=== PATIENT | female | born 1940 | race Caucasian/White ===

== ENCOUNTER 2017-02-28 17:20 | Inpatient (IN) | payer MEDICARE ==
[2017-02-28] MEDS ORDERED: CARDIZEM ONE (17:31)
[2017-02-28] MEDS ORDERED: CARDIZEM IV ONE (17:34)
[2017-02-28] MEDS ORDERED: CARDIZEM/D5W 100MG/100ML 100 MG/100 ML BAG IV ONE (17:34)
[2017-02-28] MEDS ORDERED: NACL 0.9% 1000 ML 1,000 ML ONE (17:34)
[2017-02-28] MEDS ORDERED: NACL 0.9% 500 ML 500 ML IV ONE (17:35)
[2017-02-28 17:57] LABS: Basophils % (Auto) 0.4 % (0.0-1.8); Hematocrit 42.2 % (30.3-42.9); Hemoglobin 14.4 gm/dl (10.1-14.3); Mean Corpuscular HGB Conc 34 % (30-34); Mean Corpuscular Hemoglobin 29 pg (28-32); Mean Corpuscular Volume 86 fl (79-97); Platelet Count 218 K/mm3 (140-440); Red Blood Count 4.88 M/mm3 (3.65-5.03); Red Cell Distribution Width 13.6 % (13.2-15.2)
[2017-02-28 18:08] LABS: INR 2.16 (0.87-1.13)
[2017-02-28 18:09] LABS: Partial Thromboplastin Time 39.7 Sec. (24.2-36.6)
[2017-02-28 18:16] LABS: Anion Gap 21 mmol/L; Blood Urea Nitrogen 18 mg/dL (7-17); Calcium 8.7 mg/dL (8.4-10.2); Carbon Dioxide 21 mmol/L (22-30); Creatine Kinase 99 units/L (30-135); Creatine Kinase MB 3.9 ng/mL (0.0-4.0); Glucose 147 mg/dL (65-100); Potassium 4.2 mmol/L (3.6-5.0); Sodium 139 mmol/L (137-145)
--- NOTE | 2017-02-28 18:43 | Emergency Department Report ---
ED Palpitations HPI - General Chief Complaint: Arrhythmia/Palpitations Stated Complaint: CHEST PAIN Time Seen by Provider: 02/28/17 17:34 Source: EMS, old records reviewed (2013 cardiac cath on record showed CAD, EF of 20%. Echocardiogram EF of 20-25% with dilated cardiomyopathy) Mode of arrival: Stretcher Limitations: No Limitations, Language Barrier - History of Present Illness Initial Comments: 76-year-old female with dilated cardiomopathy and atrial fibrillation history presents to the hospital with A. fib with RVR. Patient had chest pain at the scene as per EMS. Patient does not speak Arabic and medications at the scene were not brought to the ed. Son at the bedside after patient arrival states that he does complain of epigastric and chest discomfort 3 AM. Patient was found to be in A. fib with RVR upon EMS arrival. No meds provided in route. Patient is not any acute distress at this time. Patient has been evaluated by [facility] [employer] [facility] in the past - Related Data Previous Rx's Medication Instructions Recorded Last Taken Type Carvedilol [Coreg] 3.125 mg PO BID #60 tablet 09/01/13 Unknown Rx Diltiazem [Cardizem] 60 mg PO Q6HR #120 tablet 09/01/13 Unknown Rx Famotidine [Pepcid] 40 mg PO QHS #30 tablet 09/01/13 Unknown Rx Lisinopril [Zestril TAB] 2.5 mg PO QDAY #30 tablet 09/01/13 Unknown Rx Warfarin [Coumadin] 5 mg PO DAILY@1700 #30 tablet 09/01/13 Unknown Rx Allergies Allergy/AdvReac Type Severity Reaction Status Date / Time No Known Allergies Allergy Verified 08/25/13 02:11 ED Review of Systems ROS: Stated complaint: CHEST PAIN Other details as noted in HPI Comment: All other systems reviewed and negative (see hpi) ED Past Medical Hx - Past Medical History Previous Medical History?: Yes Hx Congestive Heart Failure: Yes Additional medical history: dilated cardiomyopathy. afib rvr - Surgical History Hx Appendectomy: Yes - Social History Smoking Status: Unknown if ever smoked - Medications Home Medications: Home Medications Medication Instructions Recorded Confirmed Last Taken Type Carvedilol [Coreg] 3.125 mg PO BID #60 tablet 09/01/13 Unknown Rx Diltiazem [Cardizem] 60 mg PO Q6HR #120 tablet 09/01/13 Unknown Rx Famotidine [Pepcid] 40 mg PO QHS #30 tablet 09/01/13 Unknown Rx Lisinopril [Zestril TAB] 2.5 mg PO QDAY #30 tablet 09/01/13 Unknown Rx Warfarin [Coumadin] 5 mg PO DAILY@1700 #30 tablet 09/01/13 Unknown Rx ED Physical Exam - General Limitations: No Limitations - Other Other exam information: General: No limitations, patient is alert in no acute distress Head exam: Atraumatic, normocephalic Eyes exam: Normal appearance ENT: Moist mucous membrane, normal oropharynx Neck exam: Normal inspection, full range of motion, no meningismus nontender Respiratory exam: Clear to auscultation bilateral, no wheezes, rales, crackles Cardiovascular: Tachycardic irregular rhythm sounds Abdomen: Soft, nondistended, and nontender, with normal bowel sounds, no rebound, or guarding Extremity: Full range of motion normal inspection no deformity Back: Normal Inspection, full range of motion, no tenderness Neurologic: Alert, oriented x3, cranial nerves intact, no motor or sensory deficit Psychiatric: normal affect, normal mood Skin: Warm, dry, intact ED Course Vital Signs 02/28/17 02/28/17 02/28/17 17:30 17:38 18:30 Temperature 98.1 F Pulse Rate 174 H 174 H 71 Respiratory 16 14 Rate Blood Pressure 113/65 113/65 Blood Pressure 91/63 [Left] O2 Sat by Pulse 100 100 Oximetry - Reevaluation(s) Reevaluation #1: 02/28/17 18:30 Patient received Cardizem 20 mg IV bolus with systolic pressure of 113. Systolic pressure did decrease to the 80s. Small IV fluid bolus initiated with improvement in systolic pressure. Heart rate remains in the 60s to 70s. Cardizem drip pending however, patient remains hypotensive. Appears to be asymptomatic at this time ED Medical Decision Making - Lab Data Result diagrams: 02/28/17 17:40 02/28/17 17:40 Lab Results 02/28/17 02/28/17 02/28/17 Range/Units 17:40 17:40 17:40 WBC 13.0 H (4.5-11.0) K/mm3 RBC 4.88 (3.65-5.03) M/mm3 Hgb 14.4 H (10.1-14.3) gm/dl Hct 42.2 (30.3-42.9) % MCV 86 (79-97) fl MCH 29 (28-32) pg MCHC 34 (30-34) % RDW 13.6 (13.2-15.2) % Plt Count 218 (140-440) K/mm3 Lymph % (Auto) 10.7 L (13.4-35.0) % Tompkins % (Auto) 2.2 (0.0-7.3) % Eos % (Auto) 0.0 (0.0-4.3) % Baso % (Auto) 0.4 (0.0-1.8) % Lymph # 1.4 (1.2-5.4) K/mm3 Tompkins # 0.3 (0.0-0.8) K/mm3 Eos # 0.0 (0.0-0.4) K/mm3 Baso # 0.1 (0.0-0.1) K/mm3 Seg Neutrophils % 86.7 H (40.0-70.0) % Seg Neutrophils # 11.2 H (1.8-7.7) K/mm3 PT (12.2-14.9) Sec. INR (0.87-1.13) APTT (24.2-36.6) Sec. Sodium 139 (137-145) mmol/L Potassium 4.2 (3.6-5.0) mmol/L Chloride 101.0 (98-107) mmol/L Carbon Dioxide 21 L (22-30) mmol/L Anion Gap 21 mmol/L BUN 18 H (7-17) mg/dL Creatinine 0.5 L (0.7-1.2) mg/dL Estimated GFR > 60 ml/min BUN/Creatinine Ratio 36.00 % Glucose 147 H (65-100) mg/dL Calcium 8.7 (8.4-10.2) mg/dL Magnesium 1.80 (1.7-2.3) mg/dL Total Creatine Kinase 99 (30-135) units/L CK-MB (CK-2) 3.9 (0.0-4.0) ng/mL CK-MB (CK-2) Rel Index 3.9 (0-4) Troponin T < 0.010 (0.00-0.029) ng/mL TSH 0.997 (0.270-4.200) mlU/mL Free T4 1.34 (0.76-1.46) ng/dL 02/28/17 Range/Units 17:40 WBC (4.5-11.0) K/mm3 RBC (3.65-5.03) M/mm3 Hgb (10.1-14.3) gm/dl Hct (30.3-42.9) % MCV (79-97) fl MCH (28-32) pg MCHC (30-34) % RDW (13.2-15.2) % Plt Count (140-440) K/mm3 Lymph % (Auto) (13.4-35.0) % Tompkins % (Auto) (0.0-7.3) % Eos % (Auto) (0.0-4.3) % Baso % (Auto) (0.0-1.8) % Lymph # (1.2-5.4) K/mm3 Tompkins # (0.0-0.8) K/mm3 Eos # (0.0-0.4) K/mm3 Baso # (0.0-0.1) K/mm3 Seg Neutrophils % (40.0-70.0) % Seg Neutrophils # (1.8-7.7) K/mm3 PT 25.1 H (12.2-14.9) Sec. INR 2.16 H (0.87-1.13) APTT 39.7 H (24.2-36.6) Sec. Sodium (137-145) mmol/L Potassium (3.6-5.0) mmol/L Chloride (98-107) mmol/L Carbon Dioxide (22-30) mmol/L Anion Gap mmol/L BUN (7-17) mg/dL Creatinine (0.7-1.2) mg/dL Estimated GFR ml/min BUN/Creatinine Ratio % Glucose (65-100) mg/dL Calcium (8.4-10.2) mg/dL Magnesium (1.7-2.3) mg/dL Total Creatine Kinase (30-135) units/L CK-MB (CK-2) (0.0-4.0) ng/mL CK-MB (CK-2) Rel Index (0-4) Troponin T (0.00-0.029) ng/mL TSH (0.270-4.200) mlU/mL Free T4 (0.76-1.46) ng/dL - EKG Data -: EKG Interpreted by Me (afib rate 162, no stemi, anteroseptal infarct) - EKG Data When compared to previous EKG there are: no significant change - Radiology Data Radiology results: image reviewed (chest x-ray: No acute findings) - Medical Decision Making At this time patient does not know her current medications are her diagnosis. Suspect the patient is on Coumadin given her elevated INR therapeutic range. As per medical record review A. fib appears to be chronic and was present during last ED visit in 2013. Patient has a nondilated cardiomyopathy with an EF of 20-25% therefore fluids administered cautiously. Cxr without edema currently Patient will be admitted to the hospital for further treatment of A. fib with RVR - Differential Diagnosis A. fib RVR, coagulopathy, PA, only slight adenopathy, thyroid disease Critical Care Time: No Critical care attestation.: If time is entered above; I have spent that time in minutes in the direct care of this critically ill patient, excluding procedure time. ED Disposition Clinical Impression: Atrial fibrillation with RVR, Dilated cardiomyopathy, CAD (coronary artery disease) Disposition: DC-09 OP ADMIT IP TO THIS HOSP Is pt being admited?: Yes Condition: Stable Time of Disposition: 18:53 (Dr gamez/hosp)
--- NOTE | 2017-02-28 18:46 | History and Physical Report ---
History of Present Illness Chief complaint: Mom has pain in her chest History of present illness: 76 YO Female with Atrial Fib/Flutter with RVR, CHF presents to ED for evaluation. Pt unable to provide history, but son at bedside during exam and interview and provides history. Pt son states that patient has experienced pain in her chest for the past 2 days with worsening symptoms since around 0300hrs. Pt son states that pain is 7/10, describes a substernal location, nonradiating, acknowledges palpitations, and shortness of breath. Pain is not worsened with exertion or relieved with rest. No roports of fever, chills, NVD, leg swelling, calf pain, prolonged travel/immobility, individual/family history of DVT/PE, productive cough, or recent ill contacts. Pt seen and evaluated in ED and found to have A Fib/Flutter with RVR. Past History Past Medical History: atrial fib, heart failure Past Surgical History: No surgical history (reviewed) Social history: single. denies: smoking, alcohol abuse, prescription drug abuse Family history: no significant family history (reviewed) Medications and Allergies Allergies Allergy/AdvReac Type Severity Reaction Status Date / Time No Known Allergies Allergy Verified 08/25/13 02:11 Home Medications Medication Instructions Recorded Confirmed Last Taken Type Carvedilol [Coreg] 3.125 mg PO BID #60 tablet 09/01/13 Unknown Rx Diltiazem [Cardizem] 60 mg PO Q6HR #120 tablet 09/01/13 Unknown Rx Famotidine [Pepcid] 40 mg PO QHS #30 tablet 09/01/13 Unknown Rx Lisinopril [Zestril TAB] 2.5 mg PO QDAY #30 tablet 09/01/13 Unknown Rx Warfarin [Coumadin] 5 mg PO DAILY@1700 #30 tablet 09/01/13 Unknown Rx Active Meds: Active Medications Diltiazem HCl (Cardizem/D5w 100mg/100ml) 100 mg in 100 mls @ 5 mls/hr IV TITR ONE; 5 MG/HR PRN Reason: Protocol Stop: 03/01/17 13:33 Review of Systems ROS unobtainable: due to mental status Exam - Constitutional Vitals: Temp Pulse Resp BP Pulse Ox 98.1 F 71 14 91/63 100 02/28/17 18:30 02/28/17 18:30 02/28/17 18:30 02/28/17 18:30 02/28/17 18:30 General appearance: Present: mild distress - EENT Eyes: Present: PERRL ENT: hearing intact, clear oral mucosa - Neck Neck: Present: supple, normal ROM - Respiratory Respiratory effort: labored Respiratory: bilateral: diminished - Cardiovascular Rhythm: irregularly irregular - Extremities Extremities: pulses symmetrical, No edema Extremity abnormal: edema Peripheral Pulses: abnormal (irregular, irregular) - Abdominal General gastrointestinal: Present: soft, non-tender, non-distended, normal bowel sounds Female genitourinary: Present: normal - Integumentary Integumentary: Present: clear, warm, dry - Musculoskeletal Musculoskeletal: gait normal, strength equal bilaterally - Psychiatric Psychiatric: no cooperative - Neurologic Neurologic: CNII-XII intact, moves all extremities Results - Labs CBC & Chem 7: 02/28/17 17:40 02/28/17 17:40 Labs: Abnormal lab results 02/28/17 02/28/17 02/28/17 Range/Units 17:40 17:40 17:40 WBC 13.0 H (4.5-11.0) K/mm3 Hgb 14.4 H (10.1-14.3) gm/dl Lymph % (Auto) 10.7 L (13.4-35.0) % Seg Neutrophils % 86.7 H (40.0-70.0) % Seg Neutrophils # 11.2 H (1.8-7.7) K/mm3 PT 25.1 H (12.2-14.9) Sec. INR 2.16 H (0.87-1.13) APTT 39.7 H (24.2-36.6) Sec. Carbon Dioxide 21 L (22-30) mmol/L BUN 18 H (7-17) mg/dL Creatinine 0.5 L (0.7-1.2) mg/dL Glucose 147 H (65-100) mg/dL Assessment and Plan - Patient Problems (1) Atrial fibrillation and flutter Current Visit: Yes Status: Acute Plan to address problem: Continue rate control. Resume anticoagulation, Patient IINR is therapeutic at admission (2) Pneumonia Current Visit: Yes Status: Acute Qualifiers: Pneumonia type: P Aspiration pneumonia type: A Laterality: bilateral Lung location: lower lobe of lung Plan to address problem: IV abx, supplemental oxygen, nebs, aspiration precautions,blood cultures, (3) Respiratory failure Current Visit: Yes Status: Acute Qualifiers: Chronicity: C Respiratory failure complication: R Plan to address problem: supplemental oxygen, nebs, aspiration precautions, NIPPV as clinically indicated (4) CHF (congestive heart failure) Current Visit: No Status: Acute Qualifiers: Congestive heart failure type: C Congestive heart failure chronicity: C Plan to address problem: serial cardiac enzymes, ekg, telemetry supportive care, echo, continue anticoagulation, fluid restriction, afterload reduction, cardiology consulted (5) DVT prophylaxis Current Visit: Yes Status: Acute
[2017-02-28] MEDS ORDERED: MILK OF MAGNESIA PO PRN (19:08)
[2017-02-28] MEDS ORDERED: PROVENTIL IH PRN (19:08)
[2017-02-28] MEDS ORDERED: DULCOLAX PR PRN (19:08)
--- NOTE | 2017-02-28 19:53 | XRay Report ---
FINAL REPORT EXAM: XR CHEST 1V AP HISTORY: sob TECHNIQUE: Single, portable chest x-ray. PRIORS: None. FINDINGS: Mild cardiomegaly. Lungs are normally expandedand show small and probably calcified granulomata bilaterally. No significant vascular congestion, focal consolidation or apparent pneumothorax. IMPRESSION: 1. Cardiomegaly. 2. No acute consolidation.
[2017-02-28] MEDS: ROCEPHIN/NS 1 GM/50 ML 1 GM/50 ML BAG IV SCH (20:08)
[2017-02-28] MEDS ORDERED: NON-FORMULARY (Famotidine [Pepcid] 40 MG) PO SCH (22:00)
[2017-02-28] MEDS: TYLENOL PO PRN (22:50)
[2017-02-28] MEDS: COUMADIN PO SCH (22:51)
[2017-02-28] MEDS: PEPCID PO SCH (22:51)
[2017-02-28] MEDS: COREG PO SCH (22:52)
[2017-02-28] MEDS: ZITHROMAX 500 MG in NACL 0.9% 250ML 250 ML IV SCH (23:28)
[2017-03-01 03:33] LABS: INR 2.4 (0.87-1.13)
[2017-03-01] MEDS: TYLENOL PO PRN (06:38)
[2017-03-01] MEDS: COREG PO SCH ×3 (06:39→23:09)
[2017-03-01] MEDS ORDERED: WATER FOR INJ (PF) 10 ML ONE (10:40)
[2017-03-01] MEDS: LANOXIN IV SCH ×3 (12:50→20:18)
[2017-03-01] MEDS: ZESTRIL PO SCH (12:50)
[2017-03-01] MEDS ORDERED: CARDIZEM PO SCH (13:00)
[2017-03-01] MEDS ORDERED: NACL 0.9% 500 ML 500 ML IV ONE (14:00)
[2017-03-01] MEDS ORDERED: LOPRESSOR IV PRN (14:00)
[2017-03-01] MEDS: LOPRESSOR IV PRN (14:19)
[2017-03-01] MEDS: COUMADIN PO SCH (18:11)
--- NOTE | 2017-03-01 19:35 | Progress Note ---
Assessment and Plan Assessment and plan: 76 yo [place] minutes female, who doesn't speak New Zealander, weight chronic afib and heart failure, brought to the hospital for chest pain 1. Chest pain Found to be in A. fib with RVR EKG with no ischemic changes Cardiac enzymes negative TSH and, FT4 within normal limits ECHO pending Started on beta sari, ACEI, aspirin Check lipids Cardiology consulted 2. CHF See above discussion 3. Afib RVR Received Digoxin and was started on BB; now rate controlled Anticoagulated with Coumadin, INR therapeutic 4. SIRS/pneumonia Mild leukocytosis Presumed to have pneumonia and started on Rocephin/azithromycin, but chest x- ray with no acute findings Obtain urine analysis, culture Monitor 5. DVT prophylaxis INR therapeutic on Coumadin History Interval history: no family available, pt speaks very limited djiboutian resting, in no distress Hospitalist Physical - Constitutional Vitals: Temp Pulse Resp BP Pulse Ox 97.5 F L 131 H 20 100/53 96 03/01/17 05:00 03/01/17 16:00 03/01/17 06:38 03/01/17 06:39 03/01/17 10:20 General appearance: Present: no acute distress - EENT Eyes: Present: PERRL, EOM intact. Absent: scleral icterus, conjunctival injection - Neck Neck: Present: supple, normal ROM. Absent: masses or JVD - Respiratory Respiratory effort: normal Respiratory: bilateral: CTA, negative: rhonchi, wheezing - Cardiovascular Rhythm: irregularly irregular Heart Sounds: Present: S1 & S2. Absent: systolic murmur - Extremities Extremities: no ischemia - Abdominal General gastrointestinal: soft, non-tender, non-distended, normal bowel sounds - Integumentary Integumentary: Present: warm, dry. Absent: jaundice, rash - Neurologic Neurologic: moves all extremities Results - Labs CBC & Chem 7: 03/02/17 05:09 03/02/17 05:09 Labs: Laboratory Last Values WBC 13.0 K/mm3 (4.5-11.0) H 02/28/17 17:40 RBC 4.88 M/mm3 (3.65-5.03) 02/28/17 17:40 Hgb 14.4 gm/dl (10.1-14.3) H 02/28/17 17:40 Hct 42.2 % (30.3-42.9) 02/28/17 17:40 MCV 86 fl (79-97) 02/28/17 17:40 MCH 29 pg (28-32) 02/28/17 17:40 MCHC 34 % (30-34) 02/28/17 17:40 RDW 13.6 % (13.2-15.2) 02/28/17 17:40 Plt Count 218 K/mm3 (140-440) 02/28/17 17:40 Lymph % (Auto) 10.7 % (13.4-35.0) L 02/28/17 17:40 Travis % (Auto) 2.2 % (0.0-7.3) 02/28/17 17:40 Eos % (Auto) 0.0 % (0.0-4.3) 02/28/17 17:40 Baso % (Auto) 0.4 % (0.0-1.8) 02/28/17 17:40 Lymph # 1.4 K/mm3 (1.2-5.4) 02/28/17 17:40 Travis # 0.3 K/mm3 (0.0-0.8) 02/28/17 17:40 Eos # 0.0 K/mm3 (0.0-0.4) 02/28/17 17:40 Baso # 0.1 K/mm3 (0.0-0.1) 02/28/17 17:40 Seg Neutrophils % 86.7 % (40.0-70.0) H 02/28/17 17:40 Seg Neutrophils # 11.2 K/mm3 (1.8-7.7) H 02/28/17 17:40 PT 27.3 Sec. (12.2-14.9) H 03/01/17 02:50 INR 2.40 (0.87-1.13) H 03/01/17 02:50 APTT 39.7 Sec. (24.2-36.6) H 02/28/17 17:40 Sodium 139 mmol/L (137-145) 02/28/17 17:40 Potassium 4.2 mmol/L (3.6-5.0) 02/28/17 17:40 Chloride 101.0 mmol/L (98-107) 02/28/17 17:40 Carbon Dioxide 21 mmol/L (22-30) L 02/28/17 17:40 Anion Gap 21 mmol/L 02/28/17 17:40 BUN 18 mg/dL (7-17) H 02/28/17 17:40 Creatinine 0.5 mg/dL (0.7-1.2) L 02/28/17 17:40 Estimated GFR > 60 ml/min 02/28/17 17:40 BUN/Creatinine Ratio 36.00 % 02/28/17 17:40 Glucose 147 mg/dL (65-100) H 02/28/17 17:40 Calcium 8.7 mg/dL (8.4-10.2) 02/28/17 17:40 Magnesium 1.80 mg/dL (1.7-2.3) 02/28/17 17:40 Total Creatine Kinase 99 units/L (30-135) 02/28/17 17:40 CK-MB (CK-2) 3.9 ng/mL (0.0-4.0) 02/28/17 17:40 CK-MB (CK-2) Rel Index 3.9 (0-4) 02/28/17 17:40 Troponin T < 0.010 ng/mL (0.00-0.029) 02/28/17 17:40 NT-Pro-B Natriuret Pep 1929 pg/mL (0-900) H 02/28/17 19:14 TSH 0.997 mlU/mL (0.270-4.200) 02/28/17 17:40 Free T4 1.34 ng/dL (0.76-1.46) 02/28/17 17:40
[2017-03-01] MEDS: ROCEPHIN/NS 1 GM/50 ML 1 GM/50 ML BAG IV SCH (20:28)
[2017-03-01] MEDS: PEPCID PO SCH (23:08)
[2017-03-01] MEDS: ZITHROMAX 500 MG in NACL 0.9% 250ML 250 ML IV SCH (23:12)
[2017-03-02] MEDS: LANOXIN IV SCH ×3 (02:58→12:12)
[2017-03-02 05:44] LABS: Basophils % (Auto) 0.3 % (0.0-1.8); Hematocrit 47.4 % (30.3-42.9); Hemoglobin 15.9 gm/dl (10.1-14.3); Mean Corpuscular HGB Conc 34 % (30-34); Mean Corpuscular Hemoglobin 29 pg (28-32); Mean Corpuscular Volume 87 fl (79-97); Platelet Count 227 K/mm3 (140-440); Red Blood Count 5.48 M/mm3 (3.65-5.03); Red Cell Distribution Width 13.3 % (13.2-15.2); White Blood Count 17.4 K/mm3 (4.5-11.0)
[2017-03-02 05:55] LABS: INR 4.39 (0.87-1.13)
[2017-03-02 06:02] LABS: Anion Gap 17 mmol/L; Blood Urea Nitrogen 15 mg/dL (7-17); Calcium 8.7 mg/dL (8.4-10.2); Carbon Dioxide 25 mmol/L (22-30); Chloride 97.7 mmol/L (98-107); Glucose 109 mg/dL (65-100); Potassium 4.1 mmol/L (3.6-5.0); Sodium 136 mmol/L (137-145)
[2017-03-02] MEDS: COREG PO SCH ×2 (09:56→21:14)
[2017-03-02] MEDS: ZOFRAN IV PRN ×2 (09:57→21:14)
[2017-03-02] MEDS: ZESTRIL PO SCH (09:57)
--- NOTE | 2017-03-02 11:34 | Consultation ---
History of Present Illness Consult date: 03/02/17 Consult reason: atrial fibrillation History of present illness: Patient is a 76yr old [place] woman with history of chronic atrial fibrillation and is on warfarin for anticoagulation. In addition, she has a dilated nonischemic cardiomyopathy documented by cardiac cath that reports no significant coronary disease but an ejection fraction of 20%. She was brought in with palpitations. Found to be in atrial fibrillation with rapid ventricular response and admitted for further management. Cardiac consultation requested. Past History Past Medical History: atrial fib, heart failure Social history: denies: smoking, alcohol abuse, prescription drug abuse Family history: no significant family history Medications and Allergies Allergies Allergy/AdvReac Type Severity Reaction Status Date / Time No Known Allergies Allergy Verified 08/25/13 02:11 Home Medications Medication Instructions Recorded Confirmed Last Taken Type Carvedilol [Coreg] 3.125 mg PO BID #60 tablet 09/01/13 03/02/17 1 Day Ago Rx Diltiazem [Cardizem] 60 mg PO Q6HR #120 tablet 09/01/13 03/02/17 1 Day Ago Rx Famotidine [Pepcid] 40 mg PO QHS #30 tablet 09/01/13 03/02/17 1 Day Ago Rx Lisinopril [Zestril TAB] 2.5 mg PO QDAY #30 tablet 09/01/13 03/02/17 1 Day Ago Rx Warfarin [Coumadin] 5 mg PO DAILY@1700 #30 tablet 09/01/13 03/02/17 1 Day Ago Rx Active Meds: Active Medications Acetaminophen (Tylenol) 650 mg PO Q4H PRN PRN Reason: Pain MILD(1-3)/Fever >100.5/AMATO Last Admin: 03/01/17 06:38 Dose: 650 mg Albuterol (Proventil) 2.5 mg IH Q4H PRN PRN Reason: Shortness Of Breath Bisacodyl (Dulcolax) 10 mg MS QDAY PRN PRN Reason: Constipation unrelieved by MOM Carvedilol (Coreg) 6.25 mg PO BID [facility] Last Admin: 03/02/17 09:56 Dose: 6.25 mg Digoxin (Lanoxin) 0.25 mg IV Q6HR [facility] Stop: 03/02/17 12:01 Last Admin: 03/02/17 06:46 Dose: 0.25 mg Famotidine (Pepcid) 40 mg PO QHS [facility] Last Admin: 03/01/17 23:08 Dose: 40 mg Azithromycin 500 mg/ Sodium (Chloride) 250 mls @ 250 mls/hr IV Q24H [place] PRN Reason: Protocol Last Admin: 03/01/17 23:12 Dose: 250 mls/hr Ceftriaxone Sodium (Rocephin/Ns 1 Gm/50 Ml) 1 gm in 50 mls @ 100 mls/hr IV Q24H [place] PRN Reason: Protocol Last Admin: 03/01/17 20:28 Dose: 100 mls/hr Lisinopril (Zestril) 2.5 mg PO QDAY [facility] Last Admin: 03/02/17 09:57 Dose: 2.5 mg Magnesium Hydroxide (Milk Of Magnesia) 30 ml PO Q4H PRN PRN Reason: Constipation Metoprolol Tartrate (Lopressor) 2.5 mg IV Q6HR PRN PRN Reason: Tachyarrhythmias Last Admin: 03/01/17 14:19 Dose: 2.5 mg Ondansetron HCl (Zofran) 4 mg IV Q8H PRN PRN Reason: N/V unrelieved by Horace Last Admin: 03/02/17 09:57 Dose: 4 mg Warfarin Sodium (Coumadin) 5 mg PO DAILY@1700 [facility] PRN Reason: Protocol Last Admin: 03/01/17 18:11 Dose: 5 mg Physical Examination Vital Signs Pulse Resp BP Pulse Ox 174 H 16 113/65 100 02/28/17 17:30 02/28/17 17:30 02/28/17 17:30 02/28/17 17:30 General appearance: no acute distress Cardiac: Positive: irregularly irregular Results 03/02/17 05:09 03/02/17 05:09 Coagulation 03/02/17 Range/Units 05:09 PT 43.9 H (12.2-14.9) Sec. INR 4.39 H (0.87-1.13) CBC 03/02/17 Range/Units 05:09 WBC 17.4 H (4.5-11.0) K/mm3 RBC 5.48 H (3.65-5.03) M/mm3 Hgb 15.9 H (10.1-14.3) gm/dl Hct 47.4 H (30.3-42.9) % Plt Count 227 (140-440) K/mm3 Lymph # 2.0 (1.2-5.4) K/mm3 Boyle # 0.7 (0.0-0.8) K/mm3 Eos # 0.0 (0.0-0.4) K/mm3 Baso # 0.0 (0.0-0.1) K/mm3 Comprehensive Metabolic Panel 03/02/17 Range/Units 05:09 Sodium 136 L (137-145) mmol/L Potassium 4.1 (3.6-5.0) mmol/L Chloride 97.7 L (98-107) mmol/L Carbon Dioxide 25 (22-30) mmol/L BUN 15 (7-17) mg/dL Creatinine 0.5 L (0.7-1.2) mg/dL Glucose 109 H (65-100) mg/dL Calcium 8.7 (8.4-10.2) mg/dL Assessment and Plan Chronic Afib rate control on warfarin for anticoagulation Leukocytosis Nonischemic CMP
[2017-03-02 14:03] LABS: INR 4.9 (0.87-1.13)
--- NOTE | 2017-03-02 18:07 | Progress Note ---
Assessment and Plan Assessment and plan: 76 yo [place] minutes female, who doesn't speak Cambodian, weight chronic afib and heart failure, brought to the hospital for chest pain 1. Chest pain Found to be in A. fib with RVR EKG with no ischemic changes Cardiac enzymes negative TSH and, FT4 within normal limits ECHO obtained, result pending Started on beta sari, ACEI, aspirin Check lipids Cardiology following 2. CHF Per cardiology, had cardiac cath that showed no significant coronary disease, but an ejection fraction of 20% Continue beta sari and MARIA DEL CARMEN inhibitor 3. Afib RVR Received Digoxin and was started on BB; now rate controlled Anticoagulated with Coumadin, INR supratherapeutic today 4. Coagulopathy INR went up to 4 today likely secondary to interaction with antibiotics Hold Coumadin and monitor INR closely 5. SIRS/Sepsis WBC trending up On admission presumed to have pneumonia and started on Rocephin/azithromycin, but chest x-ray with no acute findings Urine analysis, culture were ordered but not obtained yet Monitor 6. Constipation Abdominal pain associated with nausea and constipation Obtain KUB to rule out bowel obstruction If negative, start bowel regimen 7. DVT prophylaxis INR supratherapeutic on Coumadin History Interval history: Discussed with patient's son who stated that his mother has abdominal pain, nausea, decreased appetite and did not have a bowel movement in 3 days Hospitalist Physical - Constitutional Vitals: Temp Pulse Resp BP Pulse Ox 97.6 F 106 H 16 149/100 96 03/02/17 12:51 03/02/17 12:52 03/02/17 12:51 03/02/17 12:51 03/02/17 12:51 General appearance: Present: no acute distress - EENT Eyes: Present: PERRL, EOM intact - Neck Neck: Present: supple. Absent: enlarged thyroid, masses or JVD - Respiratory Respiratory effort: normal Respiratory: bilateral: CTA, negative: rhonchi, wheezing - Cardiovascular Rhythm: irregularly irregular Heart Sounds: Present: S1 & S2. Absent: systolic murmur - Extremities Extremities: no ischemia - Abdominal General gastrointestinal: soft, non-tender, non-distended, normal bowel sounds - Integumentary Integumentary: Present: warm, dry. Absent: jaundice, rash - Neurologic Neurologic: no focal deficits Results - Labs CBC & Chem 7: 03/02/17 05:09 03/02/17 05:09 Labs: Laboratory Last Values WBC 17.4 K/mm3 (4.5-11.0) H 03/02/17 05:09 RBC 5.48 M/mm3 (3.65-5.03) H 03/02/17 05:09 Hgb 15.9 gm/dl (10.1-14.3) H 03/02/17 05:09 Hct 47.4 % (30.3-42.9) H 03/02/17 05:09 MCV 87 fl (79-97) 03/02/17 05:09 MCH 29 pg (28-32) 03/02/17 05:09 MCHC 34 % (30-34) 03/02/17 05:09 RDW 13.3 % (13.2-15.2) 03/02/17 05:09 Plt Count 227 K/mm3 (140-440) 03/02/17 05:09 Lymph % (Auto) 11.3 % (13.4-35.0) L 03/02/17 05:09 [place] % (Auto) 4.2 % (0.0-7.3) 03/02/17 05:09 Eos % (Auto) 0.0 % (0.0-4.3) 03/02/17 05:09 Baso % (Auto) 0.3 % (0.0-1.8) 03/02/17 05:09 Lymph # 2.0 K/mm3 (1.2-5.4) 03/02/17 05:09 [place] # 0.7 K/mm3 (0.0-0.8) 03/02/17 05:09 Eos # 0.0 K/mm3 (0.0-0.4) 03/02/17 05:09 Baso # 0.0 K/mm3 (0.0-0.1) 03/02/17 05:09 Seg Neutrophils % 84.2 % (40.0-70.0) H 03/02/17 05:09 Seg Neutrophils # 14.6 K/mm3 (1.8-7.7) H 03/02/17 05:09 PT 47.9 Sec. (12.2-14.9) H 03/02/17 13:32 INR 4.90 (0.87-1.13) H 03/02/17 13:32 APTT 39.7 Sec. (24.2-36.6) H 02/28/17 17:40 Sodium 136 mmol/L (137-145) L 03/02/17 05:09 Potassium 4.1 mmol/L (3.6-5.0) 03/02/17 05:09 Chloride 97.7 mmol/L (98-107) L 03/02/17 05:09 Carbon Dioxide 25 mmol/L (22-30) 03/02/17 05:09 Anion Gap 17 mmol/L 03/02/17 05:09 BUN 15 mg/dL (7-17) 03/02/17 05:09 Creatinine 0.5 mg/dL (0.7-1.2) L 03/02/17 05:09 Estimated GFR > 60 ml/min 03/02/17 05:09 BUN/Creatinine Ratio 30.00 % 03/02/17 05:09 Glucose 109 mg/dL (65-100) H 03/02/17 05:09 Calcium 8.7 mg/dL (8.4-10.2) 03/02/17 05:09 Magnesium 2.00 mg/dL (1.7-2.3) 03/02/17 05:09 Total Creatine Kinase 99 units/L (30-135) 02/28/17 17:40 CK-MB (CK-2) 3.9 ng/mL (0.0-4.0) 02/28/17 17:40 CK-MB (CK-2) Rel Index 3.9 (0-4) 02/28/17 17:40 Troponin T < 0.010 ng/mL (0.00-0.029) 02/28/17 17:40 NT-Pro-B Natriuret Pep 1929 pg/mL (0-900) H 02/28/17 19:14 TSH 0.997 mlU/mL (0.270-4.200) 02/28/17 17:40 Free T4 1.34 ng/dL (0.76-1.46) 02/28/17 17:40
[2017-03-02] MEDS: MIRALAX 3350 PO SCH (18:27)
[2017-03-02] MEDS: ROCEPHIN/NS 1 GM/50 ML 1 GM/50 ML BAG IV SCH (20:25)
[2017-03-02] MEDS: ZITHROMAX 500 MG in NACL 0.9% 250ML 250 ML IV SCH (21:14)
[2017-03-02] MEDS: COLACE PO SCH (21:14)
[2017-03-02] MEDS: SENOKOT PO SCH (21:15)
[2017-03-02] MEDS: PEPCID PO SCH (21:15)
[2017-03-03 07:25] LABS: Basophils % (Auto) 0.6 % (0.0-1.8); Hematocrit 46.8 % (30.3-42.9); Mean Corpuscular HGB Conc 34 % (30-34); Mean Corpuscular Hemoglobin 29 pg (28-32); Mean Corpuscular Volume 86 fl (79-97); Platelet Count 239 K/mm3 (140-440); Red Blood Count 5.46 M/mm3 (3.65-5.03); Red Cell Distribution Width 13.1 % (13.2-15.2)
--- NOTE | 2017-03-03 07:26 | XRay Report ---
KUB: Abdominal pain; constipation. There is diffuse dilatation of small bowel loops occupying the mid abdomen. There is no colonic gas identified. No free air and no soft tissue mass noted. Impression: The findings are consistent with small bowel obstruction.
[2017-03-03 07:32] LABS: Alanine Aminotransferase 15 units/L (7-56); Albumin 3.4 g/dL (3.9-5); Albumin/Globulin Ratio 0.9 %; Alkaline Phosphatase 57 units/L (35-129); Anion Gap 16 mmol/L; BUN/Creatinine Ratio 40; Blood Urea Nitrogen 24 mg/dL (7-17); Calcium 8.7 mg/dL (8.4-10.2); Carbon Dioxide 25 mmol/L (22-30); Chloride 100.7 mmol/L (98-107); Cholesterol 162 mg/dL (50-199); Glucose 101 mg/dL (65-100); HDL Cholesterol 46 mg/dL (40-59); LDL Cholesterol,Direct 101 mg/dL (50-130); Sodium 138 mmol/L (137-145); Triglycerides 78 mg/dL (2-149)
[2017-03-03 07:38] LABS: Bilirubin,Direct < 0.2 mg/dL (0-0.2); INR 4.44 (0.87-1.13)
[2017-03-03] MEDS: COREG PO SCH ×2 (10:07→22:38)
[2017-03-03] MEDS: MIRALAX 3350 PO SCH (10:07)
[2017-03-03] MEDS: ZESTRIL PO SCH (10:08)
[2017-03-03] MEDS: COLACE PO SCH ×2 (10:08→22:39)
[2017-03-03] MEDS: ZOFRAN IV PRN (10:11)
--- NOTE | 2017-03-03 11:45 | Progress Note ---
Assessment and Plan Chronic Afib rate control on warfarin for anticoagulation. Pharmacy is following Leukocytosis Nonischemic CMP Continue medical management for chronic atrial fibrillation and nonischemic cardiomyopathy. Subjective Date of service: 03/03/17 Interval history: Patient is resting in bed comfortably. Afib with well controled ventricular rate on telemetry monitoring. Objective Vital Signs Temp Pulse Pulse Resp Resp BP BP 03/03/17 10:00 114 H 20 03/03/17 08:15 98.8 F 87 16 129/83 03/03/17 04:53 97.4 F L 95 H 18 141/86 03/02/17 23:52 98.3 F 100 H 20 116/77 03/02/17 22:00 69 20 03/02/17 20:37 98.0 F 87 1 L 124/89 03/02/17 18:30 97.8 F 101 H 18 115/77 03/02/17 13:06 84 03/02/17 12:52 80 03/02/17 12:51 97.6 F 91 H 16 149/100 Pulse Ox 03/03/17 10:00 98 03/03/17 08:15 97 03/03/17 04:53 94 03/02/17 23:52 95 03/02/17 22:00 03/02/17 20:37 93 03/02/17 18:30 93 03/02/17 13:06 100 03/02/17 12:52 95 03/02/17 12:51 96 - Physical Examination General: No Apparent Distress Cardiac: Positive: irregularly irregular - Labs and Meds Cardiac Enzymes 03/03/17 Range/Units 06:32 AST 25 (5-40) units/L Coagulation 03/02/17 03/03/17 Range/Units 13:32 06:32 PT 47.9 H 44.3 H (12.2-14.9) Sec. INR 4.90 H 4.44 H (0.87-1.13) Lipids 03/03/17 Range/Units 06:32 Triglycerides 78 (2-149) mg/dL Cholesterol 162 (50-199) mg/dL HDL Cholesterol 46 (40-59) mg/dL Cholesterol/HDL Ratio 3.52 % CBC 03/03/17 Range/Units 06:32 WBC 19.0 H (4.5-11.0) K/mm3 RBC 5.46 H (3.65-5.03) M/mm3 Hgb 16.0 H (10.1-14.3) gm/dl Hct 46.8 H (30.3-42.9) % Plt Count 239 (140-440) K/mm3 Lymph # 2.0 (1.2-5.4) K/mm3 [place] # 1.0 H (0.0-0.8) K/mm3 Eos # 0.0 (0.0-0.4) K/mm3 Baso # 0.1 (0.0-0.1) K/mm3 Comprehensive Metabolic Panel 03/03/17 Range/Units 06:32 Sodium 138 (137-145) mmol/L Potassium 4.0 (3.6-5.0) mmol/L Chloride 100.7 (98-107) mmol/L Carbon Dioxide 25 (22-30) mmol/L BUN 24 H (7-17) mg/dL Creatinine 0.6 L (0.7-1.2) mg/dL Glucose 101 H (65-100) mg/dL Calcium 8.7 (8.4-10.2) mg/dL Direct Bilirubin < 0.2 (0-0.2) mg/dL AST 25 (5-40) units/L ALT 15 (7-56) units/L Alkaline Phosphatase 57 (35-129) units/L Total Protein 7.0 (6.3-8.2) g/dL Albumin 3.4 L (3.9-5) g/dL
[2017-03-03] MEDS: D5W/NS W/KCL 20MEQ 20 MEQ/1,000 ML BAG IV SCH (15:29)
--- NOTE | 2017-03-03 16:05 | Progress Note ---
Assessment and Plan Full consult dictated 76 y/o female r/o sbo Abd 1+ distended but non tender. incisional hernia noted over old appendectomy scar. Abd series - r/o sbo rec NPO NG low continuos suction hold coumadin obsv f/u abd series in am will follow thanks. Selected Entries 03/03/17 03/03/17 13:22 14:00 Temperature 98.3 F Pulse Rate 99 H Respiratory 16 Rate Blood Pressure 119/84 [Left] Laboratory Tests 03/03/17 03/03/17 03/03/17 06:32 06:32 06:32 WBC 19.0 H Hgb 16.0 H Hct 46.8 H PT 44.3 H INR 4.44 H Sodium 138 Potassium 4.0 Chloride 100.7 Carbon Dioxide 25 Anion Gap 16 BUN 24 H Creatinine 0.6 L Objective Vital Signs - 12hr 03/03/17 03/03/17 03/03/17 04:53 08:15 10:00 Temperature 97.4 F L 98.8 F Pulse Rate 95 H 87 Pulse Rate [ 114 H Radial] Respiratory 18 16 20 Rate Blood Pressure 141/86 129/83 Blood Pressure [Left] O2 Sat by Pulse 94 97 98 Oximetry 03/03/17 03/03/17 03/03/17 12:56 12:57 13:22 Temperature 32.1 F L 98.3 F Pulse Rate 106 H 99 H 84 Pulse Rate [ Radial] Respiratory 16 16 Rate Blood Pressure 119/84 Blood Pressure 119/84 [Left] O2 Sat by Pulse 94 93 97 Oximetry 03/03/17 14:00 Temperature Pulse Rate 99 H Pulse Rate [ Radial] Respiratory Rate Blood Pressure Blood Pressure [Left] O2 Sat by Pulse Oximetry - Labs 03/03/17 06:32 03/03/17 06:32 Diabetes panel 03/03/17 Range/Units 06:32 Sodium 138 (137-145) mmol/L Potassium 4.0 (3.6-5.0) mmol/L Chloride 100.7 (98-107) mmol/L Carbon Dioxide 25 (22-30) mmol/L BUN 24 H (7-17) mg/dL Creatinine 0.6 L (0.7-1.2) mg/dL Glucose 101 H (65-100) mg/dL Calcium 8.7 (8.4-10.2) mg/dL AST 25 (5-40) units/L ALT 15 (7-56) units/L Alkaline Phosphatase 57 (35-129) units/L Total Protein 7.0 (6.3-8.2) g/dL Albumin 3.4 L (3.9-5) g/dL Triglycerides 78 (2-149) mg/dL HDL Cholesterol 46 (40-59) mg/dL Calcium panel 03/03/17 Range/Units 06:32 Calcium 8.7 (8.4-10.2) mg/dL Albumin 3.4 L (3.9-5) g/dL Pituitary panel 03/03/17 Range/Units 06:32 Sodium 138 (137-145) mmol/L Potassium 4.0 (3.6-5.0) mmol/L Chloride 100.7 (98-107) mmol/L Carbon Dioxide 25 (22-30) mmol/L BUN 24 H (7-17) mg/dL Creatinine 0.6 L (0.7-1.2) mg/dL Glucose 101 H (65-100) mg/dL Calcium 8.7 (8.4-10.2) mg/dL Adrenal panel 03/03/17 Range/Units 06:32 Sodium 138 (137-145) mmol/L Potassium 4.0 (3.6-5.0) mmol/L Chloride 100.7 (98-107) mmol/L Carbon Dioxide 25 (22-30) mmol/L BUN 24 H (7-17) mg/dL Creatinine 0.6 L (0.7-1.2) mg/dL Glucose 101 H (65-100) mg/dL Calcium 8.7 (8.4-10.2) mg/dL Total Bilirubin 0.60 (0.1-1.2) mg/dL AST 25 (5-40) units/L ALT 15 (7-56) units/L Alkaline Phosphatase 57 (35-129) units/L Total Protein 7.0 (6.3-8.2) g/dL Albumin 3.4 L (3.9-5) g/dL
[2017-03-03] MEDS ORDERED: NACL 0.9% 500 ML 500 ML IV ONE (16:11)
--- NOTE | 2017-03-03 16:28 | Progress Note ---
Assessment and Plan /Small bowel obstruction Will keep her nothing by mouth Place on intermittent NG suction Consult general surgery Place on D5 half normal saline /Chest pain Found to be in A. fib with RVR on admission EKG with no ischemic changes Cardiac enzymes negative TSH and, FT4 within normal limits ECHO obtained, EF 20-25% cont on beta sari, ACEI, aspirin, statin Cardiology following /CHF with systolic dysfunction Compensated now, echo showed EF of 20-25% Per cardiology, had cardiac cath that showed no significant coronary disease, but an ejection fraction of 20% Continue beta sari and MARIA DEL CARMEN inhibitor /Afib RVR Received Digoxin and was started on BB; now rate controlled Anticoagulated with Coumadin, INR supratherapeutic, now off Coumadin /Coagulopathy INR went up to 4. likely secondary to interaction with antibiotics Hold Coumadin and monitor INR closely lifelong he is he is on a the ER. Jeffrey a reverse with 1 unit of FFP par surgery recommendation, as she might need surgical intervention for small bowel obstruction /SIRS/Sepsis WBC trending up, likely from [place] On admission presumed to have pneumonia and started on Rocephin/azithromycin, but chest x-ray with no acute findings Negative blood culture, obtain UA Continue antibiotics for now /DVT prophylaxis INR supratherapeutic, off Coumadin Brief history: 76 yo [place] minutes female, who doesn't speak Lithuanian, weight chronic afib and heart failure, brought to the hospital for chest pain. All cardiac workup so for negative for ACS. HER-2 D echo showed EF of 20-25%. Abdominal x-ray obtained on 03/02/2017 for the complain of abdominal pain and constipation which showed small bowel obstruction. Radiological data: Chest x-ray on 02/28/2017 showed no acute infiltrates, no abnormalities. Abdomen x-ray on 03/02/2017 showed findings suggestive of small bowel obstruction 2-D echo obtained on 02/28/2017 showed EF of 20-25% Subjective Date of service: 03/03/17 Interval history: patient cont to have abdominal pain, nausea, decreased appetite and did not have a bowel movement in 4 days abdominal xry showed SBO Objective - Exam Narrative Exam: General appearance: Present: no acute distress - EENT Eyes: Present: PERRL, EOM intact - Neck Neck: Present: supple. Absent: enlarged thyroid, masses or JVD - Respiratory Respiratory effort: normal Respiratory: bilateral: CTA, negative: rhonchi, wheezing - Cardiovascular Rhythm: irregularly irregular Heart Sounds: Present: S1 & S2. Absent: systolic murmur - Extremities Extremities: no ischemia - Abdominal General gastrointestinal: soft, + tender, RLQ incisional hernea, hyperactive bowel sounds - Integumentary Integumentary: Present: warm, dry. Absent: jaundice, rash - Neurologic Neurologic: no focal deficits - Constitutional Vitals: Vital Signs - 12hr 03/03/17 03/03/17 03/03/17 04:53 08:15 10:00 Temperature 97.4 F L 98.8 F Pulse Rate 95 H 87 Pulse Rate [ 114 H Radial] Respiratory 18 16 20 Rate Blood Pressure 141/86 129/83 Blood Pressure [Left] O2 Sat by Pulse 94 97 98 Oximetry 03/03/17 03/03/17 03/03/17 12:56 12:57 13:22 Temperature 32.1 F L 98.3 F Pulse Rate 106 H 99 H 84 Pulse Rate [ Radial] Respiratory 16 16 Rate Blood Pressure 119/84 Blood Pressure 119/84 [Left] O2 Sat by Pulse 94 93 97 Oximetry 03/03/17 14:00 Temperature Pulse Rate 99 H Pulse Rate [ Radial] Respiratory Rate Blood Pressure Blood Pressure [Left] O2 Sat by Pulse Oximetry - Labs CBC & Chem 7: 03/04/17 05:27 03/04/17 05:27 Labs: Abnormal lab results 03/03/17 03/03/17 03/03/17 Range/Units 06:32 06:32 06:32 WBC 19.0 H (4.5-11.0) K/mm3 RBC 5.46 H (3.65-5.03) M/mm3 Hgb 16.0 H (10.1-14.3) gm/dl Hct 46.8 H (30.3-42.9) % RDW 13.1 L (13.2-15.2) % Lymph % (Auto) 10.7 L (13.4-35.0) % [place] # 1.0 H (0.0-0.8) K/mm3 Seg Neutrophils % 83.2 H (40.0-70.0) % Seg Neutrophils # 15.8 H (1.8-7.7) K/mm3 PT 44.3 H (12.2-14.9) Sec. INR 4.44 H (0.87-1.13) BUN 24 H (7-17) mg/dL Creatinine 0.6 L (0.7-1.2) mg/dL Glucose 101 H (65-100) mg/dL Albumin 3.4 L (3.9-5) g/dL
[2017-03-03] MEDS: ZITHROMAX 500 MG in NACL 0.9% 250ML 250 ML IV SCH (20:47)
[2017-03-03] MEDS: ROCEPHIN/NS 1 GM/50 ML 1 GM/50 ML BAG IV SCH (20:48)
[2017-03-03] MEDS ORDERED: PEPCID IV SCH (22:00)
[2017-03-03] MEDS: PEPCID PO SCH (22:06)
[2017-03-03] MEDS: SENOKOT PO SCH (22:40)
[2017-03-03] MEDS ORDERED: NACL 0.9% 250ML 250 ML ONE (23:42)
--- NOTE | 2017-03-03 23:55 | Consultation ---
REASON FOR CONSULTATION: Rule out small-bowel obstruction. HISTORY OF PRESENT ILLNESS: The patient is a 76-year-old Persian female who does not speak Italian. History is taken from family members who are in the room with her. The patient is a 76-year-old female who presented to the ER and was subsequently admitted secondary to nausea and vomiting. PAST MEDICAL HISTORY: Pertinent for arrhythmias. PAST SURGICAL HISTORY: Status post appendectomy many years ago. ALLERGIES: \\"No known allergies\\". MEDICATIONS: Include Coumadin and other meds include Coreg, Cardizem, Pepcid, Zestril, and the previously mentioned Coumadin among others. FAMILY HISTORY: Really not known at this time. SOCIAL HISTORY: Denies any smoking or drinking. REVIEW OF SYSTEMS: Noncontributory. However, it is noted here on the admitting H and P, the patient has history of atrial fib/flutter, and also CHF. PHYSICAL EXAMINATION: GENERAL: At this time reveals the patient to be awake, alert, cooperative, in no acute distress. VITAL SIGNS: Show her to be afebrile with a temperature of 98.3, blood pressure is 119/84, pulse of 84, respirations of 16. ABDOMEN: Examination of the abdomen reveals to be moderately obese. There is scar noted in the right lower quadrant compatible with previous appendectomy history. Incisional hernia is also noted at this site. However, the area is nontender. The abdomen itself is just 1+ distended and nontender throughout. Bowel sounds are present. LABORATORY DATA: Lab work at present includes a CBC which shows a white count of 19,000, H and H is 16 and 46.8. PT is extremely elevated at 44.3, and noted back on 03/01/2017 it was 27.3. INR was 2.4 on 03/01/2017 and today on 03/03/2017, it has gone up to 4.44. Electrolytes are essentially within normal limits including a sodium of 138, potassium of 4, chloride of 100, CO2 of 25, BUN is 24, creatinine is 0.6. X-ray has been done, which I have reviewed with Dr. Humphries, the radiologist. Unfortunately, the x-rays just a flat plate, there are some dilated loops of small bowel noted. However, we do need a complete abdominal series to better delineate this. IMPRESSION: 1. At this time is that of a 76-year-old female with a known cardiac arrhythmias and congestive heart failure and on anticoagulants. 2. Rule out partial small bowel obstruction. RECOMMENDATIONS: Keep the patient n.p.o., start NG suction, IV fluid hydration. Would recommend to hold off on Coumadin and also reverse her PT with possibly some fresh frozen plasma, and vitamin K in case we need to proceed with surgery in the near future. If Cardiology feels that they need to continue anticoagulation, we can always convert to heparin and stop the heparin a few hours prior to surgery if indeed surgery is needed. We will also repeat abdominal series in the morning after 24 hours of NG suction and assess if any improvement is seen. We will monitor closely with you. Thank you very much for consultation. JOB# [id number] GARY/MARILYN
[2017-03-04] MEDS: D5W/NS W/KCL 20MEQ 20 MEQ/1,000 ML BAG IV SCH (02:30)
[2017-03-04] MEDS: ZOFRAN IV PRN ×3 (02:39→19:32)
[2017-03-04 06:04] LABS: Basophils % (Auto) 0.2 % (0.0-1.8); Hematocrit 43.8 % (30.3-42.9); Hemoglobin 15.1 gm/dl (10.1-14.3); Mean Corpuscular HGB Conc 34 % (30-34); Mean Corpuscular Hemoglobin 29 pg (28-32); Mean Corpuscular Volume 85 fl (79-97); Platelet Count 210 K/mm3 (140-440); Red Blood Count 5.16 M/mm3 (3.65-5.03); Red Cell Distribution Width 13.2 % (13.2-15.2)
[2017-03-04 06:11] LABS: INR 2.34 (0.87-1.13)
[2017-03-04 06:35] LABS: Alanine Aminotransferase 15 units/L (7-56); Albumin 3.5 g/dL (3.9-5); Albumin/Globulin Ratio 1.1 %; Alkaline Phosphatase 56 units/L (35-129); Amylase 43 units/L (27-131); Anion Gap 18 mmol/L; BUN/Creatinine Ratio 40; Blood Urea Nitrogen 20 mg/dL (7-17); Carbon Dioxide 24 mmol/L (22-30); Glucose 162 mg/dL (65-100); Potassium 3.7 mmol/L (3.6-5.0); Sodium 138 mmol/L (137-145); Total Protein 6.8 g/dL (6.3-8.2)
--- NOTE | 2017-03-04 07:49 | Progress Note ---
Assessment and Plan Pt status quo. Abd non tender. blood noted in NG aspirate rec d/c anticoagulants monitor h/h ordered CT abd and pelvis for this am with po & IV contrast -- r/o incarcerated incisional hernia Selected Entries 03/04/17 05:03 Temperature 98.3 F Pulse Rate 90 Respiratory 18 Rate Blood Pressure 142/89 Laboratory Tests 03/03/17 03/04/17 03/04/17 06:32 05:27 05:27 WBC 19.0 H 16.0 H Hgb 16.0 H 15.1 H Hct 46.8 H 43.8 H Sodium 138 Potassium 3.7 Chloride 100.0 Carbon Dioxide 24 Anion Gap 18 BUN 20 H Creatinine 0.5 L Objective Vital Signs - 12hr 03/03/17 03/03/17 03/04/17 20:10 23:29 00:09 Temperature 97.8 F 97.8 F Pulse Rate 106 H 91 H 91 H Respiratory 18 18 Rate Respiratory 18 Rate [Bilateral Chest] Blood Pressure 150/98 150/98 O2 Sat by Pulse 94 94 Oximetry 03/04/17 03/04/17 03/04/17 00:24 00:31 00:38 Temperature 98.3 F 98.3 F Pulse Rate 100 H 100 H Respiratory 18 Rate Respiratory Rate [Bilateral Chest] Blood Pressure 148/87 148/87 O2 Sat by Pulse 94 94 Oximetry 03/04/17 05:03 Temperature 98.3 F Pulse Rate 90 Respiratory 18 Rate Respiratory Rate [Bilateral Chest] Blood Pressure 142/89 O2 Sat by Pulse 93 Oximetry - Labs 03/04/17 05:27 03/04/17 05:27 Diabetes panel 03/04/17 Range/Units 05:27 Sodium 138 (137-145) mmol/L Potassium 3.7 (3.6-5.0) mmol/L Chloride 100.0 (98-107) mmol/L Carbon Dioxide 24 (22-30) mmol/L BUN 20 H (7-17) mg/dL Creatinine 0.5 L (0.7-1.2) mg/dL Glucose 162 H (65-100) mg/dL Calcium 8.0 L (8.4-10.2) mg/dL AST 23 (5-40) units/L ALT 15 (7-56) units/L Alkaline Phosphatase 56 (35-129) units/L Total Protein 6.8 (6.3-8.2) g/dL Albumin 3.5 L (3.9-5) g/dL Calcium panel 03/04/17 Range/Units 05:27 Calcium 8.0 L (8.4-10.2) mg/dL Albumin 3.5 L (3.9-5) g/dL Pituitary panel 03/04/17 Range/Units 05:27 Sodium 138 (137-145) mmol/L Potassium 3.7 (3.6-5.0) mmol/L Chloride 100.0 (98-107) mmol/L Carbon Dioxide 24 (22-30) mmol/L BUN 20 H (7-17) mg/dL Creatinine 0.5 L (0.7-1.2) mg/dL Glucose 162 H (65-100) mg/dL Calcium 8.0 L (8.4-10.2) mg/dL Adrenal panel 03/04/17 Range/Units 05:27 Sodium 138 (137-145) mmol/L Potassium 3.7 (3.6-5.0) mmol/L Chloride 100.0 (98-107) mmol/L Carbon Dioxide 24 (22-30) mmol/L BUN 20 H (7-17) mg/dL Creatinine 0.5 L (0.7-1.2) mg/dL Glucose 162 H (65-100) mg/dL Calcium 8.0 L (8.4-10.2) mg/dL Total Bilirubin 0.60 (0.1-1.2) mg/dL AST 23 (5-40) units/L ALT 15 (7-56) units/L Alkaline Phosphatase 56 (35-129) units/L Total Protein 6.8 (6.3-8.2) g/dL Albumin 3.5 L (3.9-5) g/dL
[2017-03-04] MEDS: MORPHINE IV PRN ×2 (08:05→19:29)
--- NOTE | 2017-03-04 09:15 | Progress Note ---
Assessment and Plan Chronic Afib rate control warfarin therapy currently on hold due to hematemesis Small bowel obstruction Leukocytosis Nonischemic CMP Subjective Date of service: 03/04/17 Interval history: Reports of hematemesis overnight. NGT in place. Objective Vital Signs Temp Pulse Pulse Resp Resp BP BP 03/04/17 05:03 98.3 F 90 18 142/89 03/04/17 00:38 98.3 F 03/04/17 00:31 100 H 148/87 03/04/17 00:24 98.3 F 100 H 18 148/87 03/04/17 00:09 97.8 F 91 H 18 150/98 03/03/17 23:29 97.8 F 91 H 18 150/98 03/03/17 20:10 106 H 18 03/03/17 19:04 98.1 F 106 H 18 133/91 03/03/17 16:51 99 H 03/03/17 16:50 98.1 F 99 H 16 145/91 03/03/17 14:00 99 H 03/03/17 13:22 98.3 F 84 16 119/84 03/03/17 12:57 99 H 03/03/17 12:56 32.1 F L 106 H 16 119/84 03/03/17 10:00 114 H 20 Pulse Ox 03/04/17 05:03 93 03/04/17 00:38 03/04/17 00:31 94 03/04/17 00:24 94 03/04/17 00:09 94 03/03/17 23:29 94 03/03/17 20:10 03/03/17 19:04 94 03/03/17 16:51 94 03/03/17 16:50 94 03/03/17 14:00 03/03/17 13:22 97 03/03/17 12:57 93 03/03/17 12:56 94 03/03/17 10:00 98 - Physical Examination General: No Apparent Distress Cardiac: Positive: irregularly irregular - Labs and Meds Cardiac Enzymes 03/04/17 Range/Units 05:27 AST 23 (5-40) units/L Coagulation 03/04/17 Range/Units 05:27 PT 26.8 H (12.2-14.9) Sec. INR 2.34 H (0.87-1.13) CBC 03/04/17 Range/Units 05:27 WBC 16.0 H (4.5-11.0) K/mm3 RBC 5.16 H (3.65-5.03) M/mm3 Hgb 15.1 H (10.1-14.3) gm/dl Hct 43.8 H (30.3-42.9) % Plt Count 210 (140-440) K/mm3 Lymph # 1.3 (1.2-5.4) K/mm3 [place] # 0.8 (0.0-0.8) K/mm3 Eos # 0.0 (0.0-0.4) K/mm3 Baso # 0.0 (0.0-0.1) K/mm3 Comprehensive Metabolic Panel 03/04/17 Range/Units 05:27 Sodium 138 (137-145) mmol/L Potassium 3.7 (3.6-5.0) mmol/L Chloride 100.0 (98-107) mmol/L Carbon Dioxide 24 (22-30) mmol/L BUN 20 H (7-17) mg/dL Creatinine 0.5 L (0.7-1.2) mg/dL Glucose 162 H (65-100) mg/dL Calcium 8.0 L (8.4-10.2) mg/dL AST 23 (5-40) units/L ALT 15 (7-56) units/L Alkaline Phosphatase 56 (35-129) units/L Total Protein 6.8 (6.3-8.2) g/dL Albumin 3.5 L (3.9-5) g/dL
--- NOTE | 2017-03-04 09:25 | XRay Report ---
Abdominal series with one view chest. History: Small bowel obstruction. Findings: Since the previous study on March 02, there is increasing small bowel gas with slightly greater dilatation of the small bowel. No colonic gas is seen. Air-fluid levels are present on the upright view. There is no free air. Impression: Persistent small bowel obstruction.
[2017-03-04] MEDS ORDERED: PROTONIX IV SCH ×2 (10:00→22:00)
[2017-03-04] MEDS ORDERED: NACL 0.9% 500 ML 500 ML IV NR ×2 (11:00→18:33)
--- NOTE | 2017-03-04 11:15 | Gastroenterology Consultation ---
<COLE TREADWELL - Last Filed: 03/04/17 11:39> History of Present Illness - Reason for Consult Consult date: 03/04/17 UGIB Requesting physician: RITESH DE LA TORRE - History of Present Illness Patient is a 76 y/o female with a PMH of A-fib/flutter (on coumadin) and CHF who presented to the ER with c/o CP with associated N/V. She was found to have A -fib/flutter with RVR and a small bowel obstruction. Surgery is following. GI has been consulted for an upper GI bleed. This morning pt was sitting up in bed. Unable to speak Maltese, however her son was at bedside and assisted in translating. Pt reports N/V for the last 3-4 days with clear emesis until the NG tube was placed. NG currently to suction with noted dark maroon/bright red bloody emesis. Pt admits to multiple episodes of vomiting this am with scant amount of bloody emesis. HGB this am was 15 and INR had trended down to 2.34 from 4. Coumadin still on hold due to hematemesis. She admits to mild abd discomfort and distention but denies SOB, CP, dizziness, melena, or hematochezia. No BM since admission. No hx of liver disease or PUD. No NSAID use. Past History Past Medical History: atrial fib, heart failure Past Surgical History: No surgical history (reviewed) Social history: denies: smoking, alcohol abuse, prescription drug abuse Family history: no significant family history Medications and Allergies Allergies Allergy/AdvReac Type Severity Reaction Status Date / Time No Known Allergies Allergy Verified 08/25/13 02:11 Home Medications Medication Instructions Recorded Confirmed Last Taken Type Carvedilol [Coreg] 3.125 mg PO BID #60 tablet 09/01/13 03/02/17 1 Day Ago Rx Diltiazem [Cardizem] 60 mg PO Q6HR #120 tablet 09/01/13 03/02/17 1 Day Ago Rx Famotidine [Pepcid] 40 mg PO QHS #30 tablet 09/01/13 03/02/17 1 Day Ago Rx Lisinopril [Zestril TAB] 2.5 mg PO QDAY #30 tablet 09/01/13 03/02/17 1 Day Ago Rx Warfarin [Coumadin] 5 mg PO DAILY@1700 #30 tablet 09/01/13 03/02/17 1 Day Ago Rx Active Meds: Active Medications Acetaminophen (Tylenol) 650 mg PO Q4H PRN PRN Reason: Pain MILD(1-3)/Fever >100.5/AMATO Last Admin: 03/01/17 06:38 Dose: 650 mg Albuterol (Proventil) 2.5 mg IH Q4H PRN PRN Reason: Shortness Of Breath Atorvastatin Calcium (Lipitor) 10 mg PO QHS [facility] Last Admin: 03/03/17 22:39 Dose: 10 mg Bisacodyl (Dulcolax) 10 mg [place] QDAY PRN PRN Reason: Constipation unrelieved by MOM Carvedilol (Coreg) 6.25 mg PO BID [facility] Last Admin: 03/03/17 22:38 Dose: 6.25 mg Potassium Chloride/Dextrose/Sod Cl (D5w/Ns W/Kcl 20meq) 20 meq in 1,000 mls @ 100 mls/hr IV DIRECT [facility] Last Admin: 03/04/17 02:30 Dose: 100 mls/hr Sodium Chloride (Nacl 0.9% 500 Ml) 500 mls @ 0 mls/hr IV ONCE ONE PRN Reason: As Directed Stop: 03/04/17 10:18 Levofloxacin/Dextrose (Levaquin 750mg/150ml) 750 mg in 150 mls @ 100 mls/hr IV Q24HR [facility] PRN Reason: Protocol Metronidazole (Flagyl 500 Mg/100 Ml) 500 mg in 100 mls @ 100 mls/hr IV Q8HR [facility] Lisinopril (Zestril) 2.5 mg PO QDAY [facility] Last Admin: 03/03/17 10:08 Dose: 2.5 mg Magnesium Hydroxide (Milk Of Magnesia) 30 ml PO Q4H PRN PRN Reason: Constipation Metoprolol Tartrate (Lopressor) 2.5 mg IV Q6HR PRN PRN Reason: Tachyarrhythmias Last Admin: 03/01/17 14:19 Dose: 2.5 mg Morphine Sulfate (Morphine) 2 mg IV Q4H PRN PRN Reason: Pain, Moderate (4-6) Last Admin: 03/04/17 08:05 Dose: 2 mg Ondansetron HCl (Zofran) 4 mg IV Q8H PRN PRN Reason: N/V unrelieved by Reglan Last Admin: 03/04/17 10:46 Dose: 4 mg Pantoprazole Sodium (Protonix) 40 mg IV BID [facility] Polyethylene Glycol (Miralax 3350) 17 gm PO QDAY [facility] Last Admin: 03/03/17 10:07 Dose: 17 gm Senna (Senokot) 8.8 mg PO QHS [facility] Last Admin: 03/03/17 22:40 Dose: 8.8 mg Review of Systems - Review of Systems All systems: negative Gastrointestinal: abdominal pain, nausea, vomiting, hematemesis Exam - Constitutional Vital Signs: Temp Pulse Resp BP Pulse Ox 98.3 F 90 18 142/89 93 03/04/17 05:03 03/04/17 05:03 03/04/17 05:03 03/04/17 05:03 03/04/17 05:03 General appearance: mild distress - EENT Eyes: PERRL, EOM intact ENT: hearing intact, other (NG tube to LIS with bloody emesis) - Neck Neck: supple, normal ROM - Respiratory Respiratory: bilateral: CTA - Cardiovascular Rhythm: other (irregular) Heart Sounds: Present: S1 & S2 Extremities: No edema - Gastrointestinal General gastrointestinal: Present: soft, tender (mildly), distended (slightly), hypoactive bowel sounds, other (incisional hernia) - Integumentary Integumentary: Present: warm, dry - Neurologic Neurological: alert and oriented x3 - Labs CBC & Chem 7: 03/04/17 05:27 03/04/17 05:27 Lab Results: Laboratory Results - last 24 hr 03/03/17 03/03/17 03/04/17 12:35 18:00 05:27 WBC RBC Hgb Hct MCV MCH MCHC RDW Plt Count Lymph % (Auto) King % (Auto) Eos % (Auto) Baso % (Auto) Lymph # King # Eos # Baso # Seg Neutrophils % Seg Neutrophils # PT 26.8 H INR 2.34 H Sodium Potassium Chloride Carbon Dioxide Anion Gap BUN Creatinine Estimated GFR BUN/Creatinine Ratio Glucose Lactic Acid 1.60 Calcium Total Bilirubin AST ALT Alkaline Phosphatase Total Protein Albumin Albumin/Globulin Ratio Amylase Blood Type B POSITIVE Antibody Screen TNR KYLEIGH Antibody Screen Negative 03/04/17 03/04/17 05:27 05:27 WBC 16.0 H RBC 5.16 H Hgb 15.1 H Hct 43.8 H MCV 85 MCH 29 MCHC 34 RDW 13.2 Plt Count 210 Lymph % (Auto) 8.3 L King % (Auto) 5.0 Eos % (Auto) 0.0 Baso % (Auto) 0.2 Lymph # 1.3 King # 0.8 Eos # 0.0 Baso # 0.0 Seg Neutrophils % 86.5 H Seg Neutrophils # 13.8 H PT INR Sodium 138 Potassium 3.7 Chloride 100.0 Carbon Dioxide 24 Anion Gap 18 BUN 20 H Creatinine 0.5 L Estimated GFR > 60 BUN/Creatinine Ratio 40 Glucose 162 H Lactic Acid Calcium 8.0 L Total Bilirubin 0.60 AST 23 ALT 15 Alkaline Phosphatase 56 Total Protein 6.8 Albumin 3.5 L Albumin/Globulin Ratio 1.1 Amylase 43 Blood Type Antibody Screen KYLEIGH Antibody Screen Assessment and Plan 1.hematemesis 2.A-fib 3.small bowel obstruction -HGB 15.1 -INR 2.34 -NG tube with mixed dark maroon/bright red emesis -etiology most likely due to M-W tear -continue to monitor H/H and transfuse as needed -continue to hold coumadin -continue PPI -pt currently hemodynamically stable -no recommendations for an EGD at this time due to SBO -spoke with Dr. De La Torre regarding possibly holding PO contrast for CT today incase of need for emergent EGD with active hematemesis- he request oral contrast be given to r/o possible incarcerated incisional hernia -continue supportive care -will follow <CHRISTIE MICHAEL - Last Filed: 03/04/17 13:46> Medications and Allergies Active Meds: Active Medications Acetaminophen (Tylenol) 650 mg PO Q4H PRN PRN Reason: Pain MILD(1-3)/Fever >100.5/AMATO Last Admin: 03/01/17 06:38 Dose: 650 mg Albuterol (Proventil) 2.5 mg IH Q4H PRN PRN Reason: Shortness Of Breath Atorvastatin Calcium (Lipitor) 10 mg PO QHS [facility] Last Admin: 03/03/17 22:39 Dose: 10 mg Bisacodyl (Dulcolax) 10 mg [place] QDAY PRN PRN Reason: Constipation unrelieved by MOM Carvedilol (Coreg) 6.25 mg PO BID [facility] Last Admin: 03/03/17 22:38 Dose: 6.25 mg Potassium Chloride/Dextrose/Sod Cl (D5w/Ns W/Kcl 20meq) 20 meq in 1,000 mls @ 100 mls/hr IV DIRECT [facility] Last Admin: 03/04/17 02:30 Dose: 100 mls/hr Sodium Chloride (Nacl 0.9% 500 Ml) 500 mls @ 0 mls/hr IV ONCE NR PRN Reason: As Directed Stop: 03/04/17 14:00 Levofloxacin/Dextrose (Levaquin 750mg/150ml) 750 mg in 150 mls @ 100 mls/hr IV Q24HR [place] PRN Reason: Protocol Metronidazole (Flagyl 500 Mg/100 Ml) 500 mg in 100 mls @ 100 mls/hr IV Q8HR [facility] Lisinopril (Zestril) 2.5 mg PO QDAY [facility] Last Admin: 03/03/17 10:08 Dose: 2.5 mg Magnesium Hydroxide (Milk Of Magnesia) 30 ml PO Q4H PRN PRN Reason: Constipation Metoprolol Tartrate (Lopressor) 2.5 mg IV Q6HR PRN PRN Reason: Tachyarrhythmias Last Admin: 03/01/17 14:19 Dose: 2.5 mg Morphine Sulfate (Morphine) 2 mg IV Q4H PRN PRN Reason: Pain, Moderate (4-6) Last Admin: 03/04/17 08:05 Dose: 2 mg Ondansetron HCl (Zofran) 4 mg IV Q8H PRN PRN Reason: N/V unrelieved by Regsharan Last Admin: 03/04/17 10:46 Dose: 4 mg Pantoprazole Sodium (Protonix) 40 mg IV BID [facility] Polyethylene Glycol (Miralax 3350) 17 gm PO QDAY [facility] Last Admin: 03/03/17 10:07 Dose: 17 gm Senna (Senokot) 8.8 mg PO QHS [facility] Last Admin: 03/03/17 22:40 Dose: 8.8 mg Exam - Constitutional Vital Signs: Temp Pulse Resp BP Pulse Ox 98.3 F 90 18 142/89 93 03/04/17 05:03 03/04/17 05:03 03/04/17 05:03 03/04/17 05:03 03/04/17 05:03 - Labs CBC & Chem 7: 03/04/17 05:27 03/04/17 05:27 Lab Results: Laboratory Results - last 24 hr 03/03/17 03/04/17 03/04/17 18:00 05:27 05:27 WBC 16.0 H RBC 5.16 H Hgb 15.1 H Hct 43.8 H MCV 85 MCH 29 MCHC 34 RDW 13.2 Plt Count 210 Lymph % (Auto) 8.3 L King % (Auto) 5.0 Eos % (Auto) 0.0 Baso % (Auto) 0.2 Lymph # 1.3 King # 0.8 Eos # 0.0 Baso # 0.0 Seg Neutrophils % 86.5 H Seg Neutrophils # 13.8 H PT 26.8 H INR 2.34 H Sodium Potassium Chloride Carbon Dioxide Anion Gap BUN Creatinine Estimated GFR BUN/Creatinine Ratio Glucose Calcium Total Bilirubin AST ALT Alkaline Phosphatase Total Protein Albumin Albumin/Globulin Ratio Amylase Blood Type B POSITIVE Antibody Screen TNR KYLEIGH Antibody Screen Negative 03/04/17 05:27 WBC RBC Hgb Hct MCV MCH MCHC RDW Plt Count Lymph % (Auto) King % (Auto) Eos % (Auto) Baso % (Auto) Lymph # King # Eos # Baso # Seg Neutrophils % Seg Neutrophils # PT INR Sodium 138 Potassium 3.7 Chloride 100.0 Carbon Dioxide 24 Anion Gap 18 BUN 20 H Creatinine 0.5 L Estimated GFR > 60 BUN/Creatinine Ratio 40 Glucose 162 H Calcium 8.0 L Total Bilirubin 0.60 AST 23 ALT 15 Alkaline Phosphatase 56 Total Protein 6.8 Albumin 3.5 L Albumin/Globulin Ratio 1.1 Amylase 43 Blood Type Antibody Screen KYLEIGH Antibody Screen Assessment and Plan - Patient Problems (1) SBO (small bowel obstruction) Current Visit: Yes Status: Acute Plan to address problem: The patient was seen and examined. She has a high grade small bowel obstruction , probably worsening since at least yesterday. There was no baseline X ray on admission, however pts family states she has had abdominal pain for about 4 days altogether. Minor UGI bleeding so far. H&H is normal. She is anticoagulated still and has a SBO which makes endoscopy for bleeding assessment contraindicated presently. She will probably need surgery and CT is being done today per Dr. De La Torre to help make this decision. Thank you for asking us to see her in consultation.
[2017-03-04 13:56] LABS: Hematocrit 40.7 % (30.3-42.9); Hemoglobin 13.4 gm/dl (10.1-14.3); Mean Corpuscular HGB Conc 33 % (30-34); Mean Corpuscular Hemoglobin 28 pg (28-32); Mean Corpuscular Volume 86 fl (79-97); Platelet Count 222 K/mm3 (140-440); Red Blood Count 4.71 M/mm3 (3.65-5.03); Red Cell Distribution Width 13.3 % (13.2-15.2); White Blood Count 17.2 K/mm3 (4.5-11.0)
[2017-03-04] MEDS ORDERED: NACL ONE (14:48)
[2017-03-04] MEDS: FLAGYL 500 MG/100 ML 500 MG/100 ML BAG IV SCH ×2 (15:00→21:53)
[2017-03-04 15:30] LABS: Blastocytes % (Manual) 0 %
[2017-03-04 15:31] LABS: Anisocytosis Few; Diff Status Complete
--- NOTE | 2017-03-04 16:05 | Cat Scan Report ---
CT of the abdomen and pelvis with IV and oral contrast. History: Small bowel obstruction. Findings: There is an incisional hernia in the right lower quadrant containing multiple loops of small bowel. There is diffuse small bowel dilatation with numerous air-fluid levels. The maximum diameter of the small bowel measures 4.2 cm. The colon is collapsed. No free air is identified. The liver, spleen, and pancreas appear normal. The kidneys are unremarkable except for small renal cysts. Minimal free fluid is seen in the paracolic gutters bilaterally. Impression: Incarcerated incisional hernia in the right lower quadrant with resultant small bowel obstruction.
[2017-03-04] MEDS: LEVAQUIN 750MG/150ML 750 MG/150 ML BAG IV SCH (16:34)
--- NOTE | 2017-03-04 16:53 | Progress Note ---
Assessment and Plan /Small bowel obstruction CT abdomen today showed incarcerated hernia Will cont to keep her nothing by mouth on intermittent NG suction Consulted general surgery, plan for surgery tomorrow cont on D5 half normal saline /Acute GI bleed had couple episode of bloody vomiting likely due to coagulopathy vs gastric ulcer place on protonix iv q12h, transfuse FFP, vit K discussed with GI for possible EGD tomorrow /Chest pain Found to be in A. fib with RVR on admission EKG with no ischemic changes Cardiac enzymes negative TSH and, FT4 within normal limits ECHO obtained, EF 20-25% on hold beta sari, ACEI, aspirin, statin as pt now NPO Cardiology following /CHF with systolic dysfunction Compensated now, echo showed EF of 20-25% Per cardiology, had cardiac cath that showed no significant coronary disease, but an ejection fraction of 20% /Afib RVR Received Digoxin and was started on BB; now rate controlled Anticoagulated with Coumadin, INR supratherapeutic, now off Coumadin /Coagulopathy INR went up to 4. likely secondary to interaction with antibiotics Hold Coumadin and monitor INR closely reverse with FFP and vit K /SIRS/Sepsis WBC trending up, likely reactive from incarcerated hernia On admission presumed to have pneumonia and started on Rocephin/azithromycin, but chest x-ray with no acute findings Negative blood culture, obtain UA change antibiotics to levaquin and flagyl /DVT prophylaxis INR supratherapeutic, off Coumadin Brief history: 76 yo [place] female, who doesn't speak Iraqi, weight chronic afib and heart failure, brought to the hospital for chest pain. All cardiac workup so for negative for ACS. HER-2 D echo showed EF of 20-25%. Abdominal x-ray obtained on 03/02/2017 for the complain of abdominal pain and constipation which showed small bowel obstruction. Radiological data: Chest x-ray on 02/28/2017 showed no acute infiltrates, no abnormalities. Abdomen x-ray on 03/02/2017 showed findings suggestive of small bowel obstruction 2-D echo obtained on 02/28/2017 showed EF of 20-25% Subjective Date of service: 03/04/17 Interval history: patient had hematamesis this morning Discussed with patient's family at bedside CT abdomen/pelvis showed incarcinated incisional hernia plan for surgery tomorrow Objective - Exam Narrative Exam: General appearance: Present: no acute distress - EENT Eyes: Present: PERRL, EOM intact,NG tube on place - Neck Neck: Present: supple. Absent: enlarged thyroid, masses or JVD - Respiratory Respiratory effort: normal Respiratory: bilateral: CTA, negative: rhonchi, wheezing - Cardiovascular Rhythm: irregularly irregular Heart Sounds: Present: S1 & S2. Absent: systolic murmur - Extremities Extremities: no ischemia - Abdominal General gastrointestinal: soft, non tender, RLQ incisional hernea, hyperactive bowel sounds - Integumentary Integumentary: Present: warm, dry. Absent: jaundice, rash - Neurologic Neurologic: no focal deficits - Constitutional Vitals: Vital Signs - 12hr 03/04/17 05:03 Temperature 98.3 F Pulse Rate 90 Respiratory 18 Rate Blood Pressure 142/89 O2 Sat by Pulse 93 Oximetry - Labs CBC & Chem 7: 03/04/17 13:31 03/04/17 05:27 Labs: Abnormal lab results 03/04/17 03/04/17 03/04/17 Range/Units 05:27 05:27 05:27 WBC 16.0 H (4.5-11.0) K/mm3 RBC 5.16 H (3.65-5.03) M/mm3 Hgb 15.1 H (10.1-14.3) gm/dl Hct 43.8 H (30.3-42.9) % Lymph % (Auto) 8.3 L (13.4-35.0) % Wharton # (0.0-0.8) K/mm3 Seg Neutrophils % 86.5 H (40.0-70.0) % Seg Neuts % (Manual) (40.0-70.0) % Lymphocytes % (Manual) (13.4-35.0) % Seg Neutrophils # 13.8 H (1.8-7.7) K/mm3 Seg Neutrophils # Man (1.8-7.7) K/mm3 PT 26.8 H (12.2-14.9) Sec. INR 2.34 H (0.87-1.13) BUN 20 H (7-17) mg/dL Creatinine 0.5 L (0.7-1.2) mg/dL Glucose 162 H (65-100) mg/dL Calcium 8.0 L (8.4-10.2) mg/dL Albumin 3.5 L (3.9-5) g/dL 03/04/17 Range/Units 13:31 WBC 17.2 H (4.5-11.0) K/mm3 RBC (3.65-5.03) M/mm3 Hgb (10.1-14.3) gm/dl Hct (30.3-42.9) % Lymph % (Auto) 11.6 L (13.4-35.0) % Wharton # 1.2 H (0.0-0.8) K/mm3 Seg Neutrophils % 81.2 H (40.0-70.0) % Seg Neuts % (Manual) 85.0 H (40.0-70.0) % Lymphocytes % (Manual) 8.0 L (13.4-35.0) % Seg Neutrophils # 13.7 H (1.8-7.7) K/mm3 Seg Neutrophils # Man 14.6 H (1.8-7.7) K/mm3 PT (12.2-14.9) Sec. INR (0.87-1.13) BUN (7-17) mg/dL Creatinine (0.7-1.2) mg/dL Glucose (65-100) mg/dL Calcium (8.4-10.2) mg/dL Albumin (3.9-5) g/dL
[2017-03-04] MEDS ORDERED: NACL 0.9% 500 ML 500 ML IV ONE (17:00)
--- NOTE | 2017-03-04 17:47 | Anesthesia Consultation ---
Anesthesia Consult and Med Hx Date of service: 03/04/17 - Airway Anesthetic Teeth Evaluation: Dentures ROM Head & Neck: Adequate Mental/Hyoid Distance: Adequate Mallampati Class: Class II Intubation Access Assessment: Probably Good - Pulmonary Exam CTA: Yes - Cardiac Exam Cardiac Exam: RRR (HR currrently in low 100's; admitted with paroxsysmal afib and non ischemic cardiomyopathy) - Pre-Operative Health Status ASA Pre-Surgery Classification: ASA3 Proposed Anesthetic Plan: General (Has had GA in past with no problems) - Pulmonary Hx Smoking: No (not currently - possibly 50 yrs ago) COPD: Yes Hx Pneumonia: No - Cardiovascular System Hx Hypertension: Yes Hx Coronary Artery Disease: No (non-ischemic cardiomyopath;y with EF of 20-25%) Hx Heart Attack/AMI: No (Chronic systolic heart failure) Hx Cardia Arrhythmia: Yes (admitted with afib/aflutter with RVR CHF with systolic dysfunction) - Gastrointestinal Hx Ulcer: No (possible small bowel obstruction) Hx Gastroesophageal Reflux Disease: Yes (NG tube in place - due to hematoemesis)
[2017-03-04] MEDS ORDERED: VITAMIN K (ADULT ONLY) 10 MG in NACL 0.9% 50 ML IV ONE (18:15)
--- NOTE | 2017-03-04 18:16 | Progress Note ---
Assessment and Plan Discussed in great detail with son. CT abd consistent with incarcerated incisional hernia. Pt extremely high surgical risk. Need to proceed with expl lap possible bowel resection. Unfortunately PT & INR still elevated. Will need to improve coagulation prior to surg. Discussed with PCP. FFP currently being infused. Post infusion clotting studies ordered. Also recommended that GI proceed with EGD prior to surg in case bleeding source cannot be controlled endoscopically we would then need to address during expl lap for incarcerated hernia. will need to monitor Vital Signs & h/h closely. PRBC ordered in case blood transfusion required. Recommend transfer to ICU if BP or h/h begins dropping. Pt scheduled for urgent surgery in early am once PT & INR corrected. condition - guarded Laboratory Tests 03/04/17 03/04/17 05:27 13:31 WBC 17.2 H Hgb 13.4 Hct 40.7 PT 26.8 H INR 2.34 H Objective Vital Signs - 12hr 03/04/17 03/04/17 03/04/17 12:19 16:50 17:20 Temperature 97.9 F 97.4 F L Pulse Rate 106 H 103 H 117 H Respiratory 20 20 Rate Blood Pressure 116/87 129/90 O2 Sat by Pulse 97 95 94 Oximetry - Labs 03/04/17 13:31 03/04/17 05:27 Diabetes panel 03/04/17 Range/Units 05:27 Sodium 138 (137-145) mmol/L Potassium 3.7 (3.6-5.0) mmol/L Chloride 100.0 (98-107) mmol/L Carbon Dioxide 24 (22-30) mmol/L BUN 20 H (7-17) mg/dL Creatinine 0.5 L (0.7-1.2) mg/dL Glucose 162 H (65-100) mg/dL Calcium 8.0 L (8.4-10.2) mg/dL AST 23 (5-40) units/L ALT 15 (7-56) units/L Alkaline Phosphatase 56 (35-129) units/L Total Protein 6.8 (6.3-8.2) g/dL Albumin 3.5 L (3.9-5) g/dL Calcium panel 03/04/17 Range/Units 05:27 Calcium 8.0 L (8.4-10.2) mg/dL Albumin 3.5 L (3.9-5) g/dL Pituitary panel 03/04/17 Range/Units 05:27 Sodium 138 (137-145) mmol/L Potassium 3.7 (3.6-5.0) mmol/L Chloride 100.0 (98-107) mmol/L Carbon Dioxide 24 (22-30) mmol/L BUN 20 H (7-17) mg/dL Creatinine 0.5 L (0.7-1.2) mg/dL Glucose 162 H (65-100) mg/dL Calcium 8.0 L (8.4-10.2) mg/dL Adrenal panel 03/04/17 Range/Units 05:27 Sodium 138 (137-145) mmol/L Potassium 3.7 (3.6-5.0) mmol/L Chloride 100.0 (98-107) mmol/L Carbon Dioxide 24 (22-30) mmol/L BUN 20 H (7-17) mg/dL Creatinine 0.5 L (0.7-1.2) mg/dL Glucose 162 H (65-100) mg/dL Calcium 8.0 L (8.4-10.2) mg/dL Total Bilirubin 0.60 (0.1-1.2) mg/dL AST 23 (5-40) units/L ALT 15 (7-56) units/L Alkaline Phosphatase 56 (35-129) units/L Total Protein 6.8 (6.3-8.2) g/dL Albumin 3.5 L (3.9-5) g/dL
[2017-03-04] MEDS ORDERED: PROTONIX 80 MG in NACL 0.9% 100 ML IV SCH (19:00)
[2017-03-04] MEDS: COREG PO SCH (21:51)
[2017-03-04] MEDS: SENOKOT PO SCH (21:52)
[2017-03-04 23:31] LABS: Hemoglobin 11.5 gm/dl (10.1-14.3)
[2017-03-04 23:47] LABS: INR 1.55 (0.87-1.13)
[2017-03-04 23:51] LABS: Hematocrit 34.9 % (30.3-42.9)
[2017-03-05] MEDS: ZOFRAN IV PRN ×2 (02:08→05:40)
[2017-03-05] MEDS: FLAGYL 500 MG/100 ML 500 MG/100 ML BAG IV SCH ×3 (05:39→21:18)
[2017-03-05] MEDS: MORPHINE IV PRN ×4 (05:39→19:38)
[2017-03-05 05:41] LABS: Basophils % (Auto) 0.1 % (0.0-1.8); Hemoglobin 10.4 gm/dl (10.1-14.3); Mean Corpuscular HGB Conc 35 % (30-34); Mean Corpuscular Hemoglobin 30 pg (28-32); Mean Corpuscular Volume 85 fl (79-97); Platelet Count 186 K/mm3 (140-440); Red Blood Count 3.52 M/mm3 (3.65-5.03); Red Cell Distribution Width 13.1 % (13.2-15.2)
[2017-03-05 05:45] LABS: INR 1.27 (0.87-1.13)
[2017-03-05 05:54] LABS: Anion Gap 17 mmol/L; BUN/Creatinine Ratio 85; Blood Urea Nitrogen 34 mg/dL (7-17); Calcium 8.2 mg/dL (8.4-10.2); Carbon Dioxide 25 mmol/L (22-30); Chloride 102.5 mmol/L (98-107); Glucose 132 mg/dL (65-100); Potassium 3.5 mmol/L (3.6-5.0); Sodium 141 mmol/L (137-145)
[2017-03-05 06:51] LABS: Bilirubin,Urine NEG (Negative); Blood,Urine SM (Negative); Ketones,Urine NEG (Negative); Leukocyte Esterase,Urine MOD (Negative); Mucus,Urine FEW /HPF; Nitrite,Urine NEG (Negative); Protein,Urine <15 mg/dL mg/dL (Negative); Urobilinogen,Urine < 2.0 mg/dL (<2.0)
[2017-03-05] MEDS ORDERED: DIPRIVAN 10 MG/ML IV ONE (07:19)
[2017-03-05] MEDS ORDERED: XYLOCAINE MPF 2% ONE (07:20)
[2017-03-05] MEDS ORDERED: ZEMURON IV ONE (07:20)
[2017-03-05] MEDS ORDERED: SUBLIMAZE ONE (07:20)
[2017-03-05] MEDS ORDERED: LACTATED RINGERS 1,000 ML ONE ×2 (07:29→09:13)
[2017-03-05] MEDS ORDERED: NACL 0.9% 500 ML 500 ML IV NR (08:00)
[2017-03-05] MEDS ORDERED: LACTATED RINGERS 1,000 ML IV SCH (08:00)
[2017-03-05] MEDS ORDERED: PEPCID IV NR (08:00)
[2017-03-05] MEDS ORDERED: BREVIBLOC IV ONE ×2 (08:02→08:49)
[2017-03-05] MEDS ORDERED: NEOSTIGMINE ONE (08:48)
[2017-03-05] MEDS ORDERED: ROBINUL ONE (08:48)
[2017-03-05] MEDS ORDERED: ZOFRAN ONE (08:49)
[2017-03-05] MEDS ORDERED: NEO SYNEPHRINE/NS Syringe(OR USE) IV ONE (09:00)
[2017-03-05] MEDS ORDERED: DILAUDID ONE (09:06)
[2017-03-05] MEDS ORDERED: ZOFRAN IV PRN (09:34)
--- NOTE | 2017-03-05 09:38 | Post Operative Note ---
Pre-op diagnosis: incarcerated incisional hernia with SBO Post-op diagnosis: same Findings: Large Incarcerated incisional hernia with SBO. fortunately bowel was able to be reduced and found viable. Proc - urgent expl lap, reduction of incarcerated incisional hernia, incisional hernia repair with mesh Anesthesia: SHRUTHI Surgeon: RITESH AVILES Senior Accountant Analyst: POPEYE KWAN Estimated blood loss: none Pathology: none Condition: other Disposition: ICU
[2017-03-05] MEDS ORDERED: VERSED ONE (09:57)
[2017-03-05] MEDS ORDERED: PROTONIX IV NR (10:00)
--- NOTE | 2017-03-05 10:31 | Operative Report ---
PREOPERATIVE DIAGNOSIS: Incarcerated incisional hernia with small-bowel obstruction. POSTOPERATIVE DIAGNOSIS: Incarcerated incisional hernia with small-bowel obstruction. PROCEDURE: Urgent exploratory laparotomy with reduction of incarcerated incisional hernia and subsequent incisional hernia repair with mesh. SURGEON: Wan Jessica MD DIRECTOR OF PHYSIOTHERAPY SERVICES: Cori Vargas MD ANESTHESIA: General. ESTIMATED BLOOD LOSS: Minimal. DRAIN: None. COMPLICATIONS: None. DESCRIPTION OF PROCEDURE: The patient was taken to the operating room, prepped and draped in usual sterile fashion. Midline incision was made and abdomen entered. Upon entrance into the abdomen, dilated small bowel loops were noted entering the site of incarcerated incisional hernia. The hernia site was at an area of a previous appendectomy. Small bowel was slowly able to be reduced and fortunately was noted to be viable. The bowel was covered with warm saline lap. The omentum was noted to be also incarcerated and adhered in the surrounding area. Ligature was used to dissect all the surrounding omentum and hernia sac until the entire fascial defect could be well delineated. The defect was then palpated internally to assure no other entrapment of omentum or other contents. The cavity was noted to be clear. The fascia here was then closed with interrupted #1 Surgilon sutures. Subsequent to this, a dual Parietex mesh was then on laid over it over the repair and tacked with absorbable tackers. The rest of the abdomen was inspected and no other gross pathology noted. The warm lap was then removed from the bowel, and the bowel was noted to be pink with good peristalsis. The abdomen was then irrigated copiously and dried. Checked for hemostasis and noted to be dry. The fascia was then closed with interrupted #1 Vicryl suture. Subcutaneous tissues irrigated and skin closed with moises. The patient preoperatively had had some upper GI bleeding secondary to what is presumed to be very high INR. INR at the time of surgery was able to be brought down to essentially normal. It was noted, however, before extubation that blood was seen in the OG tube. It was thus decided to keep the patient intubated and NG tube reinserted. GI is on the case and they will continue following the patient to see eventually they proceed with endoscopy. I will monitor her H and H and keep her intubated. We will transfer the patient to the unit. Her condition remains guarded. JOB# [id number] GARY/MARILYN
[2017-03-05 10:41] LABS: ISTAT Base Excess 4; ISTAT PCO2 46.7 (35-45); ISTAT PH 7.401 (7.35-7.45); ISTAT PO2 101 (80-105); ISTAT SO2 98; ISTAT TCO2 30
[2017-03-05] MEDS ORDERED: DIPRIVAN 10 MG/ML 1,000 MG/100 ML BOTTLE IV ONE (10:58)
--- NOTE | 2017-03-05 10:58 | XRay Report ---
Single view chest: Compared to 02/28/17. History: Intubation. Findings: Tip of endotracheal tube just above level of booker. Trachea is midline. Borderline cardiomegaly. No consolidation, pneumothorax or pleural effusion. Impression: Tip of endotracheal tube just above booker. No acute lung changes.
[2017-03-05 11:21] LABS: Hematocrit 30.7 % (30.3-42.9); Hemoglobin 10.2 gm/dl (10.1-14.3); Mean Corpuscular HGB Conc 33 % (30-34); Mean Corpuscular Hemoglobin 29 pg (28-32); Mean Corpuscular Volume 87 fl (79-97); Platelet Count 182 K/mm3 (140-440); Red Blood Count 3.51 M/mm3 (3.65-5.03); Red Cell Distribution Width 13.1 % (13.2-15.2)
[2017-03-05 11:22] LABS: White Blood Count 22.1 K/mm3 (4.5-11.0)
--- NOTE | 2017-03-05 11:29 | Anesthesia Day of Surgery ---
Anesthesia Day of Surgery - Day of Surgery Patient Examined: Yes Patient H&P Reviewed: Yes Patient is NPO: Yes Beta Blockers: Yes
--- NOTE | 2017-03-05 11:30 | Post Anesthesia Evaluation ---
- Post Anesthesia Evaluation Patient Participated: No Airway Patent: Yes Stable Respiratory Function: Yes Temp > 96.8F: Yes Pain Manageable: Yes Adequeate Hydration: Yes Patient on Ventilator: Yes
[2017-03-05] MEDS ORDERED: NACL 0.9% 1,000 ML IR ONE (11:49)
[2017-03-05] MEDS ORDERED: VASELINE LIP THERAPY TP PRN (11:56)
[2017-03-05] MEDS ORDERED: ARTIFICIAL TEARS OPHTH OINT OU PRN (11:56)
[2017-03-05] MEDS ORDERED: NACL 0.9% 500 ML IV SCH (12:00)
[2017-03-05] MEDS ORDERED: DIPRIVAN 10 MG/ML 1,000 MG/100 ML BOTTLE IV SCH (12:00)
[2017-03-05 12:26] LABS: Basophils % (Manual) 0 % (0.0-1.8); Blastocytes % (Manual) 0 %; Eosinophils % (Manual) 0 % (0.0-4.3)
[2017-03-05 12:27] LABS: Anisocytosis 1+; Diff Status Complete; Ovalocytes Few; Platelet Estimate Appe
[2017-03-05] MEDS: D5W/NS W/KCL 20MEQ 20 MEQ/1,000 ML BAG IV SCH (12:57)
[2017-03-05] MEDS: COREG PO SCH ×3 (13:00→21:18)
[2017-03-05] MEDS: LOPRESSOR IV PRN ×2 (14:30→18:28)
[2017-03-05 18:07] LABS: Basophils % (Auto) 0.4 % (0.0-1.8); Hematocrit 28.7 % (30.3-42.9); Hemoglobin 9.6 gm/dl (10.1-14.3); Mean Corpuscular HGB Conc 33 % (30-34); Mean Corpuscular Hemoglobin 29 pg (28-32); Mean Corpuscular Volume 87 fl (79-97); Platelet Count 178 K/mm3 (140-440); Red Cell Distribution Width 13.1 % (13.2-15.2); White Blood Count 18.2 K/mm3 (4.5-11.0)
--- NOTE | 2017-03-05 18:17 | Progress Note ---
Subjective Date of service: 03/05/17 Objective Vital Signs Temp Pulse Resp BP BP Pulse Ox 03/05/17 18:00 122 H 18 103/70 100 03/05/17 17:51 114 H 17 108/69 100 03/05/17 17:41 132 H 21 122/63 100 03/05/17 17:31 116 H 16 110/75 100 03/05/17 17:30 19 03/05/17 17:21 119 H 22 110/75 100 03/05/17 17:10 115 H 16 111/76 100 03/05/17 17:00 115 H 18 111/76 100 03/05/17 16:50 115 H 17 100 03/05/17 16:46 118 H 16 100 03/05/17 16:30 99.1 F 120 H 16 114/70 99 03/05/17 16:00 111 H 17 112/71 99 03/05/17 15:41 109 H 120/77 99 03/05/17 15:00 94 H 15 127/72 100 03/05/17 14:30 128 H 20 126/78 100 03/05/17 14:00 117 H 17 123/77 100 03/05/17 13:30 113 H 17 129/76 100 03/05/17 13:00 120 H 17 120/90 100 03/05/17 12:30 112 H 16 109/82 100 03/05/17 12:00 100 H 16 121/77 100 03/05/17 11:50 80 126/87 100 03/05/17 11:30 104 H 16 135/72 100 03/05/17 11:00 112 H 16 148/87 100 03/05/17 10:45 98 H 16 152/82 100 03/05/17 10:30 96 H 16 152/82 100 03/05/17 10:15 94 H 16 153/95 100 03/05/17 10:00 100 H 16 145/96 100 03/05/17 09:55 111 H 16 137/87 100 03/05/17 09:50 107 H 16 142/82 100 03/05/17 09:47 97.7 F 101 H 12 126/87 100 03/05/17 07:41 98.5 F 95 H 18 101/68 99 03/05/17 07:00 98.5 F 95 H 18 101/68 99 03/05/17 05:39 20 03/05/17 04:54 97.6 F 71 18 116/57 94 03/05/17 04:03 113 H 95 03/05/17 02:07 98.4 F 94 H 20 127/80 98 03/05/17 01:15 98.4 F 109 H 20 142/87 98 03/05/17 00:45 98.5 F 108 H 20 138/90 97 03/05/17 00:15 98.3 F 110 H 20 131/90 98 03/05/17 00:06 98.3 F 112 H 20 142/87 98 03/04/17 23:30 96 H 18 134/93 93 03/04/17 23:00 117 H 03/04/17 22:00 18 03/04/17 21:51 83 146/65 03/04/17 21:14 98.5 F 95 H 20 124/77 03/04/17 20:19 83 96 03/04/17 20:18 146/65 03/04/17 20:13 73 95 - Physical Examination General: No Apparent Distress - Labs and Meds Coagulation 03/04/17 03/05/17 Range/Units 23:05 05:18 PT 19.3 H 16.5 H (12.2-14.9) Sec. INR 1.55 H 1.27 H (0.87-1.13) CBC 03/04/17 03/05/17 03/05/17 Range/Units 23:05 05:18 11:00 WBC 15.0 H 22.1 H (4.5-11.0) K/mm3 RBC 3.52 L 3.51 L (3.65-5.03) M/mm3 Hgb 11.5 10.4 10.2 (10.1-14.3) gm/dl Hct 34.9 30.0 L 30.7 (30.3-42.9) % Plt Count 186 182 (140-440) K/mm3 Lymph # 1.8 (1.2-5.4) K/mm3 [place] # 1.4 H (0.0-0.8) K/mm3 Eos # 0.0 (0.0-0.4) K/mm3 Baso # 0.0 (0.0-0.1) K/mm3 03/05/17 Range/Units 17:50 WBC 18.2 H (4.5-11.0) K/mm3 RBC 3.30 L (3.65-5.03) M/mm3 Hgb 9.6 L (10.1-14.3) gm/dl Hct 28.7 L (30.3-42.9) % Plt Count 178 (140-440) K/mm3 Lymph # 2.6 (1.2-5.4) K/mm3 [place] # 1.6 H (0.0-0.8) K/mm3 Eos # 0.0 (0.0-0.4) K/mm3 Baso # 0.1 (0.0-0.1) K/mm3 Comprehensive Metabolic Panel 03/05/17 Range/Units 05:18 Sodium 141 (137-145) mmol/L Potassium 3.5 L (3.6-5.0) mmol/L Chloride 102.5 (98-107) mmol/L Carbon Dioxide 25 (22-30) mmol/L BUN 34 H (7-17) mg/dL Creatinine 0.4 L (0.7-1.2) mg/dL Glucose 132 H (65-100) mg/dL Calcium 8.2 L (8.4-10.2) mg/dL
--- NOTE | 2017-03-05 18:23 | Progress Note ---
Assessment and Plan / Acute respiratory failure remained intubated following admission cont nebulizer breathing treatment, wean off as tolerated /Small bowel obstruction s/p urgent expl lap with reduction of incarcerated incisional hernia and incisional hernia repair with mesh today CT abdomen showed incarcerated hernia cont on D5 half normal saline, wound care /Acute GI bleed had couple episode of bloody vomiting and cont to have dark color material on NG suction likely due to coagulopathy vs gastric ulcer cont on protonix drip, s/p transfusion of FFP, vit K GI following, monitor Hand H /Chest pain Found to be in A. fib with RVR on admission EKG with no ischemic changes Cardiac enzymes negative TSH and, FT4 within normal limits ECHO obtained, EF 20-25% on hold beta sari, ACEI, aspirin, statin as pt now NPO Cardiology following /CHF with systolic dysfunction Compensated now, echo showed EF of 20-25% Per cardiology, had cardiac cath that showed no significant coronary disease, but an ejection fraction of 20% /Afib RVR Received Digoxin and was started on BB; now rate controlled Anticoagulated with Coumadin, INR supratherapeutic, now off Coumadin /Coagulopathy INR went up to 4. likely secondary to interaction with antibiotics Hold Coumadin and monitor INR closely reversed with FFP and vit K /SIRS/Sepsis WBC trending up, likely reactive from incarcerated hernia On admission presumed to have pneumonia and started on Rocephin/azithromycin, but chest x-ray with no acute findings Negative blood culture, obtain UA changed antibiotics to levaquin and flagyl /DVT prophylaxis INR supratherapeutic, off Coumadin Brief history: 76 yo [place] female, who doesn't speak [place]iquais, weight chronic afib and heart failure, brought to the hospital for chest pain. All cardiac workup so for negative for ACS. HER-2 D echo showed EF of 20-25%. Abdominal x-ray obtained on 03/02/2017 for the complain of abdominal pain and constipation which showed small bowel obstruction. Radiological data: Chest x-ray on 02/28/2017 showed no acute infiltrates, no abnormalities. Abdomen x-ray on 03/02/2017 showed findings suggestive of small bowel obstruction 2-D echo obtained on 02/28/2017 showed EF of 20-25% Subjective Date of service: 03/05/17 Interval history: Pt seen and examined s/p urgent expl lap with reduction of incarcerated incisional hernia and incisional hernia repair with mesh she tolerated the procedure well, remained intubated after the surgery cont to have dark color drainage with NG Objective - Exam Narrative Exam: General appearance: Present: no acute distress, intubated - EENT Eyes: Present: PERRL, EOM intact, NG tube on place with dark color material - Neck Neck: Present: supple. Absent: enlarged thyroid, masses or JVD - Respiratory Respiratory effort: normal Respiratory: bilateral: CTA, negative: rhonchi, wheezing - Cardiovascular Rhythm: irregularly irregular Heart Sounds: Present: S1 & S2. Absent: systolic murmur - Extremities Extremities: no ischemia - Abdominal General gastrointestinal: soft, non tender, surgical dressing on the abdomen - Integumentary Integumentary: Present: warm, dry. Absent: jaundice, rash - Neurologic Neurologic: no focal deficits - Constitutional Vitals: Vital Signs - 12hr 03/05/17 03/05/17 03/05/17 07:00 07:41 09:47 Temperature 98.5 F 98.5 F 97.7 F Pulse Rate 95 H 95 H 101 H Respiratory 18 18 12 Rate Blood Pressure 101/68 101/68 126/87 O2 Sat by Pulse 99 99 100 Oximetry 03/05/17 03/05/17 03/05/17 09:50 09:55 10:00 Temperature Pulse Rate 107 H 111 H 100 H Respiratory 16 16 16 Rate Blood Pressure 142/82 137/87 145/96 O2 Sat by Pulse 100 100 100 Oximetry 03/05/17 03/05/17 03/05/17 10:15 10:30 10:45 Temperature Pulse Rate 94 H 96 H 98 H Respiratory 16 16 16 Rate Blood Pressure 153/95 152/82 152/82 O2 Sat by Pulse 100 100 100 Oximetry 03/05/17 03/05/17 03/05/17 11:00 11:30 11:50 Temperature Pulse Rate 112 H 104 H 80 Respiratory 16 16 Rate Blood Pressure 148/87 135/72 126/87 O2 Sat by Pulse 100 100 100 Oximetry 03/05/17 03/05/17 03/05/17 12:00 12:30 13:00 Temperature Pulse Rate 100 H 112 H 120 H Respiratory 16 16 17 Rate Blood Pressure 121/77 109/82 120/90 O2 Sat by Pulse 100 100 100 Oximetry 03/05/17 03/05/17 03/05/17 13:30 14:00 14:30 Temperature Pulse Rate 113 H 117 H 128 H Respiratory 17 17 20 Rate Blood Pressure 129/76 123/77 126/78 O2 Sat by Pulse 100 100 100 Oximetry 03/05/17 03/05/17 03/05/17 15:00 15:41 16:00 Temperature Pulse Rate 94 H 109 H 111 H Respiratory 15 17 Rate Blood Pressure 127/72 120/77 112/71 O2 Sat by Pulse 100 99 99 Oximetry 03/05/17 03/05/17 03/05/17 16:30 16:46 16:50 Temperature 99.1 F Pulse Rate 120 H 118 H 115 H Respiratory 16 16 17 Rate Blood Pressure 114/70 O2 Sat by Pulse 99 100 100 Oximetry 03/05/17 03/05/17 03/05/17 17:00 17:10 17:21 Temperature Pulse Rate 115 H 115 H 119 H Respiratory 18 16 22 Rate Blood Pressure 111/76 111/76 110/75 O2 Sat by Pulse 100 100 100 Oximetry 03/05/17 03/05/17 03/05/17 17:30 17:31 17:41 Temperature Pulse Rate 116 H 132 H Respiratory 19 16 21 Rate Blood Pressure 110/75 122/63 O2 Sat by Pulse 100 100 Oximetry 03/05/17 03/05/17 17:51 18:00 Temperature Pulse Rate 114 H 122 H Respiratory 17 18 Rate Blood Pressure 108/69 103/70 O2 Sat by Pulse 100 100 Oximetry - Labs CBC & Chem 7: 03/06/17 04:49 03/06/17 04:49 Labs: Abnormal lab results 03/03/17 03/04/17 03/05/17 Range/Units 18:00 23:05 05:18 WBC (4.5-11.0) K/mm3 RBC (3.65-5.03) M/mm3 Hgb (10.1-14.3) gm/dl Hct (30.3-42.9) % MCHC (30-34) % RDW (13.2-15.2) % Lymph % (Auto) (13.4-35.0) % [place] % (Auto) (0.0-7.3) % [place] # (0.0-0.8) K/mm3 Seg Neutrophils % (40.0-70.0) % Monocytes % (Manual) (0.0-7.3) % Seg Neutrophils # (1.8-7.7) K/mm3 Seg Neutrophils # Man (1.8-7.7) K/mm3 Monocytes # (Manual) (0.0-0.8) K/mm3 PT 19.3 H 16.5 H (12.2-14.9) Sec. INR 1.55 H 1.27 H (0.87-1.13) POC ABG pCO2 (35-45) Potassium (3.6-5.0) mmol/L BUN (7-17) mg/dL Creatinine (0.7-1.2) mg/dL Glucose (65-100) mg/dL Calcium (8.4-10.2) mg/dL Urine WBC (Auto) (0.0-6.0) /HPF Crossmatch See Detail 03/05/17 03/05/17 03/05/17 Range/Units 05:18 05:18 10:39 WBC 15.0 H (4.5-11.0) K/mm3 RBC 3.52 L (3.65-5.03) M/mm3 Hgb (10.1-14.3) gm/dl Hct 30.0 L (30.3-42.9) % MCHC 35 H (30-34) % RDW 13.1 L (13.2-15.2) % Lymph % (Auto) 12.3 L (13.4-35.0) % [place] % (Auto) 9.1 H (0.0-7.3) % [place] # 1.4 H (0.0-0.8) K/mm3 Seg Neutrophils % 78.5 H (40.0-70.0) % Monocytes % (Manual) (0.0-7.3) % Seg Neutrophils # 11.8 H (1.8-7.7) K/mm3 Seg Neutrophils # Man (1.8-7.7) K/mm3 Monocytes # (Manual) (0.0-0.8) K/mm3 PT (12.2-14.9) Sec. INR (0.87-1.13) POC ABG pCO2 46.7 H (35-45) Potassium 3.5 L (3.6-5.0) mmol/L BUN 34 H (7-17) mg/dL Creatinine 0.4 L (0.7-1.2) mg/dL Glucose 132 H (65-100) mg/dL Calcium 8.2 L (8.4-10.2) mg/dL Urine WBC (Auto) (0.0-6.0) /HPF Crossmatch 03/05/17 03/05/17 03/05/17 Range/Units 11:00 17:50 Unknown WBC 22.1 H 18.2 H (4.5-11.0) K/mm3 RBC 3.51 L 3.30 L (3.65-5.03) M/mm3 Hgb 9.6 L (10.1-14.3) gm/dl Hct 28.7 L (30.3-42.9) % MCHC (30-34) % RDW 13.1 L 13.1 L (13.2-15.2) % Lymph % (Auto) (13.4-35.0) % [place] % (Auto) 8.6 H (0.0-7.3) % [place] # 1.6 H (0.0-0.8) K/mm3 Seg Neutrophils % 76.5 H (40.0-70.0) % Monocytes % (Manual) 14.0 H (0.0-7.3) % Seg Neutrophils # 13.9 H (1.8-7.7) K/mm3 Seg Neutrophils # Man 15.5 H (1.8-7.7) K/mm3 Monocytes # (Manual) 3.1 H (0.0-0.8) K/mm3 PT (12.2-14.9) Sec. INR (0.87-1.13) POC ABG pCO2 (35-45) Potassium (3.6-5.0) mmol/L BUN (7-17) mg/dL Creatinine (0.7-1.2) mg/dL Glucose (65-100) mg/dL Calcium (8.4-10.2) mg/dL Urine WBC (Auto) 19.0 H (0.0-6.0) /HPF Crossmatch
--- NOTE | 2017-03-05 18:24 | XRay Report ---
FINAL REPORT EXAM: XR ABDOMEN 1V AP HISTORY: Feeding tube placement TECHNIQUE: One view of the upper left abdomen PRIORS: Portable chest 02/28/2017 FINDINGS: Midline skin moises in lower abdomen and pelvis. Slight prominence of gas in the stomach. Nonspecific prominence of gas in multiple left small bowel loops. These are slightly distended with maximum diameter of 3.5 cm. NG tube distal tip projected at GE junction level. IMPRESSION: NG tube distal tip projected GE junction level. Consider advancement Slightly dilated gas-filled loops of small bowel in the left abdomen, nonspecific. Prominent gas in stomach. Considerations include paralytic ileus and/or small-bowel obstruction. Followup may be useful
[2017-03-05] MEDS: LEVAQUIN 750MG/150ML 750 MG/150 ML BAG IV SCH (18:42)
[2017-03-05] MEDS: MIRALAX 3350 PO SCH (18:42)
[2017-03-05] MEDS: ZESTRIL PO SCH (18:43)
[2017-03-05] MEDS ORDERED: LANOXIN IV ONE (19:30)
[2017-03-05] MEDS: PROTONIX 80 MG in NACL 0.9% 100 ML IV SCH (19:35)
--- NOTE | 2017-03-05 19:51 | Consultation ---
History of Present Illness Consult date: 03/05/17 Requesting physician: ZELDA VARGAS Reason for consult: other (Critical care management, ventilator management) History of present illness: 76 YO Female with Atrial Fib/Flutter with RVR, CHF presented to ED for evaluation.for progressively worsening chaest pain. Based on revew of the medical records, the pain was 7/10, described as a substernal in location, non- radiating, with palpitations, and shortness of breath. Pain is not worsened with exertion or relieved with rest. No reports of fever, chills, NVD, leg swelling, calf pain, prolonged travel/immobility, individual/family history of DVT/PE, productive cough, or recent ill contacts. Pt seen and evaluated in ED and found to have A Fib/Flutter with RVR. She was admitted under the hospitalist service. She was seen by Cardiology, therapies initiated for Afib with RVR. SIRS/Sepsis --source was thought to be pulmonary, however no clinical or radiographic signs to suggest pneumonia. She developed constipation, nausea and vomiting..imaging confirmaed a small bowel obstruction. She was taken to OR today for operative management(see op notes for details). She remains intubated on mechanical ventilatory support and sedated on propofol. Brief op note: Large Incarcerated incisional hernia with SBO. fortunately bowel was able to be reduced and found viable. Proc - urgent expl lap, reduction of incarcerated incisional hernia, incisional hernia repair with mesh She had coffee ground emesis at the end of the surgery. She is currently on AC-VC 16/450/5/100% ABG 7.40/46.7/101/BE 4 O2 sats 98% She has a past medical history significant for CHF, with documented EF of 20-25% , COPD, DVT, Atrial fibrillation, Non-ischemic cardiomyopathy s/p cardiac catheteriztioon in 07/2013. She is currently in the PACU, intubated and sedated. I discussed care at the bedside with her RN Patient was seen and examined. Vitals, labs, medications, chart and imaging were reviewed. Thank you Dr. De La Torre for the consult. Past History Past Medical History: atrial fib, heart failure Past Surgical History: No surgical history (reviewed) Social history: denies: smoking, alcohol abuse, prescription drug abuse Family history: no significant family history Medications and Allergies Allergies Allergy/AdvReac Type Severity Reaction Status Date / Time No Known Allergies Allergy Verified 08/25/13 02:11 Home Medications Medication Instructions Recorded Confirmed Last Taken Type Carvedilol [Coreg] 3.125 mg PO BID #60 tablet 09/01/13 03/02/17 1 Day Ago Rx Diltiazem [Cardizem] 60 mg PO Q6HR #120 tablet 09/01/13 03/02/17 1 Day Ago Rx Famotidine [Pepcid] 40 mg PO QHS #30 tablet 09/01/13 03/02/17 1 Day Ago Rx Lisinopril [Zestril TAB] 2.5 mg PO QDAY #30 tablet 09/01/13 03/02/17 1 Day Ago Rx Warfarin [Coumadin] 5 mg PO DAILY@1700 #30 tablet 09/01/13 03/02/17 1 Day Ago Rx Active Meds: Active Medications Acetaminophen (Tylenol) 650 mg PO Q4H PRN PRN Reason: Pain MILD(1-3)/Fever >100.5/AMATO Last Admin: 03/01/17 06:38 Dose: 650 mg Albuterol (Proventil) 2.5 mg IH Q4H PRN PRN Reason: Shortness Of Breath Atorvastatin Calcium (Lipitor) 10 mg PO QHS [facility] Last Admin: 03/04/17 21:51 Dose: 10 mg Bisacodyl (Dulcolax) 10 mg CA QDAY PRN PRN Reason: Constipation unrelieved by MOM Carvedilol (Coreg) 6.25 mg PO BID [facility] Last Admin: 03/05/17 18:41 Dose: Not Given Digoxin (Lanoxin) 0.125 mg IV QDAY ONE Stop: 03/06/17 10:09 Famotidine (Pepcid) 20 mg IV PREOP NR Stop: 03/05/17 21:00 Hydrophilic Ointment (Vaseline Lip Therapy) 1 applic TP Q2HR PRN PRN Reason: Dry Lips Potassium Chloride/Dextrose/Sod Cl (D5w/Ns W/Kcl 20meq) 20 meq in 1,000 mls @ 100 mls/hr IV DIRECT [facility] Last Admin: 03/05/17 12:57 Dose: 100 mls/hr Levofloxacin/Dextrose (Levaquin 750mg/150ml) 750 mg in 150 mls @ 100 mls/hr IV Q24HR MO PRN Reason: Protocol Last Admin: 03/05/17 18:42 Dose: Not Given Metronidazole (Flagyl 500 Mg/100 Ml) 500 mg in 100 mls @ 100 mls/hr IV Q8HR MO Last Admin: 03/05/17 18:44 Dose: Not Given Pantoprazole Sodium 80 mg/ (Sodium Chloride) 100 mls @ 10 mls/hr IV DIRECT MO PRN Reason: 8 MG/HR Last Admin: 03/05/17 19:35 Dose: 8 mg/hr, 10 mls/hr Lactated Ringer's (Lactated Ringers) 1,000 mls @ 75 mls/hr IV DIRECT MO Last Admin: 03/05/17 07:30 Dose: 75 mls/hr Propofol (Diprivan 10 Mg/Ml) 1,000 mg in 100 mls @ 1.77 mls/hr IV TITR MO; 5 MCG/KG/MIN PRN Reason: Protocol Last Admin: 03/05/17 18:47 Dose: 10 mcg/kg/min, 3.54 mls/hr Lisinopril (Zestril) 2.5 mg PO QDAY [facility] Last Admin: 03/05/17 18:43 Dose: Not Given Magnesium Hydroxide (Milk Of Magnesia) 30 ml PO Q4H PRN PRN Reason: Constipation Metoprolol Tartrate (Lopressor) 2.5 mg IV Q6HR PRN PRN Reason: HR >130 Morphine Sulfate (Morphine) 2 mg IV Q4H PRN PRN Reason: Pain, Moderate (4-6) Last Admin: 03/05/17 17:30 Dose: 2 mg Morphine Sulfate (Morphine) 4 mg IV Q3H PRN PRN Reason: Pain , Severe (7-10) Last Admin: 03/05/17 19:38 Dose: 4 mg Multi-Ingred Cream/Lotion/Oil/Oint (Artificial Tears Ophth Oint) 1 applic OU Q4HR PRN PRN Reason: Dry Eye(s) Ondansetron HCl (Zofran) 4 mg IV Q4H PRN PRN Reason: N/V unrelieved by Reglan Polyethylene Glycol (Miralax 3350) 17 gm PO QDAY [facility] Last Admin: 03/05/17 18:42 Dose: Not Given Senna (Senokot) 8.8 mg PO QHS [facility] Last Admin: 03/04/17 21:52 Dose: 8.8 mg Sodium Chloride (Nacl 0.9% 500 Ml) 1 ml IV DIRECT MO Review of Systems ROS unobtainable: due to endotracheal tube Physical Examination Vital signs: Vital Signs Pulse Resp BP Pulse Ox 174 H 16 113/65 100 02/28/17 17:30 02/28/17 17:30 02/28/17 17:30 02/28/17 17:30 General appearance: no acute distress, asleep, other (thin, sedated on propofol but will open her eyes on verbal command) Eyes: non-icteric ENT: oropharynx moist Neck: supple, no lymphadenopathy, no JVD Effort: normal Ascultation: Bilateral: clear, diminished breath sounds Cardiovascular: irregular rhythm, other (S1,S2) Gastrointestinal: absent bowel sounds, tender (clean dry surgical dressing), non -distended, other (NGT in left nare, draining dark fluid) Integumentary: normal Extremities: no cyanosis, no edema, pink and warm, pulses normal non-focal exam (moves all extremities with painful stimuli) Results - Laboratory Findings CBC and BMP: 03/06/17 04:49 03/06/17 04:49 ABG POC ABG pH 7.401 (7.35-7.45) 03/05/17 10:39 POC ABG pCO2 46.7 (35-45) H 03/05/17 10:39 POC ABG pO2 101 (80-105) 03/05/17 10:39 POC ABG HCO3 29.0 03/05/17 10:39 POC ABG Total CO2 30 03/05/17 10:39 POC ABG O2 Sat 98 03/05/17 10:39 PT/INR, D-dimer PT 16.5 Sec. (12.2-14.9) H 03/05/17 05:18 INR 1.27 (0.87-1.13) H 03/05/17 05:18 Abnormal lab findings: Abnormal Labs 02/28/17 03/01/17 03/02/17 19:14 02:50 05:09 WBC RBC Hgb Hct MCHC RDW Lymph % (Auto) [place] % (Auto) [place] # Seg Neutrophils % Seg Neuts % (Manual) Lymphocytes % (Manual) Monocytes % (Manual) Seg Neutrophils # Seg Neutrophils # Man Monocytes # (Manual) PT 27.3 H 43.9 H INR 2.40 H 4.39 H POC ABG pCO2 Sodium Potassium Chloride BUN Creatinine Glucose Calcium NT-Pro-B Natriuret Pep 1929 H Albumin Urine WBC (Auto) Crossmatch 03/02/17 03/02/17 03/02/17 05:09 05:09 13:32 WBC 17.4 H RBC 5.48 H Hgb 15.9 H Hct 47.4 H MCHC RDW Lymph % (Auto) 11.3 L [place] % (Auto) [place] # Seg Neutrophils % 84.2 H Seg Neuts % (Manual) Lymphocytes % (Manual) Monocytes % (Manual) Seg Neutrophils # 14.6 H Seg Neutrophils # Man Monocytes # (Manual) PT 47.9 H INR 4.90 H POC ABG pCO2 Sodium 136 L Potassium Chloride 97.7 L BUN Creatinine 0.5 L Glucose 109 H Calcium NT-Pro-B Natriuret Pep Albumin Urine WBC (Auto) Crossmatch 03/03/17 03/03/17 03/03/17 06:32 06:32 06:32 WBC 19.0 H RBC 5.46 H Hgb 16.0 H Hct 46.8 H MCHC RDW 13.1 L Lymph % (Auto) 10.7 L [place] % (Auto) [place] # 1.0 H Seg Neutrophils % 83.2 H Seg Neuts % (Manual) Lymphocytes % (Manual) Monocytes % (Manual) Seg Neutrophils # 15.8 H Seg Neutrophils # Man Monocytes # (Manual) PT 44.3 H INR 4.44 H POC ABG pCO2 Sodium Potassium Chloride BUN 24 H Creatinine 0.6 L Glucose 101 H Calcium NT-Pro-B Natriuret Pep Albumin 3.4 L Urine WBC (Auto) Crossmatch 03/03/17 03/04/17 03/04/17 18:00 05:27 05:27 WBC 16.0 H RBC 5.16 H Hgb 15.1 H Hct 43.8 H MCHC RDW Lymph % (Auto) 8.3 L [place] % (Auto) [place] # Seg Neutrophils % 86.5 H Seg Neuts % (Manual) Lymphocytes % (Manual) Monocytes % (Manual) Seg Neutrophils # 13.8 H Seg Neutrophils # Man Monocytes # (Manual) PT 26.8 H INR 2.34 H POC ABG pCO2 Sodium Potassium Chloride BUN Creatinine Glucose Calcium NT-Pro-B Natriuret Pep Albumin Urine WBC (Auto) Crossmatch See Detail 03/04/17 03/04/17 03/04/17 05:27 13:31 23:05 WBC 17.2 H RBC Hgb Hct MCHC RDW Lymph % (Auto) 11.6 L [place] % (Auto) [place] # 1.2 H Seg Neutrophils % 81.2 H Seg Neuts % (Manual) 85.0 H Lymphocytes % (Manual) 8.0 L Monocytes % (Manual) Seg Neutrophils # 13.7 H Seg Neutrophils # Man 14.6 H Monocytes # (Manual) PT 19.3 H INR 1.55 H POC ABG pCO2 Sodium Potassium Chloride BUN 20 H Creatinine 0.5 L Glucose 162 H Calcium 8.0 L NT-Pro-B Natriuret Pep Albumin 3.5 L Urine WBC (Auto) Crossmatch 03/05/17 03/05/17 03/05/17 05:18 05:18 05:18 WBC 15.0 H RBC 3.52 L Hgb Hct 30.0 L MCHC 35 H RDW 13.1 L Lymph % (Auto) 12.3 L [place] % (Auto) 9.1 H [place] # 1.4 H Seg Neutrophils % 78.5 H Seg Neuts % (Manual) Lymphocytes % (Manual) Monocytes % (Manual) Seg Neutrophils # 11.8 H Seg Neutrophils # Man Monocytes # (Manual) PT 16.5 H INR 1.27 H POC ABG pCO2 Sodium Potassium 3.5 L Chloride BUN 34 H Creatinine 0.4 L Glucose 132 H Calcium 8.2 L NT-Pro-B Natriuret Pep Albumin Urine WBC (Auto) Crossmatch 03/05/17 03/05/17 03/05/17 10:39 11:00 17:50 WBC 22.1 H 18.2 H RBC 3.51 L 3.30 L Hgb 9.6 L Hct 28.7 L MCHC RDW 13.1 L 13.1 L Lymph % (Auto) [place] % (Auto) 8.6 H [place] # 1.6 H Seg Neutrophils % 76.5 H Seg Neuts % (Manual) Lymphocytes % (Manual) Monocytes % (Manual) 14.0 H Seg Neutrophils # 13.9 H Seg Neutrophils # Man 15.5 H Monocytes # (Manual) 3.1 H PT INR POC ABG pCO2 46.7 H Sodium Potassium Chloride BUN Creatinine Glucose Calcium NT-Pro-B Natriuret Pep Albumin Urine WBC (Auto) Crossmatch 03/05/17 Unknown WBC RBC Hgb Hct MCHC RDW Lymph % (Auto) [place] % (Auto) [place] # Seg Neutrophils % Seg Neuts % (Manual) Lymphocytes % (Manual) Monocytes % (Manual) Seg Neutrophils # Seg Neutrophils # Man Monocytes # (Manual) PT INR POC ABG pCO2 Sodium Potassium Chloride BUN Creatinine Glucose Calcium NT-Pro-B Natriuret Pep Albumin Urine WBC (Auto) 19.0 H Crossmatch - Diagnostic Findings Chest x-ray: image reviewed (ETT in position, "dirty lung" look, no evidence of decompensaed heart failure, no effusions) Assessment and Plan - Patient Problems (1) Acute respiratory failure with hypoxia and hypercapnia Current Visit: Yes Status: Acute Plan to address problem: Lung protective strategies Wean FIO2 to keep O2 sats >94% VAP bundle addressed, SCDs for VTE prophylaxis for now SAT if awake enough, initiate SBT Monitor CXR and volume status. Stress ulcer prophylaxis She has moderated pulmonary HTN with RVSP 46, need to keep her even to negative balance. (2) SBO (small bowel obstruction) Current Visit: Yes Status: Acute Plan to address problem: s/p hernia repair with reduction of incarcerated incisional hernia. Keep NPO Surgery following (3) Leukocytosis (leucocytosis) Current Visit: Yes Status: Acute Qualifiers: Leukocytosis type: L Plan to address problem: Secondary to intra-abdominal process Monitor trends Antibiotics to complete course (4) Atrial fibrillation with RVR Current Visit: Yes Status: Acute Plan to address problem: May need amiodarone infusion at a maintenance dose if heart rate is above 100. Monitor hemodynamics closely Hold off on anticoagulation in view of recent surgery and documented coffee ground emesis post procedure. (5) Dilated cardiomyopathy Current Visit: Yes Status: Chronic Plan to address problem: Beta-sari to be given now. Resume all cardioprotective measures once she is able to tolerate po medications. (6) COPD (chronic obstructive pulmonary disease) Current Visit: Yes Status: Acute Qualifiers: COPD type: C Chronic bronchitis type: C Emphysema type: E Plan to address problem: prn bronchodilators Critical care time in (mins) excluding proc time.: 45 Critical care attestation.: If time is entered above; I have spent that time in minutes in the direct care of this critically ill patient, excluding procedure time.
[2017-03-05] MEDS: SENOKOT PO SCH (21:18)
[2017-03-05] MEDS ORDERED: PROTONIX IV SCH (22:00)
[2017-03-06] MEDS: MORPHINE IV PRN ×4 (00:04→19:56)
[2017-03-06] MEDS: D5W/NS W/KCL 20MEQ 20 MEQ/1,000 ML BAG IV SCH ×2 (02:03→14:53)
[2017-03-06] MEDS: PROTONIX 80 MG in NACL 0.9% 100 ML IV SCH ×2 (03:24→13:41)
[2017-03-06] MEDS: LOPRESSOR IV PRN ×3 (04:44→14:56)
[2017-03-06 05:19] LABS: ISTAT Base Excess 4; ISTAT HCO3 24.3; ISTAT PCO2 19.4 (35-45); ISTAT PH 7.707 (7.35-7.45); ISTAT PO2 60 (80-105); ISTAT SO2 96; ISTAT TCO2 25
[2017-03-06 05:41] LABS: Hematocrit 27.6 % (30.3-42.9); Hemoglobin 9.5 gm/dl (10.1-14.3); Mean Corpuscular HGB Conc 34 % (30-34); Mean Corpuscular Hemoglobin 30 pg (28-32); Mean Corpuscular Volume 87 fl (79-97); Platelet Count 163 K/mm3 (140-440); Red Blood Count 3.18 M/mm3 (3.65-5.03); Red Cell Distribution Width 13.1 % (13.2-15.2)
[2017-03-06 05:51] LABS: White Blood Count 20.2 K/mm3 (4.5-11.0)
[2017-03-06 06:03] LABS: Alanine Aminotransferase 12 units/L (7-56); Albumin 2.7 g/dL (3.9-5); Alkaline Phosphatase 39 units/L (35-129); Anion Gap 17 mmol/L; BUN/Creatinine Ratio 38; Blood Urea Nitrogen 30 mg/dL (7-17); Calcium 7.5 mg/dL (8.4-10.2); Carbon Dioxide 25 mmol/L (22-30); Glucose 113 mg/dL (65-100); Potassium 3.8 mmol/L (3.6-5.0); Sodium 143 mmol/L (137-145); Total Protein 5.5 g/dL (6.3-8.2)
[2017-03-06 06:07] LABS: INR 1.34 (0.87-1.13)
[2017-03-06] MEDS: FLAGYL 500 MG/100 ML 500 MG/100 ML BAG IV SCH ×3 (07:11→23:01)
--- NOTE | 2017-03-06 07:56 | XRay Report ---
AP CHEST: HISTORY: Followup respiratory failure Compared to 03/05/17. The endotracheal tube remains in good position. The nasogastric tube terminates in the distal esophagus. Advancement by at least 10 cm is recommended. Please correlate with the image. AP view of the chest demonstrates a normal mediastinal and cardiac contour with clear lungs and normal bony and soft tissue structures. IMPRESSION: Unremarkable AP chest. The nasogastric tube terminates in the distal esophagus. See above.
[2017-03-06 08:05] LABS: Anisocytosis 1+; Blastocytes % (Manual) 0 %; Diff Status Complete; Platelet Estimate Consistent w Auto
[2017-03-06] MEDS ORDERED: NACL 0.9% 500 ML 500 ML IV ONE (08:17)
--- NOTE | 2017-03-06 08:17 | Progress Note ---
Assessment and Plan POD # 1 Pt intubated. appears comfortable, awake and alert Abd soft. still slightly dark coffee ground drainage from ng lowering h/h pt hypotensive and tachycardic cardiac issues will transfuse 2 units to attempt to stabilize Selected Entries 03/06/17 07:11 Pulse Rate 130 H Respiratory 19 Rate Blood Pressure 104/60 Laboratory Tests 03/06/17 04:49 WBC 20.2 H Hgb 9.5 L Hct 27.6 L Objective Vital Signs - 12hr 03/05/17 03/05/17 03/05/17 20:21 20:30 20:41 Temperature Pulse Rate 109 H 113 H 113 H Respiratory 16 17 16 Rate Respiratory Rate [Head] Blood Pressure 95/68 98/70 98/70 O2 Sat by Pulse 100 100 100 Oximetry 03/05/17 03/05/17 03/05/17 20:51 21:01 21:11 Temperature Pulse Rate 114 H 113 H 107 H Respiratory 16 19 16 Rate Respiratory Rate [Head] Blood Pressure 100/66 100/66 100/66 O2 Sat by Pulse 100 100 98 Oximetry 03/05/17 03/05/17 03/05/17 21:18 21:19 21:20 Temperature Pulse Rate 103 H 101 H 115 H Respiratory 16 Rate Respiratory 16 Rate [Head] Blood Pressure 95/66 97/65 O2 Sat by Pulse 100 Oximetry 03/05/17 03/05/17 03/05/17 21:21 21:30 21:41 Temperature Pulse Rate 112 H 128 H 105 H Respiratory 16 17 16 Rate Respiratory Rate [Head] Blood Pressure 95/66 95/66 95/66 O2 Sat by Pulse 100 100 100 Oximetry 03/05/17 03/05/17 03/05/17 21:51 22:00 22:11 Temperature Pulse Rate 110 H 112 H 105 H Respiratory 16 16 16 Rate Respiratory Rate [Head] Blood Pressure 90/62 96/61 96/61 O2 Sat by Pulse 100 100 100 Oximetry 03/05/17 03/05/17 03/05/17 22:21 22:30 22:41 Temperature Pulse Rate 110 H 107 H 124 H Respiratory 16 16 16 Rate Respiratory Rate [Head] Blood Pressure 90/62 84/54 84/54 O2 Sat by Pulse 100 100 Oximetry 03/05/17 03/05/17 03/05/17 22:51 23:00 23:11 Temperature Pulse Rate 125 H 104 H 125 H Respiratory 16 16 16 Rate Respiratory Rate [Head] Blood Pressure 87/57 81/63 81/63 O2 Sat by Pulse 100 100 100 Oximetry 03/05/17 03/05/17 03/05/17 23:21 23:28 23:30 Temperature 100.2 F H Pulse Rate 119 H 128 H Respiratory 18 16 Rate Respiratory Rate [Head] Blood Pressure 88/67 92/62 O2 Sat by Pulse 100 Oximetry 03/05/17 03/05/17 03/05/17 23:41 23:44 23:51 Temperature Pulse Rate 124 H 126 H 133 H Respiratory 16 16 Rate Respiratory Rate [Head] Blood Pressure 92/62 92/62 93/68 O2 Sat by Pulse 100 100 100 Oximetry 03/06/17 03/06/17 03/06/17 00:00 00:03 00:04 Temperature Pulse Rate 138 H 132 H Respiratory 16 16 16 Rate Respiratory Rate [Head] Blood Pressure 97/67 97/67 O2 Sat by Pulse 100 Oximetry 03/06/17 03/06/17 03/06/17 00:11 00:21 00:30 Temperature Pulse Rate 119 H 115 H 120 H Respiratory 16 16 16 Rate Respiratory Rate [Head] Blood Pressure 97/67 87/50 87/60 O2 Sat by Pulse 100 100 100 Oximetry 03/06/17 03/06/17 03/06/17 00:34 00:41 00:51 Temperature Pulse Rate 124 H 104 H Respiratory 16 16 16 Rate Respiratory Rate [Head] Blood Pressure 87/60 84/62 O2 Sat by Pulse 100 100 Oximetry 03/06/17 03/06/17 03/06/17 01:00 01:10 01:21 Temperature Pulse Rate 123 H 117 H 122 H Respiratory 16 16 16 Rate Respiratory Rate [Head] Blood Pressure 83/53 83/53 78/50 O2 Sat by Pulse 100 100 100 Oximetry 03/06/17 03/06/17 03/06/17 01:30 01:41 01:51 Temperature Pulse Rate 111 H 113 H 117 H Respiratory 16 16 16 Rate Respiratory Rate [Head] Blood Pressure 81/53 81/53 82/54 O2 Sat by Pulse 100 100 Oximetry 03/06/17 03/06/17 03/06/17 02:00 02:11 02:21 Temperature Pulse Rate 124 H 129 H 127 H Respiratory 16 16 16 Rate Respiratory Rate [Head] Blood Pressure 82/54 82/53 89/65 O2 Sat by Pulse 100 100 100 Oximetry 03/06/17 03/06/17 03/06/17 02:30 02:41 02:48 Temperature Pulse Rate 140 H 147 H 140 H Respiratory 16 16 Rate Respiratory Rate [Head] Blood Pressure 89/63 89/63 O2 Sat by Pulse 100 100 100 Oximetry 03/06/17 03/06/17 03/06/17 02:51 03:00 03:11 Temperature Pulse Rate 139 H 120 H 127 H Respiratory 16 16 16 Rate Respiratory Rate [Head] Blood Pressure 93/56 86/56 86/56 O2 Sat by Pulse 100 100 100 Oximetry 03/06/17 03/06/17 03/06/17 03:21 03:30 03:41 Temperature Pulse Rate 132 H 126 H 142 H Respiratory 16 16 16 Rate Respiratory Rate [Head] Blood Pressure 86/61 91/55 91/55 O2 Sat by Pulse 100 100 100 Oximetry 03/06/17 03/06/17 03/06/17 03:51 03:55 04:00 Temperature 100.9 F H Pulse Rate 138 H 140 H Respiratory 16 16 Rate Respiratory Rate [Head] Blood Pressure 81/50 84/55 O2 Sat by Pulse 100 100 Oximetry 03/06/17 03/06/17 03/06/17 04:11 04:21 04:31 Temperature Pulse Rate 144 H 145 H 130 H Respiratory 16 17 19 Rate Respiratory Rate [Head] Blood Pressure 84/55 84/55 100/54 O2 Sat by Pulse 100 100 100 Oximetry 03/06/17 03/06/17 03/06/17 04:40 04:41 04:44 Temperature Pulse Rate 124 H 175 H Respiratory 19 19 Rate Respiratory Rate [Head] Blood Pressure 100/54 100/54 O2 Sat by Pulse 100 Oximetry 03/06/17 03/06/17 03/06/17 04:51 05:00 05:10 Temperature Pulse Rate 113 H 109 H Respiratory 21 17 19 Rate Respiratory Rate [Head] Blood Pressure 89/57 97/69 O2 Sat by Pulse 100 Oximetry 03/06/17 03/06/17 03/06/17 05:11 05:21 05:30 Temperature Pulse Rate 105 H 106 H 103 H Respiratory 15 19 16 Rate Respiratory Rate [Head] Blood Pressure 97/69 101/65 102/64 O2 Sat by Pulse 100 100 Oximetry 03/06/17 03/06/17 03/06/17 05:41 05:51 05:55 Temperature Pulse Rate 120 H 119 H 119 H Respiratory 15 16 Rate Respiratory Rate [Head] Blood Pressure 102/64 91/66 O2 Sat by Pulse 100 100 Oximetry 03/06/17 03/06/17 03/06/17 06:00 06:11 06:21 Temperature Pulse Rate 125 H 115 H 127 H Respiratory 17 16 15 Rate Respiratory Rate [Head] Blood Pressure 100/58 100/58 101/66 O2 Sat by Pulse 100 100 100 Oximetry 03/06/17 03/06/17 03/06/17 06:30 06:41 06:51 Temperature Pulse Rate 115 H 120 H 122 H Respiratory 17 17 16 Rate Respiratory Rate [Head] Blood Pressure 107/70 107/70 108/69 O2 Sat by Pulse 100 100 100 Oximetry 03/06/17 03/06/17 03/06/17 06:56 07:01 07:11 Temperature Pulse Rate 133 H 130 H Respiratory 16 18 19 Rate Respiratory Rate [Head] Blood Pressure 104/60 104/60 O2 Sat by Pulse 100 100 100 Oximetry - Labs 03/06/17 04:49 03/06/17 04:49 Diabetes panel 03/06/17 Range/Units 04:49 Sodium 143 (137-145) mmol/L Potassium 3.8 (3.6-5.0) mmol/L Chloride 105.0 (98-107) mmol/L Carbon Dioxide 25 (22-30) mmol/L BUN 30 H (7-17) mg/dL Creatinine 0.8 D (0.7-1.2) mg/dL Glucose 113 H (65-100) mg/dL Calcium 7.5 L (8.4-10.2) mg/dL AST 17 (5-40) units/L ALT 12 (7-56) units/L Alkaline Phosphatase 39 (35-129) units/L Total Protein 5.5 L (6.3-8.2) g/dL Albumin 2.7 L (3.9-5) g/dL Calcium panel 03/06/17 Range/Units 04:49 Calcium 7.5 L (8.4-10.2) mg/dL Albumin 2.7 L (3.9-5) g/dL Pituitary panel 03/06/17 Range/Units 04:49 Sodium 143 (137-145) mmol/L Potassium 3.8 (3.6-5.0) mmol/L Chloride 105.0 (98-107) mmol/L Carbon Dioxide 25 (22-30) mmol/L BUN 30 H (7-17) mg/dL Creatinine 0.8 D (0.7-1.2) mg/dL Glucose 113 H (65-100) mg/dL Calcium 7.5 L (8.4-10.2) mg/dL Adrenal panel 03/06/17 Range/Units 04:49 Sodium 143 (137-145) mmol/L Potassium 3.8 (3.6-5.0) mmol/L Chloride 105.0 (98-107) mmol/L Carbon Dioxide 25 (22-30) mmol/L BUN 30 H (7-17) mg/dL Creatinine 0.8 D (0.7-1.2) mg/dL Glucose 113 H (65-100) mg/dL Calcium 7.5 L (8.4-10.2) mg/dL Total Bilirubin 0.60 (0.1-1.2) mg/dL AST 17 (5-40) units/L ALT 12 (7-56) units/L Alkaline Phosphatase 39 (35-129) units/L Total Protein 5.5 L (6.3-8.2) g/dL Albumin 2.7 L (3.9-5) g/dL
[2017-03-06] MEDS: LEVAQUIN 750MG/150ML 750 MG/150 ML BAG IV SCH (09:02)
[2017-03-06] MEDS: COREG PO SCH ×2 (09:10→23:01)
[2017-03-06] MEDS: ZESTRIL PO SCH (09:11)
--- NOTE | 2017-03-06 09:41 | Progress Note ---
Assessment and Plan (1) Acute respiratory failure with hypoxia and hypercapnia Current Visit: Yes Status: Acute Plan to address problem: - Lung protective strategies - Wean FIO2 to keep O2 sats >94% (35%) - VAP bundle addressed, SCDs for VTE prophylaxis for now - on SBT now - reviewed CXR - continue Stress ulcer prophylaxis (on protonix drip) - She has moderated pulmonary HTN with RVSP 46, need to keep her even to negative balance. (2) SBO (small bowel obstruction) Current Visit: Yes Status: Acute Plan to address problem: - s/p hernia repair with reduction of incarcerated incisional hernia. - Keep NPO - Surgery following (3) Leukocytosis (leucocytosis) Current Visit: Yes Status: Acute Qualifiers: Leukocytosis type: L Plan to address problem: - Secondary to intra-abdominal process - possible UTI - Monitor trends - Antibiotics to complete course - cultures NGTD - clinically improving (4) Atrial fibrillation with RVR Current Visit: Yes Status: Acute Plan to address problem: - May need amiodarone infusion at a maintenance dose if heart rate is above 100. - Monitor hemodynamics closely - Hold off on anticoagulation in view of recent surgery and documented coffee ground emesis post procedure. - rate controlled (5) Dilated cardiomyopathy Current Visit: Yes Status: Chronic Plan to address problem: - Beta-sari to be given now. - Resume all cardioprotective measures once she is able to tolerate po medications. (6) COPD (chronic obstructive pulmonary disease) Current Visit: Yes Status: Acute Qualifiers: COPD type: C Chronic bronchitis type: C Emphysema type: E Plan to address problem: - prn bronchodilators - clinically stable (7) Discharge planning issues Current Visit: Yes Status: Acute Plan to address problem: - patient remains critically ill - she is tolerating the SBT now and will be given a trial of extubation today if she passes - tentatively transfer out of ICU in am .......re-evaluate in am & prn Critical care time in (mins) excluding proc time.: 35 mins Critical care attestation.: - If time is entered above; I have spent that time in minutes in the direct care of this critically ill patient, excluding procedure time. Subjective Date of service: 03/06/17 Principal diagnosis: Acute Hypoxemic Resp Failure; SBO s/p Ex-lap and resection ; Sepsis Syndrome Interval history: Patient is being seen today for: Sc[place] hypoxemic Respiratory Failuure and Sepsis syndrome Seen and examined at bedside; 24hour events reviewed; nursing and respiratory care staff consulted; no adverse overnight events reported to me; feels better; + chest pain but pleuritic; no emesis or overt aspiration today; + mild abd pain ; constant; no gross bleeding on protonix drip Objective Vital Signs - 12hr 03/05/17 03/05/17 03/05/17 21:51 22:00 22:11 Temperature Pulse Rate 110 H 112 H 105 H Respiratory 16 16 16 Rate Blood Pressure 90/62 96/61 96/61 O2 Sat by Pulse 100 100 100 Oximetry 03/05/17 03/05/17 03/05/17 22:21 22:30 22:41 Temperature Pulse Rate 110 H 107 H 124 H Respiratory 16 16 16 Rate Blood Pressure 90/62 84/54 84/54 O2 Sat by Pulse 100 100 Oximetry 03/05/17 03/05/17 03/05/17 22:51 23:00 23:11 Temperature Pulse Rate 125 H 104 H 125 H Respiratory 16 16 16 Rate Blood Pressure 87/57 81/63 81/63 O2 Sat by Pulse 100 100 100 Oximetry 03/05/17 03/05/17 03/05/17 23:21 23:28 23:30 Temperature 100.2 F H Pulse Rate 119 H 128 H Respiratory 18 16 Rate Blood Pressure 88/67 92/62 O2 Sat by Pulse 100 Oximetry 03/05/17 03/05/17 03/05/17 23:41 23:44 23:51 Temperature Pulse Rate 124 H 126 H 133 H Respiratory 16 16 Rate Blood Pressure 92/62 92/62 93/68 O2 Sat by Pulse 100 100 100 Oximetry 03/06/17 03/06/17 03/06/17 00:00 00:03 00:04 Temperature Pulse Rate 138 H 132 H Respiratory 16 16 16 Rate Blood Pressure 97/67 97/67 O2 Sat by Pulse 100 Oximetry 03/06/17 03/06/17 03/06/17 00:11 00:21 00:30 Temperature Pulse Rate 119 H 115 H 120 H Respiratory 16 16 16 Rate Blood Pressure 97/67 87/50 87/60 O2 Sat by Pulse 100 100 100 Oximetry 03/06/17 03/06/17 03/06/17 00:34 00:41 00:51 Temperature Pulse Rate 124 H 104 H Respiratory 16 16 16 Rate Blood Pressure 87/60 84/62 O2 Sat by Pulse 100 100 Oximetry 03/06/17 03/06/17 03/06/17 01:00 01:10 01:21 Temperature Pulse Rate 123 H 117 H 122 H Respiratory 16 16 16 Rate Blood Pressure 83/53 83/53 78/50 O2 Sat by Pulse 100 100 100 Oximetry 03/06/17 03/06/17 03/06/17 01:30 01:41 01:51 Temperature Pulse Rate 111 H 113 H 117 H Respiratory 16 16 16 Rate Blood Pressure 81/53 81/53 82/54 O2 Sat by Pulse 100 100 Oximetry 03/06/17 03/06/17 03/06/17 02:00 02:11 02:21 Temperature Pulse Rate 124 H 129 H 127 H Respiratory 16 16 16 Rate Blood Pressure 82/54 82/53 89/65 O2 Sat by Pulse 100 100 100 Oximetry 03/06/17 03/06/17 03/06/17 02:30 02:41 02:48 Temperature Pulse Rate 140 H 147 H 140 H Respiratory 16 16 Rate Blood Pressure 89/63 89/63 O2 Sat by Pulse 100 100 100 Oximetry 03/06/17 03/06/17 03/06/17 02:51 03:00 03:11 Temperature Pulse Rate 139 H 120 H 127 H Respiratory 16 16 16 Rate Blood Pressure 93/56 86/56 86/56 O2 Sat by Pulse 100 100 100 Oximetry 03/06/17 03/06/17 03/06/17 03:21 03:30 03:41 Temperature Pulse Rate 132 H 126 H 142 H Respiratory 16 16 16 Rate Blood Pressure 86/61 91/55 91/55 O2 Sat by Pulse 100 100 100 Oximetry 03/06/17 03/06/17 03/06/17 03:51 03:55 04:00 Temperature 100.9 F H Pulse Rate 138 H 140 H Respiratory 16 16 Rate Blood Pressure 81/50 84/55 O2 Sat by Pulse 100 100 Oximetry 03/06/17 03/06/17 03/06/17 04:11 04:21 04:31 Temperature Pulse Rate 144 H 145 H 130 H Respiratory 16 17 19 Rate Blood Pressure 84/55 84/55 100/54 O2 Sat by Pulse 100 100 100 Oximetry 03/06/17 03/06/17 03/06/17 04:40 04:41 04:44 Temperature Pulse Rate 124 H 175 H Respiratory 19 19 Rate Blood Pressure 100/54 100/54 O2 Sat by Pulse 100 Oximetry 03/06/17 03/06/17 03/06/17 04:51 05:00 05:10 Temperature Pulse Rate 113 H 109 H Respiratory 21 17 19 Rate Blood Pressure 89/57 97/69 O2 Sat by Pulse 100 Oximetry 03/06/17 03/06/17 03/06/17 05:11 05:21 05:30 Temperature Pulse Rate 105 H 106 H 103 H Respiratory 15 19 16 Rate Blood Pressure 97/69 101/65 102/64 O2 Sat by Pulse 100 100 Oximetry 03/06/17 03/06/17 03/06/17 05:41 05:51 05:55 Temperature Pulse Rate 120 H 119 H 119 H Respiratory 15 16 Rate Blood Pressure 102/64 91/66 O2 Sat by Pulse 100 100 Oximetry 03/06/17 03/06/17 03/06/17 06:00 06:11 06:21 Temperature Pulse Rate 125 H 115 H 127 H Respiratory 17 16 15 Rate Blood Pressure 100/58 100/58 101/66 O2 Sat by Pulse 100 100 100 Oximetry 03/06/17 03/06/17 03/06/17 06:30 06:41 06:51 Temperature Pulse Rate 115 H 120 H 122 H Respiratory 17 17 16 Rate Blood Pressure 107/70 107/70 108/69 O2 Sat by Pulse 100 100 100 Oximetry 03/06/17 03/06/17 03/06/17 06:56 07:01 07:11 Temperature Pulse Rate 133 H 130 H Respiratory 16 18 19 Rate Blood Pressure 104/60 104/60 O2 Sat by Pulse 100 100 100 Oximetry 03/06/17 03/06/17 03/06/17 08:00 09:09 09:10 Temperature 99.3 F Pulse Rate 114 H 130 H 130 H Respiratory 19 Rate Blood Pressure 107/69 106/68 106/68 O2 Sat by Pulse 100 Oximetry 03/06/17 09:11 Temperature Pulse Rate 130 H Respiratory Rate Blood Pressure 106/68 O2 Sat by Pulse Oximetry Constitutional: no acute distress, appears uncomfortable, other (somnolent) Eyes: non-icteric ENT: oropharynx moist Neck: supple, no lymphadenopathy, no JVD Effort: mildly labored (pain limited) Ascultation: Bilateral: diminished breath sounds, rales (scant in bases) Cardiovascular: irregular rhythm, other (S1,S2; No rubs / murmurs) Gastrointestinal: absent bowel sounds, tender (clean dry surgical dressing), non -distended, other (NGT in left nare, draining dark fluid) Integumentary: normal Extremities: no cyanosis, no edema, pink and warm, pulses normal Neurologic: non-focal exam (moves all extremities to command), pupils equal and round, motor strength normal and Psychiatric: mood appropriate, affect normal CBC and BMP: 03/06/17 04:49 03/06/17 04:49 ABG, PT/INR, D-dimer: ABG POC ABG pH 7.707 (7.35-7.45) H 03/06/17 04:06 POC ABG pCO2 19.4 (35-45) L 03/06/17 04:06 POC ABG pO2 60 (80-105) L 03/06/17 04:06 POC ABG HCO3 24.3 03/06/17 04:06 POC ABG Total CO2 25 03/06/17 04:06 POC ABG O2 Sat 96 03/06/17 04:06 PT/INR, D-dimer PT 17.3 Sec. (12.2-14.9) H 03/06/17 04:49 INR 1.34 (0.87-1.13) H 03/06/17 04:49 Abnormal lab findings: Abnormal Labs 02/28/17 03/01/17 03/02/17 19:14 02:50 05:09 WBC RBC Hgb Hct MCHC RDW Lymph % (Auto) [place] % (Auto) [place] # Seg Neutrophils % Seg Neuts % (Manual) Lymphocytes % (Manual) Monocytes % (Manual) Seg Neutrophils # Seg Neutrophils # Man Monocytes # (Manual) PT 27.3 H 43.9 H INR 2.40 H 4.39 H POC ABG pH POC ABG pCO2 POC ABG pO2 Sodium Potassium Chloride BUN Creatinine Glucose Calcium NT-Pro-B Natriuret Pep 1929 H Total Protein Albumin Urine WBC (Auto) Crossmatch 03/02/17 03/02/17 03/02/17 05:09 05:09 13:32 WBC 17.4 H RBC 5.48 H Hgb 15.9 H Hct 47.4 H MCHC RDW Lymph % (Auto) 11.3 L [place] % (Auto) [place] # Seg Neutrophils % 84.2 H Seg Neuts % (Manual) Lymphocytes % (Manual) Monocytes % (Manual) Seg Neutrophils # 14.6 H Seg Neutrophils # Man Monocytes # (Manual) PT 47.9 H INR 4.90 H POC ABG pH POC ABG pCO2 POC ABG pO2 Sodium 136 L Potassium Chloride 97.7 L BUN Creatinine 0.5 L Glucose 109 H Calcium NT-Pro-B Natriuret Pep Total Protein Albumin Urine WBC (Auto) Crossmatch 03/03/17 03/03/17 03/03/17 06:32 06:32 06:32 WBC 19.0 H RBC 5.46 H Hgb 16.0 H Hct 46.8 H MCHC RDW 13.1 L Lymph % (Auto) 10.7 L [place] % (Auto) [place] # 1.0 H Seg Neutrophils % 83.2 H Seg Neuts % (Manual) Lymphocytes % (Manual) Monocytes % (Manual) Seg Neutrophils # 15.8 H Seg Neutrophils # Man Monocytes # (Manual) PT 44.3 H INR 4.44 H POC ABG pH POC ABG pCO2 POC ABG pO2 Sodium Potassium Chloride BUN 24 H Creatinine 0.6 L Glucose 101 H Calcium NT-Pro-B Natriuret Pep Total Protein Albumin 3.4 L Urine WBC (Auto) Crossmatch 03/03/17 03/04/17 03/04/17 18:00 05:27 05:27 WBC 16.0 H RBC 5.16 H Hgb 15.1 H Hct 43.8 H MCHC RDW Lymph % (Auto) 8.3 L [place] % (Auto) [place] # Seg Neutrophils % 86.5 H Seg Neuts % (Manual) Lymphocytes % (Manual) Monocytes % (Manual) Seg Neutrophils # 13.8 H Seg Neutrophils # Man Monocytes # (Manual) PT 26.8 H INR 2.34 H POC ABG pH POC ABG pCO2 POC ABG pO2 Sodium Potassium Chloride BUN Creatinine Glucose Calcium NT-Pro-B Natriuret Pep Total Protein Albumin Urine WBC (Auto) Crossmatch See Detail 03/04/17 03/04/17 03/04/17 05:27 13:31 23:05 WBC 17.2 H RBC Hgb Hct MCHC RDW Lymph % (Auto) 11.6 L [place] % (Auto) [place] # 1.2 H Seg Neutrophils % 81.2 H Seg Neuts % (Manual) 85.0 H Lymphocytes % (Manual) 8.0 L Monocytes % (Manual) Seg Neutrophils # 13.7 H Seg Neutrophils # Man 14.6 H Monocytes # (Manual) PT 19.3 H INR 1.55 H POC ABG pH POC ABG pCO2 POC ABG pO2 Sodium Potassium Chloride BUN 20 H Creatinine 0.5 L Glucose 162 H Calcium 8.0 L NT-Pro-B Natriuret Pep Total Protein Albumin 3.5 L Urine WBC (Auto) Crossmatch 03/05/17 03/05/17 03/05/17 05:18 05:18 05:18 WBC 15.0 H RBC 3.52 L Hgb Hct 30.0 L MCHC 35 H RDW 13.1 L Lymph % (Auto) 12.3 L [place] % (Auto) 9.1 H [place] # 1.4 H Seg Neutrophils % 78.5 H Seg Neuts % (Manual) Lymphocytes % (Manual) Monocytes % (Manual) Seg Neutrophils # 11.8 H Seg Neutrophils # Man Monocytes # (Manual) PT 16.5 H INR 1.27 H POC ABG pH POC ABG pCO2 POC ABG pO2 Sodium Potassium 3.5 L Chloride BUN 34 H Creatinine 0.4 L Glucose 132 H Calcium 8.2 L NT-Pro-B Natriuret Pep Total Protein Albumin Urine WBC (Auto) Crossmatch 03/05/17 03/05/17 03/05/17 10:39 11:00 17:50 WBC 22.1 H 18.2 H RBC 3.51 L 3.30 L Hgb 9.6 L Hct 28.7 L MCHC RDW 13.1 L 13.1 L Lymph % (Auto) [place] % (Auto) 8.6 H [place] # 1.6 H Seg Neutrophils % 76.5 H Seg Neuts % (Manual) Lymphocytes % (Manual) Monocytes % (Manual) 14.0 H Seg Neutrophils # 13.9 H Seg Neutrophils # Man 15.5 H Monocytes # (Manual) 3.1 H PT INR POC ABG pH POC ABG pCO2 46.7 H POC ABG pO2 Sodium Potassium Chloride BUN Creatinine Glucose Calcium NT-Pro-B Natriuret Pep Total Protein Albumin Urine WBC (Auto) Crossmatch 03/05/17 03/06/17 03/06/17 Unknown 04:06 04:49 WBC RBC Hgb Hct MCHC RDW Lymph % (Auto) [place] % (Auto) [place] # Seg Neutrophils % Seg Neuts % (Manual) Lymphocytes % (Manual) Monocytes % (Manual) Seg Neutrophils # Seg Neutrophils # Man Monocytes # (Manual) PT 17.3 H INR 1.34 H POC ABG pH 7.707 H POC ABG pCO2 19.4 L POC ABG pO2 60 L Sodium Potassium Chloride BUN Creatinine Glucose Calcium NT-Pro-B Natriuret Pep Total Protein Albumin Urine WBC (Auto) 19.0 H Crossmatch 03/06/17 03/06/17 04:49 04:49 WBC 20.2 H RBC 3.18 L Hgb 9.5 L Hct 27.6 L MCHC RDW 13.1 L Lymph % (Auto) [place] % (Auto) [place] # Seg Neutrophils % Seg Neuts % (Manual) 87.0 H Lymphocytes % (Manual) 8.0 L Monocytes % (Manual) Seg Neutrophils # Seg Neutrophils # Man 17.6 H Monocytes # (Manual) PT INR POC ABG pH POC ABG pCO2 POC ABG pO2 Sodium Potassium Chloride BUN 30 H Creatinine Glucose 113 H Calcium 7.5 L NT-Pro-B Natriuret Pep Total Protein 5.5 L Albumin 2.7 L Urine WBC (Auto) Crossmatch Chest x-ray: image reviewed (ETT tip at aortic knob; no pneumothorax or focal infiltrate) Allied health notes reviewed: RT
[2017-03-06] MEDS ORDERED: LANOXIN IV ONE (10:08)
--- NOTE | 2017-03-06 11:32 | Progress Note ---
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 In the setting of underlying cardiomyopathy and left ventricular dysfunction, recommend judicious use of postoperative IV fluids to avoid fluid overload. Subjective Date of service: 03/06/17 Principal diagnosis: Acute Hypoxemic Resp Failure; SBO s/p Ex-lap and resection ; Sepsis Syndrome Interval history: Patient awake and alert but is orally intubated. Objective Vital Signs Temp Pulse Resp Resp BP Pulse Ox 03/06/17 11:00 140 H 18 115/61 99 03/06/17 10:51 133 H 20 106/70 100 03/06/17 10:41 120 H 20 108/71 100 03/06/17 10:30 125 H 18 108/71 03/06/17 10:23 129 H 14 115/70 100 03/06/17 10:21 125 H 16 115/70 100 03/06/17 10:11 128 H 17 107/69 100 03/06/17 10:00 108 H 17 110/72 100 03/06/17 09:51 122 H 16 111/79 100 03/06/17 09:41 114 H 18 119/63 100 03/06/17 09:30 103 H 19 107/69 100 03/06/17 09:21 108 H 22 119/63 100 03/06/17 09:11 113 H 18 106/68 100 03/06/17 09:10 130 H 106/68 03/06/17 09:09 130 H 106/68 03/06/17 09:00 121 H 21 106/68 100 03/06/17 08:51 140 H 19 110/74 100 03/06/17 08:41 138 H 21 101/64 100 03/06/17 08:30 145 H 20 101/64 100 03/06/17 08:21 170 H 18 115/67 100 03/06/17 08:11 150 H 17 112/67 100 03/06/17 08:00 99.3 F 133 H 19 112/67 100 03/06/17 07:51 149 H 17 128/59 100 03/06/17 07:41 133 H 16 119/68 100 03/06/17 07:30 148 H 16 119/68 100 03/06/17 07:21 136 H 16 105/70 100 03/06/17 07:11 130 H 19 104/60 100 03/06/17 07:01 133 H 18 104/60 100 03/06/17 06:56 16 100 03/06/17 06:51 122 H 16 108/69 100 03/06/17 06:41 120 H 17 107/70 100 03/06/17 06:30 115 H 17 107/70 100 03/06/17 06:21 127 H 15 101/66 100 03/06/17 06:11 115 H 16 100/58 100 03/06/17 06:00 125 H 17 100/58 100 03/06/17 05:55 119 H 03/06/17 05:51 119 H 16 91/66 100 03/06/17 05:41 120 H 15 102/64 100 03/06/17 05:30 103 H 16 102/64 03/06/17 05:21 106 H 19 101/65 100 03/06/17 05:11 105 H 15 97/69 100 03/06/17 05:10 19 03/06/17 05:00 109 H 17 97/69 03/06/17 04:51 113 H 21 89/57 100 03/06/17 04:44 175 H 100/54 03/06/17 04:41 124 H 19 100/54 100 03/06/17 04:40 19 03/06/17 04:31 130 H 19 100/54 100 03/06/17 04:21 145 H 17 84/55 100 03/06/17 04:11 144 H 16 84/55 100 03/06/17 04:00 140 H 16 84/55 100 03/06/17 03:55 100.9 F H 03/06/17 03:51 138 H 16 81/50 100 03/06/17 03:41 142 H 16 91/55 100 03/06/17 03:30 126 H 16 91/55 100 03/06/17 03:21 132 H 16 86/61 100 03/06/17 03:11 127 H 16 86/56 100 03/06/17 03:00 120 H 16 86/56 100 03/06/17 02:51 139 H 16 93/56 100 03/06/17 02:48 140 H 100 03/06/17 02:41 147 H 16 89/63 100 03/06/17 02:30 140 H 16 89/63 100 03/06/17 02:21 127 H 16 89/65 100 03/06/17 02:11 129 H 16 82/53 100 03/06/17 02:00 124 H 16 82/54 100 03/06/17 01:51 117 H 16 82/54 100 03/06/17 01:41 113 H 16 81/53 100 03/06/17 01:30 111 H 16 81/53 03/06/17 01:21 122 H 16 78/50 100 03/06/17 01:10 117 H 16 83/53 100 03/06/17 01:00 123 H 16 83/53 100 03/06/17 00:51 104 H 16 84/62 100 03/06/17 00:41 124 H 16 87/60 100 03/06/17 00:34 16 03/06/17 00:30 120 H 16 87/60 100 03/06/17 00:21 115 H 16 87/50 100 03/06/17 00:11 119 H 16 97/67 100 03/06/17 00:04 16 03/06/17 00:03 132 H 16 97/67 100 03/06/17 00:00 138 H 16 97/67 03/05/17 23:51 133 H 16 93/68 100 03/05/17 23:44 126 H 92/62 100 03/05/17 23:41 124 H 16 92/62 100 03/05/17 23:30 128 H 16 92/62 03/05/17 23:28 100.2 F H 03/05/17 23:21 119 H 18 88/67 100 03/05/17 23:11 125 H 16 81/63 100 03/05/17 23:00 104 H 16 81/63 100 03/05/17 22:51 125 H 16 87/57 100 03/05/17 22:41 124 H 16 84/54 100 03/05/17 22:30 107 H 16 84/54 03/05/17 22:21 110 H 16 90/62 100 03/05/17 22:11 105 H 16 96/61 100 03/05/17 22:00 112 H 16 96/61 100 03/05/17 21:51 110 H 16 90/62 100 03/05/17 21:41 105 H 16 95/66 100 03/05/17 21:30 128 H 17 95/66 100 03/05/17 21:21 112 H 16 95/66 100 03/05/17 21:20 115 H 16 16 100 03/05/17 21:19 101 H 97/65 03/05/17 21:18 103 H 95/66 03/05/17 21:11 107 H 16 100/66 98 03/05/17 21:01 113 H 19 100/66 100 03/05/17 20:51 114 H 16 100/66 100 03/05/17 20:41 113 H 16 98/70 100 03/05/17 20:30 113 H 17 98/70 100 03/05/17 20:21 109 H 16 95/68 100 03/05/17 20:11 102 H 19 95/67 100 03/05/17 20:10 99.6 F 03/05/17 20:08 16 03/05/17 20:00 114 H 16 95/67 100 03/05/17 19:57 103 H 97/68 100 03/05/17 19:51 117 H 22 97/68 100 03/05/17 19:41 106 H 20 102/66 100 03/05/17 19:38 24 03/05/17 19:30 116 H 19 102/66 03/05/17 19:21 108 H 16 99/65 100 03/05/17 19:15 115 H 16 100 03/05/17 19:11 94 H 16 97/65 100 03/05/17 19:00 95 H 18 97/65 100 03/05/17 18:51 98 H 20 99/65 100 03/05/17 18:41 104 H 16 98/65 100 03/05/17 18:30 121 H 20 98/65 100 03/05/17 18:28 157 H 105/70 03/05/17 18:21 127 H 17 105/70 100 03/05/17 18:11 127 H 16 103/70 100 03/05/17 18:00 122 H 18 103/70 100 03/05/17 17:51 114 H 17 108/69 100 03/05/17 17:41 132 H 21 122/63 100 03/05/17 17:31 116 H 16 110/75 100 03/05/17 17:30 19 03/05/17 17:21 119 H 22 110/75 100 03/05/17 17:10 115 H 16 111/76 100 03/05/17 17:00 115 H 18 111/76 100 03/05/17 16:50 115 H 17 100 03/05/17 16:46 118 H 16 100 03/05/17 16:30 99.1 F 120 H 16 114/70 99 03/05/17 16:00 111 H 17 112/71 99 03/05/17 15:41 109 H 120/77 99 03/05/17 15:00 94 H 15 127/72 100 03/05/17 14:30 128 H 20 126/78 100 03/05/17 14:00 117 H 17 123/77 100 03/05/17 13:30 113 H 17 129/76 100 03/05/17 13:00 120 H 17 120/90 100 03/05/17 12:30 112 H 16 109/82 100 03/05/17 12:00 100 H 16 121/77 100 03/05/17 11:50 80 126/87 100 03/05/17 11:30 104 H 16 135/72 100 - Physical Examination General: Other (intubated) Cardiac: Positive: irregularly irregular - Labs and Meds Cardiac Enzymes 03/06/17 Range/Units 04:49 AST 17 (5-40) units/L Coagulation 03/06/17 Range/Units 04:49 PT 17.3 H (12.2-14.9) Sec. INR 1.34 H (0.87-1.13) CBC 03/05/17 03/05/17 03/06/17 Range/Units 11:00 17:50 04:49 WBC 22.1 H 18.2 H 20.2 H (4.5-11.0) K/mm3 RBC 3.51 L 3.30 L 3.18 L (3.65-5.03) M/mm3 Hgb 10.2 9.6 L 9.5 L (10.1-14.3) gm/dl Hct 30.7 28.7 L 27.6 L (30.3-42.9) % Plt Count 182 178 163 (140-440) K/mm3 Lymph # 2.6 (1.2-5.4) K/mm3 [place] # 1.6 H (0.0-0.8) K/mm3 Eos # 0.0 (0.0-0.4) K/mm3 Baso # 0.1 (0.0-0.1) K/mm3 Comprehensive Metabolic Panel 03/06/17 Range/Units 04:49 Sodium 143 (137-145) mmol/L Potassium 3.8 (3.6-5.0) mmol/L Chloride 105.0 (98-107) mmol/L Carbon Dioxide 25 (22-30) mmol/L BUN 30 H (7-17) mg/dL Creatinine 0.8 D (0.7-1.2) mg/dL Glucose 113 H (65-100) mg/dL Calcium 7.5 L (8.4-10.2) mg/dL AST 17 (5-40) units/L ALT 12 (7-56) units/L Alkaline Phosphatase 39 (35-129) units/L Total Protein 5.5 L (6.3-8.2) g/dL Albumin 2.7 L (3.9-5) g/dL - Allied health notes Allied health notes reviewed: RT
[2017-03-06] MEDS ORDERED: CARDIZEM IV ONE (13:26)
--- NOTE | 2017-03-06 13:46 | Gastroenterology Progress Note ---
Assessment and Plan - Patient Problems (1) SBO (small bowel obstruction) Current Visit: Yes Status: Acute Plan to address problem: S/p laparotomy and repair of incarcerated RLQ hernia. Has post op ileus. Minimal if any bowel activity yet. (2) UGIB (upper gastrointestinal bleed) Current Visit: Yes Status: Acute Plan to address problem: Slow UGI bleeding. H&H has drifted down. BUN decreasing. On protonix drip. Endoscopy is contraindicated until ileus has improved, unless bleeding becomes uncontrollable. Care discussed at length with son at bedside. (3) Atrial fibrillation with RVR Current Visit: Yes Status: Acute Subjective Date of service: 03/06/17 Principal diagnosis: UGI bleeding/SBO Interval history: The patient is sedated, but arousable. Appears comfortable. Objective - Exam Narrative Exam: NG drainage reveals chocolate colored blood. - Constitutional Vitals: Temp Pulse Resp BP Pulse Ox 101.1 F H 185 H 18 115/68 100 03/06/17 12:00 03/06/17 13:41 03/06/17 11:00 03/06/17 13:41 03/06/17 12:55 General appearance: no acute distress - Respiratory Respiratory effort: normal Respiratory: bilateral: CTA - Cardiovascular Heart Rate: 175 Rhythm: regular Heart Sounds: Present: S1 & S2 - Extremities Extremities: pulses intact, No edema, normal color, Full ROM - Gastrointestinal General gastrointestinal: Present: soft, non-distended, other (No bowel sounds. Dressings clean and dry.) - Genitourinary Female Genitourinary: deferred - Neurologic Neurological: other (somnolent) - Labs CBC & Chem 7: 03/06/17 04:49 03/06/17 04:49 Labs: Laboratory Results - last 24 hr 03/03/17 03/05/17 03/06/17 18:00 17:50 04:06 WBC 18.2 H RBC 3.30 L Hgb 9.6 L Hct 28.7 L MCV 87 MCH 29 MCHC 33 RDW 13.1 L Plt Count 178 Lymph % (Auto) 14.5 [place] % (Auto) 8.6 H Eos % (Auto) 0.0 Baso % (Auto) 0.4 Lymph # 2.6 [place] # 1.6 H Eos # 0.0 Baso # 0.1 Add Manual Diff Total Counted Seg Neutrophils % 76.5 H Seg Neuts % (Manual) Band Neutrophils % Lymphocytes % (Manual) Reactive Lymphs % (Man) Monocytes % (Manual) Metamyelocytes % Myelocytes % Promyelocytes % Blast Cells % Nucleated RBC % Seg Neutrophils # 13.9 H Seg Neutrophils # Man Band Neutrophils # Lymphocytes # (Manual) Abs React Lymphs (Man) Monocytes # (Manual) Eosinophils # (Manual) Basophils # (Manual) Metamyelocytes # Myelocytes # Promyelocytes # Blast Cells # WBC Morphology Hypersegmented Neuts Hyposegmented Neuts Hypogranular Neuts Smudge Cells Toxic Granulation Toxic Vacuolation Dohle Bodies Pelger-Huet Anomaly Evangelina Rods Platelet Estimate Clumped Platelets Plt Clumps, EDTA Large Platelets Giant Platelets Platelet Satelliting Plt Morphology Comment RBC Morphology Dimorphic RBCs Polychromasia Hypochromasia Poikilocytosis Anisocytosis Microcytosis Macrocytosis Spherocytes Pappenheimer Bodies Sickle Cells Target Cells Tear Drop Cells Ovalocytes Helmet Cells White-[place]ange Bodies [place] Rings Orofino Cells Bite Cells Crenated Cell Elliptocytes Acanthocytes (Spur) Rouleaux Hemoglobin C Crystals Schistocytes Malaria parasites Rd Bodies Hem Pathologist Commnt PT INR POC ABG pH 7.707 H POC ABG pCO2 19.4 L POC ABG pO2 60 L POC ABG HCO3 24.3 POC ABG Total CO2 25 POC ABG O2 Sat 96 POC ABG Base Excess 4 FiO2 60 Sodium Potassium Chloride Carbon Dioxide Anion Gap BUN Creatinine Estimated GFR BUN/Creatinine Ratio Glucose Calcium Total Bilirubin AST ALT Alkaline Phosphatase Total Protein Albumin Albumin/Globulin Ratio Crossmatch See Detail 03/06/17 03/06/17 03/06/17 04:49 04:49 04:49 WBC 20.2 H RBC 3.18 L Hgb 9.5 L Hct 27.6 L MCV 87 MCH 30 MCHC 34 RDW 13.1 L Plt Count 163 Lymph % (Auto) [place] % (Auto) Eos % (Auto) Baso % (Auto) Lymph # [place] # Eos # Baso # Add Manual Diff Complete Total Counted 100 Seg Neutrophils % Seg Neuts % (Manual) 87.0 H Band Neutrophils % 0 Lymphocytes % (Manual) 8.0 L Reactive Lymphs % (Man) 0 Monocytes % (Manual) 4.0 Metamyelocytes % 1.0 Myelocytes % 0 Promyelocytes % 0 Blast Cells % 0 Nucleated RBC % Not Reportable Seg Neutrophils # Seg Neutrophils # Man 17.6 H Band Neutrophils # 0.0 Lymphocytes # (Manual) 1.6 Abs React Lymphs (Man) 0.0 Monocytes # (Manual) 0.8 Eosinophils # (Manual) 0.0 Basophils # (Manual) 0.0 Metamyelocytes # 0.2 Myelocytes # 0.0 Promyelocytes # 0.0 Blast Cells # 0.0 WBC Morphology Not Reportable Hypersegmented Neuts Not Reportable Hyposegmented Neuts Not Reportable Hypogranular Neuts Not Reportable Smudge Cells Not Reportable Toxic Granulation Not Reportable Toxic Vacuolation Not Reportable Dohle Bodies Not Reportable Pelger-Huet Anomaly Not Reportable Evangelina Rods Not Reportable Platelet Estimate Consistent w auto Clumped Platelets Not Reportable Plt Clumps, EDTA Not Reportable Large Platelets Not Reportable Giant Platelets Not Reportable Platelet Satelliting Not Reportable Plt Morphology Comment Not Reportable RBC Morphology Not Reportable Dimorphic RBCs Not Reportable Polychromasia Not Reportable Hypochromasia Not Reportable Poikilocytosis Not Reportable Anisocytosis 1+ Microcytosis Not Reportable Macrocytosis Not Reportable Spherocytes Not Reportable Pappenheimer Bodies Not Reportable Sickle Cells Not Reportable Target Cells Not Reportable Tear Drop Cells Not Reportable Ovalocytes Not Reportable Helmet Cells Not Reportable White-[place]ange Bodies Not Reportable [place] Rings Not Reportable Orofino Cells Not Reportable Bite Cells Not Reportable Crenated Cell Not Reportable Elliptocytes Not Reportable Acanthocytes (Spur) Not Reportable Rouleaux Not Reportable Hemoglobin C Crystals Not Reportable Schistocytes Not Reportable Malaria parasites Not Reportable Rd Bodies Not Reportable Hem Pathologist Commnt No PT 17.3 H INR 1.34 H POC ABG pH POC ABG pCO2 POC ABG pO2 POC ABG HCO3 POC ABG Total CO2 POC ABG O2 Sat POC ABG Base Excess FiO2 Sodium 143 Potassium 3.8 Chloride 105.0 Carbon Dioxide 25 Anion Gap 17 BUN 30 H Creatinine 0.8 D Estimated GFR > 60 BUN/Creatinine Ratio 38 Glucose 113 H Calcium 7.5 L Total Bilirubin 0.60 AST 17 ALT 12 Alkaline Phosphatase 39 Total Protein 5.5 L Albumin 2.7 L Albumin/Globulin Ratio 1.0 Crossmatch
[2017-03-06 14:39] LABS: ISTAT Base Excess 2; ISTAT PCO2 37.5 (35-45); ISTAT PH 7.449 (7.35-7.45); ISTAT PO2 86 (80-105); ISTAT SO2 97; ISTAT TCO2 27
--- NOTE | 2017-03-06 15:22 | XRay Report ---
Single view chest: Compared to 03/06/17. History: Elevated temperature. Findings: Normal cardiomediastinal silhouette. Trachea is midline. No consolidation, pneumothorax or pleural effusion. Impression: No acute cardiopulmonary findings. Endotracheal tube has been removed.
--- NOTE | 2017-03-06 17:13 | Progress Note ---
Assessment and Plan / Acute respiratory failure intubated following surgery on 03/05/17 extubated this am cont nebulizer breathing treatment, supplimental O2 /Small bowel obstruction s/p urgent expl lap with reduction of incarcerated incisional hernia and incisional hernia repair with mesh on 03/05/17 CT abdomen showed incarcerated hernia cont on D5 half normal saline, wound care /Acute GI bleed had couple episode of bloody vomiting and cont to have dark color material on NG suction likely due to coagulopathy vs gastric ulcer cont on protonix drip, s/p transfusion of FFP, vit K GI following, monitor H and H No plan for EGD now /Chest pain Found to be in A. fib with RVR on admission EKG with no ischemic changes Cardiac enzymes negative TSH and, FT4 within normal limits ECHO obtained, EF 20-25% on hold beta sari, ACEI, aspirin, statin as pt now NPO Cardiology following /CHF with systolic dysfunction Compensated now, echo showed EF of 20-25% Per cardiology, had cardiac cath that showed no significant coronary disease, but an ejection fraction of 20% /Afib RVR Received Digoxin and was started on BB; Anticoagulated with Coumadin, INR supratherapeutic, now off Coumadin cont rate control with iv metoprolol /Coagulopathy INR went up to 4. likely secondary to interaction with antibiotics Hold Coumadin and monitor INR closely reversed with FFP and vit K /Sepsis WBC trended up, likely reactive from incarcerated hernia and UTI On admission presumed to have pneumonia and started on Rocephin/azithromycin, but chest x-ray with no acute findings Negative blood culture, UA with +WBC and + LE continue antibiotics to levaquin and flagyl /DVT prophylaxis INR supratherapeutic, off Coumadin Brief history: 76 yo [place] female, who doesn't speak Khmer, weight chronic afib and heart failure, brought to the hospital for chest pain. All cardiac workup so for negative for ACS. HER-2 D echo showed EF of 20-25%. Abdominal x-ray obtained on 03/02/2017 for the complain of abdominal pain and constipation which showed small bowel obstruction. Radiological data: Chest x-ray on 02/28/2017 showed no acute infiltrates, no abnormalities. Abdomen x-ray on 03/02/2017 showed findings suggestive of small bowel obstruction 2-D echo obtained on 02/28/2017 showed EF of 20-25% Subjective Date of service: 03/06/17 Principal diagnosis: UGI bleeding/SBO Interval history: Pt seen and examined cont to have dark color drainage with NG extubated tody, updated family(pt's Son) at bedside Objective - Exam Narrative Exam: General appearance: Present: no acute distress, on nasal mask - EENT Eyes: Present: PERRL, EOM intact, NG tube on place with dark color material - Neck Neck: Present: supple. Absent: enlarged thyroid, masses or JVD - Respiratory Respiratory effort: normal Respiratory: bilateral: CTA, negative: rhonchi, wheezing - Cardiovascular Rhythm: irregularly irregular Heart Sounds: Present: S1 & S2. Absent: systolic murmur - Extremities Extremities: no ischemia - Abdominal General gastrointestinal: soft, non tender, surgical dressing on the abdomen - Integumentary Integumentary: Present: warm, dry. Absent: jaundice, rash - Neurologic Neurologic: no focal deficits - Constitutional Vitals: Vital Signs - 12hr 03/06/17 03/06/17 03/06/17 05:21 05:30 05:41 Temperature Pulse Rate 106 H 103 H 120 H Pulse Rate [ Apical] Respiratory 19 16 15 Rate Blood Pressure 101/65 102/64 102/64 O2 Sat by Pulse 100 100 Oximetry 03/06/17 03/06/17 03/06/17 05:51 05:55 06:00 Temperature Pulse Rate 119 H 119 H 125 H Pulse Rate [ Apical] Respiratory 16 17 Rate Blood Pressure 91/66 100/58 O2 Sat by Pulse 100 100 Oximetry 03/06/17 03/06/17 03/06/17 06:11 06:21 06:30 Temperature Pulse Rate 115 H 127 H 115 H Pulse Rate [ Apical] Respiratory 16 15 17 Rate Blood Pressure 100/58 101/66 107/70 O2 Sat by Pulse 100 100 100 Oximetry 03/06/17 03/06/17 03/06/17 06:41 06:51 06:55 Temperature Pulse Rate 120 H 122 H Pulse Rate [ 122 H Apical] Respiratory 17 16 20 Rate Blood Pressure 107/70 108/69 O2 Sat by Pulse 100 100 100 Oximetry 03/06/17 03/06/17 03/06/17 06:56 07:01 07:11 Temperature Pulse Rate 133 H 130 H Pulse Rate [ Apical] Respiratory 16 18 19 Rate Blood Pressure 104/60 104/60 O2 Sat by Pulse 100 100 100 Oximetry 03/06/17 03/06/17 03/06/17 07:21 07:30 07:41 Temperature Pulse Rate 136 H 148 H 133 H Pulse Rate [ Apical] Respiratory 16 16 16 Rate Blood Pressure 105/70 119/68 119/68 O2 Sat by Pulse 100 100 100 Oximetry 03/06/17 03/06/17 03/06/17 07:51 08:00 08:11 Temperature 99.3 F Pulse Rate 149 H 133 H 150 H Pulse Rate [ Apical] Respiratory 17 19 17 Rate Blood Pressure 128/59 112/67 112/67 O2 Sat by Pulse 100 100 100 Oximetry 03/06/17 03/06/17 03/06/17 08:21 08:30 08:41 Temperature Pulse Rate 170 H 145 H 138 H Pulse Rate [ Apical] Respiratory 18 20 21 Rate Blood Pressure 115/67 101/64 101/64 O2 Sat by Pulse 100 100 100 Oximetry 03/06/17 03/06/17 03/06/17 08:51 09:00 09:09 Temperature Pulse Rate 140 H 121 H 130 H Pulse Rate [ Apical] Respiratory 19 21 Rate Blood Pressure 110/74 106/68 106/68 O2 Sat by Pulse 100 100 Oximetry 03/06/17 03/06/17 03/06/17 09:10 09:11 09:21 Temperature Pulse Rate 130 H 113 H 108 H Pulse Rate [ Apical] Respiratory 18 22 Rate Blood Pressure 106/68 106/68 119/63 O2 Sat by Pulse 100 100 Oximetry 03/06/17 03/06/17 03/06/17 09:30 09:41 09:51 Temperature Pulse Rate 103 H 114 H 122 H Pulse Rate [ Apical] Respiratory 19 18 16 Rate Blood Pressure 107/69 119/63 111/79 O2 Sat by Pulse 100 100 100 Oximetry 03/06/17 03/06/17 03/06/17 10:00 10:11 10:21 Temperature Pulse Rate 108 H 128 H 125 H Pulse Rate [ Apical] Respiratory 17 17 16 Rate Blood Pressure 110/72 107/69 115/70 O2 Sat by Pulse 100 100 100 Oximetry 03/06/17 03/06/17 03/06/17 10:23 10:30 10:41 Temperature Pulse Rate 129 H 125 H 120 H Pulse Rate [ Apical] Respiratory 14 18 20 Rate Blood Pressure 115/70 108/71 108/71 O2 Sat by Pulse 100 100 Oximetry 03/06/17 03/06/17 03/06/17 10:51 11:00 11:11 Temperature Pulse Rate 133 H 140 H 123 H Pulse Rate [ Apical] Respiratory 20 18 17 Rate Blood Pressure 106/70 115/61 115/61 O2 Sat by Pulse 100 99 100 Oximetry 03/06/17 03/06/17 03/06/17 11:15 11:20 11:30 Temperature Pulse Rate 132 H 121 H Pulse Rate [ 132 H Apical] Respiratory 20 20 16 Rate Blood Pressure 106/64 O2 Sat by Pulse 100 100 99 Oximetry 03/06/17 03/06/17 03/06/17 11:40 11:50 12:00 Temperature 101.1 F H Pulse Rate 127 H 113 H 122 H Pulse Rate [ Apical] Respiratory 17 18 20 Rate Blood Pressure 106/64 114/69 106/70 O2 Sat by Pulse 100 100 99 Oximetry 03/06/17 03/06/17 03/06/17 12:10 12:20 12:30 Temperature Pulse Rate 121 H 127 H 177 H Pulse Rate [ Apical] Respiratory 20 21 19 Rate Blood Pressure 106/70 112/71 105/69 O2 Sat by Pulse 100 100 99 Oximetry 03/06/17 03/06/17 03/06/17 12:40 12:45 12:50 Temperature Pulse Rate 130 H 100 H Pulse Rate [ Apical] Respiratory 17 22 Rate Blood Pressure 105/69 115/71 O2 Sat by Pulse 100 100 100 Oximetry 03/06/17 03/06/17 03/06/17 12:55 13:00 13:10 Temperature Pulse Rate 134 H 132 H Pulse Rate [ Apical] Respiratory 21 21 Rate Blood Pressure 124/67 114/61 O2 Sat by Pulse 100 100 99 Oximetry 03/06/17 03/06/17 03/06/17 13:20 13:30 13:40 Temperature Pulse Rate 205 H 218 H 120 H Pulse Rate [ Apical] Respiratory 19 23 25 H Rate Blood Pressure 118/66 115/68 115/68 O2 Sat by Pulse 99 98 97 Oximetry 03/06/17 03/06/17 03/06/17 13:41 13:50 14:00 Temperature Pulse Rate 185 H 113 H 113 H Pulse Rate [ Apical] Respiratory 22 27 H Rate Blood Pressure 115/68 112/67 122/74 O2 Sat by Pulse 97 96 Oximetry 03/06/17 03/06/17 03/06/17 14:10 14:20 14:30 Temperature Pulse Rate 118 H 130 H 116 H Pulse Rate [ Apical] Respiratory 24 22 22 Rate Blood Pressure 122/74 117/74 106/70 O2 Sat by Pulse 97 98 98 Oximetry 03/06/17 03/06/17 03/06/17 14:40 14:50 14:56 Temperature Pulse Rate 116 H 134 H 142 H Pulse Rate [ Apical] Respiratory 25 H 24 Rate Blood Pressure 106/70 106/70 110/71 O2 Sat by Pulse 99 99 Oximetry 03/06/17 03/06/17 03/06/17 15:00 15:10 15:13 Temperature Pulse Rate 125 H 109 H Pulse Rate [ 102 H Apical] Respiratory 21 23 22 Rate Blood Pressure 108/67 108/67 O2 Sat by Pulse 99 100 100 Oximetry 03/06/17 03/06/17 03/06/17 15:20 15:30 15:40 Temperature Pulse Rate 104 H 117 H 107 H Pulse Rate [ Apical] Respiratory 22 22 21 Rate Blood Pressure 108/67 111/74 111/74 O2 Sat by Pulse 98 97 98 Oximetry 03/06/17 03/06/17 03/06/17 15:50 16:00 16:51 Temperature 97.9 F Pulse Rate 108 H 112 H Pulse Rate [ Apical] Respiratory 22 22 Rate Blood Pressure 110/75 105/72 O2 Sat by Pulse 99 100 Oximetry - Labs CBC & Chem 7: 03/07/17 14:47 03/07/17 04:55 Labs: Abnormal lab results 03/03/17 03/05/17 03/06/17 Range/Units 18:00 17:50 04:06 WBC 18.2 H (4.5-11.0) K/mm3 RBC 3.30 L (3.65-5.03) M/mm3 Hgb 9.6 L (10.1-14.3) gm/dl Hct 28.7 L (30.3-42.9) % RDW 13.1 L (13.2-15.2) % [place] % (Auto) 8.6 H (0.0-7.3) % [place] # 1.6 H (0.0-0.8) K/mm3 Seg Neutrophils % 76.5 H (40.0-70.0) % Seg Neuts % (Manual) (40.0-70.0) % Lymphocytes % (Manual) (13.4-35.0) % Seg Neutrophils # 13.9 H (1.8-7.7) K/mm3 Seg Neutrophils # Man (1.8-7.7) K/mm3 PT (12.2-14.9) Sec. INR (0.87-1.13) POC ABG pH 7.707 H (7.35-7.45) POC ABG pCO2 19.4 L (35-45) POC ABG pO2 60 L (80-105) BUN (7-17) mg/dL Glucose (65-100) mg/dL Calcium (8.4-10.2) mg/dL Total Protein (6.3-8.2) g/dL Albumin (3.9-5) g/dL Crossmatch See Detail 03/06/17 03/06/17 03/06/17 Range/Units 04:49 04:49 04:49 WBC 20.2 H (4.5-11.0) K/mm3 RBC 3.18 L (3.65-5.03) M/mm3 Hgb 9.5 L (10.1-14.3) gm/dl Hct 27.6 L (30.3-42.9) % RDW 13.1 L (13.2-15.2) % [place] % (Auto) (0.0-7.3) % [place] # (0.0-0.8) K/mm3 Seg Neutrophils % (40.0-70.0) % Seg Neuts % (Manual) 87.0 H (40.0-70.0) % Lymphocytes % (Manual) 8.0 L (13.4-35.0) % Seg Neutrophils # (1.8-7.7) K/mm3 Seg Neutrophils # Man 17.6 H (1.8-7.7) K/mm3 PT 17.3 H (12.2-14.9) Sec. INR 1.34 H (0.87-1.13) POC ABG pH (7.35-7.45) POC ABG pCO2 (35-45) POC ABG pO2 (80-105) BUN 30 H (7-17) mg/dL Glucose 113 H (65-100) mg/dL Calcium 7.5 L (8.4-10.2) mg/dL Total Protein 5.5 L (6.3-8.2) g/dL Albumin 2.7 L (3.9-5) g/dL Crossmatch
[2017-03-07] MEDS: MORPHINE IV PRN ×7 (01:25→22:54)
[2017-03-07] MEDS ORDERED: PROTONIX 80 MG in NACL 0.9% 100 ML IV SCH (02:00)
[2017-03-07] MEDS: LOPRESSOR IV PRN ×2 (02:34→13:40)
[2017-03-07] MEDS: FLAGYL 500 MG/100 ML 500 MG/100 ML BAG IV SCH ×3 (05:41→22:57)
[2017-03-07] MEDS: D5W/NS W/KCL 20MEQ 20 MEQ/1,000 ML BAG IV SCH ×2 (05:44→17:45)
[2017-03-07 05:50] LABS: Hematocrit 27.8 % (30.3-42.9); Hemoglobin 9.3 gm/dl (10.1-14.3); Mean Corpuscular HGB Conc 34 % (30-34); Mean Corpuscular Hemoglobin 29 pg (28-32); Mean Corpuscular Volume 88 fl (79-97); Platelet Count 181 K/mm3 (140-440); Red Blood Count 3.18 M/mm3 (3.65-5.03); Red Cell Distribution Width 13.6 % (13.2-15.2)
[2017-03-07 05:58] LABS: White Blood Count 23.5 K/mm3 (4.5-11.0)
[2017-03-07 05:59] LABS: INR 1.31 (0.87-1.13)
[2017-03-07 06:09] LABS: Alanine Aminotransferase 14 units/L (7-56); Albumin 2.6 g/dL (3.9-5); Albumin/Globulin Ratio 0.8 %; Alkaline Phosphatase 42 units/L (35-129); Anion Gap 16 mmol/L; BUN/Creatinine Ratio 38; Blood Urea Nitrogen 15 mg/dL (7-17); Calcium 7.9 mg/dL (8.4-10.2); Carbon Dioxide 24 mmol/L (22-30); Chloride 107.2 mmol/L (98-107); Glucose 128 mg/dL (65-100); Potassium 3.9 mmol/L (3.6-5.0); Sodium 143 mmol/L (137-145); Total Protein 5.8 g/dL (6.3-8.2)
[2017-03-07 06:48] LABS: Basophils % (Manual) 0 % (0.0-1.8); Blastocytes % (Manual) 0 %; Eosinophils % (Manual) 0 % (0.0-4.3)
[2017-03-07 06:49] LABS: Anisocytosis 1+; Diff Status Complete; Platelet Estimate Consistent w Auto
[2017-03-07] MEDS: ZESTRIL PO SCH (09:20)
[2017-03-07] MEDS: LEVAQUIN 750MG/150ML 750 MG/150 ML BAG IV SCH (09:20)
[2017-03-07] MEDS: COREG PO SCH ×2 (09:21→22:57)
[2017-03-07] MEDS: PROTONIX IV SCH ×2 (09:22→22:55)
--- NOTE | 2017-03-07 10:08 | XRay Report ---
AP CHEST: HISTORY: Followup respiratory failure The nasogastric tube is unchanged since yesterday's exam and appears to terminate in the distal esophagus. AP view of the chest demonstrates a normal mediastinal and cardiac contour with clear lungs and normal bony and soft tissue structures. IMPRESSION: No change. Nasogastric tube as described.
--- NOTE | 2017-03-07 11:12 | Progress Note ---
Assessment and Plan POD #2 Pt extubated. appears comfortable Abd soft. minimal tenderness. hypoactive BS h/h's stable ng aspirate currently clear stable sit in chair as loan continue monitoring h/h Selected Entries 03/07/17 03/07/17 09:50 10:10 Pulse Rate 129 H Blood Pressure 121/75 Laboratory Tests 03/06/17 03/07/17 04:49 04:55 WBC 20.2 H 23.5 H Hgb 9.5 L 9.3 L Hct 27.6 L 27.8 L Objective Vital Signs - 12hr 03/06/17 03/06/17 03/06/17 23:20 23:30 23:32 Temperature Pulse Rate 137 H 119 H 141 H Respiratory 19 17 18 Rate Respiratory Rate [Head] Blood Pressure 106/67 115/70 115/70 O2 Sat by Pulse 98 96 98 Oximetry 03/06/17 03/06/17 03/06/17 23:40 23:50 23:53 Temperature 98.3 F Pulse Rate 120 H 145 H Respiratory 18 18 Rate Respiratory Rate [Head] Blood Pressure 115/70 125/79 O2 Sat by Pulse 98 98 Oximetry 03/07/17 03/07/17 03/07/17 00:00 00:10 00:20 Temperature Pulse Rate 145 H 154 H 138 H Respiratory 19 18 16 Rate Respiratory Rate [Head] Blood Pressure 114/70 114/70 117/76 O2 Sat by Pulse 97 98 97 Oximetry 03/07/17 03/07/17 03/07/17 00:30 00:40 00:45 Temperature Pulse Rate 131 H 132 H 121 H Respiratory 17 18 16 Rate Respiratory 16 Rate [Head] Blood Pressure 120/68 120/68 O2 Sat by Pulse 97 96 97 Oximetry 03/07/17 03/07/17 03/07/17 00:50 01:00 01:10 Temperature Pulse Rate 145 H 134 H 122 H Respiratory 18 17 16 Rate Respiratory Rate [Head] Blood Pressure 126/68 130/77 130/77 O2 Sat by Pulse 97 97 97 Oximetry 03/07/17 03/07/17 03/07/17 01:20 01:25 01:30 Temperature Pulse Rate 157 H 121 H Respiratory 19 18 19 Rate Respiratory Rate [Head] Blood Pressure 128/75 124/69 O2 Sat by Pulse 98 96 Oximetry 03/07/17 03/07/17 03/07/17 01:40 01:46 01:50 Temperature Pulse Rate 119 H 122 H Respiratory 16 17 16 Rate Respiratory Rate [Head] Blood Pressure 124/69 104/69 O2 Sat by Pulse 97 97 Oximetry 03/07/17 03/07/17 03/07/17 02:00 02:10 02:20 Temperature Pulse Rate 126 H 123 H 132 H Respiratory 17 18 15 Rate Respiratory Rate [Head] Blood Pressure 113/77 104/69 118/73 O2 Sat by Pulse 98 97 Oximetry 03/07/17 03/07/17 03/07/17 02:30 02:34 02:40 Temperature Pulse Rate 121 H 145 H 101 H Respiratory 15 15 Rate Respiratory Rate [Head] Blood Pressure 117/69 117/69 117/69 O2 Sat by Pulse 97 98 Oximetry 03/07/17 03/07/17 03/07/17 02:50 03:00 03:10 Temperature Pulse Rate 97 H 103 H 101 H Respiratory 16 16 14 Rate Respiratory Rate [Head] Blood Pressure 108/70 111/74 111/74 O2 Sat by Pulse 98 100 Oximetry 03/07/17 03/07/17 03/07/17 03:20 03:30 03:40 Temperature Pulse Rate 96 H 109 H 120 H Respiratory 16 15 15 Rate Respiratory Rate [Head] Blood Pressure 117/75 105/74 105/74 O2 Sat by Pulse 99 98 99 Oximetry 03/07/17 03/07/17 03/07/17 03:50 04:00 04:10 Temperature 98.8 F Pulse Rate 114 H 108 H 115 H Respiratory 16 17 16 Rate Respiratory Rate [Head] Blood Pressure 104/80 99/78 104/80 O2 Sat by Pulse 98 98 98 Oximetry 03/07/17 03/07/17 03/07/17 04:20 04:30 04:40 Temperature Pulse Rate 125 H 100 H 114 H Respiratory 17 16 16 Rate Respiratory Rate [Head] Blood Pressure 109/79 121/65 99/78 O2 Sat by Pulse 98 97 97 Oximetry 03/07/17 03/07/17 03/07/17 04:50 05:00 05:10 Temperature Pulse Rate 133 H 127 H 113 H Respiratory 14 17 18 Rate Respiratory Rate [Head] Blood Pressure 108/75 115/79 115/79 O2 Sat by Pulse 97 96 99 Oximetry 03/07/17 03/07/17 03/07/17 05:20 05:30 05:40 Temperature Pulse Rate 112 H 115 H 121 H Respiratory 16 16 18 Rate Respiratory Rate [Head] Blood Pressure 119/69 105/76 105/76 O2 Sat by Pulse 98 98 98 Oximetry 03/07/17 03/07/17 03/07/17 05:50 06:00 06:10 Temperature Pulse Rate 128 H 125 H 121 H Respiratory 16 15 15 Rate Respiratory Rate [Head] Blood Pressure 114/75 109/69 109/69 O2 Sat by Pulse 97 96 98 Oximetry 03/07/17 03/07/17 03/07/17 06:20 06:30 06:40 Temperature Pulse Rate 121 H 115 H 129 H Respiratory 16 15 14 Rate Respiratory Rate [Head] Blood Pressure 103/74 112/73 112/73 O2 Sat by Pulse 98 98 Oximetry 03/07/17 03/07/17 03/07/17 06:50 07:00 07:10 Temperature Pulse Rate 129 H 129 H 119 H Respiratory 15 16 17 Rate Respiratory Rate [Head] Blood Pressure 121/69 123/79 123/79 O2 Sat by Pulse 98 98 98 Oximetry 03/07/17 03/07/17 03/07/17 07:20 07:30 07:40 Temperature Pulse Rate 123 H 124 H 115 H Respiratory 15 17 17 Rate Respiratory Rate [Head] Blood Pressure 123/69 125/71 125/71 O2 Sat by Pulse 98 98 98 Oximetry 03/07/17 03/07/17 03/07/17 07:50 08:00 08:10 Temperature 97.5 F L Pulse Rate 124 H 140 H 117 H Respiratory 16 17 16 Rate Respiratory Rate [Head] Blood Pressure 123/79 109/77 109/77 O2 Sat by Pulse 98 96 97 Oximetry 03/07/17 03/07/17 03/07/17 08:20 08:30 08:40 Temperature Pulse Rate 114 H 126 H 131 H Respiratory 15 14 14 Rate Respiratory Rate [Head] Blood Pressure 97/70 107/69 107/69 O2 Sat by Pulse 96 96 98 Oximetry 03/07/17 03/07/17 03/07/17 08:50 09:00 09:10 Temperature Pulse Rate 133 H 121 H 135 H Respiratory 15 18 16 Rate Respiratory Rate [Head] Blood Pressure 117/79 117/76 117/76 O2 Sat by Pulse 98 97 98 Oximetry 03/07/17 03/07/17 03/07/17 09:20 09:21 09:30 Temperature Pulse Rate 137 H 141 H 124 H Respiratory 17 16 Rate Respiratory Rate [Head] Blood Pressure 114/66 114/66 116/78 O2 Sat by Pulse 98 97 Oximetry 03/07/17 03/07/17 03/07/17 09:40 09:50 10:00 Temperature Pulse Rate 130 H 154 H 120 H Respiratory 18 16 17 Rate Respiratory Rate [Head] Blood Pressure 116/78 121/75 99/75 O2 Sat by Pulse 99 97 99 Oximetry 03/07/17 10:10 Temperature Pulse Rate 129 H Respiratory 17 Rate Respiratory Rate [Head] Blood Pressure 99/75 O2 Sat by Pulse 97 Oximetry - Labs 03/07/17 04:55 03/07/17 04:55 Diabetes panel 03/07/17 Range/Units 04:55 Sodium 143 (137-145) mmol/L Potassium 3.9 (3.6-5.0) mmol/L Chloride 107.2 H (98-107) mmol/L Carbon Dioxide 24 (22-30) mmol/L BUN 15 (7-17) mg/dL Creatinine 0.4 L (0.7-1.2) mg/dL Glucose 128 H (65-100) mg/dL Calcium 7.9 L (8.4-10.2) mg/dL AST 19 (5-40) units/L ALT 14 (7-56) units/L Alkaline Phosphatase 42 (35-129) units/L Total Protein 5.8 L (6.3-8.2) g/dL Albumin 2.6 L (3.9-5) g/dL Calcium panel 03/07/17 Range/Units 04:55 Calcium 7.9 L (8.4-10.2) mg/dL Albumin 2.6 L (3.9-5) g/dL Pituitary panel 03/07/17 Range/Units 04:55 Sodium 143 (137-145) mmol/L Potassium 3.9 (3.6-5.0) mmol/L Chloride 107.2 H (98-107) mmol/L Carbon Dioxide 24 (22-30) mmol/L BUN 15 (7-17) mg/dL Creatinine 0.4 L (0.7-1.2) mg/dL Glucose 128 H (65-100) mg/dL Calcium 7.9 L (8.4-10.2) mg/dL Adrenal panel 03/07/17 Range/Units 04:55 Sodium 143 (137-145) mmol/L Potassium 3.9 (3.6-5.0) mmol/L Chloride 107.2 H (98-107) mmol/L Carbon Dioxide 24 (22-30) mmol/L BUN 15 (7-17) mg/dL Creatinine 0.4 L (0.7-1.2) mg/dL Glucose 128 H (65-100) mg/dL Calcium 7.9 L (8.4-10.2) mg/dL Total Bilirubin 0.60 (0.1-1.2) mg/dL AST 19 (5-40) units/L ALT 14 (7-56) units/L Alkaline Phosphatase 42 (35-129) units/L Total Protein 5.8 L (6.3-8.2) g/dL Albumin 2.6 L (3.9-5) g/dL
--- NOTE | 2017-03-07 12:44 | Progress Note ---
Assessment and Plan - Patient Problems (1) Atrial fibrillation with RVR Current Visit: Yes Status: Acute Plan to address problem: Rate control of atrial fibrillation with intravenous Lopressor and intravenous digoxin. Subjective Date of service: 03/07/17 Principal diagnosis: UGI bleeding/SBO Interval history: Patient is awake and comfortable. She is not yet taking orally after her expiratory laparotomy surgery. On the telemetry, she remains in atrial fibrillation, intermittently with rapid ventricular rate. Blood pressure is stable. Objective Vital Signs Temp Pulse Pulse Resp Resp BP Pulse Ox 03/07/17 12:27 97.9 F 03/07/17 12:10 149 H 16 110/74 98 03/07/17 12:00 127 H 17 110/74 98 03/07/17 11:50 121 H 17 102/70 99 03/07/17 11:40 117 H 16 112/71 99 03/07/17 11:30 116 H 16 112/71 98 03/07/17 11:20 119 H 21 121/74 100 03/07/17 11:10 131 H 18 118/72 100 03/07/17 11:00 146 H 16 118/72 99 03/07/17 10:50 151 H 17 115/73 99 03/07/17 10:40 122 H 16 115/73 99 03/07/17 10:30 119 H 16 115/73 97 03/07/17 10:20 124 H 15 99/75 97 03/07/17 10:10 129 H 17 99/75 97 03/07/17 10:00 120 H 17 99/75 99 03/07/17 09:50 154 H 16 121/75 97 03/07/17 09:40 130 H 18 116/78 99 03/07/17 09:30 124 H 16 116/78 97 03/07/17 09:21 141 H 114/66 03/07/17 09:20 137 H 17 114/66 98 03/07/17 09:10 135 H 16 117/76 98 03/07/17 09:00 121 H 18 117/76 97 03/07/17 08:50 133 H 15 117/79 98 03/07/17 08:40 131 H 14 107/69 98 03/07/17 08:30 126 H 14 107/69 96 03/07/17 08:20 114 H 15 97/70 96 03/07/17 08:10 117 H 16 109/77 97 03/07/17 08:00 97.5 F L 140 H 17 109/77 96 03/07/17 07:50 124 H 16 123/79 98 03/07/17 07:40 115 H 17 125/71 98 03/07/17 07:30 124 H 17 125/71 98 03/07/17 07:20 123 H 15 123/69 98 03/07/17 07:10 119 H 17 123/79 98 03/07/17 07:00 129 H 16 123/79 98 03/07/17 06:50 129 H 15 121/69 98 03/07/17 06:40 129 H 14 112/73 98 03/07/17 06:30 115 H 15 112/73 03/07/17 06:20 121 H 16 103/74 98 03/07/17 06:10 121 H 15 109/69 98 03/07/17 06:00 125 H 15 109/69 96 03/07/17 05:50 128 H 16 114/75 97 03/07/17 05:40 121 H 18 105/76 98 03/07/17 05:30 115 H 16 105/76 98 03/07/17 05:20 112 H 16 119/69 98 03/07/17 05:10 113 H 18 115/79 99 03/07/17 05:00 127 H 17 115/79 96 03/07/17 04:50 133 H 14 108/75 97 03/07/17 04:40 114 H 16 99/78 97 03/07/17 04:30 100 H 16 121/65 97 03/07/17 04:20 125 H 17 109/79 98 03/07/17 04:10 115 H 16 104/80 98 03/07/17 04:00 98.8 F 108 H 17 99/78 98 03/07/17 03:50 114 H 16 104/80 98 03/07/17 03:40 120 H 15 105/74 99 03/07/17 03:30 109 H 15 105/74 98 03/07/17 03:20 96 H 16 117/75 99 03/07/17 03:10 101 H 14 111/74 100 03/07/17 03:00 103 H 16 111/74 03/07/17 02:50 97 H 16 108/70 98 03/07/17 02:40 101 H 15 117/69 98 03/07/17 02:34 145 H 117/69 03/07/17 02:30 121 H 15 117/69 97 03/07/17 02:20 132 H 15 118/73 97 03/07/17 02:10 123 H 18 104/69 98 03/07/17 02:00 126 H 17 113/77 03/07/17 01:50 122 H 16 104/69 97 03/07/17 01:46 17 03/07/17 01:40 119 H 16 124/69 97 03/07/17 01:30 121 H 19 124/69 96 03/07/17 01:25 18 03/07/17 01:20 157 H 19 128/75 98 03/07/17 01:10 122 H 16 130/77 97 03/07/17 01:00 134 H 17 130/77 97 03/07/17 00:50 145 H 18 126/68 97 03/07/17 00:45 121 H 16 16 97 03/07/17 00:40 132 H 18 120/68 96 03/07/17 00:30 131 H 17 120/68 97 03/07/17 00:20 138 H 16 117/76 97 03/07/17 00:10 154 H 18 114/70 98 03/07/17 00:00 145 H 19 114/70 97 03/06/17 23:53 98.3 F 03/06/17 23:50 145 H 18 125/79 98 03/06/17 23:40 120 H 18 115/70 98 03/06/17 23:32 141 H 18 115/70 98 03/06/17 23:30 119 H 17 115/70 96 03/06/17 23:20 137 H 19 106/67 98 03/06/17 23:10 118 H 17 117/68 98 03/06/17 23:06 18 16 97 03/06/17 23:01 128 H 117/68 03/06/17 23:00 139 H 19 117/68 97 03/06/17 22:50 120 H 18 110/71 99 03/06/17 22:40 120 H 17 121/67 99 03/06/17 22:30 114 H 16 115/70 99 03/06/17 22:20 118 H 16 112/73 99 03/06/17 22:10 125 H 16 121/67 99 03/06/17 22:00 114 H 17 121/67 98 03/06/17 21:50 128 H 19 124/73 99 03/06/17 21:40 127 H 16 118/71 99 03/06/17 21:30 117 H 17 118/71 98 03/06/17 21:20 108 H 15 112/72 99 03/06/17 21:10 125 H 16 106/77 99 03/06/17 21:07 99 03/06/17 21:00 111 H 17 106/77 03/06/17 20:50 108 H 14 105/72 99 03/06/17 20:40 116 H 15 103/62 99 03/06/17 20:30 118 H 17 103/62 97 03/06/17 20:26 16 03/06/17 20:20 165 H 16 106/61 98 03/06/17 20:10 124 H 15 107/68 97 03/06/17 20:00 133 H 18 107/68 95 03/06/17 19:56 22 03/06/17 19:50 129 H 20 125/71 98 03/06/17 19:44 98.1 F 03/06/17 19:40 146 H 22 124/80 99 03/06/17 19:30 126 H 21 124/80 99 03/06/17 19:20 137 H 21 114/81 100 03/06/17 19:10 126 H 24 121/77 98 03/06/17 19:00 122 H 21 121/77 97 03/06/17 18:50 135 H 25 H 125/75 99 03/06/17 18:40 123 H 23 137/71 100 03/06/17 18:30 121 H 21 137/71 99 03/06/17 18:20 117 H 22 120/74 100 03/06/17 18:10 101 H 21 119/72 100 03/06/17 18:00 123 H 21 119/72 99 03/06/17 17:50 135 H 21 115/73 99 03/06/17 17:40 123 H 19 121/81 99 03/06/17 17:30 118 H 20 121/81 98 03/06/17 17:20 116 H 23 124/80 100 03/06/17 17:10 109 H 19 114/81 100 03/06/17 17:00 127 H 18 114/81 03/06/17 16:51 100 03/06/17 16:50 124 H 16 109/77 100 03/06/17 16:40 119 H 20 120/79 100 03/06/17 16:30 120 H 21 120/79 99 03/06/17 16:20 121 H 21 121/79 100 03/06/17 16:10 117 H 20 105/72 99 03/06/17 16:00 97.9 F 112 H 22 105/72 03/06/17 15:50 108 H 22 110/75 99 03/06/17 15:40 107 H 21 111/74 98 03/06/17 15:30 117 H 22 111/74 97 03/06/17 15:20 104 H 22 108/67 98 03/06/17 15:13 102 H 22 100 03/06/17 15:10 109 H 23 108/67 100 03/06/17 15:00 125 H 21 108/67 99 03/06/17 14:56 142 H 110/71 03/06/17 14:50 134 H 24 106/70 99 03/06/17 14:40 116 H 25 H 106/70 99 03/06/17 14:30 116 H 22 106/70 98 03/06/17 14:20 130 H 22 117/74 98 03/06/17 14:10 118 H 24 122/74 97 03/06/17 14:00 113 H 27 H 122/74 96 03/06/17 13:50 113 H 22 112/67 97 03/06/17 13:41 185 H 115/68 03/06/17 13:40 120 H 25 H 115/68 97 03/06/17 13:30 218 H 23 115/68 98 03/06/17 13:20 205 H 19 118/66 99 03/06/17 13:10 132 H 21 114/61 99 03/06/17 13:00 134 H 21 124/67 100 03/06/17 12:55 100 03/06/17 12:50 100 H 22 115/71 100 03/06/17 12:45 100 - Physical Examination General: No Apparent Distress HEENT: Positive: PERRL Neck: Positive: neck supple Cardiac: Positive: irregularly irregular Lungs: Positive: Decreased Breath Sounds Neuro: Positive: Grossly Intact Abdomen: Positive: Distended (post small bowel surgery) Skin: Positive: Clear Extremities: Absent: edema - Labs and Meds Cardiac Enzymes 03/07/17 Range/Units 04:55 AST 19 (5-40) units/L Coagulation 03/07/17 Range/Units 04:55 PT 16.9 H (12.2-14.9) Sec. INR 1.31 H (0.87-1.13) CBC 03/07/17 Range/Units 04:55 WBC 23.5 H (4.5-11.0) K/mm3 RBC 3.18 L (3.65-5.03) M/mm3 Hgb 9.3 L (10.1-14.3) gm/dl Hct 27.8 L (30.3-42.9) % Plt Count 181 (140-440) K/mm3 Comprehensive Metabolic Panel 03/07/17 Range/Units 04:55 Sodium 143 (137-145) mmol/L Potassium 3.9 (3.6-5.0) mmol/L Chloride 107.2 H (98-107) mmol/L Carbon Dioxide 24 (22-30) mmol/L BUN 15 (7-17) mg/dL Creatinine 0.4 L (0.7-1.2) mg/dL Glucose 128 H (65-100) mg/dL Calcium 7.9 L (8.4-10.2) mg/dL AST 19 (5-40) units/L ALT 14 (7-56) units/L Alkaline Phosphatase 42 (35-129) units/L Total Protein 5.8 L (6.3-8.2) g/dL Albumin 2.6 L (3.9-5) g/dL - Allied health notes Allied health notes reviewed: RT
--- NOTE | 2017-03-07 15:02 | Progress Note ---
Assessment and Plan (1) Acute respiratory failure with hypoxia and hypercapnia Current Visit: Yes Status: Acute Plan to address problem: - continue supplemental oxygen by aerosol face mask; wean for sats > 94% - will use prn BIPAP for increased work of breathing - reviewed CXR - continue Stress ulcer prophylaxis (on protonix drip) - She has moderated pulmonary HTN with RVSP 46, need to keep her even to negative balance. (2) SBO (small bowel obstruction) Current Visit: Yes Status: Acute Plan to address problem: - s/p hernia repair with reduction of incarcerated incisional hernia. - Keep NPO and advance diet per surgeon - Surgery following (3) Leukocytosis (leucocytosis) Current Visit: Yes Status: Acute Qualifiers: Leukocytosis type: L Plan to address problem: - Secondary to intra-abdominal process - possible UTI - Monitor trends - Antibiotics to complete course - cultures remain NGTD - clinically improving (4) Atrial fibrillation with RVR Current Visit: Yes Status: Acute Plan to address problem: - continue to Monitor hemodynamics closely - Hold off on anticoagulation in view of recent surgery and documented coffee ground emesis post procedure. - rate control improved and to receive digoxin - continue prn metoprolol - discussed care plan with information scientist and as above - no continuous IV infusion for now (5) Dilated cardiomyopathy Current Visit: Yes Status: Chronic Plan to address problem: - Beta-sari to be given now. - Resume all oral cardioprotective measures once she is able to tolerate po medications. (6) COPD (chronic obstructive pulmonary disease) Current Visit: Yes Status: Acute Qualifiers: COPD type: C Chronic bronchitis type: C Emphysema type: E Plan to address problem: - prn bronchodilators - clinically stable - added prn BIPAP (7) Discharge planning issues Current Visit: Yes Status: Acute Plan to address problem: - improved overall and will transfer to telemetry .......re-evaluate in am & prn Subjective Date of service: 03/07/17 Principal diagnosis: Acute respiratory Failure s/p MVS; UGI bleeding/SBO s/p Ex- lap Interval history: Seen and examined at bedside; 24hour events reviewed; nursing and respiratory care staff consulted; no adverse overnight events reported to me; still hypoxemic and SOB but only mildly labored; no cough/expectoration; no chest pain ; persistent A-fib with RVR but no IV drips; on 28% aerosol facemask Objective Vital Signs - 12hr 03/07/17 03/07/17 03/07/17 03:10 03:20 03:30 Temperature Pulse Rate 101 H 96 H 109 H Respiratory 14 16 15 Rate Blood Pressure 111/74 117/75 105/74 O2 Sat by Pulse 100 99 98 Oximetry 03/07/17 03/07/17 03/07/17 03:40 03:50 04:00 Temperature 98.8 F Pulse Rate 120 H 114 H 108 H Respiratory 15 16 17 Rate Blood Pressure 105/74 104/80 99/78 O2 Sat by Pulse 99 98 98 Oximetry 03/07/17 03/07/17 03/07/17 04:10 04:20 04:30 Temperature Pulse Rate 115 H 125 H 100 H Respiratory 16 17 16 Rate Blood Pressure 104/80 109/79 121/65 O2 Sat by Pulse 98 98 97 Oximetry 03/07/17 03/07/17 03/07/17 04:40 04:50 05:00 Temperature Pulse Rate 114 H 133 H 127 H Respiratory 16 14 17 Rate Blood Pressure 99/78 108/75 115/79 O2 Sat by Pulse 97 97 96 Oximetry 03/07/17 03/07/17 03/07/17 05:10 05:20 05:30 Temperature Pulse Rate 113 H 112 H 115 H Respiratory 18 16 16 Rate Blood Pressure 115/79 119/69 105/76 O2 Sat by Pulse 99 98 98 Oximetry 03/07/17 03/07/17 03/07/17 05:40 05:50 06:00 Temperature Pulse Rate 121 H 128 H 125 H Respiratory 18 16 15 Rate Blood Pressure 105/76 114/75 109/69 O2 Sat by Pulse 98 97 96 Oximetry 03/07/17 03/07/17 03/07/17 06:10 06:20 06:30 Temperature Pulse Rate 121 H 121 H 115 H Respiratory 15 16 15 Rate Blood Pressure 109/69 103/74 112/73 O2 Sat by Pulse 98 98 Oximetry 03/07/17 03/07/17 03/07/17 06:40 06:50 07:00 Temperature Pulse Rate 129 H 129 H 129 H Respiratory 14 15 16 Rate Blood Pressure 112/73 121/69 123/79 O2 Sat by Pulse 98 98 98 Oximetry 03/07/17 03/07/17 03/07/17 07:10 07:20 07:30 Temperature Pulse Rate 119 H 123 H 124 H Respiratory 17 15 17 Rate Blood Pressure 123/79 123/69 125/71 O2 Sat by Pulse 98 98 98 Oximetry 03/07/17 03/07/17 03/07/17 07:40 07:50 08:00 Temperature 97.5 F L Pulse Rate 115 H 124 H 140 H Respiratory 17 16 17 Rate Blood Pressure 125/71 123/79 109/77 O2 Sat by Pulse 98 98 96 Oximetry 03/07/17 03/07/17 03/07/17 08:10 08:20 08:30 Temperature Pulse Rate 117 H 114 H 126 H Respiratory 16 15 14 Rate Blood Pressure 109/77 97/70 107/69 O2 Sat by Pulse 97 96 96 Oximetry 03/07/17 03/07/17 03/07/17 08:40 08:50 09:00 Temperature Pulse Rate 131 H 133 H 121 H Respiratory 14 15 18 Rate Blood Pressure 107/69 117/79 117/76 O2 Sat by Pulse 98 98 97 Oximetry 03/07/17 03/07/17 03/07/17 09:10 09:20 09:21 Temperature Pulse Rate 135 H 137 H 141 H Respiratory 16 17 Rate Blood Pressure 117/76 114/66 114/66 O2 Sat by Pulse 98 98 Oximetry 03/07/17 03/07/17 03/07/17 09:30 09:40 09:50 Temperature Pulse Rate 124 H 130 H 154 H Respiratory 16 18 16 Rate Blood Pressure 116/78 116/78 121/75 O2 Sat by Pulse 97 99 97 Oximetry 03/07/17 03/07/17 03/07/17 10:00 10:10 10:20 Temperature Pulse Rate 120 H 129 H 124 H Respiratory 17 17 15 Rate Blood Pressure 99/75 99/75 99/75 O2 Sat by Pulse 99 97 97 Oximetry 03/07/17 03/07/17 03/07/17 10:30 10:40 10:50 Temperature Pulse Rate 119 H 122 H 151 H Respiratory 16 16 17 Rate Blood Pressure 115/73 115/73 115/73 O2 Sat by Pulse 97 99 99 Oximetry 03/07/17 03/07/17 03/07/17 11:00 11:10 11:20 Temperature Pulse Rate 146 H 131 H 119 H Respiratory 16 18 21 Rate Blood Pressure 118/72 118/72 121/74 O2 Sat by Pulse 99 100 100 Oximetry 03/07/17 03/07/17 03/07/17 11:30 11:40 11:50 Temperature Pulse Rate 116 H 117 H 121 H Respiratory 16 16 17 Rate Blood Pressure 112/71 112/71 102/70 O2 Sat by Pulse 98 99 99 Oximetry 03/07/17 03/07/17 03/07/17 12:00 12:10 12:20 Temperature Pulse Rate 127 H 149 H 132 H Respiratory 17 16 16 Rate Blood Pressure 110/74 110/74 120/70 O2 Sat by Pulse 98 98 98 Oximetry 03/07/17 03/07/17 03/07/17 12:27 12:30 12:40 Temperature 97.9 F Pulse Rate 126 H 136 H Respiratory 17 16 Rate Blood Pressure 107/68 107/68 O2 Sat by Pulse 97 99 Oximetry 03/07/17 03/07/17 03/07/17 12:50 13:00 13:10 Temperature Pulse Rate 126 H 153 H 133 H Respiratory 14 18 17 Rate Blood Pressure 105/58 113/63 113/63 O2 Sat by Pulse 98 97 99 Oximetry 03/07/17 03/07/17 03/07/17 13:20 13:30 13:40 Temperature Pulse Rate 145 H 131 H 128 H Respiratory 17 17 18 Rate Blood Pressure 115/62 115/62 O2 Sat by Pulse 98 98 98 Oximetry 03/07/17 03/07/17 03/07/17 13:50 14:00 14:10 Temperature Pulse Rate 98 H 101 H 110 H Respiratory 18 18 17 Rate Blood Pressure 104/59 103/68 103/68 O2 Sat by Pulse 99 99 Oximetry Constitutional: no acute distress, alert Eyes: non-icteric ENT: oropharynx moist Neck: supple, no lymphadenopathy, no JVD, other (no thyromegaly) Effort: mildly labored (pain limited) Ascultation: Bilateral: diminished breath sounds, rales (scant in bases) Cardiovascular: irregular rhythm, other (S1,S2; No rubs / murmurs) Gastrointestinal: hypoactive bowel sounds, tender (clean dry surgical dressing) , non-distended, other (NGT in left nare, draining dark fluid) Integumentary: normal Extremities: no cyanosis, no edema, pink and warm, pulses normal Neurologic: non-focal exam (moves all extremities to command), pupils equal and round, motor strength normal and Psychiatric: mood appropriate, affect normal CBC and BMP: 03/07/17 14:47 03/07/17 04:55 ABG, PT/INR, D-dimer: ABG POC ABG pH 7.449 (7.35-7.45) 03/06/17 11:19 POC ABG pCO2 37.5 (35-45) 03/06/17 11:19 POC ABG pO2 86 (80-105) 03/06/17 11:19 POC ABG HCO3 26.0 03/06/17 11:19 POC ABG Total CO2 27 03/06/17 11:19 POC ABG O2 Sat 97 03/06/17 11:19 PT/INR, D-dimer PT 16.9 Sec. (12.2-14.9) H 03/07/17 04:55 INR 1.31 (0.87-1.13) H 03/07/17 04:55 Abnormal lab findings: Abnormal Labs 02/28/17 03/01/17 03/02/17 19:14 02:50 05:09 WBC RBC Hgb Hct MCHC RDW Lymph % (Auto) [place] % (Auto) [place] # Seg Neutrophils % Seg Neuts % (Manual) Lymphocytes % (Manual) Monocytes % (Manual) Seg Neutrophils # Seg Neutrophils # Man Monocytes # (Manual) PT 27.3 H 43.9 H INR 2.40 H 4.39 H POC ABG pH POC ABG pCO2 POC ABG pO2 Sodium Potassium Chloride BUN Creatinine Glucose Calcium NT-Pro-B Natriuret Pep 1929 H Total Protein Albumin Urine WBC (Auto) Crossmatch 03/02/17 03/02/17 03/02/17 05:09 05:09 13:32 WBC 17.4 H RBC 5.48 H Hgb 15.9 H Hct 47.4 H MCHC RDW Lymph % (Auto) 11.3 L [place] % (Auto) [place] # Seg Neutrophils % 84.2 H Seg Neuts % (Manual) Lymphocytes % (Manual) Monocytes % (Manual) Seg Neutrophils # 14.6 H Seg Neutrophils # Man Monocytes # (Manual) PT 47.9 H INR 4.90 H POC ABG pH POC ABG pCO2 POC ABG pO2 Sodium 136 L Potassium Chloride 97.7 L BUN Creatinine 0.5 L Glucose 109 H Calcium NT-Pro-B Natriuret Pep Total Protein Albumin Urine WBC (Auto) Crossmatch 03/03/17 03/03/17 03/03/17 06:32 06:32 06:32 WBC 19.0 H RBC 5.46 H Hgb 16.0 H Hct 46.8 H MCHC RDW 13.1 L Lymph % (Auto) 10.7 L [place] % (Auto) [place] # 1.0 H Seg Neutrophils % 83.2 H Seg Neuts % (Manual) Lymphocytes % (Manual) Monocytes % (Manual) Seg Neutrophils # 15.8 H Seg Neutrophils # Man Monocytes # (Manual) PT 44.3 H INR 4.44 H POC ABG pH POC ABG pCO2 POC ABG pO2 Sodium Potassium Chloride BUN 24 H Creatinine 0.6 L Glucose 101 H Calcium NT-Pro-B Natriuret Pep Total Protein Albumin 3.4 L Urine WBC (Auto) Crossmatch 03/03/17 03/04/17 03/04/17 18:00 05:27 05:27 WBC 16.0 H RBC 5.16 H Hgb 15.1 H Hct 43.8 H MCHC RDW Lymph % (Auto) 8.3 L [place] % (Auto) [place] # Seg Neutrophils % 86.5 H Seg Neuts % (Manual) Lymphocytes % (Manual) Monocytes % (Manual) Seg Neutrophils # 13.8 H Seg Neutrophils # Man Monocytes # (Manual) PT 26.8 H INR 2.34 H POC ABG pH POC ABG pCO2 POC ABG pO2 Sodium Potassium Chloride BUN Creatinine Glucose Calcium NT-Pro-B Natriuret Pep Total Protein Albumin Urine WBC (Auto) Crossmatch See Detail 03/04/17 03/04/17 03/04/17 05:27 13:31 23:05 WBC 17.2 H RBC Hgb Hct MCHC RDW Lymph % (Auto) 11.6 L [place] % (Auto) [place] # 1.2 H Seg Neutrophils % 81.2 H Seg Neuts % (Manual) 85.0 H Lymphocytes % (Manual) 8.0 L Monocytes % (Manual) Seg Neutrophils # 13.7 H Seg Neutrophils # Man 14.6 H Monocytes # (Manual) PT 19.3 H INR 1.55 H POC ABG pH POC ABG pCO2 POC ABG pO2 Sodium Potassium Chloride BUN 20 H Creatinine 0.5 L Glucose 162 H Calcium 8.0 L NT-Pro-B Natriuret Pep Total Protein Albumin 3.5 L Urine WBC (Auto) Crossmatch 03/05/17 03/05/17 03/05/17 05:18 05:18 05:18 WBC 15.0 H RBC 3.52 L Hgb Hct 30.0 L MCHC 35 H RDW 13.1 L Lymph % (Auto) 12.3 L [place] % (Auto) 9.1 H [place] # 1.4 H Seg Neutrophils % 78.5 H Seg Neuts % (Manual) Lymphocytes % (Manual) Monocytes % (Manual) Seg Neutrophils # 11.8 H Seg Neutrophils # Man Monocytes # (Manual) PT 16.5 H INR 1.27 H POC ABG pH POC ABG pCO2 POC ABG pO2 Sodium Potassium 3.5 L Chloride BUN 34 H Creatinine 0.4 L Glucose 132 H Calcium 8.2 L NT-Pro-B Natriuret Pep Total Protein Albumin Urine WBC (Auto) Crossmatch 03/05/17 03/05/17 03/05/17 10:39 11:00 17:50 WBC 22.1 H 18.2 H RBC 3.51 L 3.30 L Hgb 9.6 L Hct 28.7 L MCHC RDW 13.1 L 13.1 L Lymph % (Auto) [place] % (Auto) 8.6 H [place] # 1.6 H Seg Neutrophils % 76.5 H Seg Neuts % (Manual) Lymphocytes % (Manual) Monocytes % (Manual) 14.0 H Seg Neutrophils # 13.9 H Seg Neutrophils # Man 15.5 H Monocytes # (Manual) 3.1 H PT INR POC ABG pH POC ABG pCO2 46.7 H POC ABG pO2 Sodium Potassium Chloride BUN Creatinine Glucose Calcium NT-Pro-B Natriuret Pep Total Protein Albumin Urine WBC (Auto) Crossmatch 03/05/17 03/06/17 03/06/17 Unknown 04:06 04:49 WBC RBC Hgb Hct MCHC RDW Lymph % (Auto) [place] % (Auto) [place] # Seg Neutrophils % Seg Neuts % (Manual) Lymphocytes % (Manual) Monocytes % (Manual) Seg Neutrophils # Seg Neutrophils # Man Monocytes # (Manual) PT 17.3 H INR 1.34 H POC ABG pH 7.707 H POC ABG pCO2 19.4 L POC ABG pO2 60 L Sodium Potassium Chloride BUN Creatinine Glucose Calcium NT-Pro-B Natriuret Pep Total Protein Albumin Urine WBC (Auto) 19.0 H Crossmatch 03/06/17 03/06/17 03/07/17 04:49 04:49 04:55 WBC 20.2 H RBC 3.18 L Hgb 9.5 L Hct 27.6 L MCHC RDW 13.1 L Lymph % (Auto) [place] % (Auto) [place] # Seg Neutrophils % Seg Neuts % (Manual) 87.0 H Lymphocytes % (Manual) 8.0 L Monocytes % (Manual) Seg Neutrophils # Seg Neutrophils # Man 17.6 H Monocytes # (Manual) PT 16.9 H INR 1.31 H POC ABG pH POC ABG pCO2 POC ABG pO2 Sodium Potassium Chloride BUN 30 H Creatinine Glucose 113 H Calcium 7.5 L NT-Pro-B Natriuret Pep Total Protein 5.5 L Albumin 2.7 L Urine WBC (Auto) Crossmatch 03/07/17 03/07/17 04:55 04:55 WBC 23.5 H RBC 3.18 L Hgb 9.3 L Hct 27.8 L MCHC RDW Lymph % (Auto) [place] % (Auto) [place] # Seg Neutrophils % Seg Neuts % (Manual) 74.0 H Lymphocytes % (Manual) 8.0 L Monocytes % (Manual) 9.0 H Seg Neutrophils # Seg Neutrophils # Man 17.4 H Monocytes # (Manual) 2.1 H PT INR POC ABG pH POC ABG pCO2 POC ABG pO2 Sodium Potassium Chloride 107.2 H BUN Creatinine 0.4 L Glucose 128 H Calcium 7.9 L NT-Pro-B Natriuret Pep Total Protein 5.8 L Albumin 2.6 L Urine WBC (Auto) Crossmatch Chest x-ray: image reviewed (no new focal infiltrates; no pneumothorax; rotated image) Allied health notes reviewed: RT
--- NOTE | 2017-03-07 15:21 | Gastroenterology Progress Note ---
Assessment and Plan 1. UGI bleed 2. SBO 2/2 incarcerated hernia -dark/black output from NG tube. H/H is stable, and BUN has trended down to normal range -cont PPI BID IV -hold off on endoscopy for time being unless urgently indicated. will likely need diagnostic EGD once ileus resolves (can be done prior to discharge) Subjective Date of service: 03/07/17 Principal diagnosis: UGI bleeding/SBO Interval history: Patient seen and examined. No events overnight. Coffee ground output from NG tube. She is awake, but unable to provide history at time of exam. Objective - Constitutional Vitals: Temp Pulse Resp BP Pulse Ox 97.9 F 110 H 17 103/68 99 03/07/17 12:27 03/07/17 14:10 03/07/17 14:10 03/07/17 14:10 03/07/17 14:10 General appearance: no acute distress - Respiratory Respiratory effort: normal Respiratory: bilateral: CTA - Cardiovascular Rhythm: regular (tachycardic) Heart Sounds: Present: S1 & S2 - Gastrointestinal General gastrointestinal: Present: soft, distended (mild distention), hypoactive bowel sounds - Neurologic Neurological: disoriented - Labs CBC & Chem 7: 03/07/17 04:55 03/07/17 04:55 Labs: Laboratory Results - last 24 hr 03/03/17 03/07/17 03/07/17 18:00 04:55 04:55 WBC 23.5 H RBC 3.18 L Hgb 9.3 L Hct 27.8 L MCV 88 MCH 29 MCHC 34 RDW 13.6 Plt Count 181 Add Manual Diff Complete Total Counted 100 Seg Neuts % (Manual) 74.0 H Band Neutrophils % 9.0 Lymphocytes % (Manual) 8.0 L Reactive Lymphs % (Man) 0 Monocytes % (Manual) 9.0 H Eosinophils % (Manual) 0 Basophils % (Manual) 0 Metamyelocytes % 0 Myelocytes % 0 Promyelocytes % 0 Blast Cells % 0 Nucleated RBC % Not Reportable Seg Neutrophils # Man 17.4 H Band Neutrophils # 2.1 Lymphocytes # (Manual) 1.9 Abs React Lymphs (Man) 0.0 Monocytes # (Manual) 2.1 H Eosinophils # (Manual) 0.0 Basophils # (Manual) 0.0 Metamyelocytes # 0.0 Myelocytes # 0.0 Promyelocytes # 0.0 Blast Cells # 0.0 WBC Morphology Not Reportable Hypersegmented Neuts Not Reportable Hyposegmented Neuts Not Reportable Hypogranular Neuts Not Reportable Smudge Cells Not Reportable Toxic Granulation Not Reportable Toxic Vacuolation Not Reportable Dohle Bodies Not Reportable Pelger-Huet Anomaly Not Reportable Evangelina Rods Not Reportable Platelet Estimate Consistent w auto Clumped Platelets Not Reportable Plt Clumps, EDTA Not Reportable Large Platelets Not Reportable Giant Platelets Not Reportable Platelet Satelliting Not Reportable Plt Morphology Comment Not Reportable RBC Morphology Not Reportable Dimorphic RBCs Not Reportable Polychromasia Not Reportable Hypochromasia Not Reportable Poikilocytosis Not Reportable Anisocytosis 1+ Microcytosis Not Reportable Macrocytosis Not Reportable Spherocytes Not Reportable Pappenheimer Bodies Not Reportable Sickle Cells Not Reportable Target Cells Not Reportable Tear Drop Cells Not Reportable Ovalocytes Not Reportable Helmet Cells Not Reportable [place] Bodies Not Reportable [place] Rings Not Reportable [place] Cells Not Reportable Bite Cells Not Reportable Crenated Cell Not Reportable Elliptocytes Not Reportable Acanthocytes (Spur) Not Reportable Rouleaux Not Reportable Hemoglobin C Crystals Not Reportable Schistocytes Not Reportable Malaria parasites Not Reportable Rd Bodies Not Reportable Hem Pathologist Commnt No PT 16.9 H INR 1.31 H Sodium Potassium Chloride Carbon Dioxide Anion Gap BUN Creatinine Estimated GFR BUN/Creatinine Ratio Glucose Calcium Total Bilirubin AST ALT Alkaline Phosphatase Total Protein Albumin Albumin/Globulin Ratio Crossmatch See Detail 03/07/17 04:55 WBC RBC Hgb Hct MCV MCH MCHC RDW Plt Count Add Manual Diff Total Counted Seg Neuts % (Manual) Band Neutrophils % Lymphocytes % (Manual) Reactive Lymphs % (Man) Monocytes % (Manual) Eosinophils % (Manual) Basophils % (Manual) Metamyelocytes % Myelocytes % Promyelocytes % Blast Cells % Nucleated RBC % Seg Neutrophils # Man Band Neutrophils # Lymphocytes # (Manual) Abs React Lymphs (Man) Monocytes # (Manual) Eosinophils # (Manual) Basophils # (Manual) Metamyelocytes # Myelocytes # Promyelocytes # Blast Cells # WBC Morphology Hypersegmented Neuts Hyposegmented Neuts Hypogranular Neuts Smudge Cells Toxic Granulation Toxic Vacuolation Dohle Bodies Pelger-Huet Anomaly Evangelina Rods Platelet Estimate Clumped Platelets Plt Clumps, EDTA Large Platelets Giant Platelets Platelet Satelliting Plt Morphology Comment RBC Morphology Dimorphic RBCs Polychromasia Hypochromasia Poikilocytosis Anisocytosis Microcytosis Macrocytosis Spherocytes Pappenheimer Bodies Sickle Cells Target Cells Tear Drop Cells Ovalocytes Helmet Cells [place] Bodies [place] Rings Marcelo Cells Bite Cells Crenated Cell Elliptocytes Acanthocytes (Spur) Rouleaux Hemoglobin C Crystals Schistocytes Malaria parasites Rd Bodies Hem Pathologist Commnt PT INR Sodium 143 Potassium 3.9 Chloride 107.2 H Carbon Dioxide 24 Anion Gap 16 BUN 15 Creatinine 0.4 L Estimated GFR > 60 BUN/Creatinine Ratio 38 Glucose 128 H Calcium 7.9 L Total Bilirubin 0.60 AST 19 ALT 14 Alkaline Phosphatase 42 Total Protein 5.8 L Albumin 2.6 L Albumin/Globulin Ratio 0.8 Crossmatch - Imaging x-ray: report reviewed CT scan: report reviewed
[2017-03-07 16:51] LABS: Hemoglobin 8.6 gm/dl (10.1-14.3); Mean Corpuscular HGB Conc 33 % (30-34); Mean Corpuscular Hemoglobin 29 pg (28-32); Mean Corpuscular Volume 88 fl (79-97); Platelet Count 182 K/mm3 (140-440); Red Blood Count 2.96 M/mm3 (3.65-5.03); Red Cell Distribution Width 13.7 % (13.2-15.2)
[2017-03-07 16:53] LABS: White Blood Count 21.5 K/mm3 (4.5-11.0)
[2017-03-07] MEDS: LANOXIN IV SCH (17:02)
--- NOTE | 2017-03-07 17:42 | Progress Note ---
Assessment and Plan /Acute GI bleed had couple episode of bloody vomiting and cont to have dark color material on NG suction likely due to coagulopathy vs gastric ulcer cont on protonix drip, s/p transfusion of FFP, vit K GI following, monitor H and H, Hb trending down No plan for EGD now as had recent surgery /Sepsis WBC trended up, likely reactive from incarcerated hernia and UTI On admission presumed to have pneumonia and started on Rocephin/azithromycin, but chest x-ray with no acute findings Negative blood culture, UA with +WBC and + LE continue antibiotics to levaquin and flagyl / Acute hypoxic respiratory failure intubated following surgery on 03/05/17 extubated next day on 03/06/17 cont nebulizer breathing treatment, supplimental O2 with ventimask /Small bowel obstruction s/p urgent expl lap with reduction of incarcerated incisional hernia and incisional hernia repair with mesh on 03/05/17 CT abdomen showed incarcerated hernia cont gentle hydration, cont wound care, diet recommendation per surgery /Chest pain Found to be in A. fib with RVR on admission EKG with no ischemic changes Cardiac enzymes negative TSH and, FT4 within normal limits ECHO obtained, EF 20-25% on hold beta sari, ACEI, aspirin, statin as pt now NPO Cardiology following /CHF with systolic dysfunction Compensated now, echo showed EF of 20-25% Per cardiology, had cardiac cath that showed no significant coronary disease, but an ejection fraction of 20% /Afib RVR Received Digoxin and was started on BB; Anticoagulated with Coumadin, INR supratherapeutic, now off Coumadin cont rate control with iv metoprolol /Coagulopathy INR went up to 4. likely secondary to interaction with antibiotics Hold Coumadin and monitor INR closely reversed with FFP and vit K /DVT prophylaxis SCD /Transfer to [facility] today Brief history: 76 yo [place] female, who doesn't speak [place]ian, weight chronic afib and heart failure, brought to the hospital for chest pain. All cardiac workup so for negative for ACS. HER-2 D echo showed EF of 20-25%. Abdominal x-ray obtained on 03/02/2017 for the complain of abdominal pain and constipation which showed small bowel obstruction. Radiological data: Chest x-ray on 02/28/2017 showed no acute infiltrates, no abnormalities. Abdomen x-ray on 03/02/2017 showed findings suggestive of small bowel obstruction 2-D echo obtained on 02/28/2017 showed EF of 20-25% Subjective Date of service: 03/07/17 Principal diagnosis: Acute respiratory Failure s/p MVS; UGI bleeding/SBO s/p Ex- lap Interval history: Pt seen and examined cont to have dark color drainage with NG c/o upper abdominal pain Objective - Exam Narrative Exam: General appearance: Present: no acute distress, on nasal mask - EENT Eyes: Present: PERRL, EOM intact, NG tube on place with dark color material - Neck Neck: Present: supple. Absent: enlarged thyroid, masses or JVD - Respiratory Respiratory effort: normal Respiratory: bilateral: CTA, negative: rhonchi, wheezing - Cardiovascular Rhythm: irregularly irregular Heart Sounds: Present: S1 & S2. Absent: systolic murmur - Extremities Extremities: no ischemia - Abdominal General gastrointestinal: soft, non tender, surgical dressing on the abdomen - Integumentary Integumentary: Present: warm, dry. Absent: jaundice, rash - Neurologic Neurologic: no focal deficits - Constitutional Vitals: Vital Signs - 12hr 03/07/17 03/07/17 03/07/17 05:50 06:00 06:10 Temperature Pulse Rate 128 H 125 H 121 H Respiratory 16 15 15 Rate Blood Pressure 114/75 109/69 109/69 O2 Sat by Pulse 97 96 98 Oximetry 03/07/17 03/07/17 03/07/17 06:20 06:30 06:40 Temperature Pulse Rate 121 H 115 H 129 H Respiratory 16 15 14 Rate Blood Pressure 103/74 112/73 112/73 O2 Sat by Pulse 98 98 Oximetry 03/07/17 03/07/17 03/07/17 06:50 07:00 07:10 Temperature Pulse Rate 129 H 129 H 119 H Respiratory 15 16 17 Rate Blood Pressure 121/69 123/79 123/79 O2 Sat by Pulse 98 98 98 Oximetry 03/07/17 03/07/17 03/07/17 07:20 07:30 07:40 Temperature Pulse Rate 123 H 124 H 115 H Respiratory 15 17 17 Rate Blood Pressure 123/69 125/71 125/71 O2 Sat by Pulse 98 98 98 Oximetry 03/07/17 03/07/17 03/07/17 07:50 08:00 08:10 Temperature 97.5 F L Pulse Rate 124 H 140 H 117 H Respiratory 16 17 16 Rate Blood Pressure 123/79 109/77 109/77 O2 Sat by Pulse 98 96 97 Oximetry 03/07/17 03/07/17 03/07/17 08:20 08:30 08:40 Temperature Pulse Rate 114 H 126 H 131 H Respiratory 15 14 14 Rate Blood Pressure 97/70 107/69 107/69 O2 Sat by Pulse 96 96 98 Oximetry 03/07/17 03/07/17 03/07/17 08:50 09:00 09:10 Temperature Pulse Rate 133 H 121 H 135 H Respiratory 15 18 16 Rate Blood Pressure 117/79 117/76 117/76 O2 Sat by Pulse 98 97 98 Oximetry 03/07/17 03/07/17 03/07/17 09:20 09:21 09:30 Temperature Pulse Rate 137 H 141 H 124 H Respiratory 17 16 Rate Blood Pressure 114/66 114/66 116/78 O2 Sat by Pulse 98 97 Oximetry 03/07/17 03/07/17 03/07/17 09:40 09:50 10:00 Temperature Pulse Rate 130 H 154 H 120 H Respiratory 18 16 17 Rate Blood Pressure 116/78 121/75 99/75 O2 Sat by Pulse 99 97 99 Oximetry 03/07/17 03/07/17 03/07/17 10:10 10:20 10:30 Temperature Pulse Rate 129 H 124 H 119 H Respiratory 17 15 16 Rate Blood Pressure 99/75 99/75 115/73 O2 Sat by Pulse 97 97 97 Oximetry 03/07/17 03/07/17 03/07/17 10:40 10:50 11:00 Temperature Pulse Rate 122 H 151 H 146 H Respiratory 16 17 16 Rate Blood Pressure 115/73 115/73 118/72 O2 Sat by Pulse 99 99 99 Oximetry 03/07/17 03/07/17 03/07/17 11:10 11:20 11:30 Temperature Pulse Rate 131 H 119 H 116 H Respiratory 18 21 16 Rate Blood Pressure 118/72 121/74 112/71 O2 Sat by Pulse 100 100 98 Oximetry 03/07/17 03/07/17 03/07/17 11:40 11:50 12:00 Temperature Pulse Rate 117 H 121 H 127 H Respiratory 16 17 17 Rate Blood Pressure 112/71 102/70 110/74 O2 Sat by Pulse 99 99 98 Oximetry 03/07/17 03/07/1717 12:10 12:20 12:27 Temperature 97.9 F Pulse Rate 149 H 132 H Respiratory 16 16 Rate Blood Pressure 110/74 120/70 O2 Sat by Pulse 98 98 Oximetry 03/07/17 03/07/17 03/07/17 12:30 12:40 12:50 Temperature Pulse Rate 126 H 136 H 126 H Respiratory 17 16 14 Rate Blood Pressure 107/68 107/68 105/58 O2 Sat by Pulse 97 99 98 Oximetry 03/07/17 03/07/17 03/07/17 13:00 13:10 13:20 Temperature Pulse Rate 153 H 133 H 145 H Respiratory 18 17 17 Rate Blood Pressure 113/63 113/63 O2 Sat by Pulse 97 99 98 Oximetry 03/07/17 03/07/17 03/07/17 13:30 13:40 13:50 Temperature Pulse Rate 131 H 128 H 98 H Respiratory 17 18 18 Rate Blood Pressure 115/62 115/62 104/59 O2 Sat by Pulse 98 98 99 Oximetry 03/07/17 03/07/17 03/07/17 14:00 14:10 14:20 Temperature Pulse Rate 101 H 110 H 112 H Respiratory 18 17 18 Rate Blood Pressure 103/68 103/68 111/74 O2 Sat by Pulse 99 99 Oximetry 03/07/17 03/07/17 03/07/17 14:30 14:40 14:50 Temperature Pulse Rate 112 H 116 H 112 H Respiratory 17 16 16 Rate Blood Pressure 111/81 111/81 102/71 O2 Sat by Pulse 98 99 99 Oximetry 03/07/17 03/07/17 03/07/17 15:00 15:10 15:20 Temperature Pulse Rate 119 H 117 H 145 H Respiratory 16 15 16 Rate Blood Pressure 94/67 94/67 114/72 O2 Sat by Pulse 97 99 99 Oximetry 03/07/17 03/07/17 03/07/17 15:25 15:30 15:40 Temperature 98.2 F Pulse Rate 116 H 126 H Respiratory 16 15 Rate Blood Pressure 109/64 109/64 O2 Sat by Pulse 99 98 Oximetry 03/07/17 03/07/17 03/07/17 15:50 16:00 16:10 Temperature Pulse Rate 120 H 118 H 113 H Respiratory 14 18 17 Rate Blood Pressure 106/66 108/70 108/70 O2 Sat by Pulse 97 98 98 Oximetry 03/07/17 03/07/17 03/07/17 16:20 16:30 16:40 Temperature Pulse Rate 105 H 114 H 117 H Respiratory 16 16 17 Rate Blood Pressure 111/73 103/61 103/61 O2 Sat by Pulse 98 99 Oximetry 03/07/17 03/07/17 03/07/17 16:50 17:00 17:02 Temperature Pulse Rate 117 H 109 H 114 H Respiratory 16 15 Rate Blood Pressure 109/67 106/65 106/65 O2 Sat by Pulse 98 Oximetry 03/07/17 03/07/17 03/07/17 17:10 17:20 17:30 Temperature Pulse Rate 121 H 116 H 118 H Respiratory 15 16 14 Rate Blood Pressure 106/65 95/71 89/68 O2 Sat by Pulse 99 99 98 Oximetry - Labs CBC & Chem 7: 03/07/17 14:47 03/07/17 04:55 Labs: Abnormal lab results 03/03/17 03/07/17 03/07/17 Range/Units 18:00 04:55 04:55 WBC 23.5 H (4.5-11.0) K/mm3 RBC 3.18 L (3.65-5.03) M/mm3 Hgb 9.3 L (10.1-14.3) gm/dl Hct 27.8 L (30.3-42.9) % Seg Neuts % (Manual) 74.0 H (40.0-70.0) % Lymphocytes % (Manual) 8.0 L (13.4-35.0) % Monocytes % (Manual) 9.0 H (0.0-7.3) % Seg Neutrophils # Man 17.4 H (1.8-7.7) K/mm3 Monocytes # (Manual) 2.1 H (0.0-0.8) K/mm3 PT 16.9 H (12.2-14.9) Sec. INR 1.31 H (0.87-1.13) Chloride (98-107) mmol/L Creatinine (0.7-1.2) mg/dL Glucose (65-100) mg/dL Calcium (8.4-10.2) mg/dL Total Protein (6.3-8.2) g/dL Albumin (3.9-5) g/dL Crossmatch See Detail 03/07/17 03/07/17 Range/Units 04:55 14:47 WBC 21.5 H (4.5-11.0) K/mm3 RBC 2.96 L (3.65-5.03) M/mm3 Hgb 8.6 L (10.1-14.3) gm/dl Hct 26.0 L (30.3-42.9) % Seg Neuts % (Manual) (40.0-70.0) % Lymphocytes % (Manual) (13.4-35.0) % Monocytes % (Manual) (0.0-7.3) % Seg Neutrophils # Man (1.8-7.7) K/mm3 Monocytes # (Manual) (0.0-0.8) K/mm3 PT (12.2-14.9) Sec. INR (0.87-1.13) Chloride 107.2 H (98-107) mmol/L Creatinine 0.4 L (0.7-1.2) mg/dL Glucose 128 H (65-100) mg/dL Calcium 7.9 L (8.4-10.2) mg/dL Total Protein 5.8 L (6.3-8.2) g/dL Albumin 2.6 L (3.9-5) g/dL Crossmatch
[2017-03-08 02:38] LABS: Anion Gap 12 mmol/L; BUN/Creatinine Ratio 38; Blood Urea Nitrogen 15 mg/dL (7-17); Calcium 7.7 mg/dL (8.4-10.2); Carbon Dioxide 24 mmol/L (22-30); Chloride 110.6 mmol/L (98-107); Glucose 153 mg/dL (65-100); Potassium 3.8 mmol/L (3.6-5.0); Sodium 143 mmol/L (137-145)
[2017-03-08] MEDS: D5W/NS W/KCL 20MEQ 20 MEQ/1,000 ML BAG IV SCH ×2 (05:25→18:19)
[2017-03-08] MEDS: FLAGYL 500 MG/100 ML 500 MG/100 ML BAG IV SCH ×3 (05:25→21:41)
[2017-03-08] MEDS: MORPHINE IV PRN ×2 (05:33→11:46)
[2017-03-08 06:14] LABS: Basophils % (Auto) 0.1 % (0.0-1.8); Eosinophils % (Auto) 0.1 % (0.0-4.3); Hematocrit 25.1 % (30.3-42.9); Hemoglobin 8.3 gm/dl (10.1-14.3); Mean Corpuscular HGB Conc 33 % (30-34); Mean Corpuscular Hemoglobin 29 pg (28-32); Mean Corpuscular Volume 88 fl (79-97); Platelet Count 207 K/mm3 (140-440); Red Blood Count 2.85 M/mm3 (3.65-5.03); Red Cell Distribution Width 13.8 % (13.2-15.2); White Blood Count 19.1 K/mm3 (4.5-11.0)
[2017-03-08] MEDS ORDERED: NACL 0.9% 500 ML 500 ML IV ONE (06:36)
--- NOTE | 2017-03-08 10:07 | Progress Note ---
Assessment and Plan POD # 3 Pt appears comfortable. family states passed gas. ng aspirate clear Abd soft. dressings dry. mild incisional pain. hypoactive BS low h/h noted. was hypotensive overnight 95/62 tachycardic surgically stable transfuse I unit prbc d/c ng keep npo monitor h/h OOB as loan may consult PT to help ambulate if needed Selected Entries 03/08/17 08:55 Temperature 98.4 F Blood Pressure 118/77 [Left] Laboratory Tests 03/08/17 03/08/17 01:53 05:48 WBC 19.1 H Hgb 8.3 L Hct 25.1 L Sodium 143 Potassium 3.8 Chloride 110.6 H Carbon Dioxide 24 BUN 15 Creatinine 0.4 L Selected Entries 03/07/17 23:49 Pulse Rate 112 H Respiratory 22 Rate Blood Pressure 95/62 Objective Vital Signs - 12hr 03/07/17 03/08/17 03/08/17 23:49 04:33 05:00 Temperature 98.6 F 97.7 F Pulse Rate 112 H 102 H 116 H Respiratory 22 20 Rate Blood Pressure 95/62 118/68 Blood Pressure [Left] O2 Sat by Pulse 99 99 Oximetry 03/08/17 03/08/17 08:25 08:55 Temperature 98.4 F Pulse Rate 111 H 102 H Respiratory Rate Blood Pressure Blood Pressure 118/77 [Left] O2 Sat by Pulse 98 Oximetry - Labs 03/08/17 05:48 03/08/17 01:53 Diabetes panel 03/08/17 Range/Units 01:53 Sodium 143 (137-145) mmol/L Potassium 3.8 (3.6-5.0) mmol/L Chloride 110.6 H (98-107) mmol/L Carbon Dioxide 24 (22-30) mmol/L BUN 15 (7-17) mg/dL Creatinine 0.4 L (0.7-1.2) mg/dL Glucose 153 H (65-100) mg/dL Calcium 7.7 L (8.4-10.2) mg/dL Calcium panel 03/08/17 Range/Units 01:53 Calcium 7.7 L (8.4-10.2) mg/dL Pituitary panel 03/08/17 Range/Units 01:53 Sodium 143 (137-145) mmol/L Potassium 3.8 (3.6-5.0) mmol/L Chloride 110.6 H (98-107) mmol/L Carbon Dioxide 24 (22-30) mmol/L BUN 15 (7-17) mg/dL Creatinine 0.4 L (0.7-1.2) mg/dL Glucose 153 H (65-100) mg/dL Calcium 7.7 L (8.4-10.2) mg/dL Adrenal panel 03/08/17 Range/Units 01:53 Sodium 143 (137-145) mmol/L Potassium 3.8 (3.6-5.0) mmol/L Chloride 110.6 H (98-107) mmol/L Carbon Dioxide 24 (22-30) mmol/L BUN 15 (7-17) mg/dL Creatinine 0.4 L (0.7-1.2) mg/dL Glucose 153 H (65-100) mg/dL Calcium 7.7 L (8.4-10.2) mg/dL
[2017-03-08] MEDS: LEVAQUIN 750MG/150ML 750 MG/150 ML BAG IV SCH (11:45)
[2017-03-08] MEDS: PROTONIX IV SCH ×2 (11:46→21:41)
[2017-03-08] MEDS: COREG PO SCH ×2 (11:47→21:40)
[2017-03-08] MEDS: ZESTRIL PO SCH (11:47)
--- NOTE | 2017-03-08 13:39 | Gastroenterology Progress Note ---
Assessment and Plan 1. UGI bleed 2. SBO 2/2 incarcerated hernia s/p ex-lap -dark output from NG, no sage blood. Noted drop in H/H, BP stable. -cont PPI IV BID dosing -will obtain KUB in the morning. f/u results and determine timing of EGD based on progress/clinical course Subjective Date of service: 03/08/17 Principal diagnosis: Acute respiratory Failure s/p MVS; UGI bleeding/SBO s/p Ex- lap Interval history: pt transferred to floor. awake and alert, family at bedside. + flatus, denies n/v/abd pain Objective - Constitutional Vitals: Temp Pulse Resp BP Pulse Ox 98.4 F 102 H 20 118/77 98 03/08/17 08:55 03/08/17 08:55 03/08/17 04:33 03/08/17 08:55 03/08/17 08:25 General appearance: no acute distress - Respiratory Respiratory: bilateral: CTA - Cardiovascular Rhythm: regular Heart Sounds: Present: S1 & S2 - Gastrointestinal General gastrointestinal: Present: soft, other (+ dressing, mild tenderness around surgical site, mild dist, hypoactive bs) - Labs CBC & Chem 7: 03/08/17 05:48 03/08/17 01:53 Labs: Laboratory Results - last 24 hr 03/07/17 03/08/17 03/08/17 14:47 01:53 05:48 WBC 21.5 H 19.1 H RBC 2.96 L 2.85 L Hgb 8.6 L 8.3 L Hct 26.0 L 25.1 L MCV 88 88 MCH 29 29 MCHC 33 33 RDW 13.7 13.8 Plt Count 182 207 Lymph % (Auto) 9.9 L [place] % (Auto) 7.6 H Eos % (Auto) 0.1 Baso % (Auto) 0.1 Lymph # 1.9 [place] # 1.5 H Eos # 0.0 Baso # 0.0 Seg Neutrophils % 82.3 H Seg Neutrophils # 15.7 H Sodium 143 Potassium 3.8 Chloride 110.6 H Carbon Dioxide 24 Anion Gap 12 BUN 15 Creatinine 0.4 L Estimated GFR > 60 BUN/Creatinine Ratio 38 Glucose 153 H Calcium 7.7 L Digoxin Blood Type Antibody Screen Crossmatch 03/08/17 03/08/17 11:13 11:13 WBC RBC Hgb Hct MCV MCH MCHC RDW Plt Count Lymph % (Auto) [place] % (Auto) Eos % (Auto) Baso % (Auto) Lymph # [place] # Eos # Baso # Seg Neutrophils % Seg Neutrophils # Sodium Potassium Chloride Carbon Dioxide Anion Gap BUN Creatinine Estimated GFR BUN/Creatinine Ratio Glucose Calcium Digoxin 0.4 L Blood Type B POSITIVE Antibody Screen TNR Crossmatch See Detail
--- NOTE | 2017-03-08 16:50 | Progress Note ---
Assessment and Plan Patient resting on nasal canula, weak. No acute respiratory distress.O2 saturation 100% on 4 litres O2. - Patient Problems (1) Acute respiratory failure with hypoxia and hypercapnia Current Visit: Yes Status: Acute Plan to address problem: Improved O2 4 litres via nasal canula. Albuterol inhalor HFA 2 puffs po qid prn for shortness of breath. (2) Atrial fibrillation with RVR Current Visit: Yes Status: Acute Plan to address problem: Management as per cardiology. (3) SBO (small bowel obstruction) Current Visit: Yes Status: Acute Plan to address problem: Management as per primary care and surgeon. Subjective Date of service: 03/08/17 Principal diagnosis: Acute respiratory Failure s/p MVS; UGI bleeding/SBO s/p Ex- lap Interval history: Patient resting on nasal canula, weak. No acute respiratory distress.O2 saturation 100% on 4 litres O2. Objective Vital Signs - 12hr 03/08/17 03/08/17 03/08/17 05:00 08:25 08:55 Temperature 98.4 F Pulse Rate 116 H 111 H 102 H Respiratory Rate Blood Pressure Blood Pressure 118/77 [Left] O2 Sat by Pulse 98 Oximetry 03/08/17 03/08/17 12:25 12:26 Temperature 98.8 F Pulse Rate 114 H 117 H Respiratory 16 Rate Blood Pressure 113/73 Blood Pressure [Left] O2 Sat by Pulse 100 100 Oximetry Constitutional: no acute distress, alert, other (Weak) Eyes: non-icteric ENT: oropharynx moist Neck: supple, no lymphadenopathy, no JVD, other (no thyromegaly) Effort: mildly labored (pain limited) Ascultation: Bilateral: diminished breath sounds, rales (scant in bases) Cardiovascular: irregular rhythm, other (S1,S2; No rubs / murmurs) Gastrointestinal: hypoactive bowel sounds, tender (clean dry surgical dressing) , non-distended, other (NGT in left nare, draining dark fluid) Integumentary: normal Extremities: no cyanosis, no edema, pink and warm, pulses normal Neurologic: non-focal exam (moves all extremities to command), pupils equal and round, motor strength normal and Psychiatric: mood appropriate, affect normal CBC and BMP: 03/08/17 05:48 03/08/17 01:53 ABG, PT/INR, D-dimer: ABG POC ABG pH 7.449 (7.35-7.45) 03/06/17 11:19 POC ABG pCO2 37.5 (35-45) 03/06/17 11:19 POC ABG pO2 86 (80-105) 03/06/17 11:19 POC ABG HCO3 26.0 03/06/17 11:19 POC ABG Total CO2 27 03/06/17 11:19 POC ABG O2 Sat 97 03/06/17 11:19 PT/INR, D-dimer PT 16.9 Sec. (12.2-14.9) H 03/07/17 04:55 INR 1.31 (0.87-1.13) H 03/07/17 04:55 Abnormal lab findings: Abnormal Labs 02/28/17 03/01/17 03/02/17 19:14 02:50 05:09 WBC RBC Hgb Hct MCHC RDW Lymph % (Auto) [place] % (Auto) [place] # Seg Neutrophils % Seg Neuts % (Manual) Lymphocytes % (Manual) Monocytes % (Manual) Seg Neutrophils # Seg Neutrophils # Man Monocytes # (Manual) PT 27.3 H 43.9 H INR 2.40 H 4.39 H POC ABG pH POC ABG pCO2 POC ABG pO2 Sodium Potassium Chloride BUN Creatinine Glucose Calcium NT-Pro-B Natriuret Pep 1929 H Total Protein Albumin Urine WBC (Auto) Digoxin Crossmatch 03/02/17 03/02/17 03/02/17 05:09 05:09 13:32 WBC 17.4 H RBC 5.48 H Hgb 15.9 H Hct 47.4 H MCHC RDW Lymph % (Auto) 11.3 L [place] % (Auto) [place] # Seg Neutrophils % 84.2 H Seg Neuts % (Manual) Lymphocytes % (Manual) Monocytes % (Manual) Seg Neutrophils # 14.6 H Seg Neutrophils # Man Monocytes # (Manual) PT 47.9 H INR 4.90 H POC ABG pH POC ABG pCO2 POC ABG pO2 Sodium 136 L Potassium Chloride 97.7 L BUN Creatinine 0.5 L Glucose 109 H Calcium NT-Pro-B Natriuret Pep Total Protein Albumin Urine WBC (Auto) Digoxin Crossmatch 03/03/17 03/03/17 03/03/17 06:32 06:32 06:32 WBC 19.0 H RBC 5.46 H Hgb 16.0 H Hct 46.8 H MCHC RDW 13.1 L Lymph % (Auto) 10.7 L [place] % (Auto) [place] # 1.0 H Seg Neutrophils % 83.2 H Seg Neuts % (Manual) Lymphocytes % (Manual) Monocytes % (Manual) Seg Neutrophils # 15.8 H Seg Neutrophils # Man Monocytes # (Manual) PT 44.3 H INR 4.44 H POC ABG pH POC ABG pCO2 POC ABG pO2 Sodium Potassium Chloride BUN 24 H Creatinine 0.6 L Glucose 101 H Calcium NT-Pro-B Natriuret Pep Total Protein Albumin 3.4 L Urine WBC (Auto) Digoxin Crossmatch 03/03/17 03/04/17 03/04/17 18:00 05:27 05:27 WBC 16.0 H RBC 5.16 H Hgb 15.1 H Hct 43.8 H MCHC RDW Lymph % (Auto) 8.3 L [place] % (Auto) [place] # Seg Neutrophils % 86.5 H Seg Neuts % (Manual) Lymphocytes % (Manual) Monocytes % (Manual) Seg Neutrophils # 13.8 H Seg Neutrophils # Man Monocytes # (Manual) PT 26.8 H INR 2.34 H POC ABG pH POC ABG pCO2 POC ABG pO2 Sodium Potassium Chloride BUN Creatinine Glucose Calcium NT-Pro-B Natriuret Pep Total Protein Albumin Urine WBC (Auto) Digoxin Crossmatch See Detail 03/04/17 03/04/17 03/04/17 05:27 13:31 23:05 WBC 17.2 H RBC Hgb Hct MCHC RDW Lymph % (Auto) 11.6 L [place] % (Auto) [place] # 1.2 H Seg Neutrophils % 81.2 H Seg Neuts % (Manual) 85.0 H Lymphocytes % (Manual) 8.0 L Monocytes % (Manual) Seg Neutrophils # 13.7 H Seg Neutrophils # Man 14.6 H Monocytes # (Manual) PT 19.3 H INR 1.55 H POC ABG pH POC ABG pCO2 POC ABG pO2 Sodium Potassium Chloride BUN 20 H Creatinine 0.5 L Glucose 162 H Calcium 8.0 L NT-Pro-B Natriuret Pep Total Protein Albumin 3.5 L Urine WBC (Auto) Digoxin Crossmatch 03/05/17 03/05/17 03/05/17 05:18 05:18 05:18 WBC 15.0 H RBC 3.52 L Hgb Hct 30.0 L MCHC 35 H RDW 13.1 L Lymph % (Auto) 12.3 L [place] % (Auto) 9.1 H [place] # 1.4 H Seg Neutrophils % 78.5 H Seg Neuts % (Manual) Lymphocytes % (Manual) Monocytes % (Manual) Seg Neutrophils # 11.8 H Seg Neutrophils # Man Monocytes # (Manual) PT 16.5 H INR 1.27 H POC ABG pH POC ABG pCO2 POC ABG pO2 Sodium Potassium 3.5 L Chloride BUN 34 H Creatinine 0.4 L Glucose 132 H Calcium 8.2 L NT-Pro-B Natriuret Pep Total Protein Albumin Urine WBC (Auto) Digoxin Crossmatch 03/05/17 03/05/17 03/05/17 10:39 11:00 17:50 WBC 22.1 H 18.2 H RBC 3.51 L 3.30 L Hgb 9.6 L Hct 28.7 L MCHC RDW 13.1 L 13.1 L Lymph % (Auto) [place] % (Auto) 8.6 H [place] # 1.6 H Seg Neutrophils % 76.5 H Seg Neuts % (Manual) Lymphocytes % (Manual) Monocytes % (Manual) 14.0 H Seg Neutrophils # 13.9 H Seg Neutrophils # Man 15.5 H Monocytes # (Manual) 3.1 H PT INR POC ABG pH POC ABG pCO2 46.7 H POC ABG pO2 Sodium Potassium Chloride BUN Creatinine Glucose Calcium NT-Pro-B Natriuret Pep Total Protein Albumin Urine WBC (Auto) Digoxin Crossmatch 03/05/17 03/06/17 03/06/17 Unknown 04:06 04:49 WBC RBC Hgb Hct MCHC RDW Lymph % (Auto) [place] % (Auto) [place] # Seg Neutrophils % Seg Neuts % (Manual) Lymphocytes % (Manual) Monocytes % (Manual) Seg Neutrophils # Seg Neutrophils # Man Monocytes # (Manual) PT 17.3 H INR 1.34 H POC ABG pH 7.707 H POC ABG pCO2 19.4 L POC ABG pO2 60 L Sodium Potassium Chloride BUN Creatinine Glucose Calcium NT-Pro-B Natriuret Pep Total Protein Albumin Urine WBC (Auto) 19.0 H Digoxin Crossmatch 03/06/17 03/06/17 03/07/17 04:49 04:49 04:55 WBC 20.2 H RBC 3.18 L Hgb 9.5 L Hct 27.6 L MCHC RDW 13.1 L Lymph % (Auto) [place] % (Auto) [place] # Seg Neutrophils % Seg Neuts % (Manual) 87.0 H Lymphocytes % (Manual) 8.0 L Monocytes % (Manual) Seg Neutrophils # Seg Neutrophils # Man 17.6 H Monocytes # (Manual) PT 16.9 H INR 1.31 H POC ABG pH POC ABG pCO2 POC ABG pO2 Sodium Potassium Chloride BUN 30 H Creatinine Glucose 113 H Calcium 7.5 L NT-Pro-B Natriuret Pep Total Protein 5.5 L Albumin 2.7 L Urine WBC (Auto) Digoxin Crossmatch 03/07/17 03/07/17 03/07/17 04:55 04:55 14:47 WBC 23.5 H 21.5 H RBC 3.18 L 2.96 L Hgb 9.3 L 8.6 L Hct 27.8 L 26.0 L MCHC RDW Lymph % (Auto) [place] % (Auto) [place] # Seg Neutrophils % Seg Neuts % (Manual) 74.0 H Lymphocytes % (Manual) 8.0 L Monocytes % (Manual) 9.0 H Seg Neutrophils # Seg Neutrophils # Man 17.4 H Monocytes # (Manual) 2.1 H PT INR POC ABG pH POC ABG pCO2 POC ABG pO2 Sodium Potassium Chloride 107.2 H BUN Creatinine 0.4 L Glucose 128 H Calcium 7.9 L NT-Pro-B Natriuret Pep Total Protein 5.8 L Albumin 2.6 L Urine WBC (Auto) Digoxin Crossmatch 03/08/17 03/08/17 03/08/17 01:53 05:48 11:13 WBC 19.1 H RBC 2.85 L Hgb 8.3 L Hct 25.1 L MCHC RDW Lymph % (Auto) 9.9 L [place] % (Auto) 7.6 H [place] # 1.5 H Seg Neutrophils % 82.3 H Seg Neuts % (Manual) Lymphocytes % (Manual) Monocytes % (Manual) Seg Neutrophils # 15.7 H Seg Neutrophils # Man Monocytes # (Manual) PT INR POC ABG pH POC ABG pCO2 POC ABG pO2 Sodium Potassium Chloride 110.6 H BUN Creatinine 0.4 L Glucose 153 H Calcium 7.7 L NT-Pro-B Natriuret Pep Total Protein Albumin Urine WBC (Auto) Digoxin Crossmatch See Detail 03/08/17 11:13 WBC RBC Hgb Hct MCHC RDW Lymph % (Auto) [place] % (Auto) [place] # Seg Neutrophils % Seg Neuts % (Manual) Lymphocytes % (Manual) Monocytes % (Manual) Seg Neutrophils # Seg Neutrophils # Man Monocytes # (Manual) PT INR POC ABG pH POC ABG pCO2 POC ABG pO2 Sodium Potassium Chloride BUN Creatinine Glucose Calcium NT-Pro-B Natriuret Pep Total Protein Albumin Urine WBC (Auto) Digoxin 0.4 L Crossmatch Chest x-ray: report reviewed (No acute cardiopulmonary process.), image reviewed Allied health notes reviewed: RT
--- NOTE | 2017-03-08 17:04 | Progress Note ---
Assessment and Plan /Acute GI bleed had couple episode of bloody vomiting and cont to have dark color material following NG insertion likely due to coagulopathy vs gastric ulcer placed on protonix drip, s/p transfusion of FFP, vit K GI following, monitor H and H, Hb trending down No plan for EGD now as had recent surgery Now off NG suction, Hb 8.3 today, plan for transfusion /Small bowel obstruction s/p urgent expl lap with reduction of incarcerated incisional hernia and incisional hernia repair with mesh on 03/05/17 CT abdomen showed incarcerated hernia cont gentle hydration, cont wound care, diet recommendation per surgery follow abdominal series /Sepsis WBC trending down now, likely reactive from incarcerated hernia and UTI On admission presumed to have pneumonia and started on Rocephin/azithromycin, but chest x-ray with no acute findings Negative blood culture, UA with +WBC and + LE continue antibiotics to levaquin and flagyl / Acute hypoxic respiratory failure intubated following surgery on 03/05/17 extubated next day on 03/06/17 cont nebulizer breathing treatment, supplimental O2 with ventimask /Chest pain Found to be in A. fib with RVR on admission EKG with no ischemic changes Cardiac enzymes negative TSH and, FT4 within normal limits ECHO obtained, EF 20-25% on hold beta sari, ACEI, aspirin, statin as pt now NPO Cardiology following /CHF with systolic dysfunction Compensated now, echo showed EF of 20-25% Per cardiology, had cardiac cath that showed no significant coronary disease, but an ejection fraction of 20% /Afib RVR Received Digoxin and was started on BB; Anticoagulated with Coumadin, INR supratherapeutic, now off Coumadin cont rate control with iv metoprolol /Coagulopathy INR went up to 4. likely secondary to interaction with antibiotics Hold Coumadin and monitor INR closely reversed with FFP and vit K /DVT prophylaxis SCD /Transfer to [facility] / [facility] today Brief history: 76 yo [place] female, who doesn't speak Korean, weight chronic afib and heart failure, brought to the hospital for chest pain. All cardiac workup so for negative for ACS. HER-2 D echo showed EF of 20-25%. Abdominal x-ray obtained on 03/02/2017 for the complain of abdominal pain and constipation which showed small bowel obstruction. Radiological data: Chest x-ray on 02/28/2017 showed no acute infiltrates, no abnormalities. Abdomen x-ray on 03/02/2017 showed findings suggestive of small bowel obstruction 2-D echo obtained on 02/28/2017 showed EF of 20-25% Subjective Date of service: 03/08/17 Principal diagnosis: Acute respiratory Failure s/p MVS; UGI bleeding/SBO s/p Ex- lap Interval history: Pt seen and examined off NG suction today, states pain tolerable Son at bedside, updated Objective - Exam Narrative Exam: General appearance: Present: no acute distress, - EENT Eyes: Present: PERRL, EOM intact, - Neck Neck: Present: supple. Absent: enlarged thyroid, masses or JVD - Respiratory Respiratory effort: normal Respiratory: bilateral: CTA, negative: rhonchi, wheezing - Cardiovascular Rhythm: irregularly irregular Heart Sounds: Present: S1 & S2. Absent: systolic murmur - Extremities Extremities: no ischemia - Abdominal General gastrointestinal: soft, non tender, surgical dressing on the abdomen - Integumentary Integumentary: Present: warm, dry. Absent: jaundice, rash - Neurologic Neurologic: no focal deficits - Constitutional Vitals: Vital Signs - 12hr 03/08/17 03/08/17 03/08/17 08:25 08:55 12:25 Temperature 98.4 F 98.8 F Pulse Rate 111 H 102 H 114 H Respiratory 16 Rate Blood Pressure 113/73 Blood Pressure 118/77 [Left] O2 Sat by Pulse 98 100 Oximetry 03/08/17 12:26 Temperature Pulse Rate 117 H Respiratory Rate Blood Pressure Blood Pressure [Left] O2 Sat by Pulse 100 Oximetry - Labs CBC & Chem 7: 03/09/17 05:48 03/08/17 01:53 Labs: Abnormal lab results 03/08/17 03/08/17 03/08/17 Range/Units 01:53 05:48 11:13 WBC 19.1 H (4.5-11.0) K/mm3 RBC 2.85 L (3.65-5.03) M/mm3 Hgb 8.3 L (10.1-14.3) gm/dl Hct 25.1 L (30.3-42.9) % Lymph % (Auto) 9.9 L (13.4-35.0) % Stephenson % (Auto) 7.6 H (0.0-7.3) % Stephenson # 1.5 H (0.0-0.8) K/mm3 Seg Neutrophils % 82.3 H (40.0-70.0) % Seg Neutrophils # 15.7 H (1.8-7.7) K/mm3 Chloride 110.6 H (98-107) mmol/L Creatinine 0.4 L (0.7-1.2) mg/dL Glucose 153 H (65-100) mg/dL Calcium 7.7 L (8.4-10.2) mg/dL Digoxin (0.9-2.0) ng/mL Crossmatch See Detail 03/08/17 Range/Units 11:13 WBC (4.5-11.0) K/mm3 RBC (3.65-5.03) M/mm3 Hgb (10.1-14.3) gm/dl Hct (30.3-42.9) % Lymph % (Auto) (13.4-35.0) % Stephenson % (Auto) (0.0-7.3) % Stephenson # (0.0-0.8) K/mm3 Seg Neutrophils % (40.0-70.0) % Seg Neutrophils # (1.8-7.7) K/mm3 Chloride (98-107) mmol/L Creatinine (0.7-1.2) mg/dL Glucose (65-100) mg/dL Calcium (8.4-10.2) mg/dL Digoxin 0.4 L (0.9-2.0) ng/mL Crossmatch
[2017-03-08] MEDS: LANOXIN IV SCH (18:20)
[2017-03-09] MEDS: MORPHINE IV PRN ×3 (02:25→20:32)
[2017-03-09 02:55] LABS: Hematocrit 32.5 % (30.3-42.9); Hemoglobin 10.9 gm/dl (10.1-14.3)
[2017-03-09] MEDS: FLAGYL 500 MG/100 ML 500 MG/100 ML BAG IV SCH ×3 (06:14→22:20)
[2017-03-09 07:02] LABS: Hematocrit 32.7 % (30.3-42.9); Hemoglobin 10.6 gm/dl (10.1-14.3); Mean Corpuscular HGB Conc 33 % (30-34); Mean Corpuscular Hemoglobin 29 pg (28-32); Mean Corpuscular Volume 90 fl (79-97); Platelet Count 223 K/mm3 (140-440); Red Blood Count 3.65 M/mm3 (3.65-5.03); Red Cell Distribution Width 14.4 % (13.2-15.2)
[2017-03-09 07:45] LABS: Anisocytosis Few; Basophils % (Manual) 0 % (0.0-1.8); Blastocytes % (Manual) 0 %; Burr Cells Few; Diff Status Complete; Eosinophils % (Manual) 0 % (0.0-4.3); Polychromasia Rare
--- NOTE | 2017-03-09 08:55 | XRay Report ---
PORTABLE CHEST INDICATION: Respiratory failure. COMPARISON: 03/07/2017 FINDINGS: Portable, frontal chest radiograph demonstrates interval esophagogastric tube removal. Stable cardiomediastinal silhouette and grossly clear lungs. EKG leads. Demineralized bones. CONCLUSION: No acute chest process with interval esophagogastric tube removal, as described. Thank you for the opportunity to participate in this patient's care.
--- NOTE | 2017-03-09 09:04 | XRay Report ---
ABDOMEN RADIOGRAPH INDICATION: Evaluate for interval change in ileus. COMPARISON: 03/05/2017 FINDINGS: Frontal abdominal radiograph demonstrates overall less prominent air-containing small bowel loops in the upper abdomen with maximum caliber approximately 4 cm. Nonobstructive remainder bowel gas pattern. No focal suspicious calcifications, pneumatosis or pneumoperitoneum. Mild stool throughout colon. Right hemidiaphragm slightly elevated. EKG leads. Demineralized bones with few degenerative changes. Midline lower abdominal and pelvic skin moises again noted. CONCLUSION: Slight improved ileus radiographically, as described. Please correlate. Thank you for the opportunity to participate in this patient's care.
--- NOTE | 2017-03-09 09:52 | Progress Note ---
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 In the setting of underlying cardiomyopathy, recommend judicious use of IV fluids to avoid fluid overload. Subjective Date of service: 03/09/17 Principal diagnosis: Acute respiratory Failure s/p MVS; UGI bleeding/SBO s/p Ex- lap Interval history: Patient is resting in bed and appears comfortable. Remains nothing by mouth following surgery 03/05. Objective Vital Signs Temp Pulse Resp BP BP Pulse Ox 03/09/17 07:29 100 H 97 03/09/17 07:15 97.4 F L 110 H 20 137/90 97 03/09/17 05:00 127 H 03/09/17 04:54 98.8 F 108 H 18 128/76 98 03/08/17 21:40 116 H 126/78 03/08/17 21:12 98.3 F 115 H 18 116/79 97 03/08/17 21:00 145 H 03/08/17 20:52 100 03/08/17 20:19 114 H 116/82 97 03/08/17 19:51 127/78 03/08/17 18:20 100/62 03/08/17 18:05 116 H 105/60 99 03/08/17 18:04 98.5 F 114 H 18 105/60 98 03/08/17 12:26 117 H 100 03/08/17 12:25 98.8 F 114 H 16 113/73 100 - Physical Examination General: No Apparent Distress HEENT: Positive: PERRL Cardiac: Positive: irregularly irregular Extremities: Absent: edema - Labs and Meds CBC 03/09/17 03/09/17 Range/Units 02:10 05:48 WBC 18.0 H (4.5-11.0) K/mm3 RBC 3.65 (3.65-5.03) M/mm3 Hgb 10.9 10.6 (10.1-14.3) gm/dl Hct 32.5 D 32.7 (30.3-42.9) % Plt Count 223 (140-440) K/mm3 - Allied health notes Allied health notes reviewed: RT
[2017-03-09] MEDS: COREG PO SCH ×2 (11:43→22:21)
[2017-03-09] MEDS: LEVAQUIN 750MG/150ML 750 MG/150 ML BAG IV SCH (11:44)
[2017-03-09] MEDS: ZESTRIL PO SCH (11:45)
[2017-03-09] MEDS: PROTONIX IV SCH ×2 (11:45→22:21)
--- NOTE | 2017-03-09 12:06 | Progress Note ---
Assessment and Plan POD #4 Pt appears comfortable. in good spirits. Abd soft. incision clean and dry. hypoactive BS h/h appears to have stabilized post transfusion Abd series - improving ileus pattern. surgically stable f/u abd series and h/h in am probably attempt cl liq in am if abd series continues improving and h/h stable po mineral oil today Selected Entries 03/09/17 03/09/17 07:15 11:45 Temperature 97.4 F L Pulse Rate 110 H Blood Pressure 137/70 Laboratory Tests 03/08/17 03/09/17 03/09/17 05:48 02:10 05:48 WBC 19.1 H 18.0 H Hgb 8.3 L 10.9 10.6 Hct 25.1 L 32.5 D 32.7 Objective Vital Signs - 12hr 03/09/17 03/09/17 03/09/17 04:54 05:00 07:15 Temperature 98.8 F 97.4 F L Pulse Rate 108 H 127 H 110 H Respiratory 18 20 Rate Blood Pressure 128/76 Blood Pressure 137/90 [Left] O2 Sat by Pulse 98 97 Oximetry 03/09/17 03/09/17 03/09/17 07:29 11:43 11:45 Temperature Pulse Rate 100 H 110 H 110 H Respiratory Rate Blood Pressure 138/70 137/70 Blood Pressure [Left] O2 Sat by Pulse 97 Oximetry - Labs 03/09/17 05:48 03/08/17 01:53
[2017-03-09] MEDS ORDERED: MINERAL OIL PO ONE (12:08)
[2017-03-09] MEDS: D5W/NS W/KCL 20MEQ 20 MEQ/1,000 ML BAG IV SCH (13:05)
[2017-03-09 14:34] LABS: Hematocrit 30.2 % (30.3-42.9); Hemoglobin 10.3 gm/dl (10.1-14.3)
--- NOTE | 2017-03-09 15:57 | Gastroenterology Progress Note ---
Assessment and Plan 1. UGI bleed - no signs of active bleeding at present time and H/H has remained stable 2. Post-op ileus - improving, further management per surgery regarding diet initiation 3. SBO 2/2 incarcerated hernia s/p ex-lap -further management per surgery -diagnostic EGD prior to discharge for upper GI bleeding on presentation. no signs of active bleeding at this time -cont PPI BID dosing Subjective Date of service: 03/09/17 Principal diagnosis: Acute respiratory Failure s/p MVS; UGI bleeding/SBO s/p Ex- lap Interval history: Pt awake and alert. Niece at bedside who helps translate for pt. She is without new complaints today. + flatus, no significant abd pain, denies n/v or signs of gi bleeding Objective - Constitutional Vitals: Temp Pulse Resp BP Pulse Ox 98.2 F 110 H 18 137/70 99 03/09/17 11:07 03/09/17 11:45 03/09/17 11:07 03/09/17 11:45 03/09/17 11:08 General appearance: no acute distress - Respiratory Respiratory effort: normal Respiratory: bilateral: CTA - Cardiovascular Rhythm: regular Heart Sounds: Present: S1 & S2 - Gastrointestinal General gastrointestinal: Present: soft, non-tender, distended (mild distention (improved)), hypoactive bowel sounds - Psychiatric Psychiatric: appropriate mood/affect - Labs CBC & Chem 7: 03/09/17 14:01 03/08/17 01:53 Labs: Laboratory Results - last 24 hr 03/08/17 03/09/17 03/09/17 11:13 02:10 05:48 WBC 18.0 H RBC 3.65 Hgb 10.9 10.6 Hct 32.5 D 32.7 MCV 90 MCH 29 MCHC 33 RDW 14.4 Plt Count 223 Add Manual Diff Complete Total Counted 100 Seg Neuts % (Manual) 88.0 H Band Neutrophils % 0 Lymphocytes % (Manual) 4.0 L Reactive Lymphs % (Man) 0 Monocytes % (Manual) 6.0 Eosinophils % (Manual) 0 Basophils % (Manual) 0 Metamyelocytes % 2.0 Myelocytes % 0 Promyelocytes % 0 Blast Cells % 0 Nucleated RBC % 2.0 H Seg Neutrophils # Man 15.8 H Band Neutrophils # 0.0 Lymphocytes # (Manual) 0.7 L Abs React Lymphs (Man) 0.0 Monocytes # (Manual) 1.1 H Eosinophils # (Manual) 0.0 Basophils # (Manual) 0.0 Metamyelocytes # 0.4 Myelocytes # 0.0 Promyelocytes # 0.0 Blast Cells # 0.0 WBC Morphology Not Reportable Hypersegmented Neuts Not Reportable Hyposegmented Neuts Not Reportable Hypogranular Neuts Not Reportable Smudge Cells Not Reportable Toxic Granulation Not Reportable Toxic Vacuolation Not Reportable Dohle Bodies Not Reportable Pelger-Huet Anomaly Not Reportable Evangelina Rods Not Reportable Platelet Estimate Appears normal Clumped Platelets Not Reportable Plt Clumps, EDTA Not Reportable Large Platelets Not Reportable Giant Platelets Not Reportable Platelet Satelliting Not Reportable Plt Morphology Comment Not Reportable RBC Morphology Not Reportable Dimorphic RBCs Not Reportable Polychromasia Rare Hypochromasia Not Reportable Poikilocytosis Not Reportable Anisocytosis Few Microcytosis Not Reportable Macrocytosis Not Reportable Spherocytes Not Reportable Pappenheimer Bodies Not Reportable Sickle Cells Not Reportable Target Cells Not Reportable Tear Drop Cells Not Reportable Ovalocytes Not Reportable Helmet Cells Not Reportable White-Eclectic Bodies Not Reportable Hartwick Rings Not Reportable Marcelo Cells Few Bite Cells Not Reportable Crenated Cell Not Reportable Elliptocytes Not Reportable Acanthocytes (Spur) Not Reportable Rouleaux Not Reportable Hemoglobin C Crystals Not Reportable Schistocytes Not Reportable Malaria parasites Not Reportable Rd Bodies Not Reportable Hem Pathologist Commnt No POC Glucose Blood Type B POSITIVE Antibody Screen TNR KYLEIGH Antibody Screen Negative Crossmatch See Detail 03/09/17 03/09/17 03/09/17 08:28 12:06 14:01 WBC RBC Hgb 10.3 Hct 30.2 L MCV MCH MCHC RDW Plt Count Add Manual Diff Total Counted Seg Neuts % (Manual) Band Neutrophils % Lymphocytes % (Manual) Reactive Lymphs % (Man) Monocytes % (Manual) Eosinophils % (Manual) Basophils % (Manual) Metamyelocytes % Myelocytes % Promyelocytes % Blast Cells % Nucleated RBC % Seg Neutrophils # Man Band Neutrophils # Lymphocytes # (Manual) Abs React Lymphs (Man) Monocytes # (Manual) Eosinophils # (Manual) Basophils # (Manual) Metamyelocytes # Myelocytes # Promyelocytes # Blast Cells # WBC Morphology Hypersegmented Neuts Hyposegmented Neuts Hypogranular Neuts Smudge Cells Toxic Granulation Toxic Vacuolation Dohle Bodies Pelger-Huet Anomaly Evangelina Rods Platelet Estimate Clumped Platelets Plt Clumps, EDTA Large Platelets Giant Platelets Platelet Satelliting Plt Morphology Comment RBC Morphology Dimorphic RBCs Polychromasia Hypochromasia Poikilocytosis Anisocytosis Microcytosis Macrocytosis Spherocytes Pappenheimer Bodies Sickle Cells Target Cells Tear Drop Cells Ovalocytes Helmet Cells White-Eclectic Bodies Hartwick Rings Marcelo Cells Bite Cells Crenated Cell Elliptocytes Acanthocytes (Spur) Rouleaux Hemoglobin C Crystals Schistocytes Malaria parasites Rd Bodies Hem Pathologist Commnt POC Glucose 152 H 152 H Blood Type Antibody Screen KYLEIGH Antibody Screen Crossmatch - Imaging x-ray: report reviewed
[2017-03-09] MEDS: LANOXIN IV SCH (17:03)
--- NOTE | 2017-03-09 18:42 | Progress Note ---
Assessment and Plan Patient alert, awake. weak. No acute respiratory distress. Resting on 3 litres O2. O2 saturation 98% - Patient Problems (1) Acute respiratory failure with hypoxia and hypercapnia Current Visit: Yes Status: Acute Plan to address problem: Improved O2 3 litres via nasal canula. Albuterol inhalor HFA 2 puffs po qid prn for shortness of breath. (2) Atrial fibrillation with RVR Current Visit: Yes Status: Acute Plan to address problem: Management as per cardiology. (3) SBO (small bowel obstruction) Current Visit: Yes Status: Acute Plan to address problem: Management as per primary care and surgeon. Subjective Date of service: 03/09/17 Principal diagnosis: Acute respiratory Failure s/p MVS; UGI bleeding/SBO s/p Ex- lap Interval history: Patient alert, awake. weak. No acute respiratory distress. Resting on 3 litres O2. O2 saturation 98% Objective Vital Signs - 12hr 03/09/17 03/09/17 03/09/17 07:15 07:29 10:00 Temperature 97.4 F L Pulse Rate 110 H 100 H Respiratory 20 Rate Blood Pressure Blood Pressure 137/90 [Left] O2 Sat by Pulse 97 97 97 Oximetry 03/09/17 03/09/17 03/09/17 11:07 11:08 11:43 Temperature 98.2 F Pulse Rate 118 H 104 H 110 H Respiratory 18 Rate Blood Pressure 134/88 138/70 Blood Pressure [Left] O2 Sat by Pulse 99 99 Oximetry 03/09/17 03/09/17 03/09/17 11:45 13:00 15:25 Temperature 97.1 F L Pulse Rate 110 H 68 77 Respiratory 20 Rate Blood Pressure 137/70 Blood Pressure 134/82 [Left] O2 Sat by Pulse 95 Oximetry 03/09/17 03/09/17 17:03 17:18 Temperature Pulse Rate 83 Respiratory 20 Rate Blood Pressure 134/84 Blood Pressure [Left] O2 Sat by Pulse Oximetry Constitutional: no acute distress, alert, other (Weak) Eyes: non-icteric ENT: oropharynx moist Neck: supple, no lymphadenopathy, no JVD, other (no thyromegaly) Effort: mildly labored (pain limited) Ascultation: Bilateral: diminished breath sounds, rales (scant in bases) Cardiovascular: irregular rhythm, other (S1,S2; No rubs / murmurs) Gastrointestinal: hypoactive bowel sounds, tender (clean dry surgical dressing) , non-distended Integumentary: normal Extremities: no cyanosis, no edema, pink and warm, pulses normal Neurologic: non-focal exam (moves all extremities to command), pupils equal and round, CN II-XII normal, motor strength normal and Psychiatric: mood appropriate, affect normal CBC and BMP: 03/09/17 14:01 03/08/17 01:53 ABG, PT/INR, D-dimer: ABG POC ABG pH 7.449 (7.35-7.45) 03/06/17 11:19 POC ABG pCO2 37.5 (35-45) 03/06/17 11:19 POC ABG pO2 86 (80-105) 03/06/17 11:19 POC ABG HCO3 26.0 03/06/17 11:19 POC ABG Total CO2 27 03/06/17 11:19 POC ABG O2 Sat 97 03/06/17 11:19 PT/INR, D-dimer PT 16.9 Sec. (12.2-14.9) H 03/07/17 04:55 INR 1.31 (0.87-1.13) H 03/07/17 04:55 Abnormal lab findings: Abnormal Labs 02/28/17 03/01/17 03/02/17 19:14 02:50 05:09 WBC RBC Hgb Hct MCHC RDW Lymph % (Auto) [facility] % (Auto) [facility] # Seg Neutrophils % Seg Neuts % (Manual) Lymphocytes % (Manual) Monocytes % (Manual) Nucleated RBC % Seg Neutrophils # Seg Neutrophils # Man Lymphocytes # (Manual) Monocytes # (Manual) PT 27.3 H 43.9 H INR 2.40 H 4.39 H POC ABG pH POC ABG pCO2 POC ABG pO2 Sodium Potassium Chloride BUN Creatinine Glucose POC Glucose Calcium NT-Pro-B Natriuret Pep 1929 H Total Protein Albumin Urine WBC (Auto) Digoxin Crossmatch 03/02/17 03/02/17 03/02/17 05:09 05:09 13:32 WBC 17.4 H RBC 5.48 H Hgb 15.9 H Hct 47.4 H MCHC RDW Lymph % (Auto) 11.[address] [facility] % (Auto) [facility] # Seg Neutrophils % 84.2 H Seg Neuts % (Manual) Lymphocytes % (Manual) Monocytes % (Manual) Nucleated RBC % Seg Neutrophils # 14.6 H Seg Neutrophils # Man Lymphocytes # (Manual) Monocytes # (Manual) PT 47.9 H INR 4.90 H POC ABG pH POC ABG pCO2 POC ABG pO2 Sodium 136 L Potassium Chloride 97.7 L BUN Creatinine 0.5 L Glucose 109 H POC Glucose Calcium NT-Pro-B Natriuret Pep Total Protein Albumin Urine WBC (Auto) Digoxin Crossmatch 03/03/17 03/03/17 03/03/17 06:32 06:32 06:32 WBC 19.0 H RBC 5.46 H Hgb 16.0 H Hct 46.8 H MCHC RDW 13.1 L Lymph % (Auto) 10.[address] [facility] % (Auto) [facility] # 1.0 H Seg Neutrophils % 83.2 H Seg Neuts % (Manual) Lymphocytes % (Manual) Monocytes % (Manual) Nucleated RBC % Seg Neutrophils # 15.8 H Seg Neutrophils # Man Lymphocytes # (Manual) Monocytes # (Manual) PT 44.3 H INR 4.44 H POC ABG pH POC ABG pCO2 POC ABG pO2 Sodium Potassium Chloride BUN 24 H Creatinine 0.6 L Glucose 101 H POC Glucose Calcium NT-Pro-B Natriuret Pep Total Protein Albumin 3.4 L Urine WBC (Auto) Digoxin Crossmatch 03/03/17 03/04/17 03/04/17 18:00 05:27 05:27 WBC 16.0 H RBC 5.16 H Hgb 15.1 H Hct 43.8 H MCHC RDW Lymph % (Auto) 8.[address] [facility] % (Auto) [facility] # Seg Neutrophils % 86.5 H Seg Neuts % (Manual) Lymphocytes % (Manual) Monocytes % (Manual) Nucleated RBC % Seg Neutrophils # 13.8 H Seg Neutrophils # Man Lymphocytes # (Manual) Monocytes # (Manual) PT 26.8 H INR 2.34 H POC ABG pH POC ABG pCO2 POC ABG pO2 Sodium Potassium Chloride BUN Creatinine Glucose POC Glucose Calcium NT-Pro-B Natriuret Pep Total Protein Albumin Urine WBC (Auto) Digoxin Crossmatch See Detail 03/04/17 03/04/17 03/04/17 05:27 13:31 23:05 WBC 17.2 H RBC Hgb Hct MCHC RDW Lymph % (Auto) 11.[address] [facility] % (Auto) [facility] # 1.2 H Seg Neutrophils % 81.2 H Seg Neuts % (Manual) 85.0 H Lymphocytes % (Manual) 8.0 L Monocytes % (Manual) Nucleated RBC % Seg Neutrophils # 13.7 H Seg Neutrophils # Man 14.6 H Lymphocytes # (Manual) Monocytes # (Manual) PT 19.3 H INR 1.55 H POC ABG pH POC ABG pCO2 POC ABG pO2 Sodium Potassium Chloride BUN 20 H Creatinine 0.5 L Glucose 162 H POC Glucose Calcium 8.0 L NT-Pro-B Natriuret Pep Total Protein Albumin 3.5 L Urine WBC (Auto) Digoxin Crossmatch 03/05/17 03/05/17 03/05/17 05:18 05:18 05:18 WBC 15.0 H RBC 3.52 L Hgb Hct 30.0 L MCHC 35 H RDW 13.1 L Lymph % (Auto) 12.[address] [facility] % (Auto) 9.[address] [facility] # 1.4 H Seg Neutrophils % 78.5 H Seg Neuts % (Manual) Lymphocytes % (Manual) Monocytes % (Manual) Nucleated RBC % Seg Neutrophils # 11.8 H Seg Neutrophils # Man Lymphocytes # (Manual) Monocytes # (Manual) PT 16.5 H INR 1.27 H POC ABG pH POC ABG pCO2 POC ABG pO2 Sodium Potassium 3.5 L Chloride BUN 34 H Creatinine 0.4 L Glucose 132 H POC Glucose Calcium 8.2 L NT-Pro-B Natriuret Pep Total Protein Albumin Urine WBC (Auto) Digoxin Crossmatch 03/05/17 03/05/17 03/05/17 10:39 11:00 17:50 WBC 22.1 H 18.2 H RBC 3.51 L 3.30 L Hgb 9.6 L Hct 28.7 L MCHC RDW 13.1 L 13.1 L Lymph % (Auto) [facility] % (Auto) 8.[address] [facility] # 1.6 H Seg Neutrophils % 76.5 H Seg Neuts % (Manual) Lymphocytes % (Manual) Monocytes % (Manual) 14.0 H Nucleated RBC % Seg Neutrophils # 13.9 H Seg Neutrophils # Man 15.5 H Lymphocytes # (Manual) Monocytes # (Manual) 3.1 H PT INR POC ABG pH POC ABG pCO2 46.7 H POC ABG pO2 Sodium Potassium Chloride BUN Creatinine Glucose POC Glucose Calcium NT-Pro-B Natriuret Pep Total Protein Albumin Urine WBC (Auto) Digoxin Crossmatch 03/05/17 03/06/17 03/06/17 Unknown 04:06 04:49 WBC RBC Hgb Hct MCHC RDW Lymph % (Auto) [facility] % (Auto) [facility] # Seg Neutrophils % Seg Neuts % (Manual) Lymphocytes % (Manual) Monocytes % (Manual) Nucleated RBC % Seg Neutrophils # Seg Neutrophils # Man Lymphocytes # (Manual) Monocytes # (Manual) PT 17.3 H INR 1.34 H POC ABG pH 7.707 H POC ABG pCO2 19.4 L POC ABG pO2 60 L Sodium Potassium Chloride BUN Creatinine Glucose POC Glucose Calcium NT-Pro-B Natriuret Pep Total Protein Albumin Urine WBC (Auto) 19.0 H Digoxin Crossmatch 03/06/17 03/06/17 03/07/17 04:49 04:49 04:55 WBC 20.2 H RBC 3.18 L Hgb 9.5 L Hct 27.6 L MCHC RDW 13.1 L Lymph % (Auto) [facility] % (Auto) [facility] # Seg Neutrophils % Seg Neuts % (Manual) 87.0 H Lymphocytes % (Manual) 8.0 L Monocytes % (Manual) Nucleated RBC % Seg Neutrophils # Seg Neutrophils # Man 17.6 H Lymphocytes # (Manual) Monocytes # (Manual) PT 16.9 H INR 1.31 H POC ABG pH POC ABG pCO2 POC ABG pO2 Sodium Potassium Chloride BUN 30 H Creatinine Glucose 113 H POC Glucose Calcium 7.5 L NT-Pro-B Natriuret Pep Total Protein 5.5 L Albumin 2.7 L Urine WBC (Auto) Digoxin Crossmatch 03/07/17 03/07/17 03/07/17 04:55 04:55 14:47 WBC 23.5 H 21.5 H RBC 3.18 L 2.96 L Hgb 9.3 L 8.6 L Hct 27.8 L 26.0 L MCHC RDW Lymph % (Auto) [facility] % (Auto) [facility] # Seg Neutrophils % Seg Neuts % (Manual) 74.0 H Lymphocytes % (Manual) 8.0 L Monocytes % (Manual) 9.0 H Nucleated RBC % Seg Neutrophils # Seg Neutrophils # Man 17.4 H Lymphocytes # (Manual) Monocytes # (Manual) 2.1 H PT INR POC ABG pH POC ABG pCO2 POC ABG pO2 Sodium Potassium Chloride 107.2 H BUN Creatinine 0.4 L Glucose 128 H POC Glucose Calcium 7.9 L NT-Pro-B Natriuret Pep Total Protein 5.8 L Albumin 2.6 L Urine WBC (Auto) Digoxin Crossmatch 03/08/17 03/08/17 03/08/17 01:53 05:48 11:13 WBC 19.1 H RBC 2.85 L Hgb 8.3 L Hct 25.1 L MCHC RDW Lymph % (Auto) 9.[address] [facility] % (Auto) 7.[address] [facility] # 1.5 H Seg Neutrophils % 82.3 H Seg Neuts % (Manual) Lymphocytes % (Manual) Monocytes % (Manual) Nucleated RBC % Seg Neutrophils # 15.7 H Seg Neutrophils # Man Lymphocytes # (Manual) Monocytes # (Manual) PT INR POC ABG pH POC ABG pCO2 POC ABG pO2 Sodium Potassium Chloride 110.6 H BUN Creatinine 0.4 L Glucose 153 H POC Glucose Calcium 7.7 L NT-Pro-B Natriuret Pep Total Protein Albumin Urine WBC (Auto) Digoxin Crossmatch See Detail 03/08/17 03/09/17 03/09/17 11:13 05:48 08:28 WBC 18.0 H RBC Hgb Hct MCHC RDW Lymph % (Auto) [facility] % (Auto) [facility] # Seg Neutrophils % Seg Neuts % (Manual) 88.0 H Lymphocytes % (Manual) 4.0 L Monocytes % (Manual) Nucleated RBC % 2.0 H Seg Neutrophils # Seg Neutrophils # Man 15.8 H Lymphocytes # (Manual) 0.7 L Monocytes # (Manual) 1.1 H PT INR POC ABG pH POC ABG pCO2 POC ABG pO2 Sodium Potassium Chloride BUN Creatinine Glucose POC Glucose 152 H Calcium NT-Pro-B Natriuret Pep Total Protein Albumin Urine WBC (Auto) Digoxin 0.4 L Crossmatch 03/09/17 03/09/17 12:06 14:01 WBC RBC Hgb Hct 30.2 L MCHC RDW Lymph % (Auto) [facility] % (Auto) [facility] # Seg Neutrophils % Seg Neuts % (Manual) Lymphocytes % (Manual) Monocytes % (Manual) Nucleated RBC % Seg Neutrophils # Seg Neutrophils # Man Lymphocytes # (Manual) Monocytes # (Manual) PT INR POC ABG pH POC ABG pCO2 POC ABG pO2 Sodium Potassium Chloride BUN Creatinine Glucose POC Glucose 152 H Calcium NT-Pro-B Natriuret Pep Total Protein Albumin Urine WBC (Auto) Digoxin Crossmatch Chest x-ray: report reviewed (Lungs clear.), image reviewed Allied health notes reviewed: RT
--- NOTE | 2017-03-09 19:39 | Progress Note ---
Assessment and Plan /Small bowel obstruction s/p urgent expl lap with reduction of incarcerated incisional hernia and incisional hernia repair with mesh on 03/05/17 CT abdomen showed incarcerated hernia cont gentle hydration, cont wound care, diet recommendation per surgery follow abdominal series, now NPO Plan to start clear liquid tomorrow /Acute GI bleed had couple episode of bloody vomiting and dark color material following NG insertion likely due to coagulopathy vs gastric ulcer placed on protonix drip, s/p transfusion of FFP, PRBC and vit K GI following, monitor H and H, Plan for EGD before discharge /Sepsis WBC trending down now, likely reactive from incarcerated hernia and UTI On admission presumed to have pneumonia and started on Rocephin/azithromycin, but chest x-ray with no acute findings Negative blood culture, UA with +WBC and + LE continue antibiotics to levaquin and flagyl / Acute hypoxic respiratory failure intubated following surgery on 03/05/17 extubated next day on 03/06/17 cont nebulizer breathing treatment, supplimental O2 with N/C /Chest pain Found to be in A. fib with RVR on admission EKG with no ischemic changes Cardiac enzymes negative TSH and, FT4 within normal limits ECHO obtained, EF 20-25% on hold beta sari, ACEI, aspirin, statin as pt now NPO Cardiology following /CHF with systolic dysfunction Compensated now, echo showed EF of 20-25% Per cardiology, had cardiac cath that showed no significant coronary disease, but an ejection fraction of 20% /Afib RVR Received Digoxin and was started on BB; Anticoagulated with Coumadin, INR supratherapeutic, now off Coumadin cont rate control with iv metoprolol /Coagulopathy INR went up to 4. likely secondary to interaction with antibiotics Hold Coumadin and monitor INR closely reversed with FFP and vit K /DVT prophylaxis SCD Brief history: 76 yo [place] female, who doesn't speak [place]ic, weight chronic afib and heart failure, brought to the hospital for chest pain. All cardiac workup so for negative for ACS. HER-2 D echo showed EF of 20-25%. Abdominal x-ray obtained on 03/02/2017 for the complain of abdominal pain and constipation which showed small bowel obstruction. Radiological data: Chest x-ray on 02/28/2017 showed no acute infiltrates, no abnormalities. Abdomen x-ray on 03/02/2017 showed findings suggestive of small bowel obstruction 2-D echo obtained on 02/28/2017 showed EF of 20-25% Subjective Date of service: 03/09/17 Principal diagnosis: Acute respiratory Failure s/p MVS; UGI bleeding/SBO s/p Ex- lap Interval history: Pt seen and examined still NPO, h and h stable discussed with GS for further management Updated family Objective - Exam Narrative Exam: General appearance: Present: no acute distress, - EENT Eyes: Present: PERRL, EOM intact, - Neck Neck: Present: supple. Absent: enlarged thyroid, masses or JVD - Respiratory Respiratory effort: normal Respiratory: bilateral: CTA, negative: rhonchi, wheezing - Cardiovascular Rhythm: irregularly irregular Heart Sounds: Present: S1 & S2. Absent: systolic murmur - Extremities Extremities: no ischemia - Abdominal General gastrointestinal: soft, non tender, surgical dressing on the abdomen - Integumentary Integumentary: Present: warm, dry. Absent: jaundice, rash - Neurologic Neurologic: no focal deficits - Constitutional Vitals: Vital Signs - 12hr 03/09/17 03/09/17 03/09/17 10:00 11:07 11:08 Temperature 98.2 F Pulse Rate 118 H 104 H Respiratory 18 Rate Blood Pressure 134/88 Blood Pressure [Left] O2 Sat by Pulse 97 99 99 Oximetry 03/09/17 03/09/17 03/09/17 11:43 11:45 13:00 Temperature Pulse Rate 110 H 110 H 68 Respiratory Rate Blood Pressure 138/70 137/70 Blood Pressure [Left] O2 Sat by Pulse Oximetry 03/09/17 03/09/17 03/09/17 15:25 17:03 17:18 Temperature 97.1 F L Pulse Rate 77 83 Respiratory 20 20 Rate Blood Pressure 134/84 Blood Pressure 134/82 [Left] O2 Sat by Pulse 95 Oximetry 03/09/17 19:32 Temperature 97.9 F Pulse Rate 78 Respiratory 17 Rate Blood Pressure 119/78 Blood Pressure [Left] O2 Sat by Pulse 98 Oximetry - Labs CBC & Chem 7: 03/09/17 14:01 03/08/17 01:53 Labs: Abnormal lab results 03/08/17 03/09/17 03/09/17 Range/Units 11:13 05:48 08:28 WBC 18.0 H (4.5-11.0) K/mm3 Hct (30.3-42.9) % Seg Neuts % (Manual) 88.0 H (40.0-70.0) % Lymphocytes % (Manual) 4.0 L (13.4-35.0) % Nucleated RBC % 2.0 H (0.0-0.9) % Seg Neutrophils # Man 15.8 H (1.8-7.7) K/mm3 Lymphocytes # (Manual) 0.7 L (1.2-5.4) K/mm3 Monocytes # (Manual) 1.1 H (0.0-0.8) K/mm3 POC Glucose 152 H (70-105) Crossmatch See Detail 03/09/17 03/09/17 Range/Units 12:06 14:01 WBC (4.5-11.0) K/mm3 Hct 30.2 L (30.3-42.9) % Seg Neuts % (Manual) (40.0-70.0) % Lymphocytes % (Manual) (13.4-35.0) % Nucleated RBC % (0.0-0.9) % Seg Neutrophils # Man (1.8-7.7) K/mm3 Lymphocytes # (Manual) (1.2-5.4) K/mm3 Monocytes # (Manual) (0.0-0.8) K/mm3 POC Glucose 152 H (70-105) Crossmatch
[2017-03-10 03:57] LABS: Basophils % (Auto) 0.5 % (0.0-1.8); Hematocrit 30.1 % (30.3-42.9); Hemoglobin 10.2 gm/dl (10.1-14.3); Mean Corpuscular HGB Conc 34 % (30-34); Mean Corpuscular Hemoglobin 30 pg (28-32); Mean Corpuscular Volume 88 fl (79-97); Platelet Count 238 K/mm3 (140-440); Red Blood Count 3.42 M/mm3 (3.65-5.03); Red Cell Distribution Width 14.2 % (13.2-15.2); White Blood Count 13.8 K/mm3 (4.5-11.0)
[2017-03-10 04:31] LABS: Anion Gap 12 mmol/L; BUN/Creatinine Ratio 35; Blood Urea Nitrogen 14 mg/dL (7-17); Calcium 7.3 mg/dL (8.4-10.2); Carbon Dioxide 26 mmol/L (22-30); Chloride 108.2 mmol/L (98-107); Glucose 122 mg/dL (65-100); Potassium 3.6 mmol/L (3.6-5.0); Sodium 143 mmol/L (137-145)
[2017-03-10] MEDS: FLAGYL 500 MG/100 ML 500 MG/100 ML BAG IV SCH ×3 (05:47→22:50)
[2017-03-10] MEDS: D5W/NS W/KCL 20MEQ 20 MEQ/1,000 ML BAG IV SCH (05:48)
--- NOTE | 2017-03-10 09:03 | XRay Report ---
Abdominal series: Compared to 03/09/17. History: Ileus. Findings: Cardiomegaly. No acute changes. No free intraperitoneal air. Moderate amount of air in small bowel with minimal air the large bowel. Stool in colon. No radiopaque tablets or abnormal calcification. Impression Probable early incomplete small bowel obstruction or ileus. No significant interval change.
--- NOTE | 2017-03-10 09:45 | Progress Note ---
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 Subjective Date of service: 03/10/17 Principal diagnosis: Acute respiratory Failure s/p MVS; UGI bleeding/SBO s/p Ex- lap Interval history: Patient is resting in bed and appears comfortable. Stable afib on telemetry. Objective Vital Signs Temp Pulse Resp BP BP Pulse Ox 03/10/17 08:00 98 F 83 20 135/83 98 03/10/17 06:44 71 03/10/17 04:15 97.9 F 86 17 110/78 97 03/10/17 00:41 97.7 F 77 20 104/71 97 03/09/17 22:21 78 119/78 03/09/17 21:13 98 03/09/17 21:00 71 03/09/17 19:32 97.9 F 78 17 119/78 98 03/09/17 17:18 20 03/09/17 17:03 83 134/84 03/09/17 15:25 97.1 F L 77 20 134/82 95 03/09/17 13:00 68 03/09/17 11:45 110 H 137/70 03/09/17 11:43 110 H 138/70 03/09/17 11:08 104 H 99 03/09/17 11:07 98.2 F 118 H 18 134/88 99 03/09/17 10:00 97 - Physical Examination General: No Apparent Distress HEENT: Positive: PERRL Cardiac: Positive: irregularly irregular - Labs and Meds CBC 03/09/17 03/10/17 Range/Units 14:01 03:30 WBC 13.8 H (4.5-11.0) K/mm3 RBC 3.42 L (3.65-5.03) M/mm3 Hgb 10.3 10.2 (10.1-14.3) gm/dl Hct 30.2 L 30.1 L (30.3-42.9) % Plt Count 238 (140-440) K/mm3 Lymph # 2.2 (1.2-5.4) K/mm3 [place] # 1.5 H (0.0-0.8) K/mm3 Eos # 0.3 (0.0-0.4) K/mm3 Baso # 0.1 (0.0-0.1) K/mm3 Comprehensive Metabolic Panel 03/10/17 Range/Units 03:39 Sodium 143 (137-145) mmol/L Potassium 3.6 (3.6-5.0) mmol/L Chloride 108.2 H (98-107) mmol/L Carbon Dioxide 26 (22-30) mmol/L BUN 14 (7-17) mg/dL Creatinine 0.4 L (0.7-1.2) mg/dL Glucose 122 H (65-100) mg/dL Calcium 7.3 L (8.4-10.2) mg/dL - Allied health notes Allied health notes reviewed: RT
--- NOTE | 2017-03-10 09:58 | Gastroenterology Progress Note ---
Assessment and Plan 1. UGI bleed - no signs of active bleeding at present time and H/H has remained stable (slight decrease in HCT) 2. Post-op ileus - improving, further management per surgery regarding diet initiation 3. SBO 2/2 incarcerated hernia s/p ex-lap -further management per surgery -diagnostic EGD prior to discharge for upper GI bleeding on presentation. no signs of active bleeding at this time- will wait until cleared per cards and surgery for procedure. -cont PPI BID dosing -Coumadin on hold, cardiology following. ( hx of A fib ) Subjective Date of service: 03/10/17 Principal diagnosis: Acute respiratory Failure s/p MVS; UGI bleeding/SBO s/p Ex- lap Interval history: No acute changes overnight. NGT Discontinued. NO vomiting. Objective - Constitutional Vitals: Temp Pulse Resp BP Pulse Ox 98 F 83 20 135/83 98 03/10/17 08:00 03/10/17 08:00 03/10/17 08:00 03/10/17 08:00 03/10/17 08:00 General appearance: no acute distress - EENT Eyes: EOM intact ENT: hearing intact - Neck Neck: supple - Respiratory Respiratory: bilateral: diminished - Cardiovascular Rhythm: regular Heart Sounds: Present: S1 & S2 - Gastrointestinal General gastrointestinal: Present: tender, other (Dressing/ binder to midline abdomen.) - Labs CBC & Chem 7: 03/10/17 03:30 03/10/17 03:39 Labs: Laboratory Results - last 24 hr 03/09/17 03/09/17 03/10/17 12:06 14:01 03:30 WBC 13.8 H RBC 3.42 L Hgb 10.3 10.2 Hct 30.2 L 30.1 L MCV 88 MCH 30 MCHC 34 RDW 14.2 Plt Count 238 Lymph % (Auto) 15.7 [place] % (Auto) 11.1 H Eos % (Auto) 2.0 Baso % (Auto) 0.5 Lymph # 2.2 [place] # 1.5 H Eos # 0.3 Baso # 0.1 Seg Neutrophils % 70.7 H Seg Neutrophils # 9.8 H Sodium Potassium Chloride Carbon Dioxide Anion Gap BUN Creatinine Estimated GFR BUN/Creatinine Ratio Glucose POC Glucose 152 H Calcium 03/10/17 03:39 WBC RBC Hgb Hct MCV MCH MCHC RDW Plt Count Lymph % (Auto) [place] % (Auto) Eos % (Auto) Baso % (Auto) Lymph # [place] # Eos # Baso # Seg Neutrophils % Seg Neutrophils # Sodium 143 Potassium 3.6 Chloride 108.2 H Carbon Dioxide 26 Anion Gap 12 BUN 14 Creatinine 0.4 L Estimated GFR > 60 BUN/Creatinine Ratio 35 Glucose 122 H POC Glucose Calcium 7.3 L
[2017-03-10] MEDS: LEVAQUIN 750MG/150ML 750 MG/150 ML BAG IV SCH (10:23)
[2017-03-10] MEDS: PROTONIX IV SCH (10:24)
[2017-03-10] MEDS: ZESTRIL PO SCH (10:24)
[2017-03-10] MEDS: COREG PO SCH ×2 (10:25→23:43)
[2017-03-10] MEDS ORDERED: MINERAL OIL PO ONE (11:00)
--- NOTE | 2017-03-10 11:00 | Progress Note ---
Assessment and Plan POD # 5 Pt resting comfortably. Feeling well without compl Abd soft. + BS Abd series - sliglht improvement h/h stable attempt cl liq diet Selected Entries 03/10/17 03/10/17 08:00 10:25 Temperature 98 F Pulse Rate 83 Blood Pressure 135/83 Laboratory Tests 03/10/17 03/10/17 03:30 03:39 WBC 13.8 H Hgb 10.2 Hct 30.1 L Sodium 143 Potassium 3.6 Chloride 108.2 H Carbon Dioxide 26 BUN 14 Creatinine 0.4 L Objective Vital Signs - 12hr 03/10/17 03/10/17 03/10/17 00:41 04:15 06:44 Temperature 97.7 F 97.9 F Pulse Rate 77 86 71 Respiratory 20 17 Rate Blood Pressure 104/71 110/78 Blood Pressure [Left] O2 Sat by Pulse 97 97 Oximetry 03/10/17 03/10/17 03/10/17 08:00 10:24 10:25 Temperature 98 F Pulse Rate 83 83 83 Respiratory 20 Rate Blood Pressure 135/83 135/83 Blood Pressure 135/83 [Left] O2 Sat by Pulse 98 Oximetry - Labs 03/10/17 03:30 03/10/17 03:39 Diabetes panel 03/10/17 Range/Units 03:39 Sodium 143 (137-145) mmol/L Potassium 3.6 (3.6-5.0) mmol/L Chloride 108.2 H (98-107) mmol/L Carbon Dioxide 26 (22-30) mmol/L BUN 14 (7-17) mg/dL Creatinine 0.4 L (0.7-1.2) mg/dL Glucose 122 H (65-100) mg/dL Calcium 7.3 L (8.4-10.2) mg/dL Calcium panel 03/10/17 Range/Units 03:39 Calcium 7.3 L (8.4-10.2) mg/dL Pituitary panel 03/10/17 Range/Units 03:39 Sodium 143 (137-145) mmol/L Potassium 3.6 (3.6-5.0) mmol/L Chloride 108.2 H (98-107) mmol/L Carbon Dioxide 26 (22-30) mmol/L BUN 14 (7-17) mg/dL Creatinine 0.4 L (0.7-1.2) mg/dL Glucose 122 H (65-100) mg/dL Calcium 7.3 L (8.4-10.2) mg/dL Adrenal panel 03/10/17 Range/Units 03:39 Sodium 143 (137-145) mmol/L Potassium 3.6 (3.6-5.0) mmol/L Chloride 108.2 H (98-107) mmol/L Carbon Dioxide 26 (22-30) mmol/L BUN 14 (7-17) mg/dL Creatinine 0.4 L (0.7-1.2) mg/dL Glucose 122 H (65-100) mg/dL Calcium 7.3 L (8.4-10.2) mg/dL
[2017-03-10] MEDS: MORPHINE IV PRN (15:05)
--- NOTE | 2017-03-10 15:46 | Progress Note ---
Assessment and Plan Assessment and plan: Rickey Will, was the [place] blueprint blocker, Day 7, first day with patient Patient is 76-year-old Egyptian speaking woman with a history of chronic A. fib, and CHF who presented to emergency department with chest pains. TTE showed EF of 20-25%. Abdominal x-ray obtained on 03/02/2017 for the complain of abdominal pain and constipation which showed small bowel obstruction. Chest x- ray on 02/28/2017 showed no acute infiltrates, no abnormalities. -Acute GI blood loss anemia: GI is following, EGD pending once cardiology clears -Sepsis UTI and incarcerated hernia: Continue antibiotics -Small bowel obstruction due to incarcerated hernia s/p ex-lap with ileus: Start clear liquids per surgery -Acute hypoxic respiratory failure, still on oxygen: Try to wean, and nebulizer treatment and encourage incentive spirometer -Acute on chronic systolic dysfunction: Compensated now, echo showed EF of 20-25 %, medical management, low salt diet, Per cardiology, had cardiac cath that showed no significant coronary disease, but an ejection fraction of 20% -Afib/aflutter RVR, hypercoagulable state, Received Digoxin and was started on BB; Anticoagulated with Coumadin, INR supratherapeutic, now off Coumadin, cont rate control with iv metoprolol -Coagulopathy, INR went up to 4. likely secondary to interaction with antibiotics, Hold Coumadin and monitor INR closely, reversed with FFP and vit K -DVT prophylaxis: SCD due to anemia History Interval history: Patient was seen and examined. Follow-up on current diagnosis/abd pains. Overnight uneventful. Patient denies any chest pain, shortness breath, nausea/ vomiting or severe headaches. Imaging, nursing note, chart, labs and old chart reviewed. Discussed with patient. Rosemary at bedside, was the [place] blueprint blocker Hospitalist Physical - Physical exam Narrative exam: GEN: WDWN, NAD, AWAKE, ALERT, ORIENTATED 3 HEENT: NCAT, EOMI, PERRL, OP Clear NECK: supple, no adenopathy, no thyromegaly, no JVD CVS/HEART: irrRRR, NORMAL S1S2, NO JVD, pulses present bilaterally CHEST/LUNGS: CTA B, Symmetrical chest expansion, good air entry bilaterally GI/Abdomen: soft, midline surgical scar with dressing clean dry and intact, positive bowel sounds, no guarding or rebound /Bladder: no suprapubic tenderness, no CVA or paraspinal tenderness EXT/Skin: no c/c/e, no significant edema or obvious rash MSK: FROM x 4 Neuro: CN 2-12 grossly intact, no new focal deficits Psych: calm - Constitutional Vitals: Temp Pulse Resp BP Pulse Ox 98 F 92 H 20 117/76 97 03/10/17 12:00 03/10/17 12:00 03/10/17 12:00 03/10/17 12:00 03/10/17 12:00 General appearance: Present: no acute distress Results - Labs CBC & Chem 7: 03/10/17 03:30 03/10/17 03:39 Labs: Laboratory Last Values WBC 13.8 K/mm3 (4.5-11.0) H 03/10/17 03:30 RBC 3.42 M/mm3 (3.65-5.03) L 03/10/17 03:30 Hgb 10.2 gm/dl (10.1-14.3) 03/10/17 03:30 Hct 30.1 % (30.3-42.9) L 03/10/17 03:30 MCV 88 fl (79-97) 03/10/17 03:30 MCH 30 pg (28-32) 03/10/17 03:30 MCHC 34 % (30-34) 03/10/17 03:30 RDW 14.2 % (13.2-15.2) 03/10/17 03:30 Plt Count 238 K/mm3 (140-440) 03/10/17 03:30 Lymph % (Auto) 15.7 % (13.4-35.0) 03/10/17 03:30 [place] % (Auto) 11.1 % (0.0-7.3) H 03/10/17 03:30 Eos % (Auto) 2.0 % (0.0-4.3) 03/10/17 03:30 Baso % (Auto) 0.5 % (0.0-1.8) 03/10/17 03:30 Lymph # 2.2 K/mm3 (1.2-5.4) 03/10/17 03:30 [place] # 1.5 K/mm3 (0.0-0.8) H 03/10/17 03:30 Eos # 0.3 K/mm3 (0.0-0.4) 03/10/17 03:30 Baso # 0.1 K/mm3 (0.0-0.1) 03/10/17 03:30 Add Manual Diff Complete 03/09/17 05:48 Total Counted 100 03/09/17 05:48 Seg Neutrophils % 70.7 % (40.0-70.0) H 03/10/17 03:30 Seg Neuts % (Manual) 88.0 % (40.0-70.0) H 03/09/17 05:48 Band Neutrophils % 0 % 03/09/17 05:48 Lymphocytes % (Manual) 4.0 % (13.4-35.0) L 03/09/17 05:48 Reactive Lymphs % (Man) 0 % 03/09/17 05:48 Monocytes % (Manual) 6.0 % (0.0-7.3) 03/09/17 05:48 Eosinophils % (Manual) 0 % (0.0-4.3) 03/09/17 05:48 Basophils % (Manual) 0 % (0.0-1.8) 03/09/17 05:48 Metamyelocytes % 2.0 % 03/09/17 05:48 Myelocytes % 0 % 03/09/17 05:48 Promyelocytes % 0 % 03/09/17 05:48 Blast Cells % 0 % 03/09/17 05:48 Nucleated RBC % 2.0 % (0.0-0.9) H 03/09/17 05:48 Seg Neutrophils # 9.8 K/mm3 (1.8-7.7) H 03/10/17 03:30 Seg Neutrophils # Man 15.8 K/mm3 (1.8-7.7) H 03/09/17 05:48 Band Neutrophils # 0.0 K/mm3 03/09/17 05:48 Lymphocytes # (Manual) 0.7 K/mm3 (1.2-5.4) L 03/09/17 05:48 Abs React Lymphs (Man) 0.0 K/mm3 03/09/17 05:48 Monocytes # (Manual) 1.1 K/mm3 (0.0-0.8) H 03/09/17 05:48 Eosinophils # (Manual) 0.0 K/mm3 (0.0-0.4) 03/09/17 05:48 Basophils # (Manual) 0.0 K/mm3 (0.0-0.1) 03/09/17 05:48 Metamyelocytes # 0.4 K/mm3 03/09/17 05:48 Myelocytes # 0.0 K/mm3 03/09/17 05:48 Promyelocytes # 0.0 K/mm3 03/09/17 05:48 Blast Cells # 0.0 K/mm3 03/09/17 05:48 WBC Morphology Not Reportable 03/09/17 05:48 Hypersegmented Neuts Not Reportable 03/09/17 05:48 Hyposegmented Neuts Not Reportable 03/09/17 05:48 Hypogranular Neuts Not Reportable 03/09/17 05:48 Smudge Cells Not Reportable 03/09/17 05:48 Toxic Granulation Not Reportable 03/09/17 05:48 Toxic Vacuolation Not Reportable 03/09/17 05:48 Dohle Bodies Not Reportable 03/09/17 05:48 Pelger-Huet Anomaly Not Reportable 03/09/17 05:48 Evangelina Rods Not Reportable 03/09/17 05:48 Platelet Estimate Appears normal 03/09/17 05:48 Clumped Platelets Not Reportable 03/09/17 05:48 Plt Clumps, EDTA Not Reportable 03/09/17 05:48 Large Platelets Not Reportable 03/09/17 05:48 Giant Platelets Not Reportable 03/09/17 05:48 Platelet Satelliting Not Reportable 03/09/17 05:48 Plt Morphology Comment Not Reportable 03/09/17 05:48 RBC Morphology Not Reportable 03/09/17 05:48 Dimorphic RBCs Not Reportable 03/09/17 05:48 Polychromasia Rare 03/09/17 05:48 Hypochromasia Not Reportable 03/09/17 05:48 Poikilocytosis Not Reportable 03/09/17 05:48 Anisocytosis Few 03/09/17 05:48 Microcytosis Not Reportable 03/09/17 05:48 Macrocytosis Not Reportable 03/09/17 05:48 Spherocytes Not Reportable 03/09/17 05:48 Pappenheimer Bodies Not Reportable 03/09/17 05:48 Sickle Cells Not Reportable 03/09/17 05:48 Target Cells Not Reportable 03/09/17 05:48 Tear Drop Cells Not Reportable 03/09/17 05:48 Ovalocytes Not Reportable 03/09/17 05:48 Helmet Cells Not Reportable 03/09/17 05:48 [place] Bodies Not Reportable 03/09/17 05:48 [place] Rings Not Reportable 03/09/17 05:48 [place] Cells Few 03/09/17 05:48 Bite Cells Not Reportable 03/09/17 05:48 Crenated Cell Not Reportable 03/09/17 05:48 Elliptocytes Not Reportable 03/09/17 05:48 Acanthocytes (Spur) Not Reportable 03/09/17 05:48 Rouleaux Not Reportable 03/09/17 05:48 Hemoglobin C Crystals Not Reportable 03/09/17 05:48 Schistocytes Not Reportable 03/09/17 05:48 Malaria parasites Not Reportable 03/09/17 05:48 Rd Bodies Not Reportable 03/09/17 05:48 Hem Pathologist Commnt No 03/09/17 05:48 PT 16.9 Sec. (12.2-14.9) H 03/07/17 04:55 INR 1.31 (0.87-1.13) H 03/07/17 04:55 APTT 39.7 Sec. (24.2-36.6) H 02/28/17 17:40 POC ABG pH 7.449 (7.35-7.45) 03/06/17 11:19 POC ABG pCO2 37.5 (35-45) 03/06/17 11:19 POC ABG pO2 86 (80-105) 03/06/17 11:19 POC ABG HCO3 26.0 03/06/17 11:19 POC ABG Total CO2 27 03/06/17 11:19 POC ABG O2 Sat 97 03/06/17 11:19 POC ABG Base Excess 2 03/06/17 11:19 FiO2 35 % 03/06/17 11:19 Sodium 143 mmol/L (137-145) 03/10/17 03:39 Potassium 3.6 mmol/L (3.6-5.0) 03/10/17 03:39 Chloride 108.2 mmol/L (98-107) H 03/10/17 03:39 Carbon Dioxide 26 mmol/L (22-30) 03/10/17 03:39 Anion Gap 12 mmol/L 03/10/17 03:39 BUN 14 mg/dL (7-17) 03/10/17 03:39 Creatinine 0.4 mg/dL (0.7-1.2) L 03/10/17 03:39 Estimated GFR > 60 ml/min 03/10/17 03:39 BUN/Creatinine Ratio 35 % 03/10/17 03:39 Glucose 122 mg/dL (65-100) H 03/10/17 03:39 POC Glucose 152 (70-105) H 03/09/17 12:06 Lactic Acid 1.60 mmol/L (0.7-2.0) 03/03/17 12:35 Calcium 7.3 mg/dL (8.4-10.2) L 03/10/17 03:39 Magnesium 2.00 mg/dL (1.7-2.3) 03/02/17 05:09 Total Bilirubin 0.60 mg/dL (0.1-1.2) 03/07/17 04:55 Direct Bilirubin < 0.2 mg/dL (0-0.2) 03/03/17 06:32 AST 19 units/L (5-40) 03/07/17 04:55 ALT 14 units/L (7-56) 03/07/17 04:55 Alkaline Phosphatase 42 units/L (35-129) 03/07/17 04:55 Total Creatine Kinase 99 units/L (30-135) 02/28/17 17:40 CK-MB (CK-2) 3.9 ng/mL (0.0-4.0) 02/28/17 17:40 CK-MB (CK-2) Rel Index 3.9 (0-4) 02/28/17 17:40 Troponin T < 0.010 ng/mL (0.00-0.029) 02/28/17 17:40 NT-Pro-B Natriuret Pep 1929 pg/mL (0-900) H 02/28/17 19:14 Total Protein 5.8 g/dL (6.3-8.2) L 03/07/17 04:55 Albumin 2.6 g/dL (3.9-5) L 03/07/17 04:55 Albumin/Globulin Ratio 0.8 % 03/07/17 04:55 Triglycerides 78 mg/dL (2-149) 03/03/17 06:32 Cholesterol 162 mg/dL (50-199) 03/03/17 06:32 LDL Cholesterol Direct 101 mg/dL (50-130) 03/03/17 06:32 HDL Cholesterol 46 mg/dL (40-59) 03/03/17 06:32 Cholesterol/HDL Ratio 3.52 % 03/03/17 06:32 Amylase 43 units/L (27-131) 03/04/17 05:27 TSH 0.997 mlU/mL (0.270-4.200) 02/28/17 17:40 Free T4 1.34 ng/dL (0.76-1.46) 02/28/17 17:40 Urine Color Yellow (Yellow) 03/05/17 Unknown Urine Turbidity Clear (Clear) 03/05/17 Unknown Urine pH 6.0 (5.0-7.0) 03/05/17 Unknown Ur Specific [place] 1.029 (1.003-1.030) 03/05/17 Unknown Urine Protein <15 mg/dl mg/dL (Negative) 03/05/17 Unknown Urine Glucose (UA) Neg mg/dL (Negative) 03/05/17 Unknown Urine Ketones Neg mg/dL (Negative) 03/05/17 Unknown Urine Blood Sm (Negative) 03/05/17 Unknown Urine Nitrite Neg (Negative) 03/05/17 Unknown Urine Bilirubin Neg (Negative) 03/05/17 Unknown Urine Urobilinogen < 2.0 mg/dL (<2.0) 03/05/17 Unknown Ur Leukocyte Esterase Mod (Negative) 03/05/17 Unknown Urine WBC (Auto) 19.0 /HPF (0.0-6.0) H 03/05/17 Unknown Urine RBC (Auto) 2.0 /HPF (0.0-6.0) 03/05/17 Unknown U Epithel Cells (Auto) 1.0 /HPF (0-13.0) 03/05/17 Unknown Urine Mucus Few /HPF 03/05/17 Unknown Digoxin 0.4 ng/mL (0.9-2.0) L 03/08/17 11:13 Blood Type B POSITIVE 03/08/17 11:13 Antibody Screen TNR 03/08/17 11:13 KYLEIGH Antibody Screen Negative 03/08/17 11:13 Crossmatch See Detail 03/08/17 11:13
--- NOTE | 2017-03-10 19:08 | Progress Note ---
Assessment and Plan Patient alert, awake. No complaint of chest pain or shortness of breath. Resting on 3 litres O2. O2 saturation 95% - Patient Problems (1) Acute respiratory failure with hypoxia and hypercapnia Current Visit: Yes Status: Acute Plan to address problem: Improved O2 3 litres via nasal canula. Albuterol inhalor HFA 2 puffs po qid prn for shortness of breath. Continue incentive spirometry. (2) Atrial fibrillation with RVR Current Visit: Yes Status: Acute Plan to address problem: Management as per cardiology. (3) SBO (small bowel obstruction) Current Visit: Yes Status: Acute Plan to address problem: Management as per primary care and surgeon. Subjective Date of service: 03/10/17 Principal diagnosis: Acute respiratory Failure s/p MVS; UGI bleeding/SBO s/p Ex- lap Interval history: Patient alert, awake. No complaint of chest pain or shortness of breath. Resting on 3 litres O2. O2 saturation 95% Objective Vital Signs - 12hr 03/10/17 03/10/17 03/10/17 08:00 10:00 10:24 Temperature 98 F Pulse Rate 83 83 Pulse Rate [ Left Brachial] Respiratory 20 Rate Blood Pressure 135/83 Blood Pressure 135/83 [Left] O2 Sat by Pulse 98 96 Oximetry 03/10/17 03/10/17 03/10/17 10:25 12:00 16:00 Temperature 98 F 98.2 F Pulse Rate 83 84 93 H Pulse Rate [ 92 H Left Brachial] Respiratory 20 18 Rate Blood Pressure 135/83 Blood Pressure 117/76 126/85 [Left] O2 Sat by Pulse 97 95 Oximetry Constitutional: no acute distress, alert, other (Weak) Eyes: non-icteric ENT: oropharynx moist Neck: supple, no lymphadenopathy, no JVD, other (no thyromegaly) Effort: mildly labored (pain limited) Ascultation: Bilateral: diminished breath sounds, rales (scant in bases) Cardiovascular: irregular rhythm, other (S1,S2; No rubs / murmurs) Gastrointestinal: hypoactive bowel sounds, tender (clean dry surgical dressing) , non-distended Integumentary: normal Extremities: no cyanosis, no edema, pink and warm, pulses normal Neurologic: non-focal exam (moves all extremities to command), pupils equal and round, CN II-XII normal, motor strength normal and Psychiatric: mood appropriate, affect normal CBC and BMP: 03/10/17 03:30 03/10/17 03:39 ABG, PT/INR, D-dimer: ABG POC ABG pH 7.449 (7.35-7.45) 03/06/17 11:19 POC ABG pCO2 37.5 (35-45) 03/06/17 11:19 POC ABG pO2 86 (80-105) 03/06/17 11:19 POC ABG HCO3 26.0 03/06/17 11:19 POC ABG Total CO2 27 03/06/17 11:19 POC ABG O2 Sat 97 03/06/17 11:19 PT/INR, D-dimer PT 16.9 Sec. (12.2-14.9) H 03/07/17 04:55 INR 1.31 (0.87-1.13) H 03/07/17 04:55 Abnormal lab findings: Abnormal Labs 02/28/17 03/01/17 03/02/17 19:14 02:50 05:09 WBC RBC Hgb Hct MCHC RDW Lymph % (Auto) [place] % (Auto) [place] # Seg Neutrophils % Seg Neuts % (Manual) Lymphocytes % (Manual) Monocytes % (Manual) Nucleated RBC % Seg Neutrophils # Seg Neutrophils # Man Lymphocytes # (Manual) Monocytes # (Manual) PT 27.3 H 43.9 H INR 2.40 H 4.39 H POC ABG pH POC ABG pCO2 POC ABG pO2 Sodium Potassium Chloride BUN Creatinine Glucose POC Glucose Calcium NT-Pro-B Natriuret Pep 1929 H Total Protein Albumin Urine WBC (Auto) Digoxin Crossmatch 03/02/17 03/02/17 03/02/17 05:09 05:09 13:32 WBC 17.4 H RBC 5.48 H Hgb 15.9 H Hct 47.4 H MCHC RDW Lymph % (Auto) 11.3 L [place] % (Auto) [place] # Seg Neutrophils % 84.2 H Seg Neuts % (Manual) Lymphocytes % (Manual) Monocytes % (Manual) Nucleated RBC % Seg Neutrophils # 14.6 H Seg Neutrophils # Man Lymphocytes # (Manual) Monocytes # (Manual) PT 47.9 H INR 4.90 H POC ABG pH POC ABG pCO2 POC ABG pO2 Sodium 136 L Potassium Chloride 97.7 L BUN Creatinine 0.5 L Glucose 109 H POC Glucose Calcium NT-Pro-B Natriuret Pep Total Protein Albumin Urine WBC (Auto) Digoxin Crossmatch 03/03/17 03/03/17 03/03/17 06:32 06:32 06:32 WBC 19.0 H RBC 5.46 H Hgb 16.0 H Hct 46.8 H MCHC RDW 13.1 L Lymph % (Auto) 10.7 L [place] % (Auto) [place] # 1.0 H Seg Neutrophils % 83.2 H Seg Neuts % (Manual) Lymphocytes % (Manual) Monocytes % (Manual) Nucleated RBC % Seg Neutrophils # 15.8 H Seg Neutrophils # Man Lymphocytes # (Manual) Monocytes # (Manual) PT 44.3 H INR 4.44 H POC ABG pH POC ABG pCO2 POC ABG pO2 Sodium Potassium Chloride BUN 24 H Creatinine 0.6 L Glucose 101 H POC Glucose Calcium NT-Pro-B Natriuret Pep Total Protein Albumin 3.4 L Urine WBC (Auto) Digoxin Crossmatch 03/03/17 03/04/17 03/04/17 18:00 05:27 05:27 WBC 16.0 H RBC 5.16 H Hgb 15.1 H Hct 43.8 H MCHC RDW Lymph % (Auto) 8.3 L [place] % (Auto) [place] # Seg Neutrophils % 86.5 H Seg Neuts % (Manual) Lymphocytes % (Manual) Monocytes % (Manual) Nucleated RBC % Seg Neutrophils # 13.8 H Seg Neutrophils # Man Lymphocytes # (Manual) Monocytes # (Manual) PT 26.8 H INR 2.34 H POC ABG pH POC ABG pCO2 POC ABG pO2 Sodium Potassium Chloride BUN Creatinine Glucose POC Glucose Calcium NT-Pro-B Natriuret Pep Total Protein Albumin Urine WBC (Auto) Digoxin Crossmatch See Detail 03/04/17 03/04/17 03/04/17 05:27 13:31 23:05 WBC 17.2 H RBC Hgb Hct MCHC RDW Lymph % (Auto) 11.6 L [place] % (Auto) [place] # 1.2 H Seg Neutrophils % 81.2 H Seg Neuts % (Manual) 85.0 H Lymphocytes % (Manual) 8.0 L Monocytes % (Manual) Nucleated RBC % Seg Neutrophils # 13.7 H Seg Neutrophils # Man 14.6 H Lymphocytes # (Manual) Monocytes # (Manual) PT 19.3 H INR 1.55 H POC ABG pH POC ABG pCO2 POC ABG pO2 Sodium Potassium Chloride BUN 20 H Creatinine 0.5 L Glucose 162 H POC Glucose Calcium 8.0 L NT-Pro-B Natriuret Pep Total Protein Albumin 3.5 L Urine WBC (Auto) Digoxin Crossmatch 03/05/17 03/05/17 03/05/17 05:18 05:18 05:18 WBC 15.0 H RBC 3.52 L Hgb Hct 30.0 L MCHC 35 H RDW 13.1 L Lymph % (Auto) 12.3 L [place] % (Auto) 9.1 H [place] # 1.4 H Seg Neutrophils % 78.5 H Seg Neuts % (Manual) Lymphocytes % (Manual) Monocytes % (Manual) Nucleated RBC % Seg Neutrophils # 11.8 H Seg Neutrophils # Man Lymphocytes # (Manual) Monocytes # (Manual) PT 16.5 H INR 1.27 H POC ABG pH POC ABG pCO2 POC ABG pO2 Sodium Potassium 3.5 L Chloride BUN 34 H Creatinine 0.4 L Glucose 132 H POC Glucose Calcium 8.2 L NT-Pro-B Natriuret Pep Total Protein Albumin Urine WBC (Auto) Digoxin Crossmatch 03/05/17 03/05/17 03/05/17 10:39 11:00 17:50 WBC 22.1 H 18.2 H RBC 3.51 L 3.30 L Hgb 9.6 L Hct 28.7 L MCHC RDW 13.1 L 13.1 L Lymph % (Auto) [place] % (Auto) 8.6 H [place] # 1.6 H Seg Neutrophils % 76.5 H Seg Neuts % (Manual) Lymphocytes % (Manual) Monocytes % (Manual) 14.0 H Nucleated RBC % Seg Neutrophils # 13.9 H Seg Neutrophils # Man 15.5 H Lymphocytes # (Manual) Monocytes # (Manual) 3.1 H PT INR POC ABG pH POC ABG pCO2 46.7 H POC ABG pO2 Sodium Potassium Chloride BUN Creatinine Glucose POC Glucose Calcium NT-Pro-B Natriuret Pep Total Protein Albumin Urine WBC (Auto) Digoxin Crossmatch 03/05/17 03/06/17 03/06/17 Unknown 04:06 04:49 WBC RBC Hgb Hct MCHC RDW Lymph % (Auto) [place] % (Auto) [place] # Seg Neutrophils % Seg Neuts % (Manual) Lymphocytes % (Manual) Monocytes % (Manual) Nucleated RBC % Seg Neutrophils # Seg Neutrophils # Man Lymphocytes # (Manual) Monocytes # (Manual) PT 17.3 H INR 1.34 H POC ABG pH 7.707 H POC ABG pCO2 19.4 L POC ABG pO2 60 L Sodium Potassium Chloride BUN Creatinine Glucose POC Glucose Calcium NT-Pro-B Natriuret Pep Total Protein Albumin Urine WBC (Auto) 19.0 H Digoxin Crossmatch 03/06/17 03/06/17 03/07/17 04:49 04:49 04:55 WBC 20.2 H RBC 3.18 L Hgb 9.5 L Hct 27.6 L MCHC RDW 13.1 L Lymph % (Auto) [place] % (Auto) [place] # Seg Neutrophils % Seg Neuts % (Manual) 87.0 H Lymphocytes % (Manual) 8.0 L Monocytes % (Manual) Nucleated RBC % Seg Neutrophils # Seg Neutrophils # Man 17.6 H Lymphocytes # (Manual) Monocytes # (Manual) PT 16.9 H INR 1.31 H POC ABG pH POC ABG pCO2 POC ABG pO2 Sodium Potassium Chloride BUN 30 H Creatinine Glucose 113 H POC Glucose Calcium 7.5 L NT-Pro-B Natriuret Pep Total Protein 5.5 L Albumin 2.7 L Urine WBC (Auto) Digoxin Crossmatch 03/07/17 03/07/17 03/07/17 04:55 04:55 14:47 WBC 23.5 H 21.5 H RBC 3.18 L 2.96 L Hgb 9.3 L 8.6 L Hct 27.8 L 26.0 L MCHC RDW Lymph % (Auto) [place] % (Auto) [place] # Seg Neutrophils % Seg Neuts % (Manual) 74.0 H Lymphocytes % (Manual) 8.0 L Monocytes % (Manual) 9.0 H Nucleated RBC % Seg Neutrophils # Seg Neutrophils # Man 17.4 H Lymphocytes # (Manual) Monocytes # (Manual) 2.1 H PT INR POC ABG pH POC ABG pCO2 POC ABG pO2 Sodium Potassium Chloride 107.2 H BUN Creatinine 0.4 L Glucose 128 H POC Glucose Calcium 7.9 L NT-Pro-B Natriuret Pep Total Protein 5.8 L Albumin 2.6 L Urine WBC (Auto) Digoxin Crossmatch 03/08/17 03/08/17 03/08/17 01:53 05:48 11:13 WBC 19.1 H RBC 2.85 L Hgb 8.3 L Hct 25.1 L MCHC RDW Lymph % (Auto) 9.9 L [place] % (Auto) 7.6 H [place] # 1.5 H Seg Neutrophils % 82.3 H Seg Neuts % (Manual) Lymphocytes % (Manual) Monocytes % (Manual) Nucleated RBC % Seg Neutrophils # 15.7 H Seg Neutrophils # Man Lymphocytes # (Manual) Monocytes # (Manual) PT INR POC ABG pH POC ABG pCO2 POC ABG pO2 Sodium Potassium Chloride 110.6 H BUN Creatinine 0.4 L Glucose 153 H POC Glucose Calcium 7.7 L NT-Pro-B Natriuret Pep Total Protein Albumin Urine WBC (Auto) Digoxin Crossmatch See Detail 03/08/17 03/09/17 03/09/17 11:13 05:48 08:28 WBC 18.0 H RBC Hgb Hct MCHC RDW Lymph % (Auto) [place] % (Auto) [place] # Seg Neutrophils % Seg Neuts % (Manual) 88.0 H Lymphocytes % (Manual) 4.0 L Monocytes % (Manual) Nucleated RBC % 2.0 H Seg Neutrophils # Seg Neutrophils # Man 15.8 H Lymphocytes # (Manual) 0.7 L Monocytes # (Manual) 1.1 H PT INR POC ABG pH POC ABG pCO2 POC ABG pO2 Sodium Potassium Chloride BUN Creatinine Glucose POC Glucose 152 H Calcium NT-Pro-B Natriuret Pep Total Protein Albumin Urine WBC (Auto) Digoxin 0.4 L Crossmatch 03/09/17 03/09/17 03/10/17 12:06 14:01 03:30 WBC 13.8 H RBC 3.42 L Hgb Hct 30.2 L 30.1 L MCHC RDW Lymph % (Auto) [place] % (Auto) 11.1 H [place] # 1.5 H Seg Neutrophils % 70.7 H Seg Neuts % (Manual) Lymphocytes % (Manual) Monocytes % (Manual) Nucleated RBC % Seg Neutrophils # 9.8 H Seg Neutrophils # Man Lymphocytes # (Manual) Monocytes # (Manual) PT INR POC ABG pH POC ABG pCO2 POC ABG pO2 Sodium Potassium Chloride BUN Creatinine Glucose POC Glucose 152 H Calcium NT-Pro-B Natriuret Pep Total Protein Albumin Urine WBC (Auto) Digoxin Crossmatch 03/10/17 03:39 WBC RBC Hgb Hct MCHC RDW Lymph % (Auto) [place] % (Auto) [place] # Seg Neutrophils % Seg Neuts % (Manual) Lymphocytes % (Manual) Monocytes % (Manual) Nucleated RBC % Seg Neutrophils # Seg Neutrophils # Man Lymphocytes # (Manual) Monocytes # (Manual) PT INR POC ABG pH POC ABG pCO2 POC ABG pO2 Sodium Potassium Chloride 108.2 H BUN Creatinine 0.4 L Glucose 122 H POC Glucose Calcium 7.3 L NT-Pro-B Natriuret Pep Total Protein Albumin Urine WBC (Auto) Digoxin Crossmatch Allied health notes reviewed: RT
[2017-03-10] MEDS: LANOXIN PO SCH (19:48)
[2017-03-10] MEDS: HEPARIN SUB-Q SCH (22:50)
[2017-03-10] MEDS: PROTONIX PO SCH (22:50)
[2017-03-11] MEDS: D5W/NS W/KCL 20MEQ 20 MEQ/1,000 ML BAG IV SCH (00:56)
[2017-03-11] MEDS: MORPHINE IV PRN ×2 (06:38→17:00)
[2017-03-11] MEDS: FLAGYL 500 MG/100 ML 500 MG/100 ML BAG IV SCH ×3 (06:39→23:45)
--- NOTE | 2017-03-11 08:02 | XRay Report ---
AP CHEST: HISTORY: Followup respiratory failure The lungs are clear. Borderline to mild cardiomegaly is stable. No pleural effusion or pneumothorax. The bony structures are grossly intact. IMPRESSION: Borderline to mild cardiomegaly. Lungs clear.
[2017-03-11] MEDS: LEVAQUIN 750MG/150ML 750 MG/150 ML BAG IV SCH (10:59)
[2017-03-11] MEDS: ZESTRIL PO SCH (11:01)
[2017-03-11] MEDS: PROTONIX PO SCH ×2 (11:01→22:45)
--- NOTE | 2017-03-11 11:16 | Event Note ---
Date: 03/11/17 Chart reviewed, H/H stable, post-op ileus improving. Will plan for EGD tomorrow for diagnostic purposes given UGI bleeding on presentation (if okay with surgery). NPO at midnight, cont PPI.
[2017-03-11] MEDS: COREG PO SCH ×2 (11:54→23:39)
--- NOTE | 2017-03-11 13:55 | Progress Note ---
Assessment and Plan POD #6 Pt feeling well. loan cl liq Abd soft, incision clean and dry stable advance diet d/c moises in am Selected Entries 03/10/17 03/11/17 23:11 03:18 Temperature 98.3 F Respiratory 18 Rate Blood Pressure 135/86 Laboratory Tests 03/09/17 03/10/17 02:10 03:30 Hgb 10.9 10.2 Hct 32.5 D 30.1 L Objective Vital Signs - 12hr 03/11/17 03/11/17 03/11/17 03:18 06:00 08:54 Pulse Rate 77 84 Respiratory 18 Rate Blood Pressure 135/86 O2 Sat by Pulse 97 97 Oximetry - Labs 03/10/17 03:30 03/10/17 03:39
--- NOTE | 2017-03-11 15:15 | Progress Note ---
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 Subjective Date of service: 03/11/17 Principal diagnosis: Acute respiratory Failure s/p MVS; UGI bleeding/SBO s/p Ex- lap Interval history: Patient is resting in bed and appears comfortable. Stable afib on telemetry. Objective Vital Signs Temp Pulse Resp BP BP Pulse Ox 03/11/17 08:54 97 03/11/17 06:00 84 03/11/17 03:18 77 18 135/86 97 03/10/17 23:43 98 H 126/87 03/10/17 23:11 98.3 F 73 18 115/80 99 03/10/17 22:00 92 H 98 03/10/17 21:14 20 03/10/17 19:48 89 03/10/17 16:00 98.2 F 93 H 18 126/85 95 - Physical Examination General: No Apparent Distress HEENT: Positive: PERRL Cardiac: Positive: irregularly irregular Lungs: Positive: Decreased Breath Sounds Extremities: Absent: edema - Allied health notes Allied health notes reviewed: RT
--- NOTE | 2017-03-11 16:30 | Progress Note ---
Assessment and Plan Assessment and plan: Will Lang, was the Palestinian stunt person again at bedside, first day with patient 03/10/17 Patient is 76-year-old Palestinian speaking woman with a history of chronic A. fib, and CHF who presented to emergency department with chest pains. TTE showed EF of 20-25%. Abdominal x-ray obtained on 03/02/2017 for the complain of abdominal pain and constipation which showed small bowel obstruction. Chest x- ray on 02/28/2017 showed no acute infiltrates, no abnormalities. -Acute GI blood loss anemia: GI is following, EGD pending once cardiology clears -Sepsis UTI and incarcerated hernia: Continue antibiotics -Small bowel obstruction due to incarcerated hernia s/p ex-lap with ileus: Start clear liquids per surgery -Acute hypoxic respiratory failure, still on oxygen: Try to wean, and nebulizer treatment and encourage incentive spirometer -Acute on chronic systolic dysfunction: Compensated now, echo showed EF of 20-25 %, medical management, low salt diet, Per cardiology, had cardiac cath that showed no significant coronary disease, but an ejection fraction of 20% -Afib/aflutter RVR, hypercoagulable state, Received Digoxin and was started on BB; Anticoagulated with Coumadin, INR supratherapeutic, now off Coumadin, cont rate control with iv metoprolol -Coagulopathy, INR went up to 4. likely secondary to interaction with antibiotics, Hold Coumadin and monitor INR closely, reversed with FFP and vit K -DVT prophylaxis: SCD due to anemia EGD in am I called Cardiology, await callback. History Interval history: Patient was seen and examined. Follow-up on current diagnosis/abd pains. Overnight uneventful. Patient denies any chest pain, shortness breath, nausea/ vomiting or severe headaches. Imaging, nursing note, chart, labs and old chart reviewed. Discussed with patient. Rosemary at bedside, was the Palestinian stunt person Hospitalist Physical - Physical exam Narrative exam: GEN: WDWN, NAD, AWAKE, ALERT, ORIENTATED 3 HEENT: NCAT, EOMI, PERRL, OP Clear NECK: supple, no adenopathy, no thyromegaly, no JVD CVS/HEART: irrRRR, NORMAL S1S2, NO JVD, pulses present bilaterally CHEST/LUNGS: CTA B, Symmetrical chest expansion, good air entry bilaterally GI/Abdomen: soft, midline surgical scar with dressing clean dry and intact, positive bowel sounds, no guarding or rebound /Bladder: no suprapubic tenderness, no CVA or paraspinal tenderness EXT/Skin: no c/c/e, no significant edema or obvious rash MSK: FROM x 4 Neuro: CN 2-12 grossly intact, no new focal deficits Psych: calm - Constitutional Vitals: Temp Pulse Resp BP Pulse Ox 98.3 F 84 18 135/86 97 03/10/17 23:11 03/11/17 06:00 03/11/17 03:18 03/11/17 03:18 03/11/17 08:54 General appearance: Present: no acute distress Results - Labs CBC & Chem 7: 03/10/17 03:30 03/10/17 03:39 Labs: Laboratory Last Values WBC 13.8 K/mm3 (4.5-11.0) H 03/10/17 03:30 RBC 3.42 M/mm3 (3.65-5.03) L 03/10/17 03:30 Hgb 10.2 gm/dl (10.1-14.3) 03/10/17 03:30 Hct 30.1 % (30.3-42.9) L 03/10/17 03:30 MCV 88 fl (79-97) 03/10/17 03:30 MCH 30 pg (28-32) 03/10/17 03:30 MCHC 34 % (30-34) 03/10/17 03:30 RDW 14.2 % (13.2-15.2) 03/10/17 03:30 Plt Count 238 K/mm3 (140-440) 03/10/17 03:30 Lymph % (Auto) 15.7 % (13.4-35.0) 03/10/17 03:30 [place] % (Auto) 11.1 % (0.0-7.3) H 03/10/17 03:30 Eos % (Auto) 2.0 % (0.0-4.3) 03/10/17 03:30 Baso % (Auto) 0.5 % (0.0-1.8) 03/10/17 03:30 Lymph # 2.2 K/mm3 (1.2-5.4) 03/10/17 03:30 [place] # 1.5 K/mm3 (0.0-0.8) H 03/10/17 03:30 Eos # 0.3 K/mm3 (0.0-0.4) 03/10/17 03:30 Baso # 0.1 K/mm3 (0.0-0.1) 03/10/17 03:30 Add Manual Diff Complete 03/09/17 05:48 Total Counted 100 03/09/17 05:48 Seg Neutrophils % 70.7 % (40.0-70.0) H 03/10/17 03:30 Seg Neuts % (Manual) 88.0 % (40.0-70.0) H 03/09/17 05:48 Band Neutrophils % 0 % 03/09/17 05:48 Lymphocytes % (Manual) 4.0 % (13.4-35.0) L 03/09/17 05:48 Reactive Lymphs % (Man) 0 % 03/09/17 05:48 Monocytes % (Manual) 6.0 % (0.0-7.3) 03/09/17 05:48 Eosinophils % (Manual) 0 % (0.0-4.3) 03/09/17 05:48 Basophils % (Manual) 0 % (0.0-1.8) 03/09/17 05:48 Metamyelocytes % 2.0 % 03/09/17 05:48 Myelocytes % 0 % 03/09/17 05:48 Promyelocytes % 0 % 03/09/17 05:48 Blast Cells % 0 % 03/09/17 05:48 Nucleated RBC % 2.0 % (0.0-0.9) H 03/09/17 05:48 Seg Neutrophils # 9.8 K/mm3 (1.8-7.7) H 03/10/17 03:30 Seg Neutrophils # Man 15.8 K/mm3 (1.8-7.7) H 03/09/17 05:48 Band Neutrophils # 0.0 K/mm3 03/09/17 05:48 Lymphocytes # (Manual) 0.7 K/mm3 (1.2-5.4) L 03/09/17 05:48 Abs React Lymphs (Man) 0.0 K/mm3 03/09/17 05:48 Monocytes # (Manual) 1.1 K/mm3 (0.0-0.8) H 03/09/17 05:48 Eosinophils # (Manual) 0.0 K/mm3 (0.0-0.4) 03/09/17 05:48 Basophils # (Manual) 0.0 K/mm3 (0.0-0.1) 03/09/17 05:48 Metamyelocytes # 0.4 K/mm3 03/09/17 05:48 Myelocytes # 0.0 K/mm3 03/09/17 05:48 Promyelocytes # 0.0 K/mm3 03/09/17 05:48 Blast Cells # 0.0 K/mm3 03/09/17 05:48 WBC Morphology Not Reportable 03/09/17 05:48 Hypersegmented Neuts Not Reportable 03/09/17 05:48 Hyposegmented Neuts Not Reportable 03/09/17 05:48 Hypogranular Neuts Not Reportable 03/09/17 05:48 Smudge Cells Not Reportable 03/09/17 05:48 Toxic Granulation Not Reportable 03/09/17 05:48 Toxic Vacuolation Not Reportable 03/09/17 05:48 Dohle Bodies Not Reportable 03/09/17 05:48 Pelger-Huet Anomaly Not Reportable 03/09/17 05:48 Evangelina Rods Not Reportable 03/09/17 05:48 Platelet Estimate Appears normal 03/09/17 05:48 Clumped Platelets Not Reportable 03/09/17 05:48 Plt Clumps, EDTA Not Reportable 03/09/17 05:48 Large Platelets Not Reportable 03/09/17 05:48 Giant Platelets Not Reportable 03/09/17 05:48 Platelet Satelliting Not Reportable 03/09/17 05:48 Plt Morphology Comment Not Reportable 03/09/17 05:48 RBC Morphology Not Reportable 03/09/17 05:48 Dimorphic RBCs Not Reportable 03/09/17 05:48 Polychromasia Rare 03/09/17 05:48 Hypochromasia Not Reportable 03/09/17 05:48 Poikilocytosis Not Reportable 03/09/17 05:48 Anisocytosis Few 03/09/17 05:48 Microcytosis Not Reportable 03/09/17 05:48 Macrocytosis Not Reportable 03/09/17 05:48 Spherocytes Not Reportable 03/09/17 05:48 Pappenheimer Bodies Not Reportable 03/09/17 05:48 Sickle Cells Not Reportable 03/09/17 05:48 Target Cells Not Reportable 03/09/17 05:48 Tear Drop Cells Not Reportable 03/09/17 05:48 Ovalocytes Not Reportable 03/09/17 05:48 Helmet Cells Not Reportable 03/09/17 05:48 [place] Bodies Not Reportable 03/09/17 05:48 [place] Rings Not Reportable 03/09/17 05:48 Marcelo Cells Few 03/09/17 05:48 Bite Cells Not Reportable 03/09/17 05:48 Crenated Cell Not Reportable 03/09/17 05:48 Elliptocytes Not Reportable 03/09/17 05:48 Acanthocytes (Spur) Not Reportable 03/09/17 05:48 Rouleaux Not Reportable 03/09/17 05:48 Hemoglobin C Crystals Not Reportable 03/09/17 05:48 Schistocytes Not Reportable 03/09/17 05:48 Malaria parasites Not Reportable 03/09/17 05:48 Rd Bodies Not Reportable 03/09/17 05:48 Hem Pathologist Commnt No 03/09/17 05:48 PT 16.9 Sec. (12.2-14.9) H 03/07/17 04:55 INR 1.31 (0.87-1.13) H 03/07/17 04:55 APTT 39.7 Sec. (24.2-36.6) H 02/28/17 17:40 POC ABG pH 7.449 (7.35-7.45) 03/06/17 11:19 POC ABG pCO2 37.5 (35-45) 03/06/17 11:19 POC ABG pO2 86 (80-105) 03/06/17 11:19 POC ABG HCO3 26.0 03/06/17 11:19 POC ABG Total CO2 27 03/06/17 11:19 POC ABG O2 Sat 97 03/06/17 11:19 POC ABG Base Excess 2 03/06/17 11:19 FiO2 35 % 03/06/17 11:19 Sodium 143 mmol/L (137-145) 03/10/17 03:39 Potassium 3.6 mmol/L (3.6-5.0) 03/10/17 03:39 Chloride 108.2 mmol/L (98-107) H 03/10/17 03:39 Carbon Dioxide 26 mmol/L (22-30) 03/10/17 03:39 Anion Gap 12 mmol/L 03/10/17 03:39 BUN 14 mg/dL (7-17) 03/10/17 03:39 Creatinine 0.4 mg/dL (0.7-1.2) L 03/10/17 03:39 Estimated GFR > 60 ml/min 03/10/17 03:39 BUN/Creatinine Ratio 35 % 03/10/17 03:39 Glucose 122 mg/dL (65-100) H 03/10/17 03:39 POC Glucose 152 (70-105) H 03/09/17 12:06 Lactic Acid 1.60 mmol/L (0.7-2.0) 03/03/17 12:35 Calcium 7.3 mg/dL (8.4-10.2) L 03/10/17 03:39 Magnesium 2.00 mg/dL (1.7-2.3) 03/02/17 05:09 Total Bilirubin 0.60 mg/dL (0.1-1.2) 03/07/17 04:55 Direct Bilirubin < 0.2 mg/dL (0-0.2) 03/03/17 06:32 AST 19 units/L (5-40) 03/07/17 04:55 ALT 14 units/L (7-56) 03/07/17 04:55 Alkaline Phosphatase 42 units/L (35-129) 03/07/17 04:55 Total Creatine Kinase 99 units/L (30-135) 02/28/17 17:40 CK-MB (CK-2) 3.9 ng/mL (0.0-4.0) 02/28/17 17:40 CK-MB (CK-2) Rel Index 3.9 (0-4) 02/28/17 17:40 Troponin T < 0.010 ng/mL (0.00-0.029) 02/28/17 17:40 NT-Pro-B Natriuret Pep 1929 pg/mL (0-900) H 02/28/17 19:14 Total Protein 5.8 g/dL (6.3-8.2) L 03/07/17 04:55 Albumin 2.6 g/dL (3.9-5) L 03/07/17 04:55 Albumin/Globulin Ratio 0.8 % 03/07/17 04:55 Triglycerides 78 mg/dL (2-149) 03/03/17 06:32 Cholesterol 162 mg/dL (50-199) 03/03/17 06:32 LDL Cholesterol Direct 101 mg/dL (50-130) 03/03/17 06:32 HDL Cholesterol 46 mg/dL (40-59) 03/03/17 06:32 Cholesterol/HDL Ratio 3.52 % 03/03/17 06:32 Amylase 43 units/L (27-131) 03/04/17 05:27 TSH 0.997 mlU/mL (0.270-4.200) 02/28/17 17:40 Free T4 1.34 ng/dL (0.76-1.46) 02/28/17 17:40 Urine Color Yellow (Yellow) 03/05/17 Unknown Urine Turbidity Clear (Clear) 03/05/17 Unknown Urine pH 6.0 (5.0-7.0) 03/05/17 Unknown Ur Specific [place] 1.029 (1.003-1.030) 03/05/17 Unknown Urine Protein <15 mg/dl mg/dL (Negative) 03/05/17 Unknown Urine Glucose (UA) Neg mg/dL (Negative) 03/05/17 Unknown Urine Ketones Neg mg/dL (Negative) 03/05/17 Unknown Urine Blood Sm (Negative) 03/05/17 Unknown Urine Nitrite Neg (Negative) 03/05/17 Unknown Urine Bilirubin Neg (Negative) 03/05/17 Unknown Urine Urobilinogen < 2.0 mg/dL (<2.0) 03/05/17 Unknown Ur Leukocyte Esterase Mod (Negative) 03/05/17 Unknown Urine WBC (Auto) 19.0 /HPF (0.0-6.0) H 03/05/17 Unknown Urine RBC (Auto) 2.0 /HPF (0.0-6.0) 03/05/17 Unknown U Epithel Cells (Auto) 1.0 /HPF (0-13.0) 03/05/17 Unknown Urine Mucus Few /HPF 03/05/17 Unknown Digoxin 0.4 ng/mL (0.9-2.0) L 03/08/17 11:13 Blood Type B POSITIVE 03/08/17 11:13 Antibody Screen TNR 03/08/17 11:13 KYLEIGH Antibody Screen Negative 03/08/17 11:13 Crossmatch See Detail 03/08/17 11:13
[2017-03-11] MEDS: LANOXIN PO SCH (17:02)
--- NOTE | 2017-03-11 17:15 | Progress Note ---
Assessment and Plan Patient sleeping at this time.On 3 litres O2. O2 saturation 97%. No acute respiratory distress.Patients chest xray reported lungs are clear. - Patient Problems (1) Acute respiratory failure with hypoxia and hypercapnia Current Visit: Yes Status: Acute Plan to address problem: Improved O2 3 litres via nasal canula. Albuterol inhalor HFA 2 puffs po qid prn for shortness of breath. Continue incentive spirometry. (2) Atrial fibrillation with RVR Current Visit: Yes Status: Acute Plan to address problem: Management as per cardiology. (3) SBO (small bowel obstruction) Current Visit: Yes Status: Acute Plan to address problem: Management as per primary care and surgeon. Subjective Date of service: 03/11/17 Principal diagnosis: Acute respiratory Failure s/p MVS; UGI bleeding/SBO s/p Ex- lap Interval history: Patient sleeping at this time.On 3 litres O2. O2 saturation 97%. No acute respiratory distress.Patients chest xray reported lungs are clear. Objective Vital Signs - 12hr 03/11/17 03/11/17 06:00 08:54 Pulse Rate 84 O2 Sat by Pulse 97 Oximetry Constitutional: no acute distress, alert, other (Weak) Eyes: non-icteric ENT: oropharynx moist Neck: supple, no lymphadenopathy, no JVD, other (no thyromegaly) Effort: mildly labored (pain limited) Ascultation: Bilateral: diminished breath sounds, rales (scant in bases) Cardiovascular: irregular rhythm, other (S1,S2; No rubs / murmurs) Gastrointestinal: hypoactive bowel sounds, tender (clean dry surgical dressing) , non-distended Integumentary: normal Extremities: no cyanosis, no edema, pink and warm, pulses normal Neurologic: non-focal exam (moves all extremities to command), pupils equal and round, CN II-XII normal, motor strength normal and Psychiatric: mood appropriate, affect normal CBC and BMP: 03/10/17 03:30 03/10/17 03:39 ABG, PT/INR, D-dimer: ABG POC ABG pH 7.449 (7.35-7.45) 03/06/17 11:19 POC ABG pCO2 37.5 (35-45) 03/06/17 11:19 POC ABG pO2 86 (80-105) 03/06/17 11:19 POC ABG HCO3 26.0 03/06/17 11:19 POC ABG Total CO2 27 03/06/17 11:19 POC ABG O2 Sat 97 03/06/17 11:19 PT/INR, D-dimer PT 16.9 Sec. (12.2-14.9) H 03/07/17 04:55 INR 1.31 (0.87-1.13) H 03/07/17 04:55 Abnormal lab findings: Abnormal Labs 02/28/17 03/01/17 03/02/17 19:14 02:50 05:09 WBC RBC Hgb Hct MCHC RDW Lymph % (Auto) [place] % (Auto) [place] # Seg Neutrophils % Seg Neuts % (Manual) Lymphocytes % (Manual) Monocytes % (Manual) Nucleated RBC % Seg Neutrophils # Seg Neutrophils # Man Lymphocytes # (Manual) Monocytes # (Manual) PT 27.3 H 43.9 H INR 2.40 H 4.39 H POC ABG pH POC ABG pCO2 POC ABG pO2 Sodium Potassium Chloride BUN Creatinine Glucose POC Glucose Calcium NT-Pro-B Natriuret Pep 1929 H Total Protein Albumin Urine WBC (Auto) Digoxin Crossmatch 03/02/17 03/02/17 03/02/17 05:09 05:09 13:32 WBC 17.4 H RBC 5.48 H Hgb 15.9 H Hct 47.4 H MCHC RDW Lymph % (Auto) 11.3 L [place] % (Auto) [place] # Seg Neutrophils % 84.2 H Seg Neuts % (Manual) Lymphocytes % (Manual) Monocytes % (Manual) Nucleated RBC % Seg Neutrophils # 14.6 H Seg Neutrophils # Man Lymphocytes # (Manual) Monocytes # (Manual) PT 47.9 H INR 4.90 H POC ABG pH POC ABG pCO2 POC ABG pO2 Sodium 136 L Potassium Chloride 97.7 L BUN Creatinine 0.5 L Glucose 109 H POC Glucose Calcium NT-Pro-B Natriuret Pep Total Protein Albumin Urine WBC (Auto) Digoxin Crossmatch 03/03/17 03/03/17 03/03/17 06:32 06:32 06:32 WBC 19.0 H RBC 5.46 H Hgb 16.0 H Hct 46.8 H MCHC RDW 13.1 L Lymph % (Auto) 10.7 L [place] % (Auto) [place] # 1.0 H Seg Neutrophils % 83.2 H Seg Neuts % (Manual) Lymphocytes % (Manual) Monocytes % (Manual) Nucleated RBC % Seg Neutrophils # 15.8 H Seg Neutrophils # Man Lymphocytes # (Manual) Monocytes # (Manual) PT 44.3 H INR 4.44 H POC ABG pH POC ABG pCO2 POC ABG pO2 Sodium Potassium Chloride BUN 24 H Creatinine 0.6 L Glucose 101 H POC Glucose Calcium NT-Pro-B Natriuret Pep Total Protein Albumin 3.4 L Urine WBC (Auto) Digoxin Crossmatch 03/03/17 03/04/17 03/04/17 18:00 05:27 05:27 WBC 16.0 H RBC 5.16 H Hgb 15.1 H Hct 43.8 H MCHC RDW Lymph % (Auto) 8.3 L [place] % (Auto) [place] # Seg Neutrophils % 86.5 H Seg Neuts % (Manual) Lymphocytes % (Manual) Monocytes % (Manual) Nucleated RBC % Seg Neutrophils # 13.8 H Seg Neutrophils # Man Lymphocytes # (Manual) Monocytes # (Manual) PT 26.8 H INR 2.34 H POC ABG pH POC ABG pCO2 POC ABG pO2 Sodium Potassium Chloride BUN Creatinine Glucose POC Glucose Calcium NT-Pro-B Natriuret Pep Total Protein Albumin Urine WBC (Auto) Digoxin Crossmatch See Detail 03/04/17 03/04/17 03/04/17 05:27 13:31 23:05 WBC 17.2 H RBC Hgb Hct MCHC RDW Lymph % (Auto) 11.6 L [place] % (Auto) [place] # 1.2 H Seg Neutrophils % 81.2 H Seg Neuts % (Manual) 85.0 H Lymphocytes % (Manual) 8.0 L Monocytes % (Manual) Nucleated RBC % Seg Neutrophils # 13.7 H Seg Neutrophils # Man 14.6 H Lymphocytes # (Manual) Monocytes # (Manual) PT 19.3 H INR 1.55 H POC ABG pH POC ABG pCO2 POC ABG pO2 Sodium Potassium Chloride BUN 20 H Creatinine 0.5 L Glucose 162 H POC Glucose Calcium 8.0 L NT-Pro-B Natriuret Pep Total Protein Albumin 3.5 L Urine WBC (Auto) Digoxin Crossmatch 03/05/17 03/05/17 03/05/17 05:18 05:18 05:18 WBC 15.0 H RBC 3.52 L Hgb Hct 30.0 L MCHC 35 H RDW 13.1 L Lymph % (Auto) 12.3 L [place] % (Auto) 9.1 H [place] # 1.4 H Seg Neutrophils % 78.5 H Seg Neuts % (Manual) Lymphocytes % (Manual) Monocytes % (Manual) Nucleated RBC % Seg Neutrophils # 11.8 H Seg Neutrophils # Man Lymphocytes # (Manual) Monocytes # (Manual) PT 16.5 H INR 1.27 H POC ABG pH POC ABG pCO2 POC ABG pO2 Sodium Potassium 3.5 L Chloride BUN 34 H Creatinine 0.4 L Glucose 132 H POC Glucose Calcium 8.2 L NT-Pro-B Natriuret Pep Total Protein Albumin Urine WBC (Auto) Digoxin Crossmatch 03/05/17 03/05/17 03/05/17 10:39 11:00 17:50 WBC 22.1 H 18.2 H RBC 3.51 L 3.30 L Hgb 9.6 L Hct 28.7 L MCHC RDW 13.1 L 13.1 L Lymph % (Auto) [place] % (Auto) 8.6 H [place] # 1.6 H Seg Neutrophils % 76.5 H Seg Neuts % (Manual) Lymphocytes % (Manual) Monocytes % (Manual) 14.0 H Nucleated RBC % Seg Neutrophils # 13.9 H Seg Neutrophils # Man 15.5 H Lymphocytes # (Manual) Monocytes # (Manual) 3.1 H PT INR POC ABG pH POC ABG pCO2 46.7 H POC ABG pO2 Sodium Potassium Chloride BUN Creatinine Glucose POC Glucose Calcium NT-Pro-B Natriuret Pep Total Protein Albumin Urine WBC (Auto) Digoxin Crossmatch 03/05/17 03/06/17 03/06/17 Unknown 04:06 04:49 WBC RBC Hgb Hct MCHC RDW Lymph % (Auto) [place] % (Auto) [place] # Seg Neutrophils % Seg Neuts % (Manual) Lymphocytes % (Manual) Monocytes % (Manual) Nucleated RBC % Seg Neutrophils # Seg Neutrophils # Man Lymphocytes # (Manual) Monocytes # (Manual) PT 17.3 H INR 1.34 H POC ABG pH 7.707 H POC ABG pCO2 19.4 L POC ABG pO2 60 L Sodium Potassium Chloride BUN Creatinine Glucose POC Glucose Calcium NT-Pro-B Natriuret Pep Total Protein Albumin Urine WBC (Auto) 19.0 H Digoxin Crossmatch 03/06/17 03/06/17 03/07/17 04:49 04:49 04:55 WBC 20.2 H RBC 3.18 L Hgb 9.5 L Hct 27.6 L MCHC RDW 13.1 L Lymph % (Auto) [place] % (Auto) [place] # Seg Neutrophils % Seg Neuts % (Manual) 87.0 H Lymphocytes % (Manual) 8.0 L Monocytes % (Manual) Nucleated RBC % Seg Neutrophils # Seg Neutrophils # Man 17.6 H Lymphocytes # (Manual) Monocytes # (Manual) PT 16.9 H INR 1.31 H POC ABG pH POC ABG pCO2 POC ABG pO2 Sodium Potassium Chloride BUN 30 H Creatinine Glucose 113 H POC Glucose Calcium 7.5 L NT-Pro-B Natriuret Pep Total Protein 5.5 L Albumin 2.7 L Urine WBC (Auto) Digoxin Crossmatch 03/07/17 03/07/17 03/07/17 04:55 04:55 14:47 WBC 23.5 H 21.5 H RBC 3.18 L 2.96 L Hgb 9.3 L 8.6 L Hct 27.8 L 26.0 L MCHC RDW Lymph % (Auto) [place] % (Auto) [place] # Seg Neutrophils % Seg Neuts % (Manual) 74.0 H Lymphocytes % (Manual) 8.0 L Monocytes % (Manual) 9.0 H Nucleated RBC % Seg Neutrophils # Seg Neutrophils # Man 17.4 H Lymphocytes # (Manual) Monocytes # (Manual) 2.1 H PT INR POC ABG pH POC ABG pCO2 POC ABG pO2 Sodium Potassium Chloride 107.2 H BUN Creatinine 0.4 L Glucose 128 H POC Glucose Calcium 7.9 L NT-Pro-B Natriuret Pep Total Protein 5.8 L Albumin 2.6 L Urine WBC (Auto) Digoxin Crossmatch 03/08/17 03/08/17 03/08/17 01:53 05:48 11:13 WBC 19.1 H RBC 2.85 L Hgb 8.3 L Hct 25.1 L MCHC RDW Lymph % (Auto) 9.9 L [place] % (Auto) 7.6 H [place] # 1.5 H Seg Neutrophils % 82.3 H Seg Neuts % (Manual) Lymphocytes % (Manual) Monocytes % (Manual) Nucleated RBC % Seg Neutrophils # 15.7 H Seg Neutrophils # Man Lymphocytes # (Manual) Monocytes # (Manual) PT INR POC ABG pH POC ABG pCO2 POC ABG pO2 Sodium Potassium Chloride 110.6 H BUN Creatinine 0.4 L Glucose 153 H POC Glucose Calcium 7.7 L NT-Pro-B Natriuret Pep Total Protein Albumin Urine WBC (Auto) Digoxin Crossmatch See Detail 03/08/17 03/09/17 03/09/17 11:13 05:48 08:28 WBC 18.0 H RBC Hgb Hct MCHC RDW Lymph % (Auto) [place] % (Auto) [place] # Seg Neutrophils % Seg Neuts % (Manual) 88.0 H Lymphocytes % (Manual) 4.0 L Monocytes % (Manual) Nucleated RBC % 2.0 H Seg Neutrophils # Seg Neutrophils # Man 15.8 H Lymphocytes # (Manual) 0.7 L Monocytes # (Manual) 1.1 H PT INR POC ABG pH POC ABG pCO2 POC ABG pO2 Sodium Potassium Chloride BUN Creatinine Glucose POC Glucose 152 H Calcium NT-Pro-B Natriuret Pep Total Protein Albumin Urine WBC (Auto) Digoxin 0.4 L Crossmatch 03/09/17 03/09/17 03/10/17 12:06 14:01 03:30 WBC 13.8 H RBC 3.42 L Hgb Hct 30.2 L 30.1 L MCHC RDW Lymph % (Auto) [place] % (Auto) 11.1 H [place] # 1.5 H Seg Neutrophils % 70.7 H Seg Neuts % (Manual) Lymphocytes % (Manual) Monocytes % (Manual) Nucleated RBC % Seg Neutrophils # 9.8 H Seg Neutrophils # Man Lymphocytes # (Manual) Monocytes # (Manual) PT INR POC ABG pH POC ABG pCO2 POC ABG pO2 Sodium Potassium Chloride BUN Creatinine Glucose POC Glucose 152 H Calcium NT-Pro-B Natriuret Pep Total Protein Albumin Urine WBC (Auto) Digoxin Crossmatch 03/10/17 03:39 WBC RBC Hgb Hct MCHC RDW Lymph % (Auto) [place] % (Auto) [place] # Seg Neutrophils % Seg Neuts % (Manual) Lymphocytes % (Manual) Monocytes % (Manual) Nucleated RBC % Seg Neutrophils # Seg Neutrophils # Man Lymphocytes # (Manual) Monocytes # (Manual) PT INR POC ABG pH POC ABG pCO2 POC ABG pO2 Sodium Potassium Chloride 108.2 H BUN Creatinine 0.4 L Glucose 122 H POC Glucose Calcium 7.3 L NT-Pro-B Natriuret Pep Total Protein Albumin Urine WBC (Auto) Digoxin Crossmatch Chest x-ray: report reviewed (Borderline to mild cardiomegaly. Lungs clear.), image reviewed Allied health notes reviewed: RT
[2017-03-11] MEDS: HEPARIN SUB-Q SCH ×2 (18:56→22:50)
[2017-03-12] MEDS: FLAGYL 500 MG/100 ML 500 MG/100 ML BAG IV SCH ×3 (06:55→21:57)
[2017-03-12 08:22] LABS: Basophils % (Auto) 0.2 % (0.0-1.8); Eosinophils % (Auto) 2.7 % (0.0-4.3); Hematocrit 31.9 % (30.3-42.9); Hemoglobin 10.6 gm/dl (10.1-14.3); Mean Corpuscular HGB Conc 33 % (30-34); Mean Corpuscular Hemoglobin 30 pg (28-32); Mean Corpuscular Volume 89 fl (79-97); Platelet Count 267 K/mm3 (140-440); Red Blood Count 3.58 M/mm3 (3.65-5.03); Red Cell Distribution Width 14.1 % (13.2-15.2); White Blood Count 13.6 K/mm3 (4.5-11.0)
--- NOTE | 2017-03-12 08:41 | XRay Report ---
AP CHEST: HISTORY: Followup respiratory failure AP view of the chest demonstrates a normal mediastinal and cardiac contour with clear lungs and normal bony and soft tissue structures. IMPRESSION: Unremarkable AP chest.
--- NOTE | 2017-03-12 09:47 | Anesthesia Day of Surgery ---
Anesthesia Day of Surgery - Day of Surgery Patient Examined: Yes Patient H&P Reviewed: Yes Patient is NPO: Yes Beta Blockers: Yes
--- NOTE | 2017-03-12 09:49 | Anesthesia Consultation ---
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
[2017-03-12] MEDS ORDERED: AMIDATE IV ONE (09:54)
[2017-03-12] MEDS ORDERED: NACL 0.9% 1000 ML 1,000 ML IV SCH (10:00)
--- NOTE | 2017-03-12 10:09 | Post Operative Note ---
Pre-op diagnosis: GI bleed Post-op diagnosis: other (streaks of erythematous mucosa in gastric fundus, otherwise unremarkable egd) Findings: EGD: streaks of erythematous mucosa in gastric fundus, likely from previous NG trauma. small hiatal hernia, otherwise unremarkable EGD. Procedure: EGD Anesthesia: MAC Surgeon: BO MILLIGAN Estimated blood loss: none Pathology: none Condition: stable Disposition: floor
--- NOTE | 2017-03-12 10:13 | Operative Report ---
Operative Report Operative Report: Date of procedure: 03/12/2017 Procedure: EGD Endoscopist: Dwight Monterroso Pre-op diagnosis: Recent UGI bleeding Post-op diagnosis: Streaks of erythematous mucosa in gastric fundus, otherwise unremarkable egd Anesthesia: MAC Complications: No immediate complications Estimated blood loss: None Procedure: After consent was obtained, the patient was placed in the left lateral decubitus positions. The fujinon upper endoscope was inserted into the patient' s mouth under direct vision, and advanced to the 2nd portion of the duodenum without difficulty. The patient tolerated the procedure well. The views of the mucosa were good. The patient's vital signs were monitored continuously throughout the procedure. Findings: There was a small hiatal hernia, otherwise the esophagus appeared normal. There were multiple streaks of erythematous mucosa in the gastric fundus/cardia , likely due to NG trauma. Otherwise, the stomach appeared normal. The duodenum appeared normal. Impression: 1. Streaks of erythematous mucosa in the gastric fundus, likely related to NG trauma. No high risk bleeding lesions seen. Otherwise, unremarkable EGD. Recommendations: -okay to resume anticoagulation if indicated per cardiology -PPI daily for PUD ppx Will sign off, please call back as needed or with questions.
--- NOTE | 2017-03-12 10:20 | Progress Note ---
Assessment and Plan POD # 7 Pt currently downstairs for EGD. loan full liq well as per RN h/h's stable await EGD results may advance to reg diet pending EGD findings surgically stable d/c moises in am Selected Entries 03/12/17 10:04 Temperature 98.0 F Respiratory 19 Rate Blood Pressure 147/80 Laboratory Tests 03/10/17 03/12/17 03:30 06:30 WBC 13.6 H Hgb 10.2 10.6 Hct 30.1 L 31.9 Objective Vital Signs - 12hr 03/11/17 03/11/17 03/11/17 22:24 23:39 23:52 Temperature 98.4 F Pulse Rate 88 84 Respiratory 18 Rate Blood Pressure 103/68 128/75 O2 Sat by Pulse 97 97 Oximetry 03/12/17 03/12/17 03/12/17 04:50 06:00 09:00 Temperature 98.0 F Pulse Rate 87 93 H 97 H Respiratory 18 15 Rate Blood Pressure 115/73 141/96 O2 Sat by Pulse 97 100 Oximetry 03/12/17 10:04 Temperature 98.0 F Pulse Rate 108 H Respiratory 19 Rate Blood Pressure 147/80 O2 Sat by Pulse 98 Oximetry - Labs 03/12/17 06:30 03/10/17 03:39
[2017-03-12] MEDS: HEPARIN SUB-Q SCH ×2 (10:46→21:58)
[2017-03-12] MEDS: COREG PO SCH ×2 (10:47→21:59)
[2017-03-12] MEDS: ZESTRIL PO SCH (10:48)
[2017-03-12] MEDS: PROTONIX PO SCH ×2 (11:32→21:58)
--- NOTE | 2017-03-12 11:46 | Post Anesthesia Evaluation ---
- Post Anesthesia Evaluation Patient Participated: Yes Airway Patent: Yes Stable Respiratory Function: Yes Nausea/Vomiting: No Temp > 96.8F: Yes Pain Manageable: Yes Adequeate Hydration: Yes Anesthesia Complications: No Block Receding Appropriately: Not Applicable Patient on Ventilator: No
--- NOTE | 2017-03-12 12:47 | Progress Note ---
Subjective Date of service: 03/12/17 Principal diagnosis: Acute respiratory Failure s/p MVS; UGI bleeding/SBO s/p Ex- lap Interval history: Patient is seen today for: Acute Hypercapnic Hypoxemic Resp Failure; Acute GI Bleeding; Atrial Fibrillation with RVR Seen and examined at bedside; 24hour events reviewed; nursing and respiratory care staff consulted; no adverse overnight events reported to me; resting in bed ; still mild SOB; + intermittent cough without expectoration; No N/V/F/C; denies gross hematochezia or melena Objective Vital Signs - 12hr 03/12/17 03/12/17 03/12/17 04:50 06:00 09:00 Temperature 98.0 F Pulse Rate 87 93 H 97 H Respiratory 18 15 Rate Blood Pressure 115/73 141/96 O2 Sat by Pulse 97 100 Oximetry 03/12/17 03/12/17 03/12/17 10:04 10:19 10:34 Temperature 98.0 F Pulse Rate 108 H 87 89 Respiratory 19 22 20 Rate Blood Pressure 147/80 115/71 138/87 O2 Sat by Pulse 98 100 100 Oximetry Constitutional: no acute distress, alert, other (Weak) Eyes: non-icteric ENT: oropharynx moist Neck: supple, no lymphadenopathy, no JVD, other (no thyromegaly) Effort: mildly labored (pain limited) Ascultation: Bilateral: clear, diminished breath sounds, rales (scant in bases) Cardiovascular: irregular rhythm, other (S1,S2; No rubs / murmurs) Gastrointestinal: hypoactive bowel sounds, tender (clean dry surgical dressing) , non-distended Integumentary: normal Extremities: no cyanosis, no edema, pink and warm, pulses normal Neurologic: non-focal exam (moves all extremities to command), pupils equal and round, CN II-XII normal, motor strength normal and Psychiatric: mood appropriate, affect normal CBC and BMP: 03/12/17 06:30 03/10/17 03:39 ABG, PT/INR, D-dimer: ABG POC ABG pH 7.449 (7.35-7.45) 03/06/17 11:19 POC ABG pCO2 37.5 (35-45) 03/06/17 11:19 POC ABG pO2 86 (80-105) 03/06/17 11:19 POC ABG HCO3 26.0 03/06/17 11:19 POC ABG Total CO2 27 03/06/17 11:19 POC ABG O2 Sat 97 03/06/17 11:19 PT/INR, D-dimer PT 16.9 Sec. (12.2-14.9) H 03/07/17 04:55 INR 1.31 (0.87-1.13) H 03/07/17 04:55 Abnormal lab findings: Abnormal Labs 02/28/17 03/01/17 03/02/17 19:14 02:50 05:09 WBC RBC Hgb Hct MCHC RDW Lymph % (Auto) [place] % (Auto) [place] # Seg Neutrophils % Seg Neuts % (Manual) Lymphocytes % (Manual) Monocytes % (Manual) Nucleated RBC % Seg Neutrophils # Seg Neutrophils # Man Lymphocytes # (Manual) Monocytes # (Manual) PT 27.3 H 43.9 H INR 2.40 H 4.39 H POC ABG pH POC ABG pCO2 POC ABG pO2 Sodium Potassium Chloride BUN Creatinine Glucose POC Glucose Calcium NT-Pro-B Natriuret Pep 1929 H Total Protein Albumin Urine WBC (Auto) Digoxin Crossmatch 03/02/17 03/02/17 03/02/17 05:09 05:09 13:32 WBC 17.4 H RBC 5.48 H Hgb 15.9 H Hct 47.4 H MCHC RDW Lymph % (Auto) 11.3 L [place] % (Auto) [place] # Seg Neutrophils % 84.2 H Seg Neuts % (Manual) Lymphocytes % (Manual) Monocytes % (Manual) Nucleated RBC % Seg Neutrophils # 14.6 H Seg Neutrophils # Man Lymphocytes # (Manual) Monocytes # (Manual) PT 47.9 H INR 4.90 H POC ABG pH POC ABG pCO2 POC ABG pO2 Sodium 136 L Potassium Chloride 97.7 L BUN Creatinine 0.5 L Glucose 109 H POC Glucose Calcium NT-Pro-B Natriuret Pep Total Protein Albumin Urine WBC (Auto) Digoxin Crossmatch 03/03/17 03/03/17 03/03/17 06:32 06:32 06:32 WBC 19.0 H RBC 5.46 H Hgb 16.0 H Hct 46.8 H MCHC RDW 13.1 L Lymph % (Auto) 10.7 L [place] % (Auto) [place] # 1.0 H Seg Neutrophils % 83.2 H Seg Neuts % (Manual) Lymphocytes % (Manual) Monocytes % (Manual) Nucleated RBC % Seg Neutrophils # 15.8 H Seg Neutrophils # Man Lymphocytes # (Manual) Monocytes # (Manual) PT 44.3 H INR 4.44 H POC ABG pH POC ABG pCO2 POC ABG pO2 Sodium Potassium Chloride BUN 24 H Creatinine 0.6 L Glucose 101 H POC Glucose Calcium NT-Pro-B Natriuret Pep Total Protein Albumin 3.4 L Urine WBC (Auto) Digoxin Crossmatch 03/03/17 03/04/17 03/04/17 18:00 05:27 05:27 WBC 16.0 H RBC 5.16 H Hgb 15.1 H Hct 43.8 H MCHC RDW Lymph % (Auto) 8.3 L [place] % (Auto) [place] # Seg Neutrophils % 86.5 H Seg Neuts % (Manual) Lymphocytes % (Manual) Monocytes % (Manual) Nucleated RBC % Seg Neutrophils # 13.8 H Seg Neutrophils # Man Lymphocytes # (Manual) Monocytes # (Manual) PT 26.8 H INR 2.34 H POC ABG pH POC ABG pCO2 POC ABG pO2 Sodium Potassium Chloride BUN Creatinine Glucose POC Glucose Calcium NT-Pro-B Natriuret Pep Total Protein Albumin Urine WBC (Auto) Digoxin Crossmatch See Detail 03/04/17 03/04/17 03/04/17 05:27 13:31 23:05 WBC 17.2 H RBC Hgb Hct MCHC RDW Lymph % (Auto) 11.6 L [place] % (Auto) [place] # 1.2 H Seg Neutrophils % 81.2 H Seg Neuts % (Manual) 85.0 H Lymphocytes % (Manual) 8.0 L Monocytes % (Manual) Nucleated RBC % Seg Neutrophils # 13.7 H Seg Neutrophils # Man 14.6 H Lymphocytes # (Manual) Monocytes # (Manual) PT 19.3 H INR 1.55 H POC ABG pH POC ABG pCO2 POC ABG pO2 Sodium Potassium Chloride BUN 20 H Creatinine 0.5 L Glucose 162 H POC Glucose Calcium 8.0 L NT-Pro-B Natriuret Pep Total Protein Albumin 3.5 L Urine WBC (Auto) Digoxin Crossmatch 03/05/17 03/05/17 03/05/17 05:18 05:18 05:18 WBC 15.0 H RBC 3.52 L Hgb Hct 30.0 L MCHC 35 H RDW 13.1 L Lymph % (Auto) 12.3 L [place] % (Auto) 9.1 H [place] # 1.4 H Seg Neutrophils % 78.5 H Seg Neuts % (Manual) Lymphocytes % (Manual) Monocytes % (Manual) Nucleated RBC % Seg Neutrophils # 11.8 H Seg Neutrophils # Man Lymphocytes # (Manual) Monocytes # (Manual) PT 16.5 H INR 1.27 H POC ABG pH POC ABG pCO2 POC ABG pO2 Sodium Potassium 3.5 L Chloride BUN 34 H Creatinine 0.4 L Glucose 132 H POC Glucose Calcium 8.2 L NT-Pro-B Natriuret Pep Total Protein Albumin Urine WBC (Auto) Digoxin Crossmatch 03/05/17 03/05/17 03/05/17 10:39 11:00 17:50 WBC 22.1 H 18.2 H RBC 3.51 L 3.30 L Hgb 9.6 L Hct 28.7 L MCHC RDW 13.1 L 13.1 L Lymph % (Auto) [place] % (Auto) 8.6 H [place] # 1.6 H Seg Neutrophils % 76.5 H Seg Neuts % (Manual) Lymphocytes % (Manual) Monocytes % (Manual) 14.0 H Nucleated RBC % Seg Neutrophils # 13.9 H Seg Neutrophils # Man 15.5 H Lymphocytes # (Manual) Monocytes # (Manual) 3.1 H PT INR POC ABG pH POC ABG pCO2 46.7 H POC ABG pO2 Sodium Potassium Chloride BUN Creatinine Glucose POC Glucose Calcium NT-Pro-B Natriuret Pep Total Protein Albumin Urine WBC (Auto) Digoxin Crossmatch 03/05/17 03/06/17 03/06/17 Unknown 04:06 04:49 WBC RBC Hgb Hct MCHC RDW Lymph % (Auto) [place] % (Auto) [place] # Seg Neutrophils % Seg Neuts % (Manual) Lymphocytes % (Manual) Monocytes % (Manual) Nucleated RBC % Seg Neutrophils # Seg Neutrophils # Man Lymphocytes # (Manual) Monocytes # (Manual) PT 17.3 H INR 1.34 H POC ABG pH 7.707 H POC ABG pCO2 19.4 L POC ABG pO2 60 L Sodium Potassium Chloride BUN Creatinine Glucose POC Glucose Calcium NT-Pro-B Natriuret Pep Total Protein Albumin Urine WBC (Auto) 19.0 H Digoxin Crossmatch 03/06/17 03/06/17 03/07/17 04:49 04:49 04:55 WBC 20.2 H RBC 3.18 L Hgb 9.5 L Hct 27.6 L MCHC RDW 13.1 L Lymph % (Auto) [place] % (Auto) [place] # Seg Neutrophils % Seg Neuts % (Manual) 87.0 H Lymphocytes % (Manual) 8.0 L Monocytes % (Manual) Nucleated RBC % Seg Neutrophils # Seg Neutrophils # Man 17.6 H Lymphocytes # (Manual) Monocytes # (Manual) PT 16.9 H INR 1.31 H POC ABG pH POC ABG pCO2 POC ABG pO2 Sodium Potassium Chloride BUN 30 H Creatinine Glucose 113 H POC Glucose Calcium 7.5 L NT-Pro-B Natriuret Pep Total Protein 5.5 L Albumin 2.7 L Urine WBC (Auto) Digoxin Crossmatch 03/07/17 03/07/17 03/07/17 04:55 04:55 14:47 WBC 23.5 H 21.5 H RBC 3.18 L 2.96 L Hgb 9.3 L 8.6 L Hct 27.8 L 26.0 L MCHC RDW Lymph % (Auto) [place] % (Auto) [place] # Seg Neutrophils % Seg Neuts % (Manual) 74.0 H Lymphocytes % (Manual) 8.0 L Monocytes % (Manual) 9.0 H Nucleated RBC % Seg Neutrophils # Seg Neutrophils # Man 17.4 H Lymphocytes # (Manual) Monocytes # (Manual) 2.1 H PT INR POC ABG pH POC ABG pCO2 POC ABG pO2 Sodium Potassium Chloride 107.2 H BUN Creatinine 0.4 L Glucose 128 H POC Glucose Calcium 7.9 L NT-Pro-B Natriuret Pep Total Protein 5.8 L Albumin 2.6 L Urine WBC (Auto) Digoxin Crossmatch 03/08/17 03/08/17 03/08/17 01:53 05:48 11:13 WBC 19.1 H RBC 2.85 L Hgb 8.3 L Hct 25.1 L MCHC RDW Lymph % (Auto) 9.9 L [place] % (Auto) 7.6 H [place] # 1.5 H Seg Neutrophils % 82.3 H Seg Neuts % (Manual) Lymphocytes % (Manual) Monocytes % (Manual) Nucleated RBC % Seg Neutrophils # 15.7 H Seg Neutrophils # Man Lymphocytes # (Manual) Monocytes # (Manual) PT INR POC ABG pH POC ABG pCO2 POC ABG pO2 Sodium Potassium Chloride 110.6 H BUN Creatinine 0.4 L Glucose 153 H POC Glucose Calcium 7.7 L NT-Pro-B Natriuret Pep Total Protein Albumin Urine WBC (Auto) Digoxin Crossmatch See Detail 03/08/17 03/09/17 03/09/17 11:13 05:48 08:28 WBC 18.0 H RBC Hgb Hct MCHC RDW Lymph % (Auto) [place] % (Auto) [place] # Seg Neutrophils % Seg Neuts % (Manual) 88.0 H Lymphocytes % (Manual) 4.0 L Monocytes % (Manual) Nucleated RBC % 2.0 H Seg Neutrophils # Seg Neutrophils # Man 15.8 H Lymphocytes # (Manual) 0.7 L Monocytes # (Manual) 1.1 H PT INR POC ABG pH POC ABG pCO2 POC ABG pO2 Sodium Potassium Chloride BUN Creatinine Glucose POC Glucose 152 H Calcium NT-Pro-B Natriuret Pep Total Protein Albumin Urine WBC (Auto) Digoxin 0.4 L Crossmatch 03/09/17 03/09/17 03/10/17 12:06 14:01 03:30 WBC 13.8 H RBC 3.42 L Hgb Hct 30.2 L 30.1 L MCHC RDW Lymph % (Auto) [place] % (Auto) 11.1 H [place] # 1.5 H Seg Neutrophils % 70.7 H Seg Neuts % (Manual) Lymphocytes % (Manual) Monocytes % (Manual) Nucleated RBC % Seg Neutrophils # 9.8 H Seg Neutrophils # Man Lymphocytes # (Manual) Monocytes # (Manual) PT INR POC ABG pH POC ABG pCO2 POC ABG pO2 Sodium Potassium Chloride BUN Creatinine Glucose POC Glucose 152 H Calcium NT-Pro-B Natriuret Pep Total Protein Albumin Urine WBC (Auto) Digoxin Crossmatch 03/10/17 03/12/17 03:39 06:30 WBC 13.6 H RBC 3.58 L Hgb Hct MCHC RDW Lymph % (Auto) [place] % (Auto) 9.8 H [place] # 1.3 H Seg Neutrophils % 71.6 H Seg Neuts % (Manual) Lymphocytes % (Manual) Monocytes % (Manual) Nucleated RBC % Seg Neutrophils # 9.7 H Seg Neutrophils # Man Lymphocytes # (Manual) Monocytes # (Manual) PT INR POC ABG pH POC ABG pCO2 POC ABG pO2 Sodium Potassium Chloride 108.2 H BUN Creatinine 0.4 L Glucose 122 H POC Glucose Calcium 7.3 L NT-Pro-B Natriuret Pep Total Protein Albumin Urine WBC (Auto) Digoxin Crossmatch Allied health notes reviewed: RT
--- NOTE | 2017-03-12 13:24 | Progress Note ---
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 Subjective Date of service: 03/12/17 Principal diagnosis: Acute respiratory Failure s/p MVS; UGI bleeding/SBO s/p Ex- lap Interval history: Patient is resting in bed and appears comfortable. Stable afib on telemetry. Objective Vital Signs Temp Pulse Resp BP Pulse Ox 03/12/17 10:34 89 20 138/87 100 03/12/17 10:19 87 22 115/71 100 03/12/17 10:04 98.0 F 108 H 19 147/80 98 03/12/17 09:00 98.0 F 97 H 15 141/96 100 03/12/17 06:00 93 H 03/12/17 04:50 87 18 115/73 97 03/11/17 23:52 98.4 F 84 18 128/75 97 03/11/17 23:39 88 103/68 03/11/17 22:24 97 03/11/17 22:00 120 H 18 97 03/11/17 20:17 98.3 F 107 H 18 103/68 98 03/11/17 17:49 97.3 F L 104 H 16 123/75 95 03/11/17 17:02 121 H - Physical Examination General: No Apparent Distress HEENT: Positive: PERRL Cardiac: Positive: irregularly irregular - Labs and Meds CBC 03/12/17 Range/Units 06:30 WBC 13.6 H (4.5-11.0) K/mm3 RBC 3.58 L (3.65-5.03) M/mm3 Hgb 10.6 (10.1-14.3) gm/dl Hct 31.9 (30.3-42.9) % Plt Count 267 (140-440) K/mm3 Lymph # 2.1 (1.2-5.4) K/mm3 [place] # 1.3 H (0.0-0.8) K/mm3 Eos # 0.4 (0.0-0.4) K/mm3 Baso # 0.0 (0.0-0.1) K/mm3 - Allied health notes Allied health notes reviewed: RT
[2017-03-12] MEDS: LEVAQUIN 750MG/150ML 750 MG/150 ML BAG IV SCH (17:27)
[2017-03-12] MEDS: MORPHINE IV PRN (17:29)
[2017-03-12] MEDS: LANOXIN PO SCH (17:30)
--- NOTE | 2017-03-12 17:48 | Progress Note ---
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 fib, and CHF who presented to emergency department with chest pains. TTE showed EF of 20-25%. Abdominal x-ray obtained on 03/02/2017 for the complain of abdominal pain and constipation which showed small bowel obstruction. Chest x- ray on 02/28/2017 showed no acute infiltrates, no abnormalities. -Acute GI blood loss anemia: GI is following, EGD pending once cardiology clears -Sepsis UTI and incarcerated hernia: Continue antibiotics -Small bowel obstruction due to incarcerated hernia s/p ex-lap with ileus resolving: Start clear liquids per surgery -Acute hypoxic respiratory failure, still on oxygen: Try to wean, and nebulizer treatment and encourage incentive spirometer -Acute on chronic systolic dysfunction: Compensated now, echo showed EF of 20-25 %, medical management, low salt diet, Per cardiology, had cardiac cath that showed no significant coronary disease, but an ejection fraction of 20% -Afib/aflutter RVR, hypercoagulable state, Received Digoxin and was started on BB; Anticoagulated with Coumadin, INR supratherapeutic, now off Coumadin, cont rate control with iv metoprolol -Coagulopathy, INR went up to 4. likely secondary to interaction with antibiotics, Hold Coumadin and monitor INR closely, reversed with FFP and vit K -DVT prophylaxis: SCD due to anemia per GI: Date of procedure: 03/12/2017 Procedure: EGD Endoscopist: Dwight Monterroso Pre-op diagnosis: Recent UGI bleeding Post-op diagnosis: Streaks of erythematous mucosa in gastric fundus, otherwise unremarkable egd Anesthesia: MAC Complications: No immediate complications Estimated blood loss: None Procedure: After consent was obtained, the patient was placed in the left lateral decubitus positions. The fujinon upper endoscope was inserted into the patient' s mouth under direct vision, and advanced to the 2nd portion of the duodenum without difficulty. The patient tolerated the procedure well. The views of the mucosa were good. The patient's vital signs were monitored continuously throughout the procedure. Findings: There was a small hiatal hernia, otherwise the esophagus appeared normal. There were multiple streaks of erythematous mucosa in the gastric fundus/cardia , likely due to NG trauma. Otherwise, the stomach appeared normal. The duodenum appeared normal. Impression: 1. Streaks of erythematous mucosa in the gastric fundus, likely related to NG trauma. No high risk bleeding lesions seen. Otherwise, unremarkable EGD. Recommendations: -okay to resume anticoagulation if indicated per cardiology -PPI daily for PUD ppx Will sign off, please call back as needed or with questions. History Interval history: Patient was seen and examined. Follow-up on current diagnosis/abd pains. Overnight uneventful. Patient denies any chest pain, shortness breath, nausea/ vomiting or severe headaches. Imaging, nursing note, chart, labs and old chart reviewed. Discussed with patient. Rosemary at bedside, was the Armenian vault custodian Hospitalist Physical - Physical exam Narrative exam: GEN: WDWN, NAD, AWAKE, ALERT, ORIENTATED 3 HEENT: NCAT, EOMI, PERRL, OP Clear NECK: supple, no adenopathy, no thyromegaly, no JVD CVS/HEART: irrRRR, NORMAL S1S2, NO JVD, pulses present bilaterally CHEST/LUNGS: CTA B, Symmetrical chest expansion, good air entry bilaterally GI/Abdomen: soft, midline surgical scar with dressing clean dry and intact, positive bowel sounds, no guarding or rebound /Bladder: no suprapubic tenderness, no CVA or paraspinal tenderness EXT/Skin: no c/c/e, no significant edema or obvious rash MSK: FROM x 4 Neuro: CN 2-12 grossly intact, no new focal deficits Psych: calm - Constitutional Vitals: Temp Pulse Resp BP Pulse Ox 98.0 F 113 H 20 138/87 100 03/12/17 10:04 03/12/17 17:30 03/12/17 10:34 03/12/17 10:34 03/12/17 10:34 General appearance: Present: no acute distress Results - Labs CBC & Chem 7: 03/12/17 06:30 03/10/17 03:39 Labs: Laboratory Last Values WBC 13.6 K/mm3 (4.5-11.0) H 03/12/17 06:30 RBC 3.58 M/mm3 (3.65-5.03) L 03/12/17 06:30 Hgb 10.6 gm/dl (10.1-14.3) 03/12/17 06:30 Hct 31.9 % (30.3-42.9) 03/12/17 06:30 MCV 89 fl (79-97) 03/12/17 06:30 MCH 30 pg (28-32) 03/12/17 06:30 MCHC 33 % (30-34) 03/12/17 06:30 RDW 14.1 % (13.2-15.2) 03/12/17 06:30 Plt Count 267 K/mm3 (140-440) 03/12/17 06:30 Lymph % (Auto) 15.7 % (13.4-35.0) 03/12/17 06:30 [place] % (Auto) 9.8 % (0.0-7.3) H 03/12/17 06:30 Eos % (Auto) 2.7 % (0.0-4.3) 03/12/17 06:30 Baso % (Auto) 0.2 % (0.0-1.8) 03/12/17 06:30 Lymph # 2.1 K/mm3 (1.2-5.4) 03/12/17 06:30 [place] # 1.3 K/mm3 (0.0-0.8) H 03/12/17 06:30 Eos # 0.4 K/mm3 (0.0-0.4) 03/12/17 06:30 Baso # 0.0 K/mm3 (0.0-0.1) 03/12/17 06:30 Add Manual Diff Complete 03/09/17 05:48 Total Counted 100 03/09/17 05:48 Seg Neutrophils % 71.6 % (40.0-70.0) H 03/12/17 06:30 Seg Neuts % (Manual) 88.0 % (40.0-70.0) H 03/09/17 05:48 Band Neutrophils % 0 % 03/09/17 05:48 Lymphocytes % (Manual) 4.0 % (13.4-35.0) L 03/09/17 05:48 Reactive Lymphs % (Man) 0 % 03/09/17 05:48 Monocytes % (Manual) 6.0 % (0.0-7.3) 03/09/17 05:48 Eosinophils % (Manual) 0 % (0.0-4.3) 03/09/17 05:48 Basophils % (Manual) 0 % (0.0-1.8) 03/09/17 05:48 Metamyelocytes % 2.0 % 03/09/17 05:48 Myelocytes % 0 % 03/09/17 05:48 Promyelocytes % 0 % 03/09/17 05:48 Blast Cells % 0 % 03/09/17 05:48 Nucleated RBC % 2.0 % (0.0-0.9) H 03/09/17 05:48 Seg Neutrophils # 9.7 K/mm3 (1.8-7.7) H 03/12/17 06:30 Seg Neutrophils # Man 15.8 K/mm3 (1.8-7.7) H 03/09/17 05:48 Band Neutrophils # 0.0 K/mm3 03/09/17 05:48 Lymphocytes # (Manual) 0.7 K/mm3 (1.2-5.4) L 03/09/17 05:48 Abs React Lymphs (Man) 0.0 K/mm3 03/09/17 05:48 Monocytes # (Manual) 1.1 K/mm3 (0.0-0.8) H 03/09/17 05:48 Eosinophils # (Manual) 0.0 K/mm3 (0.0-0.4) 03/09/17 05:48 Basophils # (Manual) 0.0 K/mm3 (0.0-0.1) 03/09/17 05:48 Metamyelocytes # 0.4 K/mm3 03/09/17 05:48 Myelocytes # 0.0 K/mm3 03/09/17 05:48 Promyelocytes # 0.0 K/mm3 03/09/17 05:48 Blast Cells # 0.0 K/mm3 03/09/17 05:48 WBC Morphology Not Reportable 03/09/17 05:48 Hypersegmented Neuts Not Reportable 03/09/17 05:48 Hyposegmented Neuts Not Reportable 03/09/17 05:48 Hypogranular Neuts Not Reportable 03/09/17 05:48 Smudge Cells Not Reportable 03/09/17 05:48 Toxic Granulation Not Reportable 03/09/17 05:48 Toxic Vacuolation Not Reportable 03/09/17 05:48 Dohle Bodies Not Reportable 03/09/17 05:48 Pelger-Huet Anomaly Not Reportable 03/09/17 05:48 Evangelina Rods Not Reportable 03/09/17 05:48 Platelet Estimate Appears normal 03/09/17 05:48 Clumped Platelets Not Reportable 03/09/17 05:48 Plt Clumps, EDTA Not Reportable 03/09/17 05:48 Large Platelets Not Reportable 03/09/17 05:48 Giant Platelets Not Reportable 03/09/17 05:48 Platelet Satelliting Not Reportable 03/09/17 05:48 Plt Morphology Comment Not Reportable 03/09/17 05:48 RBC Morphology Not Reportable 03/09/17 05:48 Dimorphic RBCs Not Reportable 03/09/17 05:48 Polychromasia Rare 03/09/17 05:48 Hypochromasia Not Reportable 03/09/17 05:48 Poikilocytosis Not Reportable 03/09/17 05:48 Anisocytosis Few 03/09/17 05:48 Microcytosis Not Reportable 03/09/17 05:48 Macrocytosis Not Reportable 03/09/17 05:48 Spherocytes Not Reportable 03/09/17 05:48 Pappenheimer Bodies Not Reportable 03/09/17 05:48 Sickle Cells Not Reportable 03/09/17 05:48 Target Cells Not Reportable 03/09/17 05:48 Tear Drop Cells Not Reportable 03/09/17 05:48 Ovalocytes Not Reportable 03/09/17 05:48 Helmet Cells Not Reportable 03/09/17 05:48 [place] Bodies Not Reportable 03/09/17 05:48 [place] Rings Not Reportable 03/09/17 05:48 Marcelo Cells Few 03/09/17 05:48 Bite Cells Not Reportable 03/09/17 05:48 Crenated Cell Not Reportable 03/09/17 05:48 Elliptocytes Not Reportable 03/09/17 05:48 Acanthocytes (Spur) Not Reportable 03/09/17 05:48 Rouleaux Not Reportable 03/09/17 05:48 Hemoglobin C Crystals Not Reportable 03/09/17 05:48 Schistocytes Not Reportable 03/09/17 05:48 Malaria parasites Not Reportable 03/09/17 05:48 Rd Bodies Not Reportable 03/09/17 05:48 Hem Pathologist Commnt No 03/09/17 05:48 PT 16.9 Sec. (12.2-14.9) H 03/07/17 04:55 INR 1.31 (0.87-1.13) H 03/07/17 04:55 APTT 39.7 Sec. (24.2-36.6) H 02/28/17 17:40 POC ABG pH 7.449 (7.35-7.45) 03/06/17 11:19 POC ABG pCO2 37.5 (35-45) 03/06/17 11:19 POC ABG pO2 86 (80-105) 03/06/17 11:19 POC ABG HCO3 26.0 03/06/17 11:19 POC ABG Total CO2 27 03/06/17 11:19 POC ABG O2 Sat 97 03/06/17 11:19 POC ABG Base Excess 2 03/06/17 11:19 FiO2 35 % 03/06/17 11:19 Sodium 143 mmol/L (137-145) 03/10/17 03:39 Potassium 3.6 mmol/L (3.6-5.0) 03/10/17 03:39 Chloride 108.2 mmol/L (98-107) H 03/10/17 03:39 Carbon Dioxide 26 mmol/L (22-30) 03/10/17 03:39 Anion Gap 12 mmol/L 03/10/17 03:39 BUN 14 mg/dL (7-17) 03/10/17 03:39 Creatinine 0.4 mg/dL (0.7-1.2) L 03/10/17 03:39 Estimated GFR > 60 ml/min 03/10/17 03:39 BUN/Creatinine Ratio 35 % 03/10/17 03:39 Glucose 122 mg/dL (65-100) H 03/10/17 03:39 POC Glucose 152 (70-105) H 03/09/17 12:06 Lactic Acid 1.60 mmol/L (0.7-2.0) 03/03/17 12:35 Calcium 7.3 mg/dL (8.4-10.2) L 03/10/17 03:39 Magnesium 2.00 mg/dL (1.7-2.3) 03/02/17 05:09 Total Bilirubin 0.60 mg/dL (0.1-1.2) 03/07/17 04:55 Direct Bilirubin < 0.2 mg/dL (0-0.2) 03/03/17 06:32 AST 19 units/L (5-40) 03/07/17 04:55 ALT 14 units/L (7-56) 03/07/17 04:55 Alkaline Phosphatase 42 units/L (35-129) 03/07/17 04:55 Total Creatine Kinase 99 units/L (30-135) 02/28/17 17:40 CK-MB (CK-2) 3.9 ng/mL (0.0-4.0) 02/28/17 17:40 CK-MB (CK-2) Rel Index 3.9 (0-4) 02/28/17 17:40 Troponin T < 0.010 ng/mL (0.00-0.029) 02/28/17 17:40 NT-Pro-B Natriuret Pep 1929 pg/mL (0-900) H 02/28/17 19:14 Total Protein 5.8 g/dL (6.3-8.2) L 03/07/17 04:55 Albumin 2.6 g/dL (3.9-5) L 03/07/17 04:55 Albumin/Globulin Ratio 0.8 % 03/07/17 04:55 Triglycerides 78 mg/dL (2-149) 03/03/17 06:32 Cholesterol 162 mg/dL (50-199) 03/03/17 06:32 LDL Cholesterol Direct 101 mg/dL (50-130) 03/03/17 06:32 HDL Cholesterol 46 mg/dL (40-59) 03/03/17 06:32 Cholesterol/HDL Ratio 3.52 % 03/03/17 06:32 Amylase 43 units/L (27-131) 03/04/17 05:27 TSH 0.997 mlU/mL (0.270-4.200) 02/28/17 17:40 Free T4 1.34 ng/dL (0.76-1.46) 02/28/17 17:40 Urine Color Yellow (Yellow) 03/05/17 Unknown Urine Turbidity Clear (Clear) 03/05/17 Unknown Urine pH 6.0 (5.0-7.0) 03/05/17 Unknown Ur Specific [place] 1.029 (1.003-1.030) 03/05/17 Unknown Urine Protein <15 mg/dl mg/dL (Negative) 03/05/17 Unknown Urine Glucose (UA) Neg mg/dL (Negative) 03/05/17 Unknown Urine Ketones Neg mg/dL (Negative) 03/05/17 Unknown Urine Blood Sm (Negative) 03/05/17 Unknown Urine Nitrite Neg (Negative) 03/05/17 Unknown Urine Bilirubin Neg (Negative) 03/05/17 Unknown Urine Urobilinogen < 2.0 mg/dL (<2.0) 03/05/17 Unknown Ur Leukocyte Esterase Mod (Negative) 03/05/17 Unknown Urine WBC (Auto) 19.0 /HPF (0.0-6.0) H 03/05/17 Unknown Urine RBC (Auto) 2.0 /HPF (0.0-6.0) 03/05/17 Unknown U Epithel Cells (Auto) 1.0 /HPF (0-13.0) 03/05/17 Unknown Urine Mucus Few /HPF 03/05/17 Unknown Digoxin 0.4 ng/mL (0.9-2.0) L 03/08/17 11:13 Blood Type B POSITIVE 03/08/17 11:13 Antibody Screen TNR 03/08/17 11:13 KYLEIGH Antibody Screen Negative 03/08/17 11:13 Crossmatch See Detail 03/08/17 11:13
[2017-03-13] MEDS: FLAGYL 500 MG/100 ML 500 MG/100 ML BAG IV SCH ×2 (05:33→14:48)
[2017-03-13] MEDS: MORPHINE IV PRN (05:44)
[2017-03-13] MEDS: LEVAQUIN 750MG/150ML 750 MG/150 ML BAG IV SCH (10:27)
[2017-03-13] MEDS: ZESTRIL PO SCH (10:28)
[2017-03-13] MEDS: HEPARIN SUB-Q SCH (10:28)
[2017-03-13] MEDS: COREG PO SCH (10:48)
[2017-03-13] MEDS: PROTONIX PO SCH (10:48)
--- NOTE | 2017-03-13 10:51 | Progress Note ---
Assessment and Plan Chronic Afib rate control warfarin therapy currently on hold Hematemesis s/p blood transfusion Small bowel obstruction Incarcerated Hernia s/p urgent exploratory lap with reduction of incarcerated incisional hernia and incisional hernia repair Leukocytosis Nonischemic CMP EF 20-25% on echo this admission no significant CAD on [facility] 2014 Continue medical management for chronic atrial fibrillation and nonischemic cardiomyopathy. Conservative cardiac management. Subjective Date of service: 03/13/17 Principal diagnosis: Acute respiratory Failure s/p MVS; UGI bleeding/SBO s/p Ex- lap Interval history: Patient speaks little Slovenian. No distress noted. Stable afib on telemetry. Objective Vital Signs Temp Pulse Resp BP Pulse Ox 03/13/17 10:48 98 H 114/82 03/13/17 10:28 98 H 114/82 03/13/17 04:42 97.7 F 82 18 136/79 97 03/13/17 00:26 97.5 F L 85 18 117/76 98 03/12/17 22:00 20 03/12/17 21:59 124/84 03/12/17 20:45 94 03/12/17 20:21 97.5 F L 110 H 18 124/84 100 03/12/17 19:26 130 H 03/12/17 17:30 113 H 03/12/17 16:48 114 H 98 - Physical Examination General: No Apparent Distress HEENT: Positive: PERRL Cardiac: Positive: irregularly irregular Extremities: Absent: edema - Allied health notes Allied health notes reviewed: RT
[2017-03-13] MEDS: D5W/NS W/KCL 20MEQ 20 MEQ/1,000 ML BAG IV SCH (11:15)
--- NOTE | 2017-03-13 12:52 | Progress Note ---
Assessment and Plan POD # 8 Pt feeling well without compl. loan full liq diet Abd soft, non tender. incision clean & dry. healing well. +BS EGD - no active signs of bleeding surgically stable reg diet. may d/c from my perspective if solid diet loan rto I wk Objective Vital Signs - 12hr 03/13/17 03/13/17 03/13/17 04:42 09:15 10:22 Temperature 97.7 F 97.6 F Pulse Rate 82 101 H 87 Respiratory 18 18 Rate Blood Pressure 136/79 114/82 O2 Sat by Pulse 97 100 98 Oximetry 03/13/17 03/13/17 03/13/17 10:28 10:48 12:02 Temperature 98.0 F Pulse Rate 98 H 98 H Respiratory 20 Rate Blood Pressure 114/82 114/82 131/79 O2 Sat by Pulse Oximetry - Labs 03/12/17 06:30 03/10/17 03:39
--- NOTE | 2017-03-13 13:16 | Discharge Summary ---
Providers - Providers Date of Admission: 02/28/17 19:08 Date of discharge: 03/13/17 Attending physician: MAHESH MOORE 03/03/17 11:43 Consult to Physician [CONS] Routine Consulting Provider: RITESH DE LA TORRE Reason For Exam: small bowel obstruction Place consult to:: Notified:: Phone number called:: [phone] Was contact made?: Yes If yes, spoke with:: EUSEBIA Time called:: 13:27 Comment:: CIPRIANO 03/04/17 07:49 Consult to Physician [CONS] Routine Consulting Provider: CHRISTIE MICHAEL Reason For Exam: r/o upper GI bleeding Place consult to:: Dr Michael Notified:: Office Phone number called:: [phone] Was contact made?: Yes If yes, spoke with:: Laurita Time called:: 09:54 03/06/17 23:13 Speech Therapy Evaluation and Treat [CONS] Urgent Reason For Exam: pt. 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 fib, and CHF who presented to emergency department with chest pains. Abdominal x -ray obtained on 03/02/2017 for the complain of abdominal pain and constipation which showed small bowel obstruction. Chest x-ray on 02/28/2017 showed no acute infiltrates, no abnormalities. 03/03/2070 TTE reported left ventricular size is moderate to severely dilated, global left ventricular systolic function severely decreased, estimated EF is 20-25%, left atrium is mildly to severe dilated, right atrium is mildly dilated, moderate MR, mild TR. Patient was seen, evaluated and followed by cardiology. -Acute GI blood loss anemia: GI is following, EGD pending once cardiology clears -Sepsis UTI and incarcerated hernia: treated with antibiotics -Small bowel obstruction due to incarcerated hernia s/p ex-lap with ileus, resolved, Start clear liquids per surgery -Acute hypoxic respiratory failure, still on oxygen: Try to wean, and nebulizer treatment and encourage incentive spirometer -Acute on chronic systolic dysfunction: Compensated now, echo showed EF of 20-25 %, medical management, low salt diet, Per cardiology, had cardiac cath that showed no significant coronary disease, but an ejection fraction of 20% -Afib/aflutter RVR, hypercoagulable state, Received Digoxin and was started on BB; Anticoagulated with Coumadin, INR supratherapeutic, now off Coumadin, cont rate control with iv metoprolol -Coagulopathy, INR went up to 4, likely secondary to interaction with antibiotics, Hold Coumadin and monitor INR closely, reversed with FFP and vit K -DVT prophylaxis: SCD due to anemia per GI: 03/12/2017: Procedure: EGD Endoscopist: Dwight Monterroso Pre-op diagnosis: Recent UGI bleeding Post-op diagnosis: Streaks of erythematous mucosa in gastric fundus, otherwise unremarkable egd Anesthesia: MAC Complications: No immediate complications Estimated blood loss: None Procedure: After consent was obtained, the patient was placed in the left lateral decubitus positions. The [place] upper endoscope was inserted into the patient' s mouth under direct vision, and advanced to the 2nd portion of the duodenum without difficulty. The patient tolerated the procedure well. The views of the mucosa were good. The patient's vital signs were monitored continuously throughout the procedure. Findings: There was a small hiatal hernia, otherwise the esophagus appeared normal. There were multiple streaks of erythematous mucosa in the gastric fundus/cardia , likely due to NG trauma. Otherwise, the stomach appeared normal. The duodenum appeared normal. Impression: 1. Streaks of erythematous mucosa in the gastric fundus, likely related to NG trauma. No high risk bleeding lesions seen. Otherwise, unremarkable EGD. Recommendations: -okay to resume anticoagulation if indicated per cardiology -PPI daily for PUD ppx Will sign off, please call back as needed or with questions. 1013/17: per Gen. Surgeon, Dr. De La Torre; POD # 8, Pt feeling well without compl. loan full liq diet, Abd soft, non tender. incision clean & dry. healing well. +BS, EGD - no active signs of bleeding, surgically stable, reg diet. may d/c from my perspective if solid diet loan, rto I wk Will discharge home Okay for a/c per GI, follow up with Cardiology. ?home o2, d/w case management Disposition: DC/[place]-06 HOME UNDER [facility] Time spent for discharge: 36 minutes Core Measure Documentation - Palliative Care Palliative Care/ Comfort Measures: Not Applicable - Core Measures Any of the following diagnoses?: heart failure - VTE Discharge Requirements Deep Vein Thrombosis/Pulmonary Embolism Present on Admission: No Has pt received <5 days of overlap therapy or INR<2.0: No Anticoagulant overlap therapy prescribed at discharge: No Contraindication No Overlap Therapy order at DC: Not Indicated - Heart Failure Discharge Requirements MARIA DEL CARMEN/ARB for LVSD if EF <40%: Yes Beta sari at discharge: Yes Exam - Physical Exam Narrative exam: GEN: WDWN, NAD, AWAKE, ALERT, ORIENTATED 3 HEENT: NCAT, EOMI, PERRL, OP Clear NECK: supple, no adenopathy, no thyromegaly, no JVD CVS/HEART: irrRRR, NORMAL S1S2, NO JVD, pulses present bilaterally CHEST/LUNGS: CTA B, Symmetrical chest expansion, good air entry bilaterally GI/Abdomen: soft, midline surgical scar with dressing clean dry and intact, positive bowel sounds, no guarding or rebound /Bladder: no suprapubic tenderness, no CVA or paraspinal tenderness EXT/Skin: no c/c/e, no significant edema or obvious rash MSK: FROM x 4 Neuro: CN 2-12 grossly intact, no new focal deficits Psych: calm - Constitutional Vitals: Temp Pulse Resp BP Pulse Ox 98.0 F 98 H 20 131/79 98 03/13/17 12:02 03/13/17 10:48 03/13/17 12:02 03/13/17 12:02 03/13/17 10:22 Plan Activity: up only with assistance, fall precautions, other (no strenous activity until cleared by pcp and cardiology) Diet: other (full liquid diet, advance as tolerated in 2 days) Additional Instructions: Obtain refills from either PCP or driver sales Follow up with: DEJAH UNDERWOOD MD [Primary Care Provider] - 7 Days RITESH DE LA TORRE MD [Staff Physician] - 7 Days RONIT LAM MD [Staff Physician] - 7 Days Forms: Warfarin Discharge Instruction, Work/School Excuse Out Patient Prescriptions: AtorvaSTATin [Lipitor] 10 mg PO QHS #30 tablet Carvedilol [Coreg] 6.25 mg PO BID #60 tablet Digoxin [Lanoxin] 0.125 mg PO DAILY@1700 #30 tablet Lisinopril [Zestril TAB] 2.5 mg PO QDAY #30 tablet
--- NOTE | 2017-03-13 13:40 | Progress Note ---
Subjective Date of service: 03/13/17 Principal diagnosis: Acute respiratory Failure s/p MVS; UGI bleeding/SBO s/p Ex- lap Interval history: Patient is seen today for: Acute Hypercapnic Hypoxemic Resp Failure; Acute GI Bleeding; Atrial Fibrillation with RVR Seen and examined at bedside; 24hour events reviewed; nursing and respiratory care staff consulted; no adverse overnight events reported to me; Objective Vital Signs - 12hr 03/13/17 03/13/17 03/13/17 04:42 09:15 10:00 Temperature 97.7 F Pulse Rate 82 101 H Respiratory 18 Rate Blood Pressure 136/79 O2 Sat by Pulse 97 100 95 Oximetry 03/13/17 03/13/17 03/13/17 10:22 10:28 10:48 Temperature 97.6 F Pulse Rate 87 98 H 98 H Respiratory 18 Rate Blood Pressure 114/82 114/82 114/82 O2 Sat by Pulse 98 Oximetry 03/13/17 12:02 Temperature 98.0 F Pulse Rate Respiratory 20 Rate Blood Pressure 131/79 O2 Sat by Pulse Oximetry Constitutional: no acute distress, alert, other (Weak) Eyes: non-icteric ENT: oropharynx moist Neck: supple, no lymphadenopathy, no JVD, other (no thyromegaly) Effort: mildly labored (pain limited) Ascultation: Bilateral: clear, diminished breath sounds, rales (scant in bases) Cardiovascular: irregular rhythm, other (S1,S2; No rubs / murmurs) Gastrointestinal: hypoactive bowel sounds, tender (clean dry surgical dressing) , non-distended Integumentary: normal Extremities: no cyanosis, no edema, pink and warm, pulses normal Neurologic: non-focal exam (moves all extremities to command), pupils equal and round, CN II-XII normal, motor strength normal and Psychiatric: mood appropriate, affect normal CBC and BMP: 03/12/17 06:30 03/10/17 03:39 ABG, PT/INR, D-dimer: ABG POC ABG pH 7.449 (7.35-7.45) 03/06/17 11:19 POC ABG pCO2 37.5 (35-45) 03/06/17 11:19 POC ABG pO2 86 (80-105) 03/06/17 11:19 POC ABG HCO3 26.0 03/06/17 11:19 POC ABG Total CO2 27 03/06/17 11:19 POC ABG O2 Sat 97 03/06/17 11:19 PT/INR, D-dimer PT 16.9 Sec. (12.2-14.9) H 03/07/17 04:55 INR 1.31 (0.87-1.13) H 03/07/17 04:55 Abnormal lab findings: Abnormal Labs 02/28/17 03/01/17 03/02/17 19:14 02:50 05:09 WBC RBC Hgb Hct MCHC RDW Lymph % (Auto) [place] % (Auto) [place] # Seg Neutrophils % Seg Neuts % (Manual) Lymphocytes % (Manual) Monocytes % (Manual) Nucleated RBC % Seg Neutrophils # Seg Neutrophils # Man Lymphocytes # (Manual) Monocytes # (Manual) PT 27.3 H 43.9 H INR 2.40 H 4.39 H POC ABG pH POC ABG pCO2 POC ABG pO2 Sodium Potassium Chloride BUN Creatinine Glucose POC Glucose Calcium NT-Pro-B Natriuret Pep 1929 H Total Protein Albumin Urine WBC (Auto) Digoxin Crossmatch 03/02/17 03/02/17 03/02/17 05:09 05:09 13:32 WBC 17.4 H RBC 5.48 H Hgb 15.9 H Hct 47.4 H MCHC RDW Lymph % (Auto) 11.3 L [place] % (Auto) [place] # Seg Neutrophils % 84.2 H Seg Neuts % (Manual) Lymphocytes % (Manual) Monocytes % (Manual) Nucleated RBC % Seg Neutrophils # 14.6 H Seg Neutrophils # Man Lymphocytes # (Manual) Monocytes # (Manual) PT 47.9 H INR 4.90 H POC ABG pH POC ABG pCO2 POC ABG pO2 Sodium 136 L Potassium Chloride 97.7 L BUN Creatinine 0.5 L Glucose 109 H POC Glucose Calcium NT-Pro-B Natriuret Pep Total Protein Albumin Urine WBC (Auto) Digoxin Crossmatch 03/03/17 03/03/17 03/03/17 06:32 06:32 06:32 WBC 19.0 H RBC 5.46 H Hgb 16.0 H Hct 46.8 H MCHC RDW 13.1 L Lymph % (Auto) 10.7 L [place] % (Auto) [place] # 1.0 H Seg Neutrophils % 83.2 H Seg Neuts % (Manual) Lymphocytes % (Manual) Monocytes % (Manual) Nucleated RBC % Seg Neutrophils # 15.8 H Seg Neutrophils # Man Lymphocytes # (Manual) Monocytes # (Manual) PT 44.3 H INR 4.44 H POC ABG pH POC ABG pCO2 POC ABG pO2 Sodium Potassium Chloride BUN 24 H Creatinine 0.6 L Glucose 101 H POC Glucose Calcium NT-Pro-B Natriuret Pep Total Protein Albumin 3.4 L Urine WBC (Auto) Digoxin Crossmatch 03/03/17 03/04/17 03/04/17 18:00 05:27 05:27 WBC 16.0 H RBC 5.16 H Hgb 15.1 H Hct 43.8 H MCHC RDW Lymph % (Auto) 8.3 L [place] % (Auto) [place] # Seg Neutrophils % 86.5 H Seg Neuts % (Manual) Lymphocytes % (Manual) Monocytes % (Manual) Nucleated RBC % Seg Neutrophils # 13.8 H Seg Neutrophils # Man Lymphocytes # (Manual) Monocytes # (Manual) PT 26.8 H INR 2.34 H POC ABG pH POC ABG pCO2 POC ABG pO2 Sodium Potassium Chloride BUN Creatinine Glucose POC Glucose Calcium NT-Pro-B Natriuret Pep Total Protein Albumin Urine WBC (Auto) Digoxin Crossmatch See Detail 03/04/17 03/04/17 03/04/17 05:27 13:31 23:05 WBC 17.2 H RBC Hgb Hct MCHC RDW Lymph % (Auto) 11.6 L [place] % (Auto) [place] # 1.2 H Seg Neutrophils % 81.2 H Seg Neuts % (Manual) 85.0 H Lymphocytes % (Manual) 8.0 L Monocytes % (Manual) Nucleated RBC % Seg Neutrophils # 13.7 H Seg Neutrophils # Man 14.6 H Lymphocytes # (Manual) Monocytes # (Manual) PT 19.3 H INR 1.55 H POC ABG pH POC ABG pCO2 POC ABG pO2 Sodium Potassium Chloride BUN 20 H Creatinine 0.5 L Glucose 162 H POC Glucose Calcium 8.0 L NT-Pro-B Natriuret Pep Total Protein Albumin 3.5 L Urine WBC (Auto) Digoxin Crossmatch 03/05/17 03/05/17 03/05/17 05:18 05:18 05:18 WBC 15.0 H RBC 3.52 L Hgb Hct 30.0 L MCHC 35 H RDW 13.1 L Lymph % (Auto) 12.3 L [place] % (Auto) 9.1 H [place] # 1.4 H Seg Neutrophils % 78.5 H Seg Neuts % (Manual) Lymphocytes % (Manual) Monocytes % (Manual) Nucleated RBC % Seg Neutrophils # 11.8 H Seg Neutrophils # Man Lymphocytes # (Manual) Monocytes # (Manual) PT 16.5 H INR 1.27 H POC ABG pH POC ABG pCO2 POC ABG pO2 Sodium Potassium 3.5 L Chloride BUN 34 H Creatinine 0.4 L Glucose 132 H POC Glucose Calcium 8.2 L NT-Pro-B Natriuret Pep Total Protein Albumin Urine WBC (Auto) Digoxin Crossmatch 03/05/17 03/05/17 03/05/17 10:39 11:00 17:50 WBC 22.1 H 18.2 H RBC 3.51 L 3.30 L Hgb 9.6 L Hct 28.7 L MCHC RDW 13.1 L 13.1 L Lymph % (Auto) [place] % (Auto) 8.6 H [place] # 1.6 H Seg Neutrophils % 76.5 H Seg Neuts % (Manual) Lymphocytes % (Manual) Monocytes % (Manual) 14.0 H Nucleated RBC % Seg Neutrophils # 13.9 H Seg Neutrophils # Man 15.5 H Lymphocytes # (Manual) Monocytes # (Manual) 3.1 H PT INR POC ABG pH POC ABG pCO2 46.7 H POC ABG pO2 Sodium Potassium Chloride BUN Creatinine Glucose POC Glucose Calcium NT-Pro-B Natriuret Pep Total Protein Albumin Urine WBC (Auto) Digoxin Crossmatch 03/05/17 03/06/17 03/06/17 Unknown 04:06 04:49 WBC RBC Hgb Hct MCHC RDW Lymph % (Auto) [place] % (Auto) [place] # Seg Neutrophils % Seg Neuts % (Manual) Lymphocytes % (Manual) Monocytes % (Manual) Nucleated RBC % Seg Neutrophils # Seg Neutrophils # Man Lymphocytes # (Manual) Monocytes # (Manual) PT 17.3 H INR 1.34 H POC ABG pH 7.707 H POC ABG pCO2 19.4 L POC ABG pO2 60 L Sodium Potassium Chloride BUN Creatinine Glucose POC Glucose Calcium NT-Pro-B Natriuret Pep Total Protein Albumin Urine WBC (Auto) 19.0 H Digoxin Crossmatch 03/06/17 03/06/17 03/07/17 04:49 04:49 04:55 WBC 20.2 H RBC 3.18 L Hgb 9.5 L Hct 27.6 L MCHC RDW 13.1 L Lymph % (Auto) [place] % (Auto) [place] # Seg Neutrophils % Seg Neuts % (Manual) 87.0 H Lymphocytes % (Manual) 8.0 L Monocytes % (Manual) Nucleated RBC % Seg Neutrophils # Seg Neutrophils # Man 17.6 H Lymphocytes # (Manual) Monocytes # (Manual) PT 16.9 H INR 1.31 H POC ABG pH POC ABG pCO2 POC ABG pO2 Sodium Potassium Chloride BUN 30 H Creatinine Glucose 113 H POC Glucose Calcium 7.5 L NT-Pro-B Natriuret Pep Total Protein 5.5 L Albumin 2.7 L Urine WBC (Auto) Digoxin Crossmatch 03/07/17 03/07/17 03/07/17 04:55 04:55 14:47 WBC 23.5 H 21.5 H RBC 3.18 L 2.96 L Hgb 9.3 L 8.6 L Hct 27.8 L 26.0 L MCHC RDW Lymph % (Auto) [place] % (Auto) [place] # Seg Neutrophils % Seg Neuts % (Manual) 74.0 H Lymphocytes % (Manual) 8.0 L Monocytes % (Manual) 9.0 H Nucleated RBC % Seg Neutrophils # Seg Neutrophils # Man 17.4 H Lymphocytes # (Manual) Monocytes # (Manual) 2.1 H PT INR POC ABG pH POC ABG pCO2 POC ABG pO2 Sodium Potassium Chloride 107.2 H BUN Creatinine 0.4 L Glucose 128 H POC Glucose Calcium 7.9 L NT-Pro-B Natriuret Pep Total Protein 5.8 L Albumin 2.6 L Urine WBC (Auto) Digoxin Crossmatch 03/08/17 03/08/17 03/08/17 01:53 05:48 11:13 WBC 19.1 H RBC 2.85 L Hgb 8.3 L Hct 25.1 L MCHC RDW Lymph % (Auto) 9.9 L [place] % (Auto) 7.6 H [place] # 1.5 H Seg Neutrophils % 82.3 H Seg Neuts % (Manual) Lymphocytes % (Manual) Monocytes % (Manual) Nucleated RBC % Seg Neutrophils # 15.7 H Seg Neutrophils # Man Lymphocytes # (Manual) Monocytes # (Manual) PT INR POC ABG pH POC ABG pCO2 POC ABG pO2 Sodium Potassium Chloride 110.6 H BUN Creatinine 0.4 L Glucose 153 H POC Glucose Calcium 7.7 L NT-Pro-B Natriuret Pep Total Protein Albumin Urine WBC (Auto) Digoxin Crossmatch See Detail 03/08/17 03/09/17 03/09/17 11:13 05:48 08:28 WBC 18.0 H RBC Hgb Hct MCHC RDW Lymph % (Auto) [place] % (Auto) [place] # Seg Neutrophils % Seg Neuts % (Manual) 88.0 H Lymphocytes % (Manual) 4.0 L Monocytes % (Manual) Nucleated RBC % 2.0 H Seg Neutrophils # Seg Neutrophils # Man 15.8 H Lymphocytes # (Manual) 0.7 L Monocytes # (Manual) 1.1 H PT INR POC ABG pH POC ABG pCO2 POC ABG pO2 Sodium Potassium Chloride BUN Creatinine Glucose POC Glucose 152 H Calcium NT-Pro-B Natriuret Pep Total Protein Albumin Urine WBC (Auto) Digoxin 0.4 L Crossmatch 03/09/17 03/09/17 03/10/17 12:06 14:01 03:30 WBC 13.8 H RBC 3.42 L Hgb Hct 30.2 L 30.1 L MCHC RDW Lymph % (Auto) [place] % (Auto) 11.1 H [place] # 1.5 H Seg Neutrophils % 70.7 H Seg Neuts % (Manual) Lymphocytes % (Manual) Monocytes % (Manual) Nucleated RBC % Seg Neutrophils # 9.8 H Seg Neutrophils # Man Lymphocytes # (Manual) Monocytes # (Manual) PT INR POC ABG pH POC ABG pCO2 POC ABG pO2 Sodium Potassium Chloride BUN Creatinine Glucose POC Glucose 152 H Calcium NT-Pro-B Natriuret Pep Total Protein Albumin Urine WBC (Auto) Digoxin Crossmatch 03/10/17 03/12/17 03:39 06:30 WBC 13.6 H RBC 3.58 L Hgb Hct MCHC RDW Lymph % (Auto) [place] % (Auto) 9.8 H [place] # 1.3 H Seg Neutrophils % 71.6 H Seg Neuts % (Manual) Lymphocytes % (Manual) Monocytes % (Manual) Nucleated RBC % Seg Neutrophils # 9.7 H Seg Neutrophils # Man Lymphocytes # (Manual) Monocytes # (Manual) PT INR POC ABG pH POC ABG pCO2 POC ABG pO2 Sodium Potassium Chloride 108.2 H BUN Creatinine 0.4 L Glucose 122 H POC Glucose Calcium 7.3 L NT-Pro-B Natriuret Pep Total Protein Albumin Urine WBC (Auto) Digoxin Crossmatch Allied health notes reviewed: RT
[2017-03-13] MEDS ORDERED: COUMADIN PO SCH (17:00)
[2017-03-13] MEDS: LANOXIN PO SCH (19:17)
[2017-03-13 19:45] VITALS: BP 123/85
== END 2017-03-13 20:24 | disposition home health service (06) | DRG 853 ==
LOC: ED 17:20 → 4A 19:08 → CC1 03-05 10:40 → 4A 03-07 20:10
PROVIDERS: ADMIT Internal Medicine; ATTEND Internal Medicine
PROC: 30233L1 Transfusion of Nonautologous Fresh Plasma into Peripheral Vein, Percutaneous Approach (ICD-10-PCS; 2017-03-04)
PROC: 30233N1 Transfusion of Nonautologous Red Blood Cells into Peripheral Vein, Percutaneous Approach (ICD-10-PCS; 2017-03-04)
PROC: 30233K1 Transfusion of Nonautologous Frozen Plasma into Peripheral Vein, Percutaneous Approach (ICD-10-PCS; 2017-03-04)
PROC: 0WUF0JZ Supplement Abdominal Wall with Synthetic Substitute, Open Approach (ICD-10-PCS; 2017-03-05)
PROC: 5A1935Z Respiratory Ventilation, Less than 24 Consecutive Hours (ICD-10-PCS; 2017-03-05)
PROC: 0BH17EZ Insertion of Endotracheal Airway into Trachea, Via Natural or Artificial Opening (ICD-10-PCS; 2017-03-05)
PROC: 4A033R1 Measurement of Arterial Saturation, Peripheral, Percutaneous Approach (ICD-10-PCS; 2017-03-06)
PROC: 0DJ08ZZ Inspection of Upper Intestinal Tract, Via Natural or Artificial Opening Endoscopic (ICD-10-PCS; principal; 2017-03-12)
DX: A41.9 Sepsis, unspecified organism (principal); J96.01 Acute respiratory failure with hypoxia; J18.9 Pneumonia, unspecified organism; J96.02 Acute respiratory failure with hypercapnia; I50.23 Acute on chronic systolic (congestive) heart failure; D62 Acute posthemorrhagic anemia; N39.0 Urinary tract infection, site not specified; K43.0 Incisional hernia with obstruction, without gangrene; I42.0 Dilated cardiomyopathy; D68.9 Coagulation defect, unspecified; K92.2 Gastrointestinal hemorrhage, unspecified; K56.7 Ileus, unspecified; Z87.891 Personal history of nicotine dependence; K21.9 Gastro-esophageal reflux disease without esophagitis; I48.0 Paroxysmal atrial fibrillation; I25.10 Atherosclerotic heart disease of native coronary artery without angina pectoris; Z79.899 Other long term (current) drug therapy
CPT/HCPCS: 36415; 36600; 71010; 74000; 74022; 74177; 80048; 80053; 80061; 80074; 80162; 81001; 82140; 82150; 82550; 82553; 82803; 82962; 83735; 83880; 84439; 84443; 84484; 85007; 85014; 85018; 85025; 85027; 85610; 85730; 86850; 86900; 86901; 86920; 87040; 87086; 88304; 88305; 93005; 93010; 93306; 94002; 94003; 94760; 96374; 99285; A9270-GY; C1781; C9113; G8996-GN; G8997-GN; G8998-GN; J0456; J0696; J1160; J1170; J1644; J1956; J2250; J2270; J2370; J2405; J2704; J2710; J3010; J3246; J3430; J7030; J7040; J7050; J7120; P9016; P9017; Q9967